=== PATIENT | male | born 1955 | race Hispanic/Latino ===

== ENCOUNTER 2018-05-31 11:26 | Observation (INO) | payer BC, OTHER ==
--- OUTSIDE RECORDS SUMMARY | 2018-05-31 11:29 | XMS REPORT ---
:1955 [facility] Address [address] [place] [address] [address] [place] [address] Care Team Providers Name Role Phone VLADISLAV PINEDA Primary Care Provider Unavailable VLADISLAV PINEDA Unavailable Unavailable Problems This patient has no known problems. Allergies, Adverse Reactions, Alerts This patient has no known allergies or adverse reactions. Medications This patient has no known medications. Encounters Start End Encounter Admission Attending Care Care Encounter Date/Time Date/Time Type Type Clinicians Facility Department ID 2017-11-13 2017-11-13 Outpatient C MIRIAM [facility] [id number] 18:02:00 18:02:00 VLADISLAV Results Test Description Test Time Test Comments Text Results Atomic Results Result Comments Lipid Profile 2017-11-13 19:14:00 Test Item Value Reference Range Comments Cholesterol (test code=CHOL) 180 mg/dL 0-200 Triglycerides (test code=TRIG) 190 mg/dL 9-200 HDL (test code=HDL) 39 mg/dL 40-60 Chol/HDL (test code=CHOLPHDL) 4.6 Ratio 0.0-5.0 LDL, Calculated (test 103 mg/dL 0-130 (NOTE)RISK OF HEART DISEASEPublished code=LDLC) by [place] Heart AssociationAnalyte Optimal Boderline Increased RiskCHOL <200 200-239 >240TRIG <150 150-199 >200HDL Male: >60 <40HDL Female: >60 <50LDL <100 130-159 >160LDL NEAR OPTIMAL IS 100-129 VLDL (test code=VLDL) 38 mg/dL 5-40 LDL/HDL (test code=LDLPHDL) 3 B-Type Natriuretic [id number] 11:54:00 Test Item Value Reference Range Comments B-Type Natriuretic Peptide (test vuzu=540382) 52.6 pg/mL 0.0-100.0 Glycosylated [id number] 00:07:00 Test Item Value Reference Range Comments HBA1c (test code=HBA1C) 11.3 % 4.8-5.9 CBC with [id number] 22:52:00 Test Item Value Reference Range Comments WBC (test code=WBC) 6.6 K/cumm 4.4-10.5 RBC (test code=RBC) 4.79 M/cumm 4.10-5.70 Hemoglobin (test code=HGB) 14.3 gm/dL 13.4-17.4 Hematocrit (test code=HCT) 44.4 % 38.7-52.0 MCV (test code=MCV) 92.8 fL 80-100 MCH (test code=MCH) 29.7 pg 27.0-32.5 MCHC (test code=MCHC) 32.1 g/dL 32.0-37.5 RDW (test code=RDW) 15.1 % 11.5-14.5 Platelet Count (test code=PLTCT) 250 K/cumm 140-440 MPV (test code=MPV) 10.3 fL Diff Method (test code=DIFFM) Auto Neutrophil (test code=NEUT) 58.7 % 36-70 Lymphocyte (test code=LYMPH) 31.7 % 12-44 Monocyte (test code=MONO) 5.7 % 0-11 Eosinophil (test code=EOS) 3.4 % 0-7 Basophil (test code=BASO) 0.5 % 0-2 Neutro Abs (test code=ANEUT) 3.9 K/cumm 1.6-7.4 Lymph Abs (test code=ALYMPH) 2.1 K/cumm 0.5-4.6 Iron Abs (test code=AMONO) 0.4 K/cumm 0.0-1.2 Eos Abs (test code=AEOS) 0.23 K/cumm 0.00-0.74 Baso Abs (test code=ABASO) 0.0 K/cumm 0.00-0.21 Vitamin [id number] 21:45:00 Test Item Value Reference Range Comments Vitamin B 12 (test code=VITB12) 797 pg/mL 211-946 Troponin [id number] 21:39:00 Test Item Value Reference Range Comments Troponin T (test code=PARESH) <0.010 ng/mL 0.000-0.090 Testosterone, [id number] 21:39:00 Test Item Value Reference Range Comments Testosterone, Total (test code=TESTOS) 3.81 ng/mL 2.80-8.00 Thyroid Stimulating Hormone (TSH)2017-02-18 21:39:00 Test Item Value Reference Range Comments TSH (test code=TSH) 2.04 mIU/mL 0.270-4.200 Comprehensive Metabolic [id number] 21:39:00 Test Item Value Reference Range Comments Sodium (test code=NA) 138 mmol/L 135-145 Potassium (test code=K) 3.9 mmol/L 3.5-5.1 Chloride (test code=CL) 97 mmol/L 98-105 Carbon Dioxide (test 25 mmol/L 22-29 code=CO2) Glucose (test code=GLU) 258 mg/dL 70-115 Blood Urea Nitrogen 17 mg/dL 8-23 (test code=BUN) Creatinine (test 0.8 mg/dL 0.7-1.2 code=CREAT) Calcium (test code=CA) 9.8 mg/dL 8.3-10.5 Prot Total (test 7.2 g/dL 6.4-8.3 code=TP) Albumin (test code=ALB) 4.5 g/dL 3.5-5.2 A/G Ratio (test 1.7 Ratio code=AGRATIO) Globulin (test 2.7 2.9-3.1 code=GLOB) Bili Total (test 0.8 mg/dL 0.1-0.9 code=TBIL) Alk Phos (test 78 U/L 40-129 code=APHOS) AST (test code=AST) 13 U/L 1-40 ALT (test code=ALT) 16 U/L 1-41 BUN/Creatinine Ratio 21.3 (test code=BCRATIO) Anion Gap (test 16 mmol/L 7-16 code=AGAP) Estimated GFR (test >60 mL/min/1.73m2 eGFR (estimated Glomerular code=GFR) Filtration Rate) is an estimated value,calculated from the patient's serum creatinine using the MDRD equation.It is NOT the patient's actual GFR. The eGFR provides a more clinicallyuseful measure of kidney disease than serum creatinine alone.This calculation takes sex and race into account, if the informationis provided. If the race is not provided, and the patient isAfrican-[place], multiply by 1.212. If sex is not provided, and thepatient is female, multiply by 0.742. Results for patients <18 years ofage have not been validated by the MDRD study and should be interpretedwith caution.eGFR Result Interpretation:eGFR > or=60 is in the Normal RangeeGFR < 60 may mean kidney diseaseeGFR < 15 may mean kidney failureRanges recommended by the National Kidney Foundation,http://nkdep.nih .gov CK [id number] 21:39:00 Test Item Value Reference Range Comments CK (test code=CK) 119 U/L 39-308 CK [id number] 21:39:00 Test Item Value Reference Range Comments CK (test code=CK) 119 U/L 39-308 CKMB (test code=CKMB) 1.9 ng/mL 0.0-4.9 CKMB% (test code=CKMBP) 1.6 % 0.0-3.4 Lipid [id number] 21:39:00 Test Item Value Reference Range Comments Cholesterol (test 169 mg/dL 0-200 code=CHOL) Triglycerides (test 211 mg/dL 9-200 code=TRIG) HDL (test code=HDL) 42 mg/dL 40-60 Chol/HDL (test 4.0 Ratio 0.0-5.0 code=CHOLPHDL) LDL, Calculated (test 85 0-130 (NOTE)RISK OF HEART code=LDLC) DISEASEPublished by [place] Heart AssociationAnalyte Optimal Boderline Increased RiskCHOL <200 200-239 >240TRIG <150 150-199 >200HDL Male: >60 <40HDL Female: >60 <50LDL <100 130-159 >160LDL NEAR OPTIMAL IS 100-129 VLDL (test code=VLDL) 42 mg/dL 5-40 LDL/HDL (test code=LDLPHDL) 2
[2018-05-31] MEDS ORDERED: NA CHLORIDE 0.9% 1,000 ML ONE (11:54)
[2018-05-31 11:58] LABS: Absolute Monocytes 0.5 K/uL (0.1-1.3); Absolute Neutrophil 5.1 K/uL (1.8-8.0); Basophils % 0.6 % (0-1.3); Eosinophils % 1.1 % (0-4.4); Hematocrit 40.5 % (39.6-49.0); Lymphocytes % 25.9 % (15.3-44.8); MCH 31.3 pg (27.0-35.0); MCV 89.1 fL (80-100); MPV 9.5 fL (7.6-11.3); Monocytes % 6.9 % (3.3-12.3); RBC Red Blood Cell Count 4.54 M/uL (4.33-5.43)
[2018-05-31 12:03] LABS: Protime INR 0.97
[2018-05-31 12:30] LABS: ALT/SGPT 22 U/L (12-78); AST/SGOT 20 U/L (15-37); Albumin 3.9 g/dL (3.4-5.0); Alkaline Phosphatase 79 U/L (45-117); BUN Blood Urea Nitrogen 24 mg/dL (7-18); Bicarbonate 20 mmol/L (21-32); Glucose Level 545 mg/dL (74-106); Magnesium 1.6 mg/dL (1.8-2.4); NT PRO-BNP 53 pg/mL (<125); Potassium 4.3 mmol/L (3.5-5.1); Protein, Total 7.3 g/dL (6.4-8.2); Sodium Level 128 mmol/L (136-145); Troponin (Emerg Dept Use Only) < 0.02 ng/mL (0.0-0.045)
--- NOTE | 2018-05-31 12:42 | RAD REPORT ---
EXAM DESCRIPTION: RAD - Chest Single View - 05/31/2018 12:04 pm CLINICAL HISTORY: CHEST PAIN Chest pain. COMPARISON: CHEST SINGLE VIEW dated 05/27/2014; CHEST SINGLE VIEW dated 05/26/2014; CHEST SINGLE VIEW dated 10/24/2012; CHEST SINGLE VIEW dated 06/09/2011 FINDINGS: Portable technique limits examination quality. The lungs are grossly clear. The heart is normal in size. No displaced fractures.Dual lead pacer mitesh ce is in place. IMPRESSION: No acute intrathoracic process suspected.
--- NOTE | 2018-05-31 13:44 | RAD REPORT ---
EXAM DESCRIPTION: CT - Chest Angio - 05/31/2018 1:34 pm CLINICAL HISTORY: Chest pain. elevated ddimer, CP COMPARISON: Head Brain Wo Cont dated 03/18/2016; Abdomen Pelvis Wo Contrast dated 12/15/2015; Head B rain Wo Cont dated 12/15/2015; CT HEAD BRAIN WWO CONTRAST dated 10/09/2015CTANGIO CHEST FOR PE dated 10/24/2012 TECHNIQUE: CT angiogram of the pulmonary arteries was performed with MIP. All CT scans are performed using dose optimization technique as appropriate and may include automated exposure control or mA/KV adjustment according to patient size. FINDINGS: No evidence of pulmonary thromboembolism. No acute aortic finding demonstrated. Mild diffuse COPD noted. No significant pericardial or pleural fluid. No concerning bony finding. Cholecystectomy clips. IMPRESSION: No evidence of pulmonary thromboembolism. Mild COPD.
[2018-05-31] MEDS ORDERED: INSULIN -REGULAR HUMAN 50 UNIT/0.5 ML ML ONE (13:51)
--- NOTE | 2018-05-31 14:34 | ER ---
Nurse's Notes [facility] Name: Marquise Knight Age: 63 yrs Sex: Male : 1955 Arrival Date: 05/31/2018 Time: 11:29 Bed 8 Private MD: HOLLY DAWSON Diagnosis: Chest pain, unspecified;Hyperglycemia Presentation: 05/31 11:33 Presenting complaint: Patient states: I have had chest pain on and off for the last la1 week and my sugars have been very high (300-600). Transition of care: patient was not received from another setting of care. Onset of symptoms was May 31, 2018. Risk Assessment: Do you want to hurt yourself or someone else? Patient reports no desire to harm self or others. Initial Sepsis Screen:. Care prior to arrival: None. 11:33 Method Of Arrival: Wheelchair la1 11:33 Acuity: AMY 2 la1 11:57 Initial Sepsis Screen: Does the patient meet any 2 criteria? No. Patient's initial ph sepsis screen is negative. Does the patient have a suspected source of infection? No. Patient's initial sepsis screen is negative. Historical: - Allergies: 11:34 No Known Allergies; la1 - Home Meds: 14:28 Humalog Mix 75-25 100 unit/mL (75-25) Sub-Q susp 25 unit twice a day [Active]; sv - PMHx: 11:34 Diabetes - NIDDM; High Cholesterol; Hypertension; CVA; la1 - PSHx: 11:34 pacemakes; Cholecystectomy; Knee surgery; la1 - Immunization history:: Adult Immunizations up to date. - Social history:: Smoking status: Patient/guardian denies using tobacco. - Ebola Screening: : No symptoms or risks identified at this time. Screenin:56 Abuse screen: Denies threats or abuse. Denies injuries from another. Nutritional ph screening: No deficits noted. Tuberculosis screening: No symptoms or risk factors identified. Fall Risk None identified. Assessment: 11:54 General: Appears in no apparent distress. comfortable, well groomed, Behavior is calm, ph cooperative, appropriate for age, Denies feeling ill. Pain: Complains of pain in anterior aspect of left upper chest Pain does not radiate. Quality of pain is described as pressure, Pain began "about a week ago". Neuro: Level of Consciousness is awake, alert, obeys commands, Oriented to person, place, time, situation, Reports dizziness, headache weakness " all over". Cardiovascular: Reports chest pain, fatigue, lightheadedness, palpitations, Denies nausea, shortness of breath, vomiting, Capillary refill < 3 seconds in bilateral fingers Patient's skin is warm and dry. Rhythm is sinus rhythm. Respiratory: Airway is patent Respiratory effort is even, unlabored, Respiratory pattern is regular, symmetrical. GI: Patient currently denies abdominal pain, diarrhea, nausea, vomiting. : No signs and/or symptoms were reported regarding the genitourinary system. Derm: Skin is intact, Skin is pink, warm \\T\\ dry. Musculoskeletal: Circulation, motion, and sensation intact. Range of motion: intact in all extremities. 12:30 Reassessment: Serum glucose 545, Dr. Smith notified. hb 14:02 Reassessment: Patient appears in no apparent distress at this time. Patient and/or ph family updated on plan of care and expected duration. Pain level reassessed. Patient is alert, oriented x 3, equal unlabored respirations, skin warm/dry/pink. Pt resting quietly, awaiting CT results, at bedside, VSS. 15:10 Reassessment: Patient appears in no apparent distress at this time. No changes from sv previously documented assessment. Patient and/or family updated on plan of care and expected duration. Pain level reassessed. Patient is alert, oriented x 3, equal unlabored respirations, skin warm/dry/pink. 16:00 Reassessment: Patient appears in no apparent distress at this time. No changes from sv previously documented assessment. Patient and/or family updated on plan of care and expected duration. Pain level reassessed. Patient is alert, oriented x 3, equal unlabored respirations, skin warm/dry/pink. Vital Signs: 11:35 BP 128 / 90; Pulse 115; Resp 16; Temp 98.4; Pulse Ox 96% on R/A; Weight 95.25 kg; la1 Height 5 ft. 9 in. (175.26 cm); 13:00 BP 126 / 68; Pulse 83; Resp 18; Pulse Ox 96% on R/A; ph 14:00 BP 121 / 74; Pulse 79; Resp 16; Pulse Ox 97% on R/A; ph 15:30 BP 122 / 76; Pulse 81; Resp 16; Pulse Ox 99% on R/A; ph 11:35 Body Mass Index 31.01 (95.25 kg, 175.26 cm) la1 ED Course: 11:29 Patient arrived in ED. sb2 11:30 HOLLY DAWSON is Private Physician. sb2 11:34 Triage completed. la1 11:35 Arm band placed on left wrist. la1 11:39 Tono Smith MD is Attending Physician. ps1 11:49 Inserted saline lock: 20 gauge in right forearm, using aseptic technique. Blood la1 collected. 11:53 Maria Elena Arrington, RN is Primary Nurse. ph 11:56 Patient maintains SpO2 saturation greater than 95% on room air. ph 11:57 Patient has correct armband on for positive identification. Placed in gown. Bed in low ph position. Call light in reach. Side rails up X 1. force adjustment supervisor on. Pulse ox on. NIBP on. 12:03 XRAY Chest (1 view) In Process Unspecified. EDMS 13:31 CT completed. Patient moved to CT via wheelchair. Patient moved back from radiology. cw1 13:35 CT Chest Angio In Process Unspecified. EDMS 14:33 Renee Vasquez MD is Hospitalizing Provider. ps1 15:51 No provider procedures requiring assistance completed. Patient admitted, IV remains in sv place. intact. Administered Medications: 11:58 Drug: NS 0.9% 1000 ml Route: IV; Rate: 1000 ml; Site: right forearm; ph 13:53 Drug: Insulin Regular Human 10 units {Co-Signature: hb (Vonda Kennedy RN).} Route: ph Sub-Q; Site: right upper arm; Point of Care Testing: Blood Glucose: 11:49 Blood Glucose: 441 mg/dL; la1 13:55 Blood Glucose: 371 mg/dL; ph Ranges: Outcome: 14:33 Decision to Hospitalize by Provider. ps1 15:52 Admitted to Tele accompanied by tech, family with patient, via wheelchair, room 429, sv with chart, Report called to Alex Mitchell RN 16:11 Patient left the ED. sv Signatures: Dispatcher [employer] EDOR Miriam Pulliam RN RN Eva Beckwith cw1 Gavin Ospina RN RN la1 Arrington, Maria Elena, RN Vonda Llamas ph, RN RN hb Tono Smith MD MD ps1 Micaela Tristan sb2 Vonda Kennedy RN hb Corrections: (The following items were deleted from the chart) 11:34 11:33 Acuity: AMY 3 la1 la1
--- NOTE | 2018-05-31 14:34 | EDPHYS ---
Physician Documentation [facility] Name: Marquise Knight Age: 63 yrs Sex: Male : 1955 Arrival Date: 05/31/2018 Time: 11:29 Bed 8 Private MD: HOLLY DAWSON ED Physician Tono Smith HPI: 05/31 11:40 This 63 yrs old Male presents to ER via Wheelchair with complaints of Chest ps1 Pain > 30 y/o. 11:40 The patient or guardian reports chest pain that is located primarily in the substernal ps1 area. Onset: 1 week(s) ago. The pain does not radiate. Associated signs and symptoms: Pertinent positives: headache. The chest pain is described as dull, a heaviness. Duration: The patient or guardian reports multiple episodes, that are intermittent. The patient has experienced a previous episode. hx of IDDM. 30 qam qhs with meals. BS>600 this past week. Has appointment with endocrinology. 441 in ED. Hx of Pacer in [facility] for symptomatic bradycardia. . Historical: - Allergies: 11:34 No Known Allergies; la1 - Home Meds: 14:28 Humalog Mix 75-25 100 unit/mL (75-25) Sub-Q susp 25 unit twice a day [Active]; sv - PMHx: 11:34 Diabetes - NIDDM; High Cholesterol; Hypertension; CVA; la1 - PSHx: 11:34 pacemakes; Cholecystectomy; Knee surgery; la1 - Immunization history:: Adult Immunizations up to date. - Social history:: Smoking status: Patient/guardian denies using tobacco. - Ebola Screening: : No symptoms or risks identified at this time. ROS: 11:40 Constitutional: Negative for fever, chills, and weight loss, Eyes: Negative for injury, ps1 pain, redness, and discharge, ENT: Negative for injury, pain, and discharge. 11:40 Respiratory: Negative for shortness of breath, cough, wheezing, and pleuritic chest pain, Abdomen/GI: Negative for abdominal pain, nausea, vomiting, diarrhea, and constipation, MS/Extremity: Negative for injury and deformity, Skin: Negative for injury, rash, and discoloration. 11:40 Cardiovascular: Positive for chest pain, of the anterior aspect of left upper chest. 11:40 Neuro: Positive for headache. Exam: 11:40 Constitutional: This is a well developed, well nourished patient who is awake, alert, ps1 and in no acute distress. Head/Face: Normocephalic, atraumatic. Eyes: Pupils equal round and reactive to light, extra-ocular motions intact. Lids and lashes normal. Conjunctiva and sclera are non-icteric and not injected. Cardiovascular: Regular rate and rhythm. No gallops, murmurs, or rubs. Normal PMI, no JVD. No pulse deficits. Respiratory: Lungs have equal breath sounds bilaterally, clear to auscultation and percussion. No rales, rhonchi or wheezes noted. No increased work of breathing, no retractions or nasal flaring. Abdomen/GI: Soft, non-tender, with normal bowel sounds. No distension or tympany. No guarding or rebound. No evidence of tenderness throughout. Skin: Warm, dry with normal turgor. Normal color with no rashes, no lesions, and no evidence of cellulitis. 11:40 Chest/axilla: Inspection: pacer in left chest. Vital Signs: 11:35 BP 128 / 90; Pulse 115; Resp 16; Temp 98.4; Pulse Ox 96% on R/A; Weight 95.25 kg; la1 Height 5 ft. 9 in. (175.26 cm); 13:00 BP 126 / 68; Pulse 83; Resp 18; Pulse Ox 96% on R/A; ph 14:00 BP 121 / 74; Pulse 79; Resp 16; Pulse Ox 97% on R/A; ph 15:30 BP 122 / 76; Pulse 81; Resp 16; Pulse Ox 99% on R/A; ph 11:35 Body Mass Index 31.01 (95.25 kg, 175.26 cm) la1 MDM: 12:24 Patient medically screened. ps1 05/31 11:45 Order name: CBC with Diff; Complete Time: 12:24 ps1 05/31 11:45 Order name: Magnesium; Complete Time: 12:46 ps1 05/31 11:45 Order name: NT PRO-BNP; Complete Time: 12:46 ps1 05/31 11:45 Order name: PT-INR; Complete Time: 12:24 ps1 05/31 11:45 Order name: Troponin (emerg Dept Use Only); Complete Time: 12:46 ps1 05/31 11:45 Order name: CMP; Complete Time: 12:46 ps1 05/31 11:45 Order name: XRAY Chest (1 view); Complete Time: 12:46 ps1 05/31 11:45 Order name: DD; Complete Time: 12:24 ps1 05/31 13:01 Order name: CT Chest Angio; Complete Time: 13:50 ps1 05/31 13:51 Order name: Glucose, Ancillary Testing; Complete Time: 13:53 EDMS 05/31 13:51 Order name: Glucose, Ancillary Testing; Complete Time: 13:53 EDMS 05/31 14:24 Order name: Hemoglobin A1c EDMS 05/31 11:45 Order name: EKG; Complete Time: 11:46 ps1 05/31 11:45 Order name: Cardiac monitoring; Complete Time: 11:57 ps1 05/31 11:45 Order name: EKG - Nurse/Tech; Complete Time: 11:57 ps1 05/31 11:45 Order name: IV Saline Lock; Complete Time: 11:57 ps1 05/31 11:45 Order name: Labs collected and sent; Complete Time: 11:57 ps1 05/31 11:45 Order name: O2 Per Protocol; Complete Time: 11:57 ps1 05/31 11:45 Order name: O2 Sat Monitoring; Complete Time: 11:57 ps1 05/31 13:30 Order name: Accucheck Blood Glucose; Complete Time: 13:53 ps1 EC:40 Rate is 94 beats/min. Rhythm is regular. QRS [place] is Normal. [place] interval is normal. QRS ps1 interval is normal. QT interval is normal. No Q waves. T waves are Normal. No ST changes noted. Clinical impression: Normal ECG. Administered Medications: 11:58 Drug: NS 0.9% 1000 ml Route: IV; Rate: 1000 ml; Site: right forearm; ph 13:53 Drug: Insulin Regular Human 10 units {Co-Signature: hb (Vonda Kennedy RN).} Route: ph Sub-Q; Site: right upper arm; Point of Care Testing: Blood Glucose: 11:49 Blood Glucose: 441 mg/dL; la1 13:55 Blood Glucose: 371 mg/dL; ph Ranges: Critical Glucose Levels:Adult <50 mg/dl or >400 mg/dl <40 mg/dl or >180 mg/dl Disposition: 05/31/18 14:33 Hospitalization ordered by Renee Vasquez for Observation. Preliminary diagnosis are Chest pain, unspecified, Hyperglycemia. - Bed requested for Telemetry/MedSurg (observation). - Status is Observation. sv - Condition is Stable. - Problem is new. - Symptoms have improved. UTI on Admission? No Signatures: Dispatcher [employer] EDMiriam Washington RN RN sv Gavin Ospina RN RN la1 Maria Elena Arrington RN RN Tono Smith MD MD ps1 Dora Houston eb Vonda Kennedy RN Corrections: (The following items were deleted from the chart) 15:10 14:33 Hospitalization Ordered by Rneee Vasquez MD for Observation. Preliminary eb diagnosis is Chest pain, unspecified; Hyperglycemia. Bed requested for Telemetry/MedSurg (observation). Status is Observation. Condition is Stable. Problem is new. Symptoms have improved. UTI on Admission? No. ps1 16:11 15:10 05/31/2018 14:33 Hospitalization Ordered by Renee Vasquez MD for Observation. sv Preliminary diagnosis is Chest pain, unspecified; Hyperglycemia. Bed requested for Telemetry/MedSurg (observation). Status is Observation. Condition is Stable. Problem is new. Symptoms have improved. UTI on Admission? No. eb
[2018-05-31] MEDS: SITAGLIPTIN PHOS 100 MG TAB PO SCH (15:00)
[2018-05-31] MEDS ORDERED: Magnesium Sulfate 2gm IVPB 2 G/50 ML BAG IV ONE (16:10)
[2018-05-31] MEDS ORDERED: ONDANSETRON 4 MG/2 ML VIAL IV PRN (16:10)
[2018-05-31] MEDS ORDERED: ACETAMINOPHEN 650MG/RECT SUPP PR PRN (16:10)
[2018-05-31] MEDS ORDERED: NITROGLYCERIN 0.4 MG/TAB SL PRN (16:20)
[2018-05-31 16:32] VITALS: BMI 31.6
[2018-05-31 16:51] LABS: Absolute Lymphocytes (CBC) 1.9 K/uL (0.7-4.9); Absolute Monocytes 0.5 K/uL (0.1-1.3); Absolute Neutrophil 3.7 K/uL (1.8-8.0); Basophils % 0.6 % (0-1.3); Hematocrit 38.9 % (39.6-49.0); Lymphocytes % 30.5 % (15.3-44.8); MCH 30.4 pg (27.0-35.0); MCV 88.8 fL (80-100); MPV 8.9 fL (7.6-11.3); Monocytes % 8.3 % (3.3-12.3); RBC Red Blood Cell Count 4.38 M/uL (4.33-5.43)
[2018-05-31] MEDS ORDERED: METFORMIN ER 500 MG TAB PO SCH (17:00)
[2018-05-31] MEDS: NA CHLORIDE 0.9% 1,000 ML IV SCH (17:03)
[2018-05-31] MEDS: ENOXAPARIN 40 MG/0.4 ML SQ SCH (17:04)
[2018-05-31 17:08] LABS: ALT/SGPT 21 U/L (12-78); AST/SGOT 12 U/L (15-37); Albumin 3.7 g/dL (3.4-5.0); Alkaline Phosphatase 72 U/L (45-117); BUN Blood Urea Nitrogen 20 mg/dL (7-18); Bicarbonate 25 mmol/L (21-32); Bilirubin Total 0.7 mg/dL (0.2-1.0); CKMB Creatine Kinase MB 1.4 ng/mL (0.3-3.6); Creatine Phosphokinase 82 U/L (39-308); Glucose Level 316 mg/dL (74-106); Sodium Level 131 mmol/L (136-145); Troponin I < 0.02 ng/mL (0.0-0.045)
[2018-05-31] MEDS: INSULIN -REGULAR HUMAN 50 UNIT/0.5 ML ML SQ SCH ×2 (17:20→20:55)
[2018-05-31] MEDS ORDERED: INFLUENZA VACCINE (for 3y+) 0.5 ML DOSE IMVAC ONE (18:00)
[2018-05-31] MEDS: METOPROLOL TAR 50 MG TAB PO SCH (20:22)
[2018-05-31] MEDS ORDERED: ACETAMINOPHEN 500 MG TAB PO PRN (20:54)
[2018-05-31] MEDS ORDERED: ATORVASTATIN 40 MG TAB PO SCH (21:00)
[2018-06-01 00:41] LABS: CKMB Creatine Kinase MB 1.2 ng/mL (0.3-3.6); Creatine Phosphokinase 77 U/L (39-308); Troponin I < 0.02 ng/mL (0.0-0.045)
--- NOTE | 2018-06-01 00:50 | HP ---
Date of Admission: 05/31/2018 Reason For Admission: Chest pain. History Of Present Illness: This is a 63-year-old gentleman with history of multiple medical problem s including coronary artery disease status post cardiac cath with stent placement couple of years ago , CVA, hypertension, hyperlipidemia, poorly controlled diabetes mellitus, presented today with histor y of 1 day of progressive chest pain in the upper chest radiating to both arms associated with nausea , dizziness. He was discharged today and he felt much worse and he felt his heart racing and decided to come to the ER where he was evaluated. His labs were all within normal including cardiac enzyme, but glucose was 545, he was given insulin and his glucose went down to 371. His D-dimer was 605. C T of the chest only done that showed no PE. The patient was admitted for chest pain, rule out myocar dial infarction. Currently, he is lying in bed. He looks comfortable. His at the bedside. Sh e reported difficulty controlling his glucose and have an appointment with Dr. Katlin de jesus endocrinologi st in a.m. Past Medical History: Significant for hypertension, diabetes, hyperlipidemia, coronary artery diseas e status post multiple stents 2 years ago, pacemaker placement. Past Surgical History: Significant for cholecystectomy, knee surgery, and pacemaker placement. Social History: He is . He has 2 kids. 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 He does not drink, smoke, or use any drugs. He quit smoking more than 30 years ago. Family History: Both father and mother . Father of lung cancer. Mother of stroke. Medications: Medication list not available. The patient will ask neighbor to go to the house and br ing list of the medications, so we can start them after admission. Review of Systems: Denies any fever, chills, night sweats, but had dizziness. He said there is no change in weight or a ppetite. He did not have any syncopal episodes. No nausea. No vomiting. No cough. He had shortne ss of breath. As I mentioned earlier, he had some palpitations. There was dyspnea on exertion. No PND or orthopnea. He did not have any lower extremity edema. No nausea or vomiting now, but he had nausea earlier. He has no abdominal pain. No diarrhea or constipation. No dysuria, frequency, urge ncy, or hematuria. There is no history of depression, anxiety, seizure, or stroke. Physical Examination: Vital Signs: Currently, blood pressure is 128/90, respiratory rate 16, pulse 79, saturating 97% on r oom air. Temperature at 98.4. General: The patient is alert and oriented x3. Does not look in any distress. HEENT: Atraumatic, normocephalic. PERRLA. Oral mucosa is moist. Neck: Supple. No JVD. No carotid bruits. Chest: Clear to auscultation. Good air entry. Heart: Regular rate and rhythm. S1 and S2 normal. No gallop or murmur. Abdomen: Soft, nontender. No masses. No hepatosplenomegaly. Positive bowel sounds. Extremities: No clubbing, cyanosis, or edema. No calf tenderness. Neurologic: Grossly intact. Cranial nerve exam 2 through 12 intact. Normal sensation. Normal refl exes. Normal muscle strength. Laboratory Data: Today's CBC was normal. PT/INR within normal. Chemistry within normal except for glucose at 545, sodium 128, chloride 96, carbon dioxide 20, BUN of 24. Glucose is now down to 371. Magnesium was 1.6. Hemoglobin A1c pending. BMP is normal. CT scan of the chest was negative for PE , but signs of chronic obstructive pulmonary disease. Assessment And Plan: This is a 63-year-old gentleman with history of multiple medical problems inclu ding hypertension, hyperlipidemia, uncontrolled diabetes, coronary artery disease, who presented with chest pain, palpitation, and found to be in sinus tach with glucose of 545. 1.Chest pain, rule out myocardial infarction. We will proceed with admission. Keep patient on tele . Check cardiac enzymes. The patient's first set negative so I will just start him on Lovenox and D VT prophylaxis. Dose is not full dose. His chest pain also resolved. At this point, heart rate is back to normal. We will maintain patient on IV fluids. Given his elevated BUN. We will resume RADHA inhibitor, low dose of beta-daniel, aspirin, Plavix. If cardiac enzymes in a.m. are negative, we wi ll proceed with stress test. If they are positive then we will consult Cardiology. 2.Diabetes mellitus, uncontrolled. We will check hemoglobin A1c. We will place patient on __ sliding scale. He is already taking metformin at home, I will resume that. He is also getting Ja myesha, I will resume that, but will need actual dose of insulin to resume meds here. The patient krause s not have DKA and his glucose already down to 371 after given regular insulin in the emergency room. 3.Hypomagnesemia, I will replace the IV. 4.Hyperlipidemia, we will check lipid profile. Continue patient on statin. 5.Hyponatremia could be secondary to hyperglycemia. We will follow labs in a.m. 6.Dehydration with elevated BUN. We will start patient on IV fluid with normal saline. 7.Nausea resolved, but will use p.r.n. Zofran. SADIQ/FRANCISCOL Voice ID: [id number]
[2018-06-01] MEDS: NA CHLORIDE 0.9% 1,000 ML IV SCH ×2 (01:43→11:24)
[2018-06-01] MEDS: INSULIN -REGULAR HUMAN 50 UNIT/0.5 ML ML SQ SCH ×2 (07:30→11:23)
--- NOTE | 2018-06-01 07:31 | EKG ---
Test Date: 2018-05-31 Test Time: 11:41:59 Testing Coordinator: LA MEASUREMENT RESULTS: Intervals: Rate: 94 WV: 182 QRSD: 74 QT: 350 QTc: 437 [place]: P: 40 WV: 182 QRS: -1 T: 60 INTERPRETIVE STATEMENTS: Normal sinus rhythm Normal ECG Compared to ECG 09/21/2015 11:54:10 No significant changes Electronically Signed On 06-01-18 07:30:06 CDT by Aubrey Nicholson
[2018-06-01] MEDS ORDERED: REGADENOSON 0.4 MG/5 ML SYR IV ONE (08:42)
[2018-06-01] MEDS ORDERED: ASPIRIN 325 MG TAB PO SCH (09:00)
[2018-06-01] MEDS ORDERED: CLOPIDOGREL 75 MG TABLET PO SCH (09:00)
[2018-06-01] MEDS ORDERED: LISINOPRIL 10 MG TAB PO SCH (09:00)
[2018-06-01] MEDS: ENOXAPARIN 40 MG/0.4 ML SQ SCH (10:48)
[2018-06-01] MEDS: SITAGLIPTIN PHOS 100 MG TAB PO SCH (10:49)
[2018-06-01] MEDS: METOPROLOL TAR 50 MG TAB PO SCH (10:49)
--- NOTE | 2018-06-01 10:55 | TREADPHA ---
DX: CHEST PAIN Date of Study: 06/01/18 Ht: 5 9 Wt: 214 lb 0 oz Consulting Physician: FATOUMATA MEDICATIONS: TYLENOL, ASPIRIN, PLAVIX, LIPITOR, NOVOLIN-R, LISINOPRIIL, LOVENOX, LOPRESSOR, NITROSTAT. HISTORY: 63 YEAR OLD MALE WITH COMPLAINTS OF CHEST PAIN. MEDICAL HISTORY OF HYPERTENSION, DIABETES MELLITUS, HIGH CHOLESTEROL, CEREBRAL VASCULAR ACCIDENT, PACER. PHYSICIAL EXAMINATION: RESTING B.P.: 134/77 RESTING H.R.: 63 RESTING EKG: NORMAL PROTOCOL: LEXISCAN EXERCISE TIME: 3:30 B.P. AT PEAK STRESS: 137/73 IMPRESSION: LEXISCAN INJECTED, CARDIOLITE INJECTED PER PROTOCOL. SEE NUCLEAR MEDICINE REPORT. NO SUPRA VENTRICULAR TACHYCARDIA, NO VENTRICULAR TACHYCARDIA, NO PREMATURE VENTRICULAR COMPLEXES. DENIED CHEST PAIN. NON DIAGNOSTIC EKG WITH LEXISCAN STRESS.
[2018-06-01 11:21] LABS: CKMB Creatine Kinase MB < 1.0 ng/mL (0.3-3.6); Creatine Phosphokinase 84 U/L (39-308); Troponin I < 0.02 ng/mL (0.0-0.045)
[2018-06-01 12:19] VITALS: BP 120/66; TEMP 97.5
[2018-06-01 12:26] VITALS: O2SAT 98
--- NOTE | 2018-06-01 13:05 | RAD REPORT ---
EXAM DESCRIPTION: NM - Rest Stress Cardiac Imaging - 06/01/2018 11:49 am CLINICAL HISTORY: Chest pain COMPARISON: May 2014 TECHNIQUE: The patient was administered 11.0 mCi of Tc 99m Sestamibi prior to resting SPECT imaging of the heart. The patient was then administered 29.3 mCi of Tc 99m Sestamibi following exercise or ph armacologic stress. Multiplanar SPECT images were reviewed. FINDINGS: The end diastolic volume is 85 ml, the end systolic volume is 33 ml, and the ejection frac tion is 61 %. Ejection fraction has decreased approximately 10% since the 2014 study. Ventricular vol umes are not substantially different. Large inferior wall fixed defect from base to apex is noted. This is similar to the 2014 study. The s mall anterior wall defect near the apex also unchanged from the prior study. No stress-induced ischem ic change identifiable on this examination. No new area of scarring or attenuation artifact. IMPRESSION: No stress-induced ischemic change identified. Large inferior wall and small anterior wall fixed defects match the 2014 study. Ventricular volumes and ejection fraction are normal range.
[2018-06-01] MEDS ORDERED: INFLUENZA VACCINE (for 3y+) 0.5 ML DOSE IMVAC ONE (16:00)
[2018-06-01] MEDS ORDERED: HUMALOG MIX 75/25 100 UNITS/ML SQ SCH (21:00)
[2018-06-02] MEDS ORDERED: PANTOPRAZOLE 40MG TABLET PO SCH (06:30)
[2018-06-02] MEDS ORDERED: HUMALOG MIX 75/25 100 UNITS/ML SQ SCH (08:00)
[2018-06-02] MEDS ORDERED: POTASSIUM CL SA 10 MEQ TAB PO SCH (09:00)
[2018-06-02] MEDS ORDERED: FUROSEMIDE 20 MG TABLET PO SCH (09:00)
[2018-06-02] MEDS ORDERED: ESCITALOPRAM 20 MG TAB PO SCH (09:00)
--- NOTE | 2018-06-02 14:09 | DS ---
Date of Discharge: 06/01/2018 Admitting Diagnoses: 1.Chest pain, rule out acute coronary syndrome. 2.Diabetes mellitus type 2 with hyperglycemia, uncontrolled with long-term use of insulin. 3.Hypomagnesemia. 4.Hyperlipidemia. 5.Hyponatremia. 6.Dehydration. 7.Intractable nausea and vomiting. Discharge Diagnoses: 1.Unstable angina, acute coronary syndrome ruled out. 2.Coronary artery disease, lovelock artery and lovelock heart, status post stent, follows with cardiolog ist in [place]. 3.Status post defibrillator recently. 4.Status post pacemaker defibrillator. 5.Diabetes mellitus type 2, uncontrolled. Hemoglobin A1c 13% with hyperglycemia with long-term use of insulin. 6.Noncompliance with insulin and diabetic diet. 7.Hypomagnesemia, replaced. 8.Mixed hyperlipidemia, statin. 9.Hyponatremia, improving. 10.Acute dehydration. 11.Nausea, resolved. 12.Obesity, BMI 31. Procedures: Cardiac stress test shows no stress-induced ischemia. Hospital Course: The patient is a 63-year-old male with past medical history of heart disease status post stent placement a couple of years ago. He has history of CVA, hypertension, hyperlipidemia, ve ry poorly controlled diabetic, noncompliant with his insulin and his diet leading to the elevated blo od sugars in the 500s. Comes in with chest pain. The patient was found to have negative troponin an d EKG without any acute changes. D-dimer, however, was elevated. CT scan was done, which showed no PE. The patient was admitted to rule out ACS. The patient does see digital solutions architect in [place], Dr. Pop yin. He does have history of stent and pacemaker placement. The patient was started on chest pain g uidelines. His blood sugar levels were out of control with a glucose level of 545. The patient has been noncompliant with his insulin as well as his diabetic diet. The patient was found to have cake in the room and also outside food, which the patient was counseled against at least while in the hosp ital. The patient was counseled extensively on compliance with his insulin and his diet. The patien t voiced understanding. He states that he had an Endocrinology appointment today, which he has misse d due to being in the hospital; however, we will call to be scheduled. His electrolytes were correct ed. The patient's blood sugar levels improved. His hemoglobin A1c was found to be 13%. He was coun seled regarding compliance again. The patient otherwise was doing well. He was no longer having any pain. He did have a cardiac stress test done, which did not show any stress-induced ischemia, had a fixed defect in the inferior wall and small defect in the anterior wall, which matches to 2014 study . The patient was then cleared for discharge to follow up with his primary digital solutions architect in [place] in 1-2 weeks, follow up with primary care physician in 2 days. Hold metformin for the next 48 hours due to contrast. Diet: Diabetic diet. Activity: As tolerated. Medications: As per medication reconciliation list. Physical Examination: General: Awake, alert, oriented, no acute distress, obese male. CV: S1, S2. No murmurs. Respiratory: Moving air well bilaterally. Abdomen: Soft, nontender, nondistended. Positive bowel sounds. Extremities: No clubbing, cyanosis, edema. Neurologic: Nonfocal. SA/MODL Voice ID: [id number] Report ID: [id number]
== END 2018-06-01 16:20 | disposition home or self-care (01) ==
LOC: ER 11:26 → SUPCPDRO 11:26 → 4TH 14:35
PROVIDERS: ADMIT Internal Medicine; ATTEND Internal Medicine
DX: I25.110 Atherosclerotic heart disease of native coronary artery with unstable angina pectoris (principal); Z91.14 Patient's other noncompliance with medication regimen; E83.42 Hypomagnesemia; E78.2 Mixed hyperlipidemia; E86.0 Dehydration; R11.0 Nausea; E66.9 Obesity, unspecified; Z68.31 Body mass index [BMI] 31.0-31.9, adult; E11.65 Type 2 diabetes mellitus with hyperglycemia; Z79.4 Long term (current) use of insulin; Z95.5 Presence of coronary angioplasty implant and graft; Z95.810 Presence of automatic (implantable) cardiac defibrillator; E87.1 Hypo-osmolality and hyponatremia; Z86.73 Personal history of transient ischemic attack (TIA), and cerebral infarction without residual deficits; Z23 Encounter for immunization
CPT/HCPCS: 36415; 71045; 71275; 78452; 80053; 80061; 82550; 82553; 82947; 82962; 83036; 83735; 83880; 84484; 85025; 85379; 85610; 93005; 93017; 94760; 96372; 99285; A9500; G0008; G0378; J1650; J2785; J3475; J7030; Q2035; Q9967

== ENCOUNTER 2019-09-20 13:45 | Observation (INO) | payer OTHER, MEDICARE ==
--- OUTSIDE RECORDS SUMMARY | 2019-09-20 13:48 | XMS REPORT ---
:1955 Author [facility] Address [address] [place] [address] [address]. [address] [place] [address] Care Team Providers Name Role Phone VLADISLAV [...] Department ID 2017-11-13 2017-11-13 Outpatient C [facility] [id number] 18:02:00 18:02:00 VLADISLAV Results Test Description Test Time Test Comments Text Results Atomic Results Result Comments Lipid Profile 2017-11-13 19:14:00 Test Item Value Reference Range Comments Cholesterol (test code=CHOL) 180 mg/dL 0-200 Triglycerides (test code=TRIG) 190 mg/dL 9-200 HDL (test code=HDL) 39 mg/dL 40-60 Chol/HDL (test code=CHOLPHDL) 4.6 Ratio 0.0-5.0 LDL, Calculated (test 103 mg/dL 0-130 (NOTE)RISK OF HEART DISEASEPublished code=LDLC) by Scottish Heart AssociationAnalyte Optimal Boderline Increased RiskCHOL <200 200-239 >240TRIG <150 150-199 >200HDL Male: >60 <40HDL Female: >60 <50LDL <100 130-159 >160LDL NEAR OPTIMAL IS 100-129 VLDL (test code=VLDL) 38 mg/dL 5-40 LDL/HDL (test code=LDLPHDL) 3 B-Type Natriuretic [id number] 11:54:00 Test Item Value Reference Range Comments B-Type Natriuretic Peptide (test vief=441066) 52.6 pg/mL 0.0-100.0 Glycosylated [id number] 00:07:00 Test Item Value Reference Range Comments HBA1c (test code=HBA1C) 11.3 % 4.8-5.9 CBC with [id number] 22:52:00 Test Item Value Reference Range Comments [...] Lymph Abs (test code=ALYMPH) 2.1 K/cumm 0.5-4.6 Saline Abs (test code=AMONO) 0.4 K/cumm 0.0-1.2 Eos Abs (test code=AEOS) 0.23 K/cumm 0.00-0.74 Baso Abs (test code=ABASO) 0.0 K/cumm 0.00-0.21 Vitamin [id number] 21:45:00 Test Item Value Reference Range Comments Vitamin B 12 (test code=VITB12) 797 pg/mL 211-946 Troponin [id number] 21:39:00 Test Item Value Reference Range Comments Troponin T (test code=PARESH) <0.010 ng/mL 0.000-0.090 Testosterone, [id number] 21:39:00 Test Item Value Reference Range Comments Testosterone, Total (test code=TESTOS) 3.81 ng/mL 2.80-8.00 Thyroid Stimulating Hormone (TSH)2017-02-18 21:39:00 Test Item Value Reference Range Comments TSH (test code=TSH) 2.04 mIU/mL 0.270-4.200 Comprehensive Metabolic [id number] 21:39:00 Test Item Value Reference Range Comments [...] race is not provided, and the patient isAfrican-Scottish, multiply by 1.212. If sex is not provided, and thepatient is female, multiply by 0.742. Results for patients <18 years ofage have not been validated by the MDRD study and should be interpretedwith caution.eGFR Result Interpretation:eGFR > or=60 is in the Normal RangeeGFR < 60 may mean kidney diseaseeGFR < 15 may mean kidney failureRanges recommended by the National Kidney Foundation,http://nkdep.nih .gov CK [id number] 21:39:00 Test Item Value Reference Range Comments CK (test code=CK) 119 U/L 39-308 CK [id number] 21:39:00 Test Item Value Reference Range Comments CK (test code=CK) 119 U/L 39-308 CKMB (test code=CKMB) 1.9 ng/mL 0.0-4.9 CKMB% (test code=CKMBP) 1.6 % 0.0-3.4 Lipid [id number] 21:39:00 Test Item Value Reference Range Comments Cholesterol (test 169 mg/dL 0-200 code=CHOL) Triglycerides (test 211 mg/dL 9-200 code=TRIG) HDL (test code=HDL) 42 mg/dL 40-60 Chol/HDL (test 4.0 Ratio 0.0-5.0 code=CHOLPHDL) LDL, Calculated (test 85 0-130 (NOTE)RISK OF HEART code=LDLC) DISEASEPublished by Scottish Heart AssociationAnalyte Optimal Boderline Increased RiskCHOL <200 200-239 >240TRIG <150 150-199 >200HDL Male: >60 <40HDL Female: >60 <50LDL <100 130-159 >160LDL NEAR OPTIMAL IS 100-129 VLDL (test code=VLDL) 42 mg/dL 5-40 LDL/HDL (test code=LDLPHDL) 2
--- OUTSIDE RECORDS SUMMARY | 2019-09-20 13:49 | XMS REPORT | Summary of Care ---
:1955 Author Organization [facility] Address [address] [place] [address] Care Team Providers Name Role Phone Rebecca Delong Primary Care Provider Encounter Details Date Type Department Care Team Description 03/26/2019 Orders Only [facility] Doctor Unassigned, No [address] [facility] [place] [address] [address] [place] [address] Allergies No Known Allergiesdocumented as of this encounter (statuses as of 03/26/2019) Medications Medication Sig Dispensed Refills Start End Status Date Date potassium chloride 0 03/16/20 Active (K-DUR) 10 mEq CR 14 tablet NITROSTAT 0.4 mg 0 01/13/20 Active sublingual tablet 14 clopidogrel (PLAVIX) 0 03/03/20 Active 75 mg tablet 14 METOPROLOL TARTRATE Take 50 mg by mouth 2 0 Active ORAL (two) times daily. IRWIN ASPIRIN ORAL Take 81 mg by mouth 0 Active daily. DEXILANT 30 mg capsule 60 mg. 3 09/29/19 Active 16 escitalopram oxalate 2 01/10/20 Active (LEXAPRO) 20 mg tablet 16 APTIOM 200 mg Tab 2 08/06/20 Active 16 blood sugar diagnostic Use as directed, TID, 300 Strip 3 08/07/20 Active (CONTOUR NEXT STRIPS) DX: E11.40 16 stripIndications: Uncontrolled type 2 diabetes with neuropathy atorvastatin (LIPITOR) Take 1 tablet by mouth 90 tablet 3 08/07/20 Active 40 mg at bedtime. 16 tabletIndications: Dyslipidemia furosemide (LASIX) 20 Take 1 tablet by mouth 30 tablet 1 08/14/20 Active mg tabletIndications: daily. 16 Fluid retention GABAPENTIN 300 mg TAKE ONE(1) CAPSULE BY 30 capsule 4 02/11/20 Active capsule MOUTH EVERY EVENING 17 lisinopril 20 mg Take 1 tablet by mouth 30 tablet 3 01/31/20 Active tablet daily. 18 hydroCHLOROthiazide hydrochlorothiazide 25 mg capsule 0 Active 12.5 mg capsule TAKE 1 CAPSULES BY MOUTH DAILY icosapent ethyl Take by mouth. 0 Active (VASCEPA) 1 gram capsuleIndications: Uncontrolled type 2 diabetes with neuropathy Insulin [place], Use as directed. 4 400 Each 3 09/22/19 Active Disposable, (PAULETTE PEN times daily E11.40 19 NEEDLE) 32 gauge x 5/32" NdleIndications: Uncontrolled type 2 diabetes with neuropathy metformin ER 500 mg 24 Take 2 tablets by 360 tablet 3 09/28/19 Active hr tabletIndications: mouth 2 (two) times 19 Uncontrolled type 2 daily. diabetes with neuropathy insulin degludec inject 60 Units under 54 mL 1 01/13/20 Active (TRESIBA FLEXTOUCH the skin daily. 19 U-100) 100 unit/mL (3 mL) InPnIndications: Uncontrolled type 2 diabetes with neuropathy dulaglutide inject 1.5 mg under 12 Syringe 1 01/13/20 Active (TRULICITY) 1.5 mg/0.5 the skin weekly. 19 mL PnIjIndications: Uncontrolled type 2 diabetes with neuropathy iifwmccjfa-vqlzatt-dsx Take 1 capsule by 40 capsule 0 01/16/20 Active feine (FIORINAL) mouth every 6 (six) 19 50-325-40 mg per hours as needed for capsule Pain. galantamine 4 mg Take 1 tablet by mouth 60 tablet 1 02/27/20 Active tabletIndications: 2 (two) times daily. 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 documented as of this encounter (statuses as of 03/26/2019) Active Problems Problem Noted Date Dyslipidemia 08/07/2016 Uncontrolled type 2 diabetes with neuropathy 01/16/2016 Essential hypertension 07/11/2015 Type 2 diabetes, controlled, with neuropathy 07/11/2015 Atherosclerotic PVD with intermittent claudication 10/12/2014 Neuropathy 07/05/2014 HLD (hyperlipidemia) 03/29/2014 Metabolic syndrome X 03/29/2014 Obesity 03/29/2014 Albuminuria 03/29/2014 documented as of this encounter (statuses as of 03/26/2019) Resolved Problems Problem Noted Date Resolved Date HTN (hypertension) 03/29/2014 07/11/2015 Type 2 diabetes mellitus with complication 03/29/2014 07/11/2015 documented as of this encounter (statuses as of 03/26/2019) Social History Tobacco Use Types Packs/Day Years Used Date Former Smoker Alcohol Use Drinks/Week oz/Week Comments No Sex Assigned at Date Recorded Not on file Job Start Date Occupation Industry Not on file Not on file Not on file Travel History Travel Start Travel End No recent travel history available. documented as of this encounter Last Filed Vital Signs Not on filedocumented in this encounter Plan of Treatment Date Type Specialty Care Team Description 03/26/2019 Office Visit Neurology Jeremiah Grissom MD [address] [place] [phone] 03/26/2019 Appointment Radiology Harish Ron MD [address] [place] [address] 04/27/2019 Office Visit Endocrinology Diabetes & Elizabeth Palma MD Metabolism [address] [place], [place] [id number] Health Maintenance Due Date Last Done Comments HEPATITIS C (HCV) SCREEN 1955 PNEUMOCOCCAL 0-64 YEARS COMBINED 1960 SERIES (1 of 1 - PPSV23) EYE EXAM 1964 DTaP,Tdap,and Td Vaccines (1 - 1973 Tdap) COLONOSCOPY 2004 Zoster Recombinant Vaccine 2004 (SHINGRIX) (1 of 2) LUNG CANCER SCREEN: Recommended 2009 for age 55-80 with 30 + pack year history INFLUENZA VACCINE 04/25/2019 HgA1C 07/15/2019 01/12/2019, 09/16/2018, 08/27/2017, Additional history exists LDL-C 09/16/2019 09/16/2018, 07/31/2016, 01/09/2016, Additional history exists URINE MICROALBUMIN 09/16/2019 09/16/2018, 07/31/2016, 01/09/2016, Additional history exists FOOT EXAM 01/13/2020 01/12/2019, 01/12/2019, 09/22/2018, Additional history exists CREATININE (SERUM) 01/17/2020 01/16/2019, 09/16/2018, 08/28/2017, Additional history exists documented as of this encounter Procedures Procedure Name Priority Date/Time Associated Diagnosis Comments ASSIGNMENT OF BENEFITS Routine 03/26/2019 7:46 AM CDT documented in this encounter Results Not on filedocumented in this encounter Insurance Payer Benefit Plan / Subscriber ID Effective Dates Phone Address Type Group BCBS OF HIM BCBS BLUE [id number] 2018-Kulwant [phone] [address] [facility] [id number] [place] [address] documented as of this encounter
--- OUTSIDE RECORDS SUMMARY | 2019-09-20 13:50 | XMS REPORT | Summary of Care ---
:1955 Author Organization [facility] Address [address] [place] [address] Care Team Providers Name Role Phone Rebecca Delong Primary Care Provider Reason for Referral MRI/CAT Scan (STAT) Status Reason Specialty Diagnoses / Referred By Referred To Procedures Contact Contact Closed Diagnostic Diagnoses Nausea Bloating symptom Generalized abdominal pain Nausea Bloating symptom Generalized abdominal pain Ron, Harish Radiology Procedures CT ABDOMEN PELVIS W CONTRAST CHG CT SCAN,ABDOMENT AND PELVIS,W CONTRAST [place] [place] [address] MRI/CAT Scan (STAT) Status Reason Specialty Diagnoses / Referred By Referred To Procedures Contact Contact Closed Diagnostic Diagnoses Nausea Bloating symptom Generalized abdominal pain Nausea Bloating symptom Generalized abdominal pain Ron, Harish Radiology Procedures CT ABDOMEN PELVIS W CONTRAST CHG CT SCAN,ABDOMENT AND PELVIS,W CONTRAST [place] [place] [address] Reason for Visit MRI/CAT Scan (STAT) Status Reason Specialty Diagnoses / Referred By Referred To Procedures Contact Contact Closed Diagnostic Diagnoses Nausea Bloating symptom Generalized abdominal pain Nausea Bloating symptom Generalized abdominal pain Ron, Harish Radiology Procedures CT ABDOMEN PELVIS W CONTRAST CHG CT SCAN,ABDOMENT AND PELVIS,W CONTRAST MD [address] [place] [id number] Encounter Details Date Type Department Care Team Description 03/26/2019 Hospital Encounter [facility] Ron Arrived [place] [facility] MD Tomography [address] [place] [address] [place] [address] [place] [address] Allergies No Known Allergiesdocumented as of this encounter (statuses as of 03/27/2019) Medications Medication Sig Dispensed Refills Start End [...] 01/10/20 Active (LEXAPRO) 20 mg tablet 16 blood sugar diagnostic Use as directed, [...] Uncontrolled type 2 diabetes with neuropathy Insulin [place], Use as directed. 4 400 Each 3 [...] PnIjIndications: Uncontrolled type 2 diabetes with neuropathy ijqfjvgmmf-fxothtf-yef Take 1 capsule by 40 capsule 0 01/16/20 Active feine (FIORINAL) mouth every 6 (six) 19 50-325-40 mg per hours as needed for capsule Pain. documented as of this encounter (statuses as of 03/27/2019) Active Problems Problem Noted Date Dyslipidemia 08/07/2016 Uncontrolled type 2 diabetes with neuropathy 01/16/2016 Essential hypertension 07/11/2015 Type 2 diabetes, controlled, with neuropathy 07/11/2015 Atherosclerotic PVD with intermittent claudication 10/12/2014 Neuropathy 07/05/2014 HLD (hyperlipidemia) 03/29/2014 Metabolic syndrome X 03/29/2014 Obesity 03/29/2014 Albuminuria 03/29/2014 documented as of this encounter (statuses as of 03/27/2019) Resolved Problems Problem Noted Date Resolved Date HTN (hypertension) 03/29/2014 07/11/2015 Type 2 diabetes mellitus with complication 03/29/2014 07/11/2015 documented as of this encounter (statuses as of 03/27/2019) Social History Tobacco Use Types Packs/Day Years [...] Treatment Date Type Specialty Care Team Description 04/27/2019 Office Visit Endocrinology Diabetes & PalmaElizabeth MD Metabolism [address] [place] [address] [phone] Name Type Priority Associated Diagnoses Order Schedule POCT CREATININE LAB Routine Generalized abdominal pain ONCE for 1 Occurrences starting 03/26/2019 until 03/26/2019 Health Maintenance Due Date Last Done Comments [...] Procedure Name Priority Date/Time Associated Diagnosis Comments CT ABDOMEN PELVIS W STAT 03/26/2019 11:32 AM Nausea Results for this CONTRAST CDT Bloating symptom procedure are in Generalized the results abdominal pain section. documented in this encounter Results CT ABDOMEN PELVIS W CONTRAST (03/26/2019 11:32 AM CDT) Specimen Narrative Performed At CT Abdomen and Pelvis with oral and intravenous contrast. PACS/VR/DOSE CLINICAL HISTORY: Generalized abdominal pain. TECHNIQUE: Multidetector helical CT acquisition were obtained with oral and intravenous injection Omnipaque 350 nonionic contrast medium. Sagittal and coronal reformations were generated. FINDINGS: Lower lungs: Old fracture of left seventh ribs and minimal fibrosis in the adjacent left lung noted. Minimal pleural thickening is seen on both sides. No pleural effusion or pericardial effusion. Short sliding hiatal hernia noted. Liver, Gallbladder and Spleen: Liver is 17 cm in length and spleen measures approximately 12.4 x 5.6 cm. No focal enhancing lesions visualized in the liver or in the spleen. Cholecystectomy noted. Biliary ducts are of normal size. Peritoneum:No free air or free fluid. No lymphadenopathy. Pancreas and Adrenals: Normal size adrenal glands. Calcifications seen in the head of the pancreas which could be secondary to remote episodes of pancreatitis. Otherwise the pancreas is normal. Kidneys and Ureters:No visible calculi in the renal collecting systems. No hydroureter or hydronephrosis. No enhancing kidney lesions. Vessels: Atherosclerosis. No abdominal aortic aneurysm. 2 right renal arteries and one left renal artery noted arising from the abdominal aorta. Retroperitoneum: No abnormal fluid or lymphadenopathy. Bowel:No acute findings. Appendix is not visualized, however, I do not see any signs of acute appendicitis. Cecum is located in the right upper quadrant of the abdomen. Bladder and Reproductive Organs:Urinary bladder is not opacified by the intravenously injected contrast medium. No gross pathology seen in the urinary bladder. Bones:Degenerative disc disease at L4-L5, L5-S1, less at L2-L3, L3-L4. Minimal spondylolisthesis at L5-S1 noted with bilateral L5 spondylolysis. No aggressive bone lesions. Soft tissues: Focal congestion in the subcutaneous fat in the left lower anterior abdominal wall, probably the site of injection of medication. CONCLUSION: No acute findings detected in CT scan of abdomen and pelvis. Procedure Note [facility], Radiant Results Inft User - 03/26/2019 12:[address] Abdomen and Pelvis with oral and intravenous contrast. CLINICAL HISTORY: Generalized abdominal pain. TECHNIQUE: Multidetector helical CT acquisition were obtained with oral and intravenous injection Omnipaque 350 nonionic contrast medium. Sagittal and coronal reformations were generated. FINDINGS: Lower lungs: Old fracture of left seventh ribs and minimal fibrosis in the adjacent left lung noted. Minimal pleural thickening is seen on both sides. No pleural effusion or pericardial effusion. Short sliding hiatal hernia noted. Liver, Gallbladder and Spleen: Liver is 17 cm in length and spleen measures approximately 12.4 x 5.6 cm. No focal enhancing lesions visualized in the liver or in the spleen. Cholecystectomy noted. Biliary ducts are of normal size. Peritoneum: No free air or free fluid. No lymphadenopathy. Pancreas and Adrenals: Normal size adrenal glands. Calcifications seen in the head of the pancreas which could be secondary to remote episodes of pancreatitis. Otherwise the pancreas is normal. Kidneys and Ureters: No visible calculi in the renal collecting systems. No hydroureter or hydronephrosis. No enhancing kidney lesions. Vessels: Atherosclerosis. No abdominal aortic aneurysm. 2 right renal arteries and one left renal artery noted arising from the abdominal aorta. Retroperitoneum: No abnormal fluid or lymphadenopathy. Bowel: No acute findings. Appendix is not visualized, however, I do not see any signs of acute appendicitis. Cecum is located in the right upper quadrant of the abdomen. Bladder and Reproductive Organs: Urinary bladder is not opacified by the intravenously injected contrast medium. No gross pathology seen in the urinary bladder. Bones: Degenerative disc disease at L4-L5, L5-S1, less at L2-L3, L3-L4. Minimal spondylolisthesis at L5-S1 noted with bilateral L5 spondylolysis. No aggressive bone lesions. Soft tissues: Focal congestion in the subcutaneous fat in the left lower anterior abdominal wall, probably the site of injection of medication. CONCLUSION: No acute findings detected in CT scan of abdomen and pelvis. Performing Organization Address City/State/Zipcode Phone Number PACS/VR/DOSE documented in this encounter Visit Diagnoses Diagnosis Nausea Nausea alone Bloating symptom Flatulence, eructation, and gas pain Generalized abdominal pain Abdominal pain, generalized documented in this encounter Administered Medications Medication Order MAR Action Action Date Dose Rate Site iohexol (OMNIPAQUE 350 BULK-150 Given 03/26/2019 11:38 AM CDT 120 mL mL) injection 120 mL 120 mL, Intravenous, ONCE, 1 dose, Fri03/26/19 at 1145, Routine documented in this encounter Insurance Payer Benefit Plan / Subscriber ID Effective Dates Phone Address Type Group BCBS OF HIM BCBS BLUE [id number] 2018-Kulwant [phone] [address] [facility] t [id number] [place] [address] documented as of this encounter
--- OUTSIDE RECORDS SUMMARY | 2019-09-20 13:50 | XMS REPORT | Summary of Care ---
:1955 Author Organization [facility] Address [address] [place] [address] Care Team Providers Name Role Phone Rebecca Delong Primary Care Provider Reason for Visit Reason Comments Follow-up Encounter Details Date Type Department Care Team Description 03/26/2019 Office Visit [facility] Jeremiah Grissom Early onset Alzheimer' s dementia without behavioral disturbance (Primary Dx); Neurology-Myrtle Valentin MD Cerebrovascular disease; [address] [place] [address] [address]; [address], [address] [facility]. Uncontrolled type 2 [place] [phone] Allergies No Known Allergiesdocumented as of this encounter (statuses as of 03/29/2019) Medications Medication Sig Dispensed Refills Start End Status Date Date potassium chloride 0 03/16/ Active (K-DUR) 10 mEq CR 2013 tablet NITROSTAT 0.4 mg 0 01/12/ Active sublingual tablet 2013 clopidogrel (PLAVIX) 0 03/03/ Active 75 mg tablet 2013 METOPROLOL TARTRATE Take 50 mg by mouth 2 0 Active ORAL (two) times daily. IRWIN ASPIRIN ORAL Take 81 mg by mouth 0 Active daily. DEXILANT 30 mg 60 mg. 3 09/29/ Active capsule 2016 escitalopram oxalate 2 01/09/ Active (LEXAPRO) 20 mg 2016 tablet blood sugar Use as directed, TID, 300 Strip 3 08/07/ Active diagnostic (CONTOUR DX: E11.40 2016 NEXT STRIPS) stripIndications: Uncontrolled type 2 diabetes with neuropathy atorvastatin Take 1 tablet by 90 tablet 3 08/07/ Active (LIPITOR) 40 mg mouth at bedtime. 2016 tabletIndications: Dyslipidemia furosemide (LASIX) 20 Take 1 tablet by 30 tablet 1 08/14/ Active mg tabletIndications: mouth daily. 2015 Fluid retention GABAPENTIN 300 mg TAKE ONE(1) CAPSULE 30 capsule 4 02/10/ Active capsule BY MOUTH EVERY 2017 EVENING lisinopril 20 mg Take 1 tablet by 30 tablet 3 01/30/ Active tablet mouth daily. 2017 hydroCHLOROthiazide hydrochlorothiazide 25 mg capsule 0 Active 12.5 mg capsule TAKE 1 CAPSULES BY MOUTH DAILY icosapent ethyl Take by mouth. 0 Active (VASCEPA) 1 gram capsuleIndications: Uncontrolled type 2 diabetes with neuropathy Insulin [place], Use as directed. 4 400 Each 3 09/22/ Active Disposable, (PAULETTE PEN times daily E11.40 2019 NEEDLE) 32 gauge x 5/32" NdleIndications: Uncontrolled type 2 diabetes with neuropathy metformin ER 500 mg Take 2 tablets by 360 tablet 3 09/28/ Active 24 hr mouth 2 (two) times 2019 tabletIndications: daily. Uncontrolled type 2 diabetes with neuropathy insulin degludec inject 60 Units under 54 mL 1 01/12/ Active (TRESIBA FLEXTOUCH the skin daily. 2019 U-100) 100 unit/mL (3 mL) InPnIndications: Uncontrolled type 2 diabetes with neuropathy dulaglutide inject 1.5 mg under 12 Syringe 1 01/12/ Active (TRULICITY) 1.5 the skin weekly. 2019 mg/0.5 mL PnIjIndications: Uncontrolled type 2 diabetes with neuropathy hqhzypwfpe-eabgwfe-rj Take 1 capsule by 40 capsule 0 01/15/ Active ffeine (FIORINAL) mouth every 6 (six) 2018 50-325-40 mg per hours as needed for capsule Pain. galantamine 8 mg Take 1 tablet by 60 tablet 2 03/26/ Active tablet mouth 2 (two) times 2018 daily. APTIOM 200 mg Tab 2 03/26 Discontinued 2015 galantamine 4 mg Take 1 tablet by 60 tablet 1 03/26 Discontinued tabletIndications: mouth 2 (two) times 2018 Early onset daily. Alzheimer's disease with behavioral disturbance documented as of this encounter (statuses as of 03/29/2019) Active Problems Problem Noted Date Dyslipidemia 08/07/2016 Uncontrolled type 2 diabetes with neuropathy 01/16/2016 Essential hypertension 07/11/2015 Type 2 diabetes, controlled, with neuropathy 07/11/2015 Atherosclerotic PVD with intermittent claudication 10/12/2014 Neuropathy 07/05/2014 HLD (hyperlipidemia) 03/29/2014 Metabolic syndrome X 03/29/2014 Obesity 03/29/2014 Albuminuria 03/29/2014 documented as of this encounter (statuses as of 03/29/2019) Resolved Problems Problem Noted Date Resolved Date HTN (hypertension) 03/29/2014 07/11/2015 Type 2 diabetes mellitus with complication 03/29/2014 07/11/2015 documented as of this encounter (statuses as of 03/29/2019) Social History Tobacco Use Types Packs/Day Years Used Date Former Smoker Alcohol Use Drinks/Week oz/Week Comments No Sex Assigned at Date Recorded Not on file Job Start Date Occupation Industry Not on file Not on file Not on file Travel History Travel Start Travel End No recent travel history available. documented as of this encounter Last Filed Vital Signs Vital Sign Reading Time Taken Comments Blood Pressure 120/76 03/26/2019 10:16 AM CDT Pulse 82 03/26/2019 10:16 AM CDT Temperature 36.2 C (97.1 F) 03/26/2019 10:16 AM CDT Respiratory Rate 16 03/26/2019 10:16 AM CDT Oxygen Saturation - - Inhaled Oxygen Concentration - - Weight 112.5 kg (248 lb) 03/26/2019 10:16 AM CDT Height 177.8 cm (5' 10") 03/26/2019 10:16 AM CDT Body Mass Index 35.58 03/26/2019 10:16 AM CDT documented in this encounter Progress Notes Jeremiah Grissom MD - 03/26/2019 9:40 AM CDT HISTORY OF PRESENT ILLNESS: Marquise Knight is a 63 year old male. Chief complaint: Cognitive decline, head pain. History: The of the patient has made some changes to his medication list. For example, she did cut his metoprolol to 25 mg per day, he has been taking Zofran occasionally which has helped with nausea. He is often atorvastatin at the present time and she has made a decrease on his Lexapro to 10 mgper day and the metformin has been cut to 500 mg twice per day. It had originally been double that amount. Patient also is off gabapentin. She did [place] the change with the galantamine and now it is at 4 mg twice per day. In terms of overall cognitive functioning, there has not been a significant improvement unfortunately. PMH: has a past medical history of CAD (coronary artery disease) (2013), CVA ( cerebral infarction) (09/2015), DM2 (diabetes mellitus, type 2), HLD ( hyperlipidemia), HTN (hypertension), and Neuropathy. Current Outpatient Medications: galantamine 8 mg tablet, Take 1 tablet by mouth 2 (two) times daily., Disp : 60 tablet, Rfl: 2 fgcvfnhkut-zcvvmyd-kcebuwis (FIORINAL) 50-325-40 mg per capsule, Take 1 capsule by mouth every 6 (six) hours as needed for Pain., Disp: 40 capsule, Rfl : 0 dulaglutide (TRULICITY) 1.5 mg/0.5 mL PnIj, inject 1.5 mg under the skin weekly., Disp: 12 Syringe, Rfl: 1 insulin degludec (TRESIBA FLEXTOUCH U-100) 100 unit/mL (3 mL) InPn, inject 60 Units under the skin daily., Disp: 54 mL, Rfl: 1 metformin ER 500 mg 24 hr tablet, Take 2 tablets by mouth 2 (two) times daily., Disp: 360 tablet, Rfl: 3 icosapent ethyl (VASCEPA) 1 gram capsule, Take by mouth., Disp: , Rfl: Insulin [place], Disposable, (PAULETTE PEN NEEDLE) 32 gauge x 5/32" Ndle, Use as directed. 4 times daily E11.40, Disp: 400 Each, Rfl: 3 hydroCHLOROthiazide 12.5 mg capsule, hydrochlorothiazide 25 mg capsule TAKE 1 CAPSULES BY MOUTH DAILY, Disp: , Rfl: lisinopril 20 mg tablet, Take 1 tablet by mouth daily., Disp: 30 tablet, Rfl: 3 GABAPENTIN 300 mg capsule, TAKE ONE(1) CAPSULE BY MOUTH EVERY EVENING, Disp : 30 capsule, Rfl: 4 furosemide (LASIX) 20 mg tablet, Take 1 tablet by mouth daily., Disp: 30 tablet, Rfl: 1 atorvastatin (LIPITOR) 40 mg tablet, Take 1 tablet by mouth at bedtime., Disp: 90 tablet, Rfl: 3 blood sugar diagnostic (CONTOUR NEXT STRIPS) strip, Use as directed, TID, DX: E11.40, Disp: 300Strip, Rfl: 3 escitalopram oxalate (LEXAPRO) 20 mg tablet, , Disp: , Rfl: 2 DEXILANT 30 mg capsule, 60 mg., Disp: , Rfl: 3 IRWIN ASPIRIN ORAL, Take 81 mg by mouth daily., Disp: , Rfl: clopidogrel (PLAVIX) 75 mg tablet, , Disp: , Rfl: METOPROLOL TARTRATE ORAL, Take 50 mg by mouth 2 (two) times daily., Disp: , Rfl: NITROSTAT 0.4 mg sublingual tablet, , Disp: , Rfl: potassium chloride (K-DUR) 10 mEq CR tablet, , Disp: , Rfl: Family History Problem Relation Age of Onset Cancer NoFHx Social History Socioeconomic History Marital status: Spouse name: Not on file Number of children: Not on file Years of education: Not on file Highest education level: Not on file Occupational History Not on file Social Needs Financial resource strain: Not on file Food insecurity: Worry: Not on file Inability: Not on file Transportation needs: Medical: Not on file Non-medical: Not on file Tobacco Use Smoking status: Former Smoker Substance and Sexual Activity Alcohol use: No Drug use: No Sexual activity: Not on file Lifestyle Physical activity: Days per week: Not on file Minutes per session: Not on file Stress: Not on file Relationships Social connections: Talks on phone: Not on file Gets together: Not on file Attends druze service: Not on file Active member of club or organization: Not on file Attends meetings of clubs or organizations: Not on file Relationship status: Not on file Intimate partner violence: Fear of current or ex partner: Not on file Emotionally abused: Not on file Physically abused: Not on file Forced sexual activity: Not on file Other Topics Concern Not on file Social History Narrative Not on file Vital signs: BP 120/76 | Pulse 82 | Temp 36.2 C (97.1 F) (Oral) | Resp 16 | Ht 5' 10 " (1.778 m) | Wt 248lb (112.5 kg) | BMI 35.58 kg/m General findings: no new focal weakness of arms, UE tone unchanged, no new focal weakness of legs, LE tone unchanged, no tremors. Alert, oriented times 3. Cooperative without language dysfunction. Stocking glove change to light and sharp touch more significant lower extremities versus upper extremities. Vibration diminished in the feet. Able to walk unaided without any problem. ASSESSMENT AND RECOMMENDATIONS: ICD-10-CM ICD-9-CM 1. Early onset Alzheimer's dementia without behavioral disturbance G30.0 331.0 F02.80 294.10 2. Cerebrovascular disease I67.9 437.9 3. Essential hypertension I10 401.9 4. Uncontrolled type 2 diabetes with neuropathy E11.40 250.62 E11.65 357.2 Impression: Patient right now does not have any particular complaints and says that he is feeling okay. The dosage of the galantamine is going to be increased to a total of 8 mg twice per day, and thenwe will see how the patient feels after that dosage increase. The patient is also aware that not controlling blood pressure and also blood sugar increases the risk of heart attacks and strokes and alsomay make a dementia presentation worse. Creation of the note was aided by utilizing a cut/paste operation of text from a Microsoft Word template created with [employer]. The text was dictated into the template via Dragon Naturally Speaking. documented in this encounter Plan of Treatment Date Type Specialty Care Team Description 04/27/2019 Office Visit Endocrinology Diabetes & Elizabeth Palma MD Metabolism [address] [place] [address] Health Maintenance Due Date Last Done Comments [...] history exists documented as of this encounter Results Not on filedocumented in this encounter Visit Diagnoses Diagnosis Early onset Alzheimer's dementia without behavioral disturbance - Primary Cerebrovascular disease Cerebrovascular disease, unspecified Essential hypertension Unspecified essential hypertension Uncontrolled type 2 diabetes with neuropathy Type II or unspecified type diabetes mellitus with neurological manifestations, uncontrolled documented in this encounter Insurance Payer Benefit Plan / Subscriber ID Effective Dates Phone Address Type Group BCBS OF HIM BCBS BLUE [id number] 2018-Kulwant [phone] [address] [facility] [phone] [place] [address] documented as of this encounter
--- OUTSIDE RECORDS SUMMARY | 2019-09-20 13:51 | XMS REPORT | Encounter Summary ---
:1955 Author Care Team Providers Name Role Phone Jennifer Shea ([facility]) Primary Care Provider [phone] Francia Dalal MD [employer] Tr[employer] [phone] Jeremiah Grissom MD Neurologist [phone] Reason for Visit Follow up chronic conditions Instructions 1. Type II diabetes mellitus uncontrolled type 2 diabetes: care instructions HbA1c (hemoglobin A1c), blood lipid panel, serum TSH, ultra-sensitive, serum Tresiba FlexTouch U-100 insulin 100 unit/mL (3 mL) subcutaneous pen 2. Nausea ondansetron 8 mg disintegrating tablet nausea and vomiting: care instructions Discussion Note: None recorded. Plan of Care Reminders Provider Appointments Est Pt 09/02/2019 Jennifer Shea, 8:30AM MANAGER LATIN Lab HbA1C 06/03/2019 [facility] (Hemoglobin a1C), Blood Lipid 06/03/2019 [facility] Panel, Serum TSH, 06/03/2019 [facility] Ultra-sensitive, Serum Referral None recorded. Procedures None recorded. Surgeries None recorded. Imaging None recorded. Medications Name Start Date One tab daily atorvastatin 40 mg tablet Take 1 tablet every day by oral route for 30 days. awcfrycrsy-hxusqjkffwbvv-cnyjnwik 50 mg-325 mg-40 mg tablet clopidogrel 75 mg tablet Take 1 tablet every day by oral route for 30 days. Dexilant 60 mg capsule, delayed release TAKE 1 CAPSULE(S) EVERY DAY BY ORAL ROUTE. escitalopram 20 mg tablet Take 1 tablet every day by oral route. furosemide 20 mg tablet take one tablet by mouth, daily gabapentin 300 mg capsule Take 1 capsule every day by oral route. galantamine 8 mg tablet Take 1 tablet twice a day by oral route. hydrochlorothiazide 25 mg tablet Take 1 tablet every day by oral route. lisinopril 20 mg tablet Take 1 tablet every day by oral route for 30 days. metformin ER 500 mg tablet,extended release 24 hr Take 2 tablets twice a day by oral route for 30 days. metoprolol tartrate 50 mg tablet Take 1 tablet twice a day by oral route for 30 days. nitroglycerin 0.[address] 1 tablet by sublingual route. ondansetron 8 mg disintegrating tablet DISSOLVE 1 TABLET(S) 3 TIMES A DAY NEEDED. if needed for nausea potassium chloride ER 10 mEq tablet,extended release(part/cryst) TAKE 1 TABLET BY MOUTH EVERY DAY sure comfort mis 32gx5/32 Tresiba FlexTouch U-100 insulin 100 unit/mL (3 mL) subcutaneous pen Inject 80 units every day by subcutaneous route. Trulicity 1.5 mg/0.5 mL subcutaneous pen injector Vitamin D3 25 mcg (1,000 unit) tablet Take 1 tablet every day by oral route. Medications Administered None recorded. Vitals Height Weight BMI Blood Pressure 5 ft 8 in 241 lbs 36.6 kg/m2 137/84 mm[Hg] Results Lab Results Date Name Specimen Result Interpretation Description Value Range Status Address 06/04/2019 Lipid High Cholesterol, 214 mg/dL <200 [facility] Panel, Total mg/dL Diagnostics Serum - [place] Lab: [address] [facility], [place] Low HDL 30 mg/dL >40 [facility] Cholesterol mg/dL [facility]: [address] [facility], [place] High Triglycerides 654 mg/dL <150 [facility] mg/dL [facility]: [address] [facility], [place] LDL-cholestero [facility] l [facility] - [place] Lab: [address] [facility], [place] High Chol/hdlc 7.1 (calc) <5.0 [facility] Ratio (calc) Diagnostics - [place] Lab: [address] [facility], [place] High Non HDL 184 mg/dL <130 [facility] Cholesterol (calc) mg/dL Diagnostics (calc) - [place] [facility]: [address] [facility] [place] 06/04/2019 CMP, High Glucose 326 mg/dL 65-139 [facility] Serum or mg/dL Diagnostics Plasma - [place] Lab: [address] [facility], [place] Normal Urea Nitrogen 16 mg/dL 7-25 [facility] (BUN) mg/dL Diagnostics - [place] Lab: [address] [facility], [place] Normal Creatinine 0.81 mg/dL 0.70-1. [facility] 25 Diagnostics mg/dL - [place] Lab: [address] [facility], [place] Normal eGFR Non-afr. 93 > or=60 [facility] [place] mL/min/1.73m mL/min/ Diagnostics 2 1.73m2 - [place] Lab: [address] [place] [address], [place] Normal eGFR 108 > or=60 [facility] [place] mL/min/1.73m mL/min/ Diagnostics 2 1.73m2 - [place] Lab: [address] [place] [address], [place] BUN/creatinine not 6-22 [facility] Ratio applicable (calc) Diagnostics (calc) - [place] Lab: [address] [place] [facility], [place] Normal Sodium 138 mmol/L 135-146 [facility] mmol/L Diagnostics - [place] Lab: [facility] [place] [facility], [place] Normal Potassium 4.6 mmol/L 3.5-5.3 [facility] mmol/L Diagnostics - [place] Lab: [address] [place] [facility], [place] Normal Chloride 102 mmol/L 98-110 [facility] mmol/L Diagnostics - [place] Lab: [facility] [address] [place] [address], [place] Normal Carbon Dioxide 27 mmol/L 20-32 [facility] mmol/L [facility] Lab: [address], [place] Normal Calcium 9.5 mg/dL 8.6-10. [facility] 3 mg/dL [facility] Lab: [address] [facility], [place] Normal Protein, Total 6.5 g/dL 6.1-8.1 [facility] g/dL Diagnostics - [place] Lab: [address] [place] [facility], [place] Normal Albumin 3.9 g/dL 3.6-5.1 [facility] g/dL [facility] Lab: [address] [place] [facility], [place] Normal Globulin 2.6 g/dL 1.9-3.7 [facility] (calc) g/dL Diagnostics (calc) - [place] Lab: [address] [place] [address], [place] Normal Albumin/globul 1.5 (calc) 1.0-2.5 [facility] in Ratio (calc) Diagnostics - [place] Lab: [address] [place] [facility], [place] Normal Bilirubin, 0.5 mg/dL 0.2-1.2 [facility] Total mg/dL [facility] Lab: [address] [place] [address], [place] Normal Alkaline 91 U/L 40-115 [facility] Phosphatase U/L [facility] Lab: [address] [place] [facility], [place] Normal Ast 20 U/L 10-35 [facility] U/L [facility] Lab: [address] [place] [address], [place] Normal Alt 23 U/L 9-46 [facility] U/L [facility] Lab: [address] [place] [facility], [place] 06/04/2019 TSH, Normal Tsh 1.16 mIU/L 0.40-4. [facility] Serum or 50 Diagnostics Plasma mIU/L - [place] Lab: [address] [place] [facility], [place] 06/04/2019 HbA1C High Hemoglobin a1C 10.2 % of <5.7 % [facility] (Hemoglo total HGB of Diagnostics bin total - [place] a1C), HGB Lab: [address] [facility], [place] EAG (mg/dL) 246 (calc) [facility] - [place] Lab: [address] [place] [address], [place] EAG (mmol/L) 13.6 (calc) [facility] Lab: [address] [facility], [place] Allergies Code Code System Name Reaction Severity Status Onset NKDA Problems Name Status Onset Date Source Diabetes Mellitus Active 08/25/1995 Cerebrovascular Accident Active 08/25/2008 Hypertensive Disorder Active 02/22/2010 Cardiac Pacemaker Syndrome Active 05/29/2016 Alzheimer's Disease Active 01/23/2019 Stricture of Esophagus Active 03/09/2019 Gastritis Active 03/11/2019 Nausea Active 03/11/2019 Obesity Active Heart Disease Active Procedures Date Name Performed by 08/25/2012 Cardiac Pacemaker Procedure Information not available 07/21/2012 Colonoscopy Information not available 03/25/2012 Ekg for Initial Prevent Exam Information not available 12/24/2011 Cardiovascular Stress Testing Information not available 08/25/2011 Cardiac Catheterization Information not available 08/25/2010 Cardiac Catheterization Information not available 08/25/2008 Cardiac Catheterization Information not available 08/25/2007 Cardiac Catheterization Information not available Vaccine List Vaccine Type influenza, injectable, quadrivalent 06/24/2017 05/25/2018 pneumococcal conjugate PCV 13 10/29/20180.5 mL pneumococcal polysaccharide PPV23 06/04/2010 Tdap 09/15/2014 Social History Tobacco Smoking Status Never Smoker Past Encounters 06/03/2019 Type II Diabetes Mellitus Uncontrolled; Nausea Jennifer Shea MANAGER LATIN: [address], [place] [address], Ph. [phone] History of Present Illness Diabetes F/U Reported By: Patient HPI: Review finger sticks: post breakfast: 227. Labs: last A1C result: 9.7; 03/09/19. Context: seeing eye doctor regularly, checking feet regularly, home blood sugar range high, taking aspirin daily, not missing doses of medications, no side effects from medications. Associated Symptoms: no weight gain, no weight loss, no dizziness, no sweats, no headaches, no confusion, no increased thirst, no increased appetite, no increased urination, no blurred vision, no numbness of feet, no calluses on feet Note: <p>Pt is here to f/u on chronic conditions, pt explained he was in [facility].ap</p><p>pt with hx of type ii dm poorly controlled, htn, hyperlipidemia, cad , and early alhziemers dementia. he is overweight , de conditioned and does not follow diabetic diet nor does he exercise. his last hba1c was 9.7 on 03/09/19. he is followed by endocrinology and cardiology and neurology. has appt with endocrinology on friday. </p> <p>
</p> Review of Systems Comprehensive General Adult ROS Reported By: Patient Constitutional: Constitutional: no fever, no night sweats, no significant weight gain, no significant weight loss, no chills, exercise intolerance ENMT: Mouth/Throat: ; difficulty swallowing Cardiovascular: Cardiovascular: no chest pain, no arm pain on exertion, no shortness of breath when walking, no shortness of breath when lying down, no palpitations, no known heart murmur, no ankle swelling Respiratory: Respiratory: no cough, no wheezing, no shortness of breath, no coughing up blood, no sleep apnea Gastrointestinal: Gastrointestinal: no abdominal pain, no vomiting, no constipation, no diarrhea, not vomiting blood, no dyspepsia, no GERD, nausea; difficultyp swallowing Musculoskeletal: Musculoskeletal: no muscle aches, no muscle weakness, no arthralgias/joint pain, no back pain, no swelling in the extremities, no neck pain, no difficulty walking, no cramps, no osteoporosis, no fractures Integumentary: Skin: no non-healing areas Neurologic: Neurologic: no loss of consciousness, no weakness, no numbness, no seizures, no dizziness, no tremor, no gait dysfunction, no paralysis Psychiatric: Psych: no depression, no sleep disturbances, feeling safe in a relationship, no alcohol abuse, no anxiety, no hallucinations, no suicidal thoughts, no mood swings, no agitation, no delirium, memory loss, dementia Endocrine: Endocrine: fatigue Hematologic/Lymphatic: Hematologic/Lymphatic no swollen glands, no bruising, no excessive bleeding, no anemia, no phlebitis Physical Exam General Adult Exam Reported By: Patient Constitutional: General Appearance: healthy-appearing, well-developed, overweight. Level of Distress: NAD. Ambulation: ambulating normally Psychiatric: Insight: good judgement. Mental Status: active and alert, normal mood, normal affect. Orientation: to time, to place, to person Head: Head: normocephalic, atraumatic Neck: Neck: supple, trachea midline, no masses. Thyroid: no enlargement, non-tender, no nodules Lungs: Respiratory effort: no dyspnea. Percussion: no dullness, flatness, or hyperresonance. Auscultation: breath sounds normal, good air movement, CTA except as noted, no wheezing, no rales/crackles, no rhonchi Cardiovascular: Apical Impulse: not displaced. Heart Auscultation: RRR, normal S1, normal S2, no murmurs, no rubs, no gallops; pacemaker left upper chest. Neck vessels: no carotid bruits. Pulses including femoral / pedal: normal throughout Musculoskeletal:: Motor Strength and Tone: normal, normal tone. Joints, Bones , and Muscles: normal movement of all extremities, no contractures, no bony abnormalities, no malalignment, no tenderness. Extremities: no cyanosis, no edema, no varicosities, no palpable cord Neurologic: Gait and Station: normal gait, normal station. Cranial Nerves: grossly intact. Sensation: grossly intact, monofilament test intact. Coordination and Cerebellum: no tremor Skin: Inspection and palpation: no rash, no lesions, no abnormal nevi, no ulcer, no induration, no nodules, good turgor, no jaundice. Nails: normal Back: Thoracolumbar Appearance: normal curvature
--- OUTSIDE RECORDS SUMMARY | 2019-09-20 13:51 | XMS REPORT | Summary of Care ---
:1955 Author Organization [facility] Address [address] [place] [address] Care Team Providers Name Role Phone Rebecca Delong Primary Care Provider Reason for Visit Reason Comments Follow-up Encounter Details Date Type Department Care Team Description 03/26/2019 Office Visit [facility] Jeremiah Grissom Early onset Alzheimer' s dementia without behavioral disturbance (Primary Dx); Neurology-Myrtle Valentin MD Cerebrovascular disease; [address] [place] [address] [address]; [address], [address] [facility]. Uncontrolled type 2 [place] [phone] Allergies No Known Allergiesdocumented as of this [...] Uncontrolled type 2 diabetes with neuropathy Insulin [place], Use as directed. 4 400 Each 3 [...] PnIjIndications: Uncontrolled type 2 diabetes with neuropathy uvffdfeunj-cdscudu-dr Take 1 capsule by 40 capsule 0 [...] Patient also is off gabapentin. She did [place] the change with the galantamine and now [...] daily., Disp : 60 tablet, Rfl: 2 zjlxironue-kinevgd-oxbiilsv (FIORINAL) 50-325-40 mg per capsule, Take 1 [...] Take by mouth., Disp: , Rfl: Insulin [place], Disposable, (PAULETTE PEN NEEDLE) 32 gauge x [...] file Gets together: Not on file Attends anabaptist service: Not on file Active member of [...] from a Microsoft Word template created with [employer]. The text was dictated into the template via Dragon Naturally Speaking. documented in this encounter Plan of Treatment Date Type Specialty Care Team Description 04/27/2019 Office Visit Endocrinology Diabetes & Elizabeth Palma MD Metabolism [address] [place] [address] Health Maintenance Due Date Last [...] Type Group BCBS OF HIM BCBS BLUE [id number] 2018-Kulwant [phone] [facility] t [phone] [place] [address] documented as of this encounter
[2019-09-20] MEDS ORDERED: NA CHLORIDE 0.9% 1,000 ML ONE (14:37)
[2019-09-20 14:55] LABS: Absolute Lymphocytes (CBC) 2.2 K/uL (0.7-4.9); Basophils % 0.5 % (0-1.3); Hematocrit 39.3 % (39.6-49.0); MPV 9.1 fL (7.6-11.3)
[2019-09-20 15:00] LABS: Protime INR 0.96
[2019-09-20 15:01] LABS: Potassium 3.9 mmol/L (3.5-5.1)
--- NOTE | 2019-09-20 15:10 | RAD REPORT ---
EXAM DESCRIPTION: RAD - Chest Single View - 09/20/2019 2:42 pm CLINICAL HISTORY: CHEST PAIN Chest pain. COMPARISON: Chest Single View dated 05/31/2018; CHEST SINGLE VIEW dated 05/27/2014; CHEST SINGLE VIEW dated 05/26/2014; CHEST SINGLE VIEW dated 10/24/2012 FINDINGS: Portable technique limits examination quality. The lungs are grossly clear. The heart is mildly prominent with a tortuous thoracic aorta. Dual lead pacer device is present. No displaced fractures. IMPRESSION: No acute intrathoracic process suspected.
[2019-09-20 15:14] LABS: ALT/SGPT 34 U/L (12-78); AST/SGOT 21 U/L (15-37); Albumin 3.9 g/dL (3.4-5.0); Alkaline Phosphatase 88 U/L (45-117); Bilirubin Direct 0.1 mg/dL (0-0.2); Bilirubin Total 0.7 mg/dL (0.2-1.0); Lipase 216 U/L (73-393); Magnesium 1.5 mg/dL (1.8-2.4); NT PRO-BNP 298 pg/mL (<125); Protein, Total 7.4 g/dL (6.4-8.2); Troponin (Emerg Dept Use Only) < 0.02 ng/mL (0.0-0.045)
--- NOTE | 2019-09-20 15:18 | EKG ---
Test Date: 2019-09-20 Test Time: 13:56:54 Dye Jig Operator: JAZ MEASUREMENT RESULTS: Intervals: Rate: 118 RI: 288 QRSD: 146 QT: 396 QTc: 555 [place]: P: 81 RI: 288 QRS: -83 T: 81 INTERPRETIVE STATEMENTS: Ventricular paced rhythm with uncertain atrial rhythm Abnormal ECG Compared to ECG 05/31/2018 11:41:59 Paced rhythm is now present Electronically Signed On 09-20-19 15:17:28 INFORMATION SYSTEMS ADMINISTRATOR by Aubrey Nicholson
[2019-09-20] MEDS ORDERED: FAMOTIDINE 20 MG/2 ML VIAL IV ONE (15:23)
[2019-09-20] MEDS ORDERED: ENOXAPARIN 100 MG/ML SYR SQ ONE (15:23)
--- NOTE | 2019-09-20 15:39 | ER ---
Nurse's Notes [facility] Name: Marquise Knight Age: 64 yrs Sex: Male : 1955 Arrival Date: 09/20/2019 Time: 13:47 Bed 4 Private MD: Diagnosis: Atrial fibrillation and flutter;Chest pain, unspecified;Type 2 diabetes mellitus;Hypomagnesemia Presentation: 09/20 13:51 Presenting complaint: Patient states: i been having chest pain since this morning, its tw2 off and on but it just got bad, i feel a pain in my shoulder and chest pain in middle of my chest and i feel short of breath. Transition of care: patient was not received from another setting of care. Onset of symptoms was September 20, 2019. Risk Assessment: Do you want to hurt yourself or someone else? Patient reports no desire to harm self or others. Initial Sepsis Screen: Does the patient meet any 2 criteria? No. Patient's initial sepsis screen is negative. Does the patient have a suspected source of infection? No. Patient's initial sepsis screen is negative. Care prior to arrival: None. 13:51 Method Of Arrival: Ambulatory tw2 13:51 Acuity: AMY 3 tw2 Triage Assessment: 13:52 General: Appears in no apparent distress. obese, well groomed, Behavior is calm, tw2 cooperative, appropriate for age. Pain: Complains of pain in chest. Cardiovascular: Reports chest pain, shortness of breath. Historical: - Allergies: 13:59 No Known Allergies; tw2 - Home Meds: 13:59 metoprolol tartrate 50 mg Oral tab 2 tabs once daily [Active]; clopidogrel 75 mg oral tw2 tab 1 tab once daily [Active]; furosemide 20 mg Oral tab 1 tab once daily [Active]; Dexilant 60 mg oral CpDB 1 cap once daily [Active]; potassium chloride 10 mEq Oral cpER 1 cap once daily [Active]; lisinopril 20 mg Oral tab 1 tab once daily [Active]; escitalopram oxalate 20 mg oral tab 1 tab once daily [Active]; hydrochlorothiazide 25 mg Oral tab 1 tab once daily [Active]; metformin 500 mg Oral Tb24 1 tab once daily [Active]; atorvastatin 40 mg oral tab 1 tab once daily [Active]; Tresiba FlexTouch U-100 100 unit/mL (3 mL) subcutaneous inpn [Active]; Trulicity 0.75 mg/0.5 mL subcutaneous pnij 0.5 mL once wkly [Active]; Vitamin D Oral [Active]; galantamine 12 mg oral tab 1 tab 2 times per day [Active]; ondansetron HCl 8 mg Oral tab 1 tab [Active]; clonazepam 0.5 mg Oral TbDL 1 tab 2 times per day [Active]; - PMHx: 13:59 CVA; Diabetes - NIDDM; High Cholesterol; Hypertension; tw2 - PSHx: 13:59 pacemakes; Cholecystectomy; Knee surgery; tw2 - Immunization history:: Adult Immunizations. - Coronavirus screen:: The patient has NOT traveled to [place], [place], or [place] in the past 14 days. - Social history:: Smoking status: . - Family history:: not pertinent. - Ebola Screening: : Patient denies travel to an Ebola-affected area in the 21 days before illness onset. Screenin:20 Abuse screen: Denies threats or abuse. Nutritional screening: No deficits noted. em Tuberculosis screening: No symptoms or risk factors identified. Fall Risk None identified. Assessment: 14:20 General: Appears in no apparent distress. comfortable, Behavior is calm, cooperative, em Denies fever. Pain: Complains of pain in chest Pain radiates to left lateral aspect of neck Pain currently is 0 out of 10 on a pain scale. Neuro: Level of Consciousness is awake, alert, obeys commands, Oriented to person, place, time, situation, Appropriate for age. Cardiovascular: Reports chest pain, Denies nausea, vomiting, Capillary refill < 3 seconds Patient's skin is warm and dry. Rhythm is Respiratory: Airway is patent Respiratory effort is even, unlabored, Respiratory pattern is regular, symmetrical. GI: Abdomen is round non-distended. Derm: Skin is intact, is healthy with good turgor, Skin is pink, warm \T\ dry. Musculoskeletal: Capillary refill < 3 seconds, Range of motion: intact in all extremities. Vital Signs: 13:52 BP 115 / 72; Pulse 88; Resp 17; Temp 97.9(TE); Pulse Ox 97% on R/A; Weight 108.86 kg tw2 (R); Height 5 ft. 10 in. (177.80 cm) (R); Pain 8/10; 15:10 BP 116 / 70; Pulse 99; Resp 22; Pulse Ox 95% on R/A; em 16:00 BP 140 / 72; Pulse 90; Resp 18; Pulse Ox 97% on R/A; em 17:00 BP 126 / 84; Pulse 88; Resp 16; Pulse Ox 96% on R/A; Pain 0/10; em 13:52 Body Mass Index 34.44 (108.86 kg, 177.80 cm) tw2 ED Course: 13:47 Patient arrived in ED. mr 13:52 Triage completed. tw2 13:53 Arm band placed on. tw2 13:59 EKG completed in triage. Results shown to MD. tw2 14:10 Maik Gutierrez MD is Attending Physician. [facility] 14:17 Lencho Fajardo, [facility] is Primary Nurse. em 14:20 Patient has correct armband on for positive identification. Placed in gown. Bed in low em position. Call light in reach. Adult w/ patient. campus monitor on. Pulse ox on. NIBP on. 14:20 Patient maintains SpO2 saturation greater than 95% on room air. em 14:43 XRAY Chest (1 view) In Process Unspecified. EDMS 15:37 Prasanna Parker DO is Hospitalizing Provider. shu 15:[address] [facility] ([facility]) to send rep out to interrogate pts pace maker. bd 18:03 No provider procedures requiring assistance completed. Patient admitted, IV remains in em place. Administered Medications: 14:45 Drug: NS 0.9% 1000 ml Route: IV; Rate: 125 ml/hr; Site: right wrist; em 18:03 Follow up: IV Status: Infusion continued upon admission em 15:29 Drug: Pepcid 20 mg Route: IVP; Site: right wrist; em 18:02 Follow up: Response: No adverse reaction em 15:30 Drug: Lovenox 1 mg/kg Route: Sub-Q; Site: left lower abdomen; em 18:02 Follow up: Response: No adverse reaction em 15:38 Not Given (Physician Discretion): Aspirin 81 mg PO once em 16:02 Drug: Lopressor (metoprolol TARTRATE) 50 mg Route: PO; em 16:15 Follow up: Response: No adverse reaction em 16:04 Drug: Digoxin 0.5 mg Route: IVP; Site: right wrist; em 16:15 Follow up: Response: No adverse reaction; Cardiac rhythm changed em 16:19 Not Given (Physician Discretion): Lopressor 2.5 mg IVP once; Hold for SBP <100 or HR em <60. 16:19 Not Given (Physician Discretion): Lopressor 2.5 mg IVP once; Hold for SBP <100 or HR em <60. 16:19 Drug: Magnesium Sulfate 2 grams Route: IVPB; Infused Over: 2 hrs; Site: right wrist; em 18:02 Follow up: IV Status: Completed infusion; IV Intake: 100ml em Intake: 18:02 IV: 100ml; Total: 100ml. em Output: 17:00 Urine: 300ml (Voided); Total: 300ml. em Outcome: 15:38 Decision to Hospitalize by Provider. [facility] 18:03 Admitted to Tele accompanied by tech, family with patient, via wheelchair, room 425, em with chart, Report called to [facility] Cortes 18:03 Condition: good 18:03 Instructed on the need for admit, Demonstrated understanding of instructions. 18:04 Patient left the ED. em Signatures: Dispatcher [employer] EDMS Johana Lopez Corey, MD MD cha Rivera, Mary mr Munoz, Edgar, RN RN em Wise, Tara, RN RN tw2
--- NOTE | 2019-09-20 15:39 | EDPHYS ---
Physician Documentation [facility] Name: Marquise Knight Age: 64 yrs Sex: Male : 1955 Arrival Date: 09/20/2019 Time: 13:47 Bed 4 Private MD: ED Physician Maik Gutierrez HPI: 09/20 14:32 This 64 yrs old Male presents to ER via Ambulatory with complaints of Chest shu Pain. 14:32 The patient or guardian reports chest pain that is located primarily in the substernal shu area, anterior chest wall, left. Onset: this morning, today. The pain does not radiate. Associated signs and symptoms: Pertinent positives: abdominal pain. The chest pain is described as a heaviness, a pressure. Modifying factors: The symptoms are alleviated by nothing. the symptoms are aggravated by nothing. Severity of pain: At its worst the pain was mild in the emergency department the pain has resolved and did so just prior to arrival. The patient has experienced similar episodes in the past, a few times. Historical: - Allergies: 13:59 No Known Allergies; tw2 - Home Meds: 13:59 metoprolol tartrate 50 mg Oral tab 2 tabs once daily [Active]; clopidogrel 75 mg oral tw2 tab 1 tab once daily [Active]; furosemide 20 mg Oral tab 1 tab once daily [Active]; Dexilant 60 mg oral CpDB 1 cap once daily [Active]; potassium chloride 10 mEq Oral cpER 1 cap once daily [Active]; lisinopril 20 mg Oral tab 1 tab once daily [Active]; escitalopram oxalate 20 mg oral tab 1 tab once daily [Active]; hydrochlorothiazide 25 mg Oral tab 1 tab once daily [Active]; metformin 500 mg Oral Tb24 1 tab once daily [Active]; atorvastatin 40 mg oral tab 1 tab once daily [Active]; Tresiba FlexTouch U-100 100 unit/mL (3 mL) subcutaneous inpn [Active]; Trulicity 0.75 mg/0.5 mL subcutaneous pnij 0.5 mL once wkly [Active]; Vitamin D Oral [Active]; galantamine 12 mg oral tab 1 tab 2 times per day [Active]; ondansetron HCl 8 mg Oral tab 1 tab [Active]; clonazepam 0.5 mg Oral TbDL 1 tab 2 times per day [Active]; - PMHx: 13:59 CVA; Diabetes - NIDDM; High Cholesterol; Hypertension; tw2 - PSHx: 13:59 pacemakes; Cholecystectomy; Knee surgery; tw2 - Immunization history:: Adult Immunizations. - Coronavirus screen:: The patient has NOT traveled to [place], [place], or [place] in the past 14 days. - Social history:: Smoking status: . - Family history:: not pertinent. - Ebola Screening: : Patient denies travel to an Ebola-affected area in the 21 days before illness onset. ROS: 14:32 Constitutional: Negative for fever, chills, and weight loss, Eyes: Negative for injury, shu pain, redness, and discharge, ENT: Negative for injury, pain, and discharge, Neck: Negative for injury, pain, and swelling, Abdomen/GI: Negative for abdominal pain, nausea, vomiting, diarrhea, and constipation, Back: Negative for injury and pain, : Negative for injury, bleeding, discharge, and swelling, MS/Extremity: Negative for injury and deformity, Skin: Negative for injury, rash, and discoloration, Neuro: Negative for headache, weakness, numbness, tingling, and seizure, Psych: Negative for depression, anxiety, suicide ideation, homicidal ideation, and hallucinations, Allergy/Immunology: Negative for hives, rash, and allergies, Endocrine: Negative for neck swelling, polydipsia, polyuria, polyphagia, and marked weight changes, Hematologic/Lymphatic: Negative for swollen nodes, abnormal bleeding, and unusual bruising. 14:32 Cardiovascular: Positive for chest pain. 14:32 Respiratory: Positive for shortness of breath. Exam: 14:32 Constitutional: This is a well developed, well nourished patient who is awake, alert, shu and in no acute distress. Head/Face: Normocephalic, atraumatic. Eyes: Pupils equal round and reactive to light, extra-ocular motions intact. Lids and lashes normal. Conjunctiva and sclera are non-icteric and not injected. Cornea within normal limits. Periorbital areas with no swelling, redness, or edema. ENT: Nares patent. No nasal discharge, no septal abnormalities noted. Tympanic membranes are normal and external auditory canals are clear. Oropharynx with no redness, swelling, or masses, exudates, or evidence of obstruction, uvula midline. Mucous membranes moist. Neck: Trachea midline, no thyromegaly or masses palpated, and no cervical lymphadenopathy. Supple, full range of motion without nuchal rigidity, or vertebral point tenderness. No Meningismus. Chest/axilla: Normal chest wall appearance and motion. Nontender with no deformity. No lesions are appreciated. Cardiovascular: Regular rate and rhythm with a normal S1 and S2. No gallops, murmurs, or rubs. Normal PMI, no JVD. No pulse deficits. Respiratory: Lungs have equal breath sounds bilaterally, clear to auscultation and percussion. No rales, rhonchi or wheezes noted. No increased work of breathing, no retractions or nasal flaring. Abdomen/GI: Soft, non-tender, with normal bowel sounds. No distension or tympany. No guarding or rebound. No evidence of tenderness throughout. Back: No spinal tenderness. No costovertebral tenderness. Full range of motion. Skin: Warm, dry with normal turgor. Normal color with no rashes, no lesions, and no evidence of cellulitis. MS/ Extremity: Pulses equal, no cyanosis. Neurovascular intact. Full, normal range of motion. Neuro: Awake and alert, GCS 15, oriented to person, place, time, and situation. Cranial nerves II-XII grossly intact. Motor strength 5/5 in all extremities. Sensory grossly intact. Cerebellar exam normal. Normal gait. Psych: Awake, alert, with orientation to person, place and time. Behavior, mood, and affect are within normal limits. 14:32 Musculoskeletal/extremity: DVT Exam: No signs of deep vein thrombosis. no pain, no swelling, no tenderness, negative Homans' sign noted on exam, no appreciated bluish discoloration, no erythema, no increased warmth. Vital Signs: 13:52 BP 115 / 72; Pulse 88; Resp 17; Temp 97.9(TE); Pulse Ox 97% on R/A; Weight 108.86 kg tw2 (R); Height 5 ft. 10 in. (177.80 cm) (R); Pain 8/10; 15:10 BP 116 / 70; Pulse 99; Resp 22; Pulse Ox 95% on R/A; em 16:00 BP 140 / 72; Pulse 90; Resp 18; Pulse Ox 97% on R/A; em 17:00 BP 126 / 84; Pulse 88; Resp 16; Pulse Ox 96% on R/A; Pain 0/10; em 13:52 Body Mass Index 34.44 (108.86 kg, 177.80 cm) tw2 MDM: 14:10 Patient medically screened. [facility] 14:37 Data reviewed: vital signs, nurses notes, lab test result(s), EKG, radiologic studies, shu plain films. 09/20 14:14 Order name: Basic Metabolic Panel; Complete Time: 15:36 [facility] 09/20 14:14 Order name: CBC with Diff; Complete Time: 15:36 [facility] 09/20 14:14 Order name: LFT's; Complete Time: 15:36 [facility] 09/20 14:14 Order name: Magnesium; Complete Time: 15:36 [facility] 09/20 14:14 Order name: NT PRO-BNP; Complete Time: 15:36 [facility] 09/20 14:14 Order name: PT-INR; Complete Time: 15:36 [facility] 09/20 14:14 Order name: Troponin (emerg Dept Use Only); Complete Time: 15:36 [facility] 09/20 14:14 Order name: XRAY Chest (1 view); Complete Time: 15:36 [facility] 09/20 14:14 Order name: Lipase; Complete Time: 15:36 [facility] 09/20 14:14 Order name: EKG; Complete Time: 14:15 [facility] 09/20 14:14 Order name: Cardiac monitoring; Complete Time: 14:32 [facility] 09/20 14:14 Order name: EKG - Nurse/Tech; Complete Time: 14:32 [facility] 09/20 14:14 Order name: IV Saline Lock; Complete Time: 14:32 [facility] 09/20 14:14 Order name: Labs collected and sent; Complete Time: 14:32 [facility] 09/20 14:14 Order name: O2 Per Protocol; Complete Time: 14:32 [facility] 09/20 14:14 Order name: O2 Sat Monitoring; Complete Time: 14:32 [facility] Administered Medications: 14:45 Drug: NS 0.9% 1000 ml Route: IV; Rate: 125 ml/hr; Site: right wrist; em 18:03 Follow up: IV Status: Infusion continued upon admission em 15:29 Drug: Pepcid 20 mg Route: IVP; Site: right wrist; em 18:02 Follow up: Response: No adverse reaction em 15:30 Drug: Lovenox 1 mg/kg Route: Sub-Q; Site: left lower abdomen; em 18:02 Follow up: Response: No adverse reaction em 15:38 Not Given (Physician Discretion): Aspirin 81 mg PO once em 16:02 Drug: Lopressor (metoprolol TARTRATE) 50 mg Route: PO; em 16:15 Follow up: Response: No adverse reaction em 16:04 Drug: Digoxin 0.5 mg Route: IVP; Site: right wrist; em 16:15 Follow up: Response: No adverse reaction; Cardiac rhythm changed em 16:19 Not Given (Physician Discretion): Lopressor 2.5 mg IVP once; Hold for SBP <100 or HR em <60. 16:19 Not Given (Physician Discretion): Lopressor 2.5 mg IVP once; Hold for SBP <100 or HR em <60. 16:19 Drug: Magnesium Sulfate 2 grams Route: IVPB; Infused Over: 2 hrs; Site: right wrist; em 18:02 Follow up: IV Status: Completed infusion; IV Intake: 100ml em Disposition: 09/20/19 15:38 Hospitalization ordered by Prasanna Parker for Inpatient Admission. Preliminary diagnosis are Atrial fibrillation and flutter, Chest pain, unspecified, Type 2 diabetes mellitus, Hypomagnesemia. - Bed requested for Telemetry/MedSurg (Inpatient). - Status is Inpatient Admission. em - Condition is Stable. - Problem is new. - Symptoms have improved. UTI on Admission? No Signatures: Dispatcher [employer] EDMS Johana Lopez Corey, MD MD cha Munoz, Edgar, RN RN Lulu Yang RN RN tw2 Corrections: (The following items were deleted from the chart) 17:19 15:38 Hospitalization Ordered by Prasanna Parker DO for Inpatient Admission. Preliminary bd diagnosis is Atrial fibrillation and flutter; Chest pain, unspecified; Type 2 diabetes mellitus; Hypomagnesemia. Bed requested for Telemetry/MedSurg (Inpatient). Status is Inpatient Admission. Condition is Stable. Problem is new. Symptoms have improved. UTI on Admission? No. shu 18:04 17:19 09/20/2019 15:38 Hospitalization Ordered by Prasanna Parker DO for Inpatient em Admission. Preliminary diagnosis is Atrial fibrillation and flutter; Chest pain, unspecified; Type 2 diabetes mellitus; Hypomagnesemia. Bed requested for Telemetry/MedSurg (Inpatient). Status is Inpatient Admission. Condition is Stable. Problem is new. Symptoms have improved. UTI on Admission? No. bd
[2019-09-20] MEDS ORDERED: METOPROLOL TAR 50 MG TAB ONE (15:56)
[2019-09-20] MEDS ORDERED: METOPROLOL TARTRATE 5 MG/5 ML INJ IV ONE (15:57)
[2019-09-20] MEDS ORDERED: Magnesium Sulfate 2gm IVPB 2 G/50 ML BAG IV ONE (15:57)
[2019-09-20] MEDS ORDERED: DIGOXIN 0.25 MG/ML AMP ONE (15:57)
--- NOTE | 2019-09-20 16:27 | P.HP ---
Certification for Inpatient Patient admitted to: Observation With expected LOS: <2 Midnights Patient will require the following post-hospital care: None Practitioner: I am a practitioner with admitting privileges, knowledge of patient current condition, hospital course, and medical plan of care. Services: Services provided to patient in accordance with Admission requirements found in Title 42 Section 412.3 of the Code of Federal Regulations Patient History Date of Service: 09/20/19 Primary Care Provider: Dr. Garcia([place]); Cardiology-Dr. Hardin Reason for admission: Chest pain, palpitations History of Present Illness: 64 yo HM presented to the ER with chest pain and palpitations. He has history of atrial fibrillation now with pacemaker, CAD with prior stent, HTN, Hyperlipidemia, DM, and Depression. He has reported chest pain and palpitations over the last couple of days. The chest pain has gotten worse. It is associated with shortness or breath and increased sweating today. He was seen by his Flash Developer-Dr. Hardin last week. He had an abnormal stress test in the past 3 months. Cardiology has not had a heart catheterization due to numerous catheterizations in the past with only one stent. His symptoms worsened today. In the ER patient was in atrial fibrillation/flutter. Initial cardiac enzymes unremarkable. BNP 298. Sodium 137 come potassium 3.9, BUN 20, creatinine 1.22 with a GFR 60. Glucose 385. Patient stable at this time. Patient will be admitted for further evaluation. When I saw the patient ER, he appeared stable. Patient to have pacemaker interrogated. Allergies No Known Allergies Allergy (Verified 09/21/15 17:21) Home medications list reviewed: Yes Home Medications: Aspirin [Aspirin EC 81 MG] 81 mg PO DAILY 05/26/14 Atorvastatin Calcium [Lipitor] 40 mg PO BEDTIME 05/26/14 Furosemide [Lasix] 20 mg PO DAILY 05/26/14 Metformin ER [Glucophage ER*] 500 mg PO BID 05/26/14 Metoprolol Tartrate [Lopressor*] 25 mg PO BID 05/26/14 Nitroglycerin [Nitrostat] 0.3 mg SL PRN PRN 05/26/14 hydroCHLOROthiazide [Hydrodiuril*] 25 mg PO DAILY 05/26/14 lisinopriL [Prinivil*] 10 mg PO DAILY 05/26/14 Clopidogrel Bisulfate [Plavix] 75 mg PO DAILY 09/21/15 Potassium Chloride [K-Dur] 10 meq PO DAILY 09/21/15 Escitalopram [Lexapro*] 20 mg PO DAILY 05/31/18 Insulis Lispro MIX 75/25 [Humalog Mix 75/25*] 25 units SQ BREAKFAST 05/31/18 Insulis Lispro MIX 75/25 [Humalog Mix 75/25*] 50 units SQ BEDTIME 05/31/18 Omeprazole [Prilosec] 40 mg PO DAILY 05/31/18 Sitagliptin Phosphate [Januvia*] 100 mg PO DAILY 05/31/18 - Past Medical/Surgical History Diabetic: Yes -: HTN -: Diabetes mellitus type 2 insulin dependent -: Hyperlipidemia -: History of TIA -: [employer] pacemaker due to atrial fibrillation -: CAD with prior stent -: Depression with anxiety -: Cardiac stent x1 -: Cholecystectomy -: Pacemaker Psychosocial/ Personal History: Patient is - Family History Father -: Heart disease Mother -: Stroke - Social History Smoking Status: Never smoker Alcohol use: No CD- Drugs: No Caffeine use: Yes Place of Residence: Home Review of Systems General: As per HPI Eyes: Unremarkable ENT: Unremarkable Respiratory: Shortness of Breath, As per HPI Cardiovascular: Chest Pain, Palpitations, As per HPI Gastrointestinal: Unremarkable Genitourinary: Unremarkable Musculoskeletal: Unremarkable Integumentary: Unremarkable Neurological: Unremarkable Lymphatics: Unremarkable Physical Examination - Physical Exam General: Alert, In no apparent distress, Oriented x3, Cooperative HEENT: Atraumatic, Normocephalic, Mucous membr. moist/pink Neck: Supple Respiratory: Clear to auscultation bilaterally, Normal air movement Cardiovascular: Irregular heart rate/rhythm (AFib rate controlled) Gastrointestinal: Normal bowel sounds, No tenderness, No masses, No rebound, No guarding Musculoskeletal: No erythema, No tenderness, No warmth Integumentary: No tenderness/swelling, No erythema, No warmth, No cyanosis Neurological: Normal speech, Normal strength at 5/5 x4 extr, Normal tone, Normal affect - Studies Laboratory Data (last 24 hrs) 09/20/19 14:25: PT 11.3, INR 0.96 09/20/19 14:25: WBC 9.8, Hgb 13.8, Hct 39.3 L, Plt Count 282 09/20/19 14:25: Magnesium 1.5 L, Total Bilirubin 0.7, AST 21, ALT 34, Alkaline Phosphatase 88, Lipase 216 09/20/19 14:25: Sodium 137, Potassium 3.9, BUN 20 H, Creatinine 1.22, Glucose 385 H Assessment and Plan - Plan Impression: Chest pain, palpitations secondary to atrial fibrillation/atrial flutter with [employer]rez pacemaker Hypertension Diabetes mellitus type 2 insulin dependent with hyperglycemia Hyperlipidemia History of TIA Depression with anxiety Plan: Chest pain, palpitations secondary to atrial fibrillation/atrial flutter with [employer] pacemaker: Patient will be admitted for further evaluation and treatment. Will continue monitor telemetry and cardiac enzymes. Case discussed with cardiology. Will have pacemaker interrogated tonight. Will continue with metoprolol. Will start Lovenox at 1 milligram/kilogram subcu twice daily. Will obtain echocardiogram. Await further recommendations from cardiology. Possible discharge within the next 12-48 hours pending clinical improvement and stability as pacemaker. Hypertension: Will continue with lisinopril, metoprolol. Will obtain and verify home medication. Diabetes mellitus type 2 insulin dependent with hyperglycemia: Will start basal insulin. Monitor Accu-Cheks. Will provide sliding scale. Will check A1c. Blood sugar not well controlled. May need to further adjust medication at discharge. Hyperlipidemia: Continue with statin medication. Will verify and restart home medication. History of TIA: Continue as above. Depression with anxiety: Obtain and verify home medication. Will restart medication. Discharge Plan: Home Plan to discharge in: 48 Hours - Advance Directives Does patient have a Living Will: Yes Does patient have a Durable POA for Healthcare: No - Code Status/Comfort Care Code Status Assessed: Yes (Patient is full code) Time Spent Managing Pts Care (In Minutes): 55
[2019-09-20] MEDS ORDERED: SOTALOL HCL 80 MG TAB PO SCH (18:12)
[2019-09-20] MEDS ORDERED: ONDANSETRON 4 MG/2 ML VIAL IV PRN (18:12)
[2019-09-20] MEDS ORDERED: D50W 25 GM/50 ML SYRINGE/VIAL IV PRN (18:12)
[2019-09-20] MEDS ORDERED: GLUCAGON 1 MG/VIAL IM PRN (18:12)
[2019-09-20 18:21] VITALS: BMI 34.5
[2019-09-20] MEDS: SOTALOL HCL 80 MG TAB PO SCH (18:33)
[2019-09-20] MEDS: ACETAMINOPHEN 500 MG TAB PO PRN (18:38)
--- NOTE | 2019-09-20 19:14 | CON ---
Identification: 64-year-old man. Chief Complaint: Heart racing. History Of Present Illness: Mr. Knight was having discomfort in his chest. He noted his pulse was mee y high when he got here. He was in a tachycardia. He has a pacemaker and it looks like his pacemake r was sensing atrial flutter and pacing the ventricle. It was at about 140 beats per minute. That h as since gone away. He is in sinus rhythm with first-degree AV block and feels comfortable again. H is enzymes are normal. He has had a pacemaker for several years. Several years before that, he had a distal LAD stent placed by Dr. Hardin. He has underlying diabetes. Physical Examination: General: He is alert, oriented, pleasant, obese, not in distress. Lungs: Clear. Heart: Within normal limits. Abdomen: Soft. Extremities: Look normal. Past Surgical History: Includes pacemaker, cholecystectomy, knee surgery, and a stent. Past Medical History: He has underlying strokes or TIAs, diabetes, dyslipidemia, hypertension. Medications: Outpatient medications have been metoprolol 50 b.i.d., Plavix 75 mg a day, furosemide 2 0 mg per day, Dexilant 60, lisinopril 20, escitalopram 20, hydrochlorothiazide 25, metformin 500, sravani rvastatin 40, Tresiba FlexTouch, oral galantamine, clonazepam, Zofran. Impression: The patient had atrial flutter that resolved. Recommendations: I would recommend we stop metoprolol, give him Betapace, stop Plavix and aspirin, a nd give him Eliquis. If he is still in sinus rhythm tomorrow and his pacemaker interrogation confirm s what we see, I would probably recommend that he get a shorter OH interval. The OH delay between se nsing a P-wave is about 240 milliseconds, so that should probably be shortened, and he needs to be an ticoagulated with Eliquis. PARKER/MODL Voice ID: [id number] Report ID: [id number]
[2019-09-20] MEDS ORDERED: ATORVASTATIN 40 MG TAB PO SCH (21:00)
[2019-09-20] MEDS: APIXABAN 5 MG TABLET PO SCH (21:10)
[2019-09-20] MEDS: INSULIN GLARGINE 100 UNITS/ML SQ SCH (21:10)
[2019-09-20] MEDS: INSULIN -REGULAR HUMAN 50 UNIT/0.5 ML ML SQ SCH (22:30)
[2019-09-20 23:22] LABS: CKMB Creatine Kinase MB 1.2 ng/mL (0.3-3.6); Creatine Phosphokinase 105 U/L (39-308); Magnesium 1.9 mg/dL (1.8-2.4); Troponin I < 0.02 ng/mL (0.0-0.045)
[2019-09-21 04:19] LABS: Absolute Lymphocytes (CBC) 2.3 K/uL (0.7-4.9); Basophils % 0.4 % (0-1.3); Hematocrit 35.1 % (39.6-49.0); MPV 8.8 fL (7.6-11.3); RBC Red Blood Cell Count 4.04 M/uL (4.33-5.43)
[2019-09-21] MEDS: ACETAMINOPHEN 500 MG TAB PO PRN (04:31)
[2019-09-21 04:42] LABS: BUN Blood Urea Nitrogen 20 mg/dL (7-18); Bicarbonate 30 mmol/L (21-32); CKMB Creatine Kinase MB 1.1 ng/mL (0.3-3.6); Creatine Phosphokinase 95 U/L (39-308); Glucose Level 129 mg/dL (74-106); HDL Cholesterol 31 mg/dL (40-60); LDL Cholesterol, Calculated 18 (<130); Magnesium 2.1 mg/dL (1.8-2.4); Sodium Level 142 mmol/L (136-145); Troponin I < 0.02 ng/mL (0.0-0.045)
[2019-09-21] MEDS: SOTALOL HCL 80 MG TAB PO SCH ×2 (06:01→16:06)
[2019-09-21] MEDS ORDERED: PANTOPRAZOLE 40MG TABLET PO SCH (06:30)
[2019-09-21] MEDS: APIXABAN 5 MG TABLET PO SCH (08:21)
[2019-09-21] MEDS: INSULIN GLARGINE 100 UNITS/ML SQ SCH (08:22)
[2019-09-21] MEDS ORDERED: ESCITALOPRAM 20 MG TAB PO SCH (09:00)
[2019-09-21] MEDS ORDERED: lisinopriL 20 MG TAB PO SCH (09:00)
[2019-09-21] MEDS ORDERED: FUROSEMIDE 20 MG TABLET PO SCH (09:00)
--- NOTE | 2019-09-21 09:30 | RAD REPORT ---
EXAM DESCRIPTION: RAD - C Spine W Obliques - 09/21/2019 8:11 am CLINICAL HISTORY: Neck pain Radiculopathy COMPARISON: No comparisons FINDINGS: Cervical bodies are normal in height.No fracture or acute bony process seen.Prominent disc thinning with posterior osteophyte formation at C4-5, C5-6 and C6-7.Minimal degenerative retrolisthe sis is present of C4 on 5. No prevertebral soft tissue thickening or other suspicious soft tissue finding. Facet hypertrophy results in mild encroachment on both exit foramina bilaterally. The odontoid is nor mal and the lateral masses are symmetric. Mild atherosclerosis of both carotid bulbs. IMPRESSION: Moderate multilevel midcervical degenerative changes.
--- NOTE | 2019-09-21 09:32 | RAD REPORT ---
EXAM DESCRIPTION: RAD - Thoracic Spine Ap/Lat - 09/21/2019 8:10 am CLINICAL HISTORY: back pain Radiculopathy COMPARISON: No comparisons FINDINGS: Wedging of several upper thoracic vertebral bodies are noted compatible with mild wedge co mpression deformities. No significant malalignment. Aortic atherosclerosis. IMPRESSION: Several mild osteoporotic wedge compression fracture suspected upper thoracic spine.
[2019-09-21] MEDS: INSULIN -REGULAR HUMAN 50 UNIT/0.5 ML ML SQ SCH (13:06)
--- NOTE | 2019-09-21 13:10 | ECHO ---
HEIGHT: 5 ft 10 in WEIGHT: 241 lb 0 oz DATE OF STUDY: 09/21/[address]: Prasanna Parker DO 2-DIMENSIONAL: YES M.MODE: YES DOPPLER: YES COLOR FLOW: YES TDS: NO PORTABLE: NO DEFINITY: NO BUBBLE STUDY: NO DIAGNOSIS: ATRIAL FIBRILLATION CARDIAC HISTORY: CATHERIZATION: YES SURGERY: NO PROSTHETIC VALVE: NO PACEMAKER: YES MEASUREMENTS (cm) DIASTOLIC (NORMALS) SYSTOLIC (NORMALS) IVSd 1.0 (0.6-1.2) LA Diam 3.3 (1.9-4.0) LVEF 73% LVIDd 3.3 (3.5-5.7) LVIDs 2.0 (2.0-3.5) %FS 41% LVPWd 1.1 (0.6-1.2) Ao Diam 3.0 (2.0-3.7) 2 DIMENSIONAL ASSESSMENT: RIGHT ATRIUM: NORMAL LEFT ATRIUM: NORMAL RIGHT VENTRICLE: PACEMAKER LEFT VENTRICLE: NORMAL TRICUSPID VALVE: NORMAL MITRAL VALVE: NORMAL PULMONIC VALVE: NORMAL AORTIC VALVE: NORMAL PERICARDIAL EFFUSION: NONE AORTIC ROOT: NORMAL LEFT VENTRICULAR WALL MOTION: NORMAL DOPPLER/COLOR FLOW: MILD TRICUSPID REGURGITATION. NORMAL RIGHT VENTRICULAR SYSTOLIC PRESSURE. COMMENTS: NORMAL LEFT VENTRICULAR SIZE AND FUNCTION. NO WALL MOTION ABNORMALITY. PACEMAKER IN RIGHT VENTRICULAR APEX. MILD TRICUSPID REGURGITATION. NO EFFUSION. TECHNOLOGIST: Manish THIBODEAUX
[2019-09-21 13:39] VITALS: O2SAT 98
--- NOTE | 2019-09-21 13:58 | P.DS ---
Admission Date: 09/20/19 Discharge Date: 09/21/19 Primary Care Provider: Dr. Garcia(Vallecitos); Cardiology-Dr. Hardin Disposition: ROUTINE DISCHARGE Discharge Condition: GOOD Reason for Admission: Chest pain, palpitations Consultations: Cardiology-Dr. Nicholson Procedures: ECHO: EF 74% LEFT VENTRICULAR WALL MOTION: NORMAL DOPPLER/COLOR FLOW: MILD TRICUSPID REGURGITATION. NORMAL RIGHT VENTRICULAR SYSTOLIC PRESSURE. COMMENTS: NORMAL LEFT VENTRICULAR SIZE AND FUNCTION. NO WALL MOTION ABNORMALITY. PACEMAKER IN RIGHT VENTRICULAR APEX. MILD TRICUSPID REGURGITATION. NO EFFUSION Xray C spine: COMPARISON: No comparisons FINDINGS: Cervical bodies are normal in height.No fracture or acute bony process seen.Prominent disc thinning with posterior osteophyte formation at C4-5 , C5-6 and C6-7.Minimal degenerative retrolisthesis is present of C4 on 5. No prevertebral soft tissue thickening or other suspicious soft tissue finding. Facet hypertrophy results in mild encroachment on both exit foramina bilaterally. The odontoid is normal and the lateral masses are symmetric. Mild atherosclerosis of both carotid bulbs. IMPRESSION: Moderate multilevel midcervical degenerative changes. Xray T spine: COMPARISON: No comparisons FINDINGS: Wedging of several upper thoracic vertebral bodies are noted compatible with mild wedge compression deformities. No significant malalignment. Aortic atherosclerosis. IMPRESSION: Several mild osteoporotic wedge compression fracture suspected upper thoracic spine Medical problem list: Chest pain, palpitations secondary to atrial fibrillation/atrial flutter with [employer]rez pacemaker Hypertension Diabetes mellitus type 2 insulin dependent with hyperglycemia Hyperlipidemia History of TIA Depression with anxiety Multi level mid cervical degenerative changes with possible osteoporotic wedge compression fracture to the upper thoracic spine Brief History of Present Illness: 64 yo HM presented to the ER with chest pain and palpitations. He has history of atrial fibrillation now with pacemaker, CAD with prior stent, HTN, Hyperlipidemia, DM, and Depression. He has reported chest pain and palpitations over the last couple of days. The chest pain has gotten worse. It is associated with shortness or breath and increased sweating today. He was seen by his [employer] Calenderer-Dr. Hardin last week. He had an abnormal stress test in the past 3 months. Cardiology has not had a heart catheterization due to numerous catheterizations in the past with only one stent. His symptoms worsened today. In the ER patient was in atrial fibrillation/flutter. Initial cardiac enzymes unremarkable. BNP 298. Sodium 137 come potassium 3.9, BUN 20, creatinine 1.22 with a GFR 60. Glucose 385. Patient stable at this time. Patient will be admitted for further evaluation. When I saw the patient ER, he appeared stable. Patient to have pacemaker interrogated. Hospital Course: Patient presented with chest pain and palpitations. Patient with history of [employer] Ramírez pacemaker. Patient found to have atrial fibrillation/atrial flutter. Patient seen and evaluated by Cardiology. Cardiology discontinued metoprolol. He was switched over to Betapace and Eliquis. During the course of his stay patient rhythm improved. Now sinus rhythm and paced. His pacemaker was interrogated. Patient has done well. At discharge he will continue with Betapace 80 mg 1 pill twice daily and Eliquis 5 mg 1 pill twice daily. Education on Betapace and Eliquis provided. Recommend follow up with his escalator service mechanic in 1-2 weeks to follow up this hospitalization. Patient will be provided a copy of the interrogation of pacemaker report for his escalator service mechanic. Please note at discharge Plavix has been discontinued. Patient with hypertension. Due to the above changes medications have been adjusted. He will no longer take hydrochlorothiazide and metoprolol. At discharge he will continue with lisinopril 20 mg daily. Patient also takes Lasix 20 mg daily with potassium supplementation. At discharge he will continue with this medication. Recommend to maintain blood pressures less 150/ 80. Further adjustment can be done by his PCP. Patient with diabetes mellitus type 2 insulin dependent with hyperglycemia. This has remained stable. At discharge he will continue with his diabetic regimen of Trulicity, metformin ER 1000 mg 1 pill twice daily and Tresiba 70 units subcu daily. Recommend to maintain blood sugars less 150/80. Further adjustment can be done by his PCP. Patient with history of hyperlipidemia. At discharge he will continue with Lipitor 40 mg daily. Patient with history of GERD. At discharge he will continue with Dexilant daily. Patient with depression with anxiety. At discharge he will continue with Lexapro 20 mg daily and clonazepam as directed. Patient had reported some back pain. Patient found have multi level mid cervical degenerative changes with possible osteoporotic wedge compression fracture to the upper thoracic spine. This will need to be further addressed by his PCP. Patient may benefit with CT scan in the near future to further evaluate for fracture. No heavy lifting, pushing or pulling recommended. Patient will need to be treated for osteoporosis. This can be further addressed by his PCP. Vital Signs/Physical Exam: Temp Pulse Resp BP Pulse Ox 96.8 F 61 20 126/61 97 09/21/19 12:00 09/21/19 12:00 09/21/19 12:00 09/21/19 12:00 09/21/19 12:00 General: Alert, In no apparent distress, Oriented x3, Cooperative HEENT: Atraumatic Neck: Supple Respiratory: Clear to auscultation bilaterally, Normal air movement Cardiovascular: Normal pulses, Regular rate/rhythm Gastrointestinal: Normal bowel sounds, Soft and benign, Non-distended Musculoskeletal: No erythema, No tenderness, No warmth Integumentary: No tenderness/swelling, No erythema, No warmth, No cyanosis Neurological: Normal speech, Normal strength at 5/5 x4 extr, Normal tone Laboratory Data at Discharge: WBC 6.9 K/uL (4.3-10.9) D 09/21/19 03:55 Hgb 12.4 g/dL (13.6-17.9) L 09/21/19 03:55 Hct 35.1 % (39.6-49.0) L 09/21/19 03:55 Plt Count 233 K/uL (152-406) 09/21/19 03:55 PT 11.3 SECONDS (9.5-12.5) 09/20/19 14:25 INR 0.96 09/20/19 14:25 Sodium 142 mmol/L (136-145) 09/21/19 03:55 Potassium 4.0 mmol/L (3.5-5.1) 09/21/19 03:55 BUN 20 mg/dL (7-18) H 09/21/19 03:55 Creatinine 0.92 mg/dL (0.55-1.3) 09/21/19 03:55 Glucose 129 mg/dL (74-106) H 09/21/19 03:55 Magnesium 2.1 mg/dL (1.8-2.4) 09/21/19 03:55 Total Bilirubin 0.7 mg/dL (0.2-1.0) 09/20/19 14:25 AST 21 U/L (15-37) 09/20/19 14:25 ALT 34 U/L (12-78) 09/20/19 14:25 Alkaline Phosphatase 88 U/L (45-117) 09/20/19 14:25 Troponin I < 0.02 ng/mL (0.0-0.045) 09/21/19 03:55 Triglycerides 297 mg/dL (<150) H 09/21/19 03:55 Cholesterol 108 mg/dL (<200) 09/21/19 03:55 HDL Cholesterol 31 mg/dL (40-60) L 09/21/19 03:55 Cholesterol/HDL Ratio 3.48 09/21/19 03:55 Lipase 216 U/L (73-393) 09/20/19 14:25 Home Medications: Atorvastatin Calcium [Lipitor] 40 mg PO BEDTIME 05/26/14 Furosemide [Lasix] 20 mg PO DAILY 05/26/14 Metformin ER [Glucophage ER*] 1,000 mg PO BID 05/26/14 lisinopriL [Prinivil*] 20 mg PO DAILY 05/26/14 Potassium Chloride [K-Dur] 10 meq PO DAILY 09/21/15 Escitalopram [Lexapro*] 20 mg PO DAILY 05/31/18 Cholecalciferol (Vitamin D3) [Vitamin D 1000 Iu Tab*] 1 tab PO BID 09/20/19 Dexlansoprazole [Dexilant] 60 mg PO DAILY 09/20/19 Dulaglutide [Trulicity] 1 units SQ SEECOM 09/20/19 Galantamine HBr [Galantamine ER] 12 mg PO BID 09/20/19 Insulin Degludec [Tresiba] 70 units SQ DAILY 09/20/19 Ondansetron [Ondansetron Odt] 8 mg PO BIDP PRN 09/20/19 clonazePAM [Clonazepam] 1 tab PO BID 09/20/19 Apixaban [Eliquis] 5 mg PO BID #60 tablet 09/21/19 Sotalol HCl [Betapace*] 80 mg PO BID 6AM 6PM #60 tab 09/21/19 New Medications: Apixaban [Eliquis] 5 mg PO BID #60 tablet Sotalol HCl [Betapace*] 80 mg PO BID 6AM 6PM #60 tab Patient Discharge Instructions: 1. Recommend follow up with his PCP in 1 week to follow this hospitalization. 2. Patient presented with chest pain and palpitations. Patient with history of [employer]rez pacemaker. Patient found to have atrial fibrillation/atrial flutter. Patient seen and evaluated by Cardiology. Cardiology discontinued metoprolol. He was switched over to Betapace and Eliquis. During the course of his stay patient rhythm improved. Now sinus rhythm and paced. His pacemaker was interrogated. Patient has done well. At discharge he will continue with Betapace 80 mg 1 pill twice daily and Eliquis 5 mg 1 pill twice daily. Education on Betapace and Eliquis provided. Recommend follow up with his escalator service mechanic in 1-2 weeks to follow up this hospitalization. Patient will be provided a copy of the interrogation of pacemaker report for his escalator service mechanic. Please note at discharge Plavix has been discontinued since he will be on Eliquis. Recommend to recheck lab-CBC in 1-2 weeks to monitors progress. 3. Patient with hypertension. Due to the above changes medications have been adjusted. He will no longer take hydrochlorothiazide and metoprolol. At discharge he will continue with lisinopril 20 mg daily. Patient also takes Lasix 20 mg daily with potassium supplementation. At discharge he will continue with this medication. Recommend to maintain blood pressures less 150/80. Further adjustment can be done by his PCP. 4. Patient with diabetes mellitus type 2 insulin dependent with hyperglycemia. This has remained stable. At discharge he will continue with his diabetic regimen of Trulicity, metformin ER 1000 mg 1 pill twice daily and Tresiba 70 units subcu daily. Recommend to maintain blood sugars less 150/ 80. Further adjustment can be done by his PCP. 5. Patient with history of hyperlipidemia. At discharge he will continue with Lipitor 40 mg daily. 6. Patient with history of GERD. At discharge he will continue with Dexilant daily. 7. Patient with depression with anxiety. At discharge he will continue with Lexapro 20 mg daily and clonazepam as directed. 8. Patient had reported some back pain. Patient found have multi level mid cervical degenerative changes with possible osteoporotic wedge compression fracture to the upper thoracic spine. This will need to be further addressed by his PCP. Patient may benefit with CT scan in the near future to further evaluate for fracture. No heavy lifting, pushing or pulling recommended. Patient will need to be treated for osteoporosis. This can be further addressed by his PCP. Diet: ADA Activity: Fall precautions Time spent managing pt's care (in minutes): 55
--- NOTE | 2019-09-21 15:57 | EKG ---
Test Date: 2019-09-20 Test Time: 16:13:37 Healthcare Sales Representative: WILLI MEASUREMENT RESULTS: Intervals: Rate: 81 PA: QRSD: 150 QT: 446 QTc: 518 Cameron: P: 45 PA: QRS: -82 T: 79 INTERPRETIVE STATEMENTS: Electronic ventricular pacemaker Compared to ECG 09/20/2019 13:56:54 No significant changes Electronically Signed On 09-21-19 15:52:29 MOLDER TRIMMER by Ronnell Hollis
[2019-09-21] MEDS ORDERED: INSULIN -REGULAR HUMAN 50 UNIT/0.5 ML ML SQ SCH (16:30)
[2019-09-21 17:20] VITALS: BP 125/84; TEMP 97.1
--- NOTE | 2019-09-21 20:01 | PN ---
Mr. Knight is being seen today 09/21/2019 after he came in with an episode of atrial flutter at 150 to 170. He has had a history of LAD stent by Dr. Hardin, many years ago has a pacemaker. It was checked today and showed evidence of atrial fibrillation or SVT in 2001, 2016, 2018 and 2019. This was neve r felt or detected or treated. He is now on sotalol and Eliquis. He has been in a normal rhythm sin ce he has been here. Echocardiogram was actually perfectly normal without any wall motion abnormalit ies. Normal ejection fraction. No effusion. The patient is asymptomatic. I would send him home to day on sotalol and Eliquis in addition to his home medication. He could probably stop the Plavix and stop the metoprolol. He is on Lasix and that should replace hydrochlorothiazide. The case was disc ussed with Dr. Parker. JAMILAH/DAXA Voice ID: [id number] Report ID: [id number]
== END 2019-09-21 17:30 | disposition home or self-care (01) ==
LOC: ER 13:45 → ERHOLD 16:13 → 4TH 17:53
PROVIDERS: ADMIT Family Medicine; ATTEND Family Medicine
DX: R07.9 Chest pain, unspecified (principal); R00.2 Palpitations; I48.92 Unspecified atrial flutter; I25.10 Atherosclerotic heart disease of native coronary artery without angina pectoris; I10 Essential (primary) hypertension; E78.5 Hyperlipidemia, unspecified; E11.65 Type 2 diabetes mellitus with hyperglycemia; F41.8 Other specified anxiety disorders; Z95.5 Presence of coronary angioplasty implant and graft; Z95.0 Presence of cardiac pacemaker; E66.9 Obesity, unspecified; Z68.34 Body mass index [BMI] 34.0-34.9, adult; M54.9 Dorsalgia, unspecified
CPT/HCPCS: 96365; 96361; 93005 ×2; 93306; 85025 ×2; 80048 ×2; 36415; 83735 ×3; 82550 ×2; 85610; 80061; 82947 ×5; 80076; 84443; 83036; 84484 ×3; 82553 ×2; 84439; 83690; 83880; 71045; 72050; 72070; 96375; 96372; 99285; 96366; J1160; J1650; J3475; J7030; G0378 ×3; J1815

== ENCOUNTER 2019-12-08 07:58 | Day surgery (SDC) | payer OTHER, MEDICARE ==
--- OUTSIDE RECORDS SUMMARY | 2019-12-08 08:43 | XMS REPORT ---
:1955 Author Organization [facility] t Address [address] [place] [address] [address]. [address] [place] [address] Care Team Providers Name Role Phone MIRIAM Primary Care Provider Unavailable MIRIAM Unavailable Unavailable Problems This patient has no known problems. Allergies, Adverse Reactions, Alerts This patient has no known allergies or adverse reactions. Medications This patient has no known medications. Encounters Start End Encounter Admission Attending Care Care Encounter Date/Time Date/Time Type Type Clinicians Facility Department ID 2017-11-13 2017-11-13 [id number] 18:02:00 18:02:00 VLADISLAV Results Test Description Test Time Test Comments Text Results Atomic Results Result Comments Lipid Profile 2017-11-13 19:14:00 Test Item Value Reference Range Comments Cholesterol (test code = CHOL) 180 mg/dL 0-200 Triglycerides (test code = 190 mg/dL 9-200 TRIG) HDL (test code = HDL) 39 mg/dL 40-60 Chol/HDL (test code = CHOLPHDL) 4.6 Ratio 0.0-5.0 LDL, Calculated (test code = 103 mg/dL 0-130 (NO TE)RISK OF HEART DISEASEPublished LDLC) by [place] Hear t AssociationAnalyte Optimal Boderline Increased RiskCHOL <200 200-23 9 >240TRIG <150 150- 199 >200HDL Male: >60 <40HDL Female : >60 <50LDL <100 130-159 >160LD L NEAR OPTIMAL I S 100-129 VLDL (test code = VLDL) 38 mg/dL 5-40 LDL/HDL (test code = LDLPHDL) 3 B-Type Natriuretic [id number] 11:54:00 Test Item Value Reference Range Comments B-Type Natriuretic Peptide (test code = 312087) 52.6 pg/mL 0.0-100.0 Glycosylated [id number] 00:07:00 Test Item Value Reference Range Comments HBA1c (test code = HBA1C) 11.3 % 4.8-5.9 CBC with [id number] 22:52:00 Test Item Value Reference Range Comments WBC (test code = WBC) 6.6 K/cumm 4.4-10.5 RBC (test code = RBC) 4.79 M/cumm 4.10-5.70 Hemoglobin (test code = HGB) 14.3 gm/dL 13.4-17.4 Hematocrit (test code = HCT) 44.4 % 38.7-52.0 MCV (test code = MCV) 92.8 fL 80-100 MCH (test code = MCH) 29.7 pg 27.0-32.5 MCHC (test code = MCHC) 32.1 g/dL 32.0-37.5 RDW (test code = RDW) 15.1 % 11.5-14.5 Platelet Count (test code = PLTCT) 250 K/cumm 140-440 MPV (test code = MPV) 10.3 fL Diff Method (test code = DIFFM) Auto Neutrophil (test code = NEUT) 58.7 % 36-70 Lymphocyte (test code = LYMPH) 31.7 % 12-44 Monocyte (test code = MONO) 5.7 % 0-11 Eosinophil (test code = EOS) 3.4 % 0-7 Basophil (test code = BASO) 0.5 % 0-2 Neutro Abs (test code = ANEUT) 3.9 K/cumm 1.6-7.4 Lymph Abs (test code = ALYMPH) 2.1 K/cumm 0.5-4.6 Hudspeth Abs (test code = AMONO) 0.4 K/cumm 0.0-1.2 Eos Abs (test code = AEOS) 0.23 K/cumm 0.00-0.74 Baso Abs (test code = ABASO) 0.0 K/cumm 0.00-0.21 Vitamin [id number] 21:45:00 Test Item Value Reference Range Comments Vitamin B 12 (test code = VITB12) 797 pg/mL 211-946 Troponin [id number] 21:39:00 Test Item Value Reference Range Comments Troponin T (test code = PARESH) <0.010 ng/mL 0.000-0.090 Testosterone, [id number] 21:39:00 Test Item Value Reference Range Comments Testosterone, Total (test code = TESTOS) 3.81 ng/mL 2.80-8. 00 Thyroid Stimulating Hormone (TSH)2017-02-18 21:39:00 Test Item Value Reference Range Comments TSH (test code = TSH) 2.04 mIU/mL 0.270-4.200 Comprehensive Metabolic [id number] 21:39:00 Test Item Value Reference Range Comments Sodium (test code = NA) 138 mmol/L 135-145 Potassium (test code = 3.9 mmol/L 3.5-5.1 K) Chloride (test code = 97 mmol/L 98-105 CL) Carbon Dioxide (test 25 mmol/L 22-29 code = CO2) Glucose (test code = 258 mg/dL 70-115 GLU) Blood Urea Nitrogen 17 mg/dL 8-23 (test code = BUN) Creatinine (test code = 0.8 mg/dL 0.7-1.2 CREAT) Calcium (test code = CA) 9.8 mg/dL 8.3-10.5 Prot Total (test code = 7.2 g/dL 6.4-8.3 TP) Albumin (test code = 4.5 g/dL 3.5-5.2 ALB) A/G Ratio (test code = 1.7 Ratio AGRATIO) Globulin (test code = 2.7 2.9-3.1 GLOB) Bili Total (test code = 0.8 mg/dL 0.1-0.9 TBIL) Alk Phos (test code = 78 U/L 40-129 APHOS) AST (test code = AST) 13 U/L 1-40 ALT (test code = ALT) 16 U/L 1-41 BUN/Creatinine Ratio 21.3 (test code = BCRATIO) Anion Gap (test code = 16 mmol/L 7-16 AGAP) Estimated GFR (test code >60 mL/min/1.73m2 eGFR (estimated Glomerular = GFR) Filtration Rate) is an estimated value, calculated from the patient 's serum creatinine using the MDRD equation.It is N OT the patient's actual GFR. The eGFR provides a more clinicallyuseful measure of kidney disease t adams serum creatinine alone .This calculation take s sex and race into accoun t, if the informationis pr ovided. If the race is not provided, and the patient isAfrican-Americ an, multiply by 1.21 2. If sex is not provided, and thepatient is fe male, multiply by 0.74 2. Results for patients <18 years ofage have not b een validated by the MDRD study and should be interpretedwith caution.eGFR Res ult Interpretation:e GFR > or = 60 is in the Nor mal RangeeGFR < 60 m ay mean kidney diseaseeG FR < 15 may mean kidney failureRanges recommended by skylar carroll National Kidney Foundation,http: //nkdep.nih .gov CK [id number] 21:39:00 Test Item Value Reference Range Comments CK (test code = CK) 119 U/L 39-308 CK [id number] 21:39:00 Test Item Value Reference Range Comments CK (test code = CK) 119 U/L 39-308 CKMB (test code = CKMB) 1.9 ng/mL 0.0-4.9 CKMB% (test code = CKMBP) 1.6 % 0.0-3.4 Lipid [id number] 21:39:00 Test Item Value Reference Range Comments Cholesterol (test code = 169 mg/dL 0-200 CHOL) Triglycerides (test code = 211 mg/dL 9-200 TRIG) HDL (test code = HDL) 42 mg/dL 40-60 Chol/HDL (test code = 4.0 Ratio 0.0-5.0 CHOLPHDL) LDL, Calculated (test code 85 0-130 (NOTE )RISK OF HEART = LDLC) DISEASEPublished by [place] Heart Associatio nAnalyte Optimal Boderline Increased RiskCHOL <200 20 0-239 >240TRIG <150 150-199 >200HDL Male: >60 <40HDL Female: &g t;60 <50LDL <100 130-159 >1 60LDL NEAR O PTIMAL IS 100-129 VLDL (test code = VLDL) 42 mg/dL 5-40 LDL/HDL (test code = 2 LDLPHDL)
--- OUTSIDE RECORDS SUMMARY | 2019-12-08 08:46 | XMS REPORT | Summary of Care ---
:1955 Author Organization [facility] Address [address] [place] [id number] Care Team Providers Name Role Phone ShabbirTabitha Primary Care Provider Encounter Details Date Type Department Care Team Description 08/05/2019 Patient Secure Msg [facility] Doctor Unassigned, Neurology-[place] [facility] [address] [facility] [place] [address] [place] [address] Allergies No Known Allergiesdocumented as of this encounter (statuses as of 09/11/2019) Medications Medication Sig Dispensed Refills Start End Status Date Date potassium chloride 0 03/16/20 A ctive (K-DUR) 10 mEq CR 14 tablet NITROSTAT 0.4 mg 0 01/13/20 Act melvin sublingual tablet 14 clopidogrel (PLAVIX) 0 03/03/20 [...] Use as directed, TID, 300 Strip 3 08/07 Active (CONTOUR NEXT STRIPS) DX: E11.40 16 stripIndications: Uncontrolled type 2 diabetes with neuropathy atorvastatin (LIPITOR) Take 1 tablet by mouth 90 tablet 3 07/25 12/12 Active 40 mg at bedtime. 16 tabletIndications: Dyslipidemia furosemide (LASIX) 20 Take 1 tablet by mouth 30 tablet 1 08/14 Active mg tabletIndications: daily. 16 Fluid retention lisinopril 20 mg Take 1 tablet by mouth 30 tablet 3 01/31/20 Active tablet daily. 18 hydroCHLOROthiazide hydrochlorothiazide 25 mg capsule 0 Active 12.5 mg capsule TAKE 1 CAPSULES BY MOUTH DAILY icosapent ethyl Take by mouth. 0 Active (VASCEPA) 1 gram capsuleIndications: Uncontrolled type 2 diabetes with neuropathy Insulin [place], Use as directed. 4 400 Each 3 09/22/19 Active Disposable, (PAULETTE PEN times daily E11.40 19 NEEDLE) 32 gauge x " NdleIndications: Uncontrolled type 2 diabetes with neuropathy qxnrdimpey-vdwxydz-skz Take 1 capsule by 40 capsule 0 01/16/20 Active feine (FIORINAL) mouth every 6 (six) 19 50-325-40 mg per hours as needed for capsule Pain. dulaglutide inject 0.75 mg under 12 Syringe 1 06/08/20 Active (TRULICITY) 1.5 mg/0.5 the skin weekly. 19 mL PnIjIndications: Uncontrolled type 2 diabetes with neuropathy insulin lispro inject 10-15 Units 2 Box 3 06/08/20 Active (HUMALOG KWIKPEN under the skin 3 19 INSULIN) 100 unit/mL (three) times daily pen before meals. Take 15 injectorIndications: units with breakfast Uncontrolled type 2 and 10 units with diabetes with dinner neuropathy metformin ER 500 mg 24 Take 2 tablets by 360 tablet 3 06/08/20 Active hr tabletIndications: mouth 2 (two) times 19 Uncontrolled type 2 daily. diabetes with neuropathy documented as of this encounter (statuses as of 09/11/2019) Active Problems Problem Noted Date Dyslipidemia 08/07/2016 Uncontrolled type 2 diabetes with neuropathy 6 Essential hypertension 07/11/2015 Type 2 diabetes, controlled, with neuropathy 5 Atherosclerotic PVD with intermittent claudication Neuropathy 07/05/2014 HLD (hyperlipidemia) 03/29/2014 Metabolic syndrome X 03/29/2014 Obesity 03/29/2014 Albuminuria 03/29/2014 documented as of this encounter (statuses as of 09/11/2019) Resolved Problems Problem Noted Date Resolved Date HTN (hypertension) 03/29/2014 07/11/2015 Type 2 diabetes mellitus with complication 03/29/2014 07/11/2015 documented as of this encounter (statuses as of 09/11/2019) Social History Tobacco Use Types Packs/Day Years [...] Treatment Date Type Specialty Care Team Description 10/13/2019 Office Visit Endocrinology Diabetes & Manpreet Palma MD Metabolism [address] [place] [address] [phone] 11/02/2019 Livestock Buyer Visit Endocrinology Diabetes & Sharon Verma RD Metabolism [address] [place], [place] [address] Health Maintenance Due Date Last Done Comments HEPATITIS C (HCV) SCREEN 1955 EYE EXAM 1964 DTaP,Tdap,and Td Vaccines (1 - 1965 Tdap) COLONOSCOPY 2004 Zoster Recombinant Vaccine 2004 (SHINGRIX) (1 of 2) LUNG CANCER SCREEN: Recommended 2009 for age 55-80 with 30 + pack year history INFLUENZA VACCINE (#1) 2019 Medicare Wellness Visit 2019 PNEUMOCOCCAL VACCINES 65+ (1 of 2 2019 - PCV13) LDL-C 09/16/2019 09/16/2018, 07/31/2016, 01/09/2016, Additional history exists URINE MICROALBUMIN 09/16/2019 09/16/2018, 07/31/2016, 01/09/2016, Additional history exists HgA1C 12/08/2019 06/08/2019, 01/12/2019, 09/16/2018, Additional history exists FOOT EXAM 01/13/2020 01/12/2019, 01/12/2019, 09/22/2018, Additional history exists CREATININE (SERUM) 01/17/2020 01/16/2019, 09/16/2018, 08/28/2017, Additional history exists documented as of this encounter Results Not on filedocumented in this encounter Insurance Payer Benefit Plan / Subscriber ID Effective Phone Address T e Group Dates [facility] [id number] 2019-Pre [facility] sent [id number] Supplement [place]IC[place] SUPPLE[place] [id number] MEDICARE MEDICARE PART xxxxxxxxxxx 2019-Pre [phone] [facility] [employer] [employer] sent [id number] [place] [id number] documented as of this encounter
--- OUTSIDE RECORDS SUMMARY | 2019-12-08 08:47 | XMS REPORT | Summary of Care ---
:1955 Author Organization [facility] Address [address] [place] [address] Care Team Providers Name Role Phone ShabbirTabitha Primary Care Provider Reason for Visit Reason Comments Refill Request Encounter Details Date Type Department Care Team Description 09/17/[address] [facility] Jeremiah Grissom MD Refill Request Neurology-[address] [place] [id number] [address] [place] [address] [phone] Allergies No Known Allergiesdocumented as of this encounter (statuses as of 09/29/2019) Medications Medication Sig Dispensed Refills Start End Status Date Date potassium chloride 0 03/16/ A ctive (K-DUR) 10 mEq CR 2013 tablet NITROSTAT 0.4 mg 0 01/12/ Act melvin sublingual tablet 2013 clopidogrel (PLAVIX) 0 03/03/ Active 75 mg tablet 2014 METOPROLOL TARTRATE Take 50 mg by mouth 2 0 Active ORAL (two) times daily. IRWIN ASPIRIN ORAL Take 81 mg by mouth 0 Active daily. DEXILANT 30 mg 60 mg. 3 09/29/ Activ e capsule 2016 escitalopram oxalate 2 01/09/ Active [...] mg tabletIndications: mouth daily. 2015 Fluid retention lisinopril 20 mg Take 1 tablet by 30 tablet 3 01/30/ Active tablet mouth daily. 2017 hydroCHLOROthiazide hydrochlorothiazide 25 mg capsule 0 Active 12.5 mg capsule TAKE 1 CAPSULES BY MOUTH DAILY icosapent ethyl Take by mouth. 0 Active (VASCEPA) 1 gram capsuleIndications: Uncontrolled type 2 diabetes with neuropathy Insulin [place], Use as directed. 4 400 Each 3 09/22/ Active Disposable, (PAULETTE PEN times daily E11.40 2019 NEEDLE) 32 gauge x 32" NdleIndications: Uncontrolled type 2 diabetes with neuropathy [id number]-kv Take 1 capsule by 40 capsule 0 01/15/ Active ffeine (FIORINAL) mouth every 6 (six) 2018 50-325-40 mg per hours as needed for capsule Pain. dulaglutide inject 0.75 mg under 12 Syringe 1 06/08/ Active (TRULICITY) 1.5 the skin weekly. 2019 mg/0.5 mL PnIjIndications: Uncontrolled type 2 diabetes with neuropathy insulin lispro inject 10-15 Units 2 Box 3 06/08/ Active (HUMALOG KWIKPEN under the skin 3 2018 INSULIN) 100 unit/mL (three) times daily pen before meals. Take 15 injectorIndications: units with breakfast Uncontrolled type 2 and 10 units with diabetes with dinner neuropathy metformin ER 500 mg Take 2 tablets by 360 tablet 3 06/08/ Active 24 hr mouth 2 (two) times 2019 tabletIndications: daily. Uncontrolled type 2 diabetes with neuropathy galantamine 12 mg Take 1 tablet by 60 tablet 6 08/09/ Active tabletIndications: mouth 2 (two) times 2019 Early onset daily. Alzheimer's disease with behavioral disturbance insulin degludec inject 80 Units under 30 mL 2 08/10/ Active (TRESIBA FLEXTOUCH the skin daily. 2018 U-100) 100 unit/mL (3 mL) InPnIndications: Uncontrolled type 2 diabetes with neuropathy clonazePAM 0.5 mg Take 1 tablet by 45 tablet 1 09/29/ Active disintegrating mouth 2 (two) times 2019 tabletIndications: daily as needed for Early onset Anxiety. Alzheimer's disease with behavioral disturbance clonazePAM 0.5 mg Take 1 tablet by 45 tablet 1 12/09/29 Discontinued disintegrating mouth 2 (two) times 2018 (Reorder) tabletIndications: daily as needed for Early onset Anxiety. Alzheimer's disease with behavioral disturbance documented as of this encounter (statuses as of 09/29/2019) Active Problems Problem Noted Date Dyslipidemia 08/07/2016 Uncontrolled type 2 diabetes with neuropathy 6 Essential hypertension 07/11/2015 Type 2 diabetes, controlled, with neuropathy 5 Atherosclerotic PVD with intermittent claudication Neuropathy 07/05/2014 HLD (hyperlipidemia) 03/29/2014 Metabolic syndrome X 03/29/2014 Obesity 03/29/2014 Albuminuria 03/29/2014 documented as of this encounter (statuses as of 09/29/2019) Resolved Problems Problem Noted Date Resolved Date HTN (hypertension) 03/29/2014 07/11/2015 Type 2 diabetes mellitus with complication 03/29/2014 07/11/2015 documented as of this encounter (statuses as of 09/29/2019) Social History Tobacco Use Types Packs/Day Years [...] Endocrinology Diabetes & Manpreet Palma MD Metabolism [address] [place] [address] [phone] 11/02/2019 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 O. IRMA [facility] sent [id number] Supplement MEDICARE [place] SUPPLEMENT [employer] [id number] MEDICARE MEDICARE PART xxxxxxxxxxx 2019-Pre [phone] P. O. IRMA [employer] [employer] sent [id number] [place] [phone] documented as of this encounter
--- OUTSIDE RECORDS SUMMARY | 2019-12-08 08:48 | XMS REPORT | Summary of Care ---
:1955 Author Organization [facility] Address [address] [place] [address] Care Team Providers Name Role Phone ShabbirTabitha Primary Care Provider Reason for Visit Reason Comments Follow-up Diabetes Mellitus II Encounter Details Date Type Department Care Team Description 10/13/2019 Office Visit [facility] Elizabeth Palma MD Uncontrolled type 2 diabetes with neurop athy (Primary Dx); Endocrinology- [facility] Mixed hy perlipidemia; [facility] Essential hypertension Professional Office [address] [place] [address] Allergies No Known Allergiesdocumented as of this encounter (statuses as of 10/13/2019) Medications Medication Sig Dispensed Refills Start End Status Date Date potassium chloride 0 03/16/ A ctive (K-DUR) 10 mEq CR 2013 tablet NITROSTAT 0.4 mg 0 01/12/ Act melvin sublingual tablet 2014 DEXILANT 30 mg 60 mg. 3 09/29/ [...] 1 08/14/ Active mg tabletIndications: mouth daily. 2016 Fluid retention lisinopril 20 mg Take 1 tablet by 30 tablet 3 01/30/ Active tablet mouth daily. 2017 icosapent ethyl Take by mouth. 0 Active (VASCEPA) 1 gram capsuleIndications: Uncontrolled type 2 diabetes with neuropathy Insulin [place], Use as directed. 4 400 Each 3 09/22/ Active Disposable, (PAULETTE PEN times daily E11.40 2018 NEEDLE) 32 gauge x 5/32" NdleIndications: Uncontrolled type 2 diabetes with neuropathy insulin [...] Active 24 hr mouth 2 (two) times 2018 tabletIndications: daily. Uncontrolled type 2 diabetes with neuropathy galantamine 12 mg Take 1 tablet by 60 tablet 6 08/09/ Active tabletIndications: mouth 2 (two) times 2018 Early [...] onset Anxiety. Alzheimer's disease with behavioral disturbance apixaban (ELIQUIS) 5 Eliquis 5 mg tablet 0 Active mg tablet T1T PO BID sotalol 80 mg tablet 0 09/21/ Active 2019 alendronate 70 mg 0 10/06/ Ac tive tablet 2019 dulaglutide inject 0.75 mg under 12 Syringe 3 10/13/ Active (TRULICITY) 0.75 the skin weekly. 2020 mg/0.5 mL PnIjIndications: Uncontrolled type 2 diabetes with neuropathy clopidogrel (PLAVIX) 0 03/03/ 10/13 Discontinued 75 mg tablet 2013 METOPROLOL TARTRATE Take 50 mg by mouth 2 0 10/13 Discontinued ORAL (two) times daily. ( Condition no longer warrants) IRWIN ASPIRIN ORAL Take 81 mg by mouth 0 0 10/13 Discontinued daily. hydroCHLOROthiazide hydrochlorothiazide 25 mg capsule 0 10/13 Discontinued 12.5 mg capsule TAKE 1 CAPSULES BY MOUTH (Error) [id number] Take 1 capsule by 40 capsule 0 10/13 Discontinued ffeine (FIORINAL) mouth every 6 (six) 2018 020 (Condition no 50-325-40 mg per hours as needed for longer capsule Pain. warrants) dulaglutide inject 0.75 mg under 12 Syringe 1 10/13 Discontinued (TRULICITY) 1.5 the skin weekly. 2018 (Dose mg/0.5 mL adjustment ) PnIjIndications: Uncontrolled type 2 diabetes with neuropathy documented as of this encounter (statuses as of 10/13/2019) Active Problems Problem Noted Date Dyslipidemia 08/07/2016 Uncontrolled type 2 diabetes with neuropathy 6 Essential hypertension 07/11/2015 Type 2 diabetes, controlled, with neuropathy 5 Atherosclerotic PVD with intermittent claudication Neuropathy 07/05/2014 HLD (hyperlipidemia) 03/29/2014 Metabolic syndrome X 03/29/2014 Obesity 03/29/2014 Albuminuria 03/29/2014 documented as of this encounter (statuses as of 10/13/2019) Resolved Problems Problem Noted Date Resolved Date HTN (hypertension) 03/29/2014 07/11/2015 Type 2 diabetes mellitus with complication 03/29/2014 07/11/2015 documented as of this encounter (statuses as of 10/13/2019) Social History Tobacco Use Types Packs/Day Years [...] Sign Reading Time Taken Comments Blood Pressure 125/80 10/13/2019 9:24 AM VP LAB Pulse 65 10/13/2019 9:24 AM VP LAB Temperature - - Respiratory Rate 16 10/13/2019 9:24 AM VP LAB Oxygen Saturation - - Inhaled Oxygen Concentration - - Weight 111.9 kg (246 lb 12.8 oz) 10/13/2019 9:24 AM VP LAB Height 177.8 cm (5' 10") 10/13/2019 9:24 AM VP LAB Body Mass Index 35.41 10/13/2019 9:24 AM VP LAB documented in this encounter Patient Instructions Patient InstructionsElizabeth Palma MD - 10/13/2019 9:00 AM CSTcontinue Trulicity 0.75 mg qweekly continue Metformin ER 1000 mg BID continue Tresiba 80u QAM will need to take Humalog 15u with breakfast and 10u with dinner consistently on daily base LAB documented in this encounter Progress Notes Elizabeth Palma MD - 10/13/2019 9:00 AM CST CC: Follow up for T2DM HPI Patient is a 64 year old /White male who is here today for Diabetes Mellitus Type 2. Patient's diabetes is complicated by hyperlipidemia, CVA , ischemic in 09/2015, hypertension , nephropathy: with microalbuminuria, CAD (cardiac cath showed 50 % blockage in 2013, followed by Dr. Parkinson cardiology in [place]), PVD (Left with claudications) followed by vascular surgery at [facility], neuropathy: Peripheral and lower extremity and obesity. His NESS was ordered that showed non compressible vessel on right and normal on left ( could be due to non-compressible vessel), He was then referred to vascular surgery and recommended by them to conservative manage left PVD with statin, aspirin, plavix, Patient had ischemic stroke earlier 2015, he was hospitalized in [facility] work up was negative in terms of carotid duplex. He also had cardiac pacemaker in 05/2016, Dr. Parkinson, cardiology 12/2018: Patient was seen by neurology and diagnosed with early dementia. RAFAEL was in 05/2019 with A1C worsened to 10. Patient was advised to increase metformin Er to 1000BID and continue Tresiba 80 units daily. Reduce Trulicity to 0.75mg week due to nausea, with adding Humalog 15 u with breakfast and 10 units with dinner. Patient is semicompliant with medication regimen. only gave him dose of Humalog when sugar at 300-400. She also reduced Tresiba to 75 units daily for unknown reason Patient usually checks blood glucoses 1-2 times a day. Patient has not brought in the blood sugarsto be reviewed today. Average blood sugar at breakfast and at supper 200-300s The patient is not having problems with hypoglycemia. Patient is better compliant with diet but unable to exercise due to cardiac function Patient had admission to hospital for flare of Afib in 08/2019. Pacer was interrogated and patient has been feeling better since discharge HLD takes Lipitor 40 mg . Field Representative added Vascepa 2 cap however patient had to stop due to diarrhea Neuropathy, takes gabapentin 300 mg at HS. Symptoms are controlled. HTn: managed by cardiology. DIABETIC HEALTH MAINTENANCE Last Ophthalmology visit was 11/2018, has retinopathy, Left eye bleeding, F/U in 2 months. Patient on RADHA/ARB therapy - Yes Patient on ASA therapy - No. On anticoagulation Patient on Statin/Fibrate therapy - Yes. Patient received Flu shot this season - Yes. Patient instructed about daily feet exams, last sensation exam was 10/13/2019 . Patient has received Nutrition/Diet/Diabetes Education on 2019 HISTORY Past Medical History: Diagnosis Date CAD (coronary artery disease) 2013 50 % block in 2013. s/p stent in 2010 CVA (cerebral infarction) 09/2015 DM2 (diabetes mellitus, type 2) HLD (hyperlipidemia) HTN (hypertension) Neuropathy Past Surgical History: Procedure Laterality Date LIPOMA EXCISION Family History Problem Relation Age of Onset [...] file Gets together: Not on file Attends mu-ism service: Not on file Active member of [...] file Social History Narrative Not on file REVIEW OF SYSTEMS Constitutional: + weight gain, + fatigue and hair loss Eyes:+blurry vision, denies diplopia and denies pain. Neck: denies pain, denies swollen glands Cardiovascular: denies chest pain , denies irregular pulse and denies palpitations. Respiratory: denies dyspnea on exertion and denies shortness of breath. Gastrointestinal: denies abdominal pain, denies constipation and denies diarrhea. Genitourinary: denies burning and denies dysuria. Musculoskeletal: + back pain, denies muscle pain and denies weakness. Skin: denies dry skin and denies hair changes. Neuro: + numbness + poor memory , denies tingling and denies tremor. Psych: negative. Endocrine: denies goiter, denies hair loss, denies intolerance to cold, denies intolerance to heat, denies polydipsia, denies polyphagia and denies polyuria. PHYSICAL EXAM No results found for: POCGLU Creatinine, Serum-LC (mg/dL) Date Value 08/28/2017 0.72 (L) CREATININE-Q (mg/dL) Date Value 01/16/2019 0.78 CHOLESTEROL, TOTAL-Q (mg/dL) Date Value 09/16/2018 157 HDL CHOLESTEROL-Q (mg/dL) Date Value 09/16/2018 38 (L) [id number] (mg/dL (calc)) Date Value 09/16/2018 85 TRIGLYCERIDES-Q (mg/dL) Date Value 09/16/2018 246 (H) No results found for: ALBUCREAT, UALBCREAT POCT HBA1C (%) Date Value 06/08/2019 10 (A) 01/12/2019 8.5 (A) HEMOGLOBIN A1c-Q (% of total Hgb) Date Value 07/31/2016 8.9 (H) BP 125/80 (BP Location: Left arm, Patient Position: Sitting, BP CUFF SIZE: Adult Large) | Pulse 65| Resp 16 | Ht 5' 10" (1.778 m) | Wt 246 lb 12.8 oz (111.9 kg) | BMI 35.41 kg/m General: alert, oriented times three, no apparent distress, appearing age appropriate. Skin: skin color and turgor are normal Head: normocephalic, no masses, lesions, tenderness or abnormalities. Eyes: anicteric sclera, pupils are equally round and reactive to light. Neck: +acanthosis nigricans Thyroid: normal size and consistency to palaption Lungs: good diaphragmatic excursion, lungs clear to auscultation bilaterally. Heart: regular rate and rhythm, no murmurs, gallops or rubs. Abdomen: abdomen soft, non-tender, normal active bowel sounds, + obese. Neuro: unremarkable without focal findings. Extremities/Musculoskeletal: no cyanosis, no edema . Sensory exam of the foot is abnormal. Monofilament exam with sensation Right: 4/5, Left: 4/5. Lesions absent Ulcers Absent Peripheral pulses present 2+. Outside lab 08/2019 TL=608/Dz=869/LDL=18 HDL=31 CMP was WNL TSH=1.69/free T4=0.95 A1C=8.8 ASSESSMENT/PLAN 1. Uncontrolled type 2 diabetes with neuropathy -A1C (target=7-8%): 10 (06/12) -->8.8(09/13)improved from previous 8-9s -glucose range:hyperglycemia in fasting - without hypoglycemia -complication: neuropathy retinopathy nephropathy macrovascular: CAD CVA -medication limitation: Victoza- GI symptoms, Invokana ( stopped due to neuropathy) -diet: better compliant -exercise: limited by joint pain Plan -reinterated to check glucose at least BID alternating fasting and 2 hours post meals -urged compliance with diet/exercise - dulaglutide (TRULICITY) 0.75 mg/0.5 mL PnIj; inject 0.75 mg under the skin weekly. Dispense: 12 Syringe; Refill: 3 - MICROALBUMIN URINE - SPOT SAMPLE; Future Patient Instructions continue Trulicity 0.75 mg qweekly continue Metformin ER 1000 mg BID continue Tresiba 80u QAM will need to take Humalog 15u with breakfast and 10u with dinner consistently on daily base 2. Mixed hyperlipidemia Lipid was at target Plan manage by cardiology 3. Essential hypertension BP in clinic was at target Plan manage by cardiology oAna pisano LVN - 10/13/2019 9:00 AM CSTOutside record A1c 09/20/2019 8.8 Jesse Gonzalezectronically signed by Ana Riojas LVN at 10/13/2019 7:14 PM CSTdocumented in this encounter Plan of Treatment Date Type Specialty Care Team Description 11/02/2019 News Technical Director Visit Endocrinology Diabetes & Bayron, Sharon, RD Metabolism [address] [place] [address] [phone] 02/09/2020 Office Visit Endocrinology Diabetes & Manpreet Palma MD Metabolism [address] [place] [address] [phone] Name Type Priority Associated Diagnoses Order S chedule MICROALBUMIN URINE - SPOT LAB Routine Uncontrolled ty pe 2 Expected: 10/13/2019, SAMPLE diabetes with neuropathy Exp ires: 10/13/2020 Health Maintenance Due Date Last Done Comments HEPATITIS C (HCV) SCREEN 1955 DTaP,Tdap,and Td Vaccines (1 - 1965 Tdap) COLONOSCOPY 2004 Zoster Recombinant Vaccine 2004 (SHINGRIX) (1 of 2) LUNG CANCER SCREEN: Recommended 2009 for age 55-80 with 30 + pack year history EYE EXAM 12/18/2018 12/18/2017 INFLUENZA VACCINE (#1) 2019 05/25/2018, 06/24/2017 Medicare Wellness Visit 2019 PNEUMOCOCCAL VACCINES 65+ [...] filedocumented in this encounter Visit Diagnoses Diagnosis Uncontrolled type 2 diabetes with neurop athy - Primary Type II or unspecified type diabetes daniel litus with neurological manifestations, uncontrolled Mixed hyperlipidemia Essential hypertension Unspecified essential hypertension documented in this encounter Insurance Payer Benefit Plan / Subscriber ID Effective Phone Address T e Group Dates MEDICARE MEDICARE PART xxxxxxxxxxx 2019-Pre [phone] [address] [employer] sent [phone] [place] [phone] [facility] [id number] 2019-Pre [address] B[address] [facility] sent [phone] Supplement MEDICARE [place] SUPPLEMENT [employer] [id number] documented as of this encounter
--- OUTSIDE RECORDS SUMMARY | 2019-12-08 08:48 | XMS REPORT | Summary of Care ---
:1955 Author Organization [facility] Address [address] [place] [address] Care Team Providers Name Role Phone ShabbirTabitha Primary Care Provider Reason for Visit Reason Comments Follow-up Diabetes Mellitus II Encounter Details Date Type Department Care Team Description 10/13/2019 Office Visit [facility] Elizabeth Palma MD Uncontrolled type 2 diabetes with neurop athy (Primary Dx); Endocrinology- [facility] Mixed hy perlipidemia; [facility] Essential hypertension Professional Office [address] [place] [address] Allergies No Known Allergiesdocumented as [...] Uncontrolled type 2 diabetes with neuropathy Insulin [place], Use as directed. 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 Pulse 65 10/13/2019 9:24 AM OPTICAL EFFECTS CAMERA OPERATOR Temperature - - Respiratory Rate 16 10/13/2019 9:24 AM OPTICAL EFFECTS CAMERA OPERATOR Oxygen Saturation - - Inhaled Oxygen Concentration - - Weight 111.9 kg (246 lb 12.8 oz) 10/13/2019 9:24 AM OPTICAL EFFECTS CAMERA OPERATOR Height 177.8 cm (5' 10") 10/13/2019 9:24 AM OPTICAL EFFECTS CAMERA OPERATOR Body Mass Index 35.41 10/13/2019 9:24 AM OPTICAL EFFECTS CAMERA OPERATOR documented in this encounter Patient Instructions Patient InstructionsElizabeth Palma MD - 10/13/2019 9:00 AM CSTcontinue Trulicity 0.75 mg qweekly continue Metformin ER 1000 mg BID continue Tresiba 80u QAM will need to take Humalog 15u with breakfast and 10u with dinner consistently on daily base CAL EFFECTS 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 Patient's diabetes is complicated by hyperlipidemia, CVA , ischemic in 09/2015, hypertension , nephropathy: with microalbuminuria, CAD (cardiac cath showed 50 % blockage in 2013, followed by Dr. Parkinson cardiology in [place]), PVD (Left with claudications) followed by vascular surgery at [facility], neuropathy: Peripheral and lower extremity and obesity. His NESS was ordered that showed non compressible vessel on right and normal on left ( could be due to non-compressible vessel), He was then referred to vascular surgery and recommended by them to conservative manage left PVD with statin, aspirin, plavix, Patient had ischemic stroke earlier 2015, he was hospitalized in [facility] work up was negative in terms [...] discharge HLD takes Lipitor 40 mg . Sweat Box Attendant added Vascepa 2 cap however patient had [...] file Gets together: Not on file Attends islam service: Not on file Active member of [...] CHOLESTEROL-Q (mg/dL) Date Value 09/16/2018 38 (L) [id number] (mg/dL (calc)) Date Value 09/16/2018 85 TRIGLYCERIDES-Q [...] Peripheral pulses present 2+. Outside lab 08/2019 JT=681/Xl=628/LDL=18 HDL=31 CMP was WNL TSH=1.69/free T4=0.95 A1C=8.8 [...] Date Type Specialty Care Team Description 11/02/2019 Janitorial Supervisor Visit Endocrinology Diabetes & Bayron, Sharon, RD Metabolism [address] [place] [address] [phone] 02/09/2020 Office Visit Endocrinology Diabetes & Manpreet Palma MD Metabolism [address] [place] [address] [phone] Name Type Priority Associated Diagnoses Order S [...] BOX ed[employer]are A & B sent [phone] [place] [phone] [facility] [id number] 2019-Pre [address] [facility] sent [phone] Supplement MEDICARE [place] SUPPLEMENT [employer] [id number] documented as of this encounter
--- OUTSIDE RECORDS SUMMARY | 2019-12-08 08:48 | XMS REPORT | Summary of Care ---
:1955 Author Organization [facility] - Health Address [address] [place] [address] Care Team Providers Name Role Phone ShabbirTabitha Primary Care Provider Encounter Details Date Type Department Care Team Description 10/13/2019 Orders Only [facility] Doctor Unassigned, No [address] [facility] [place] [address] [address] [place] [address] Allergies No Known Allergiesdocumented as of this [...] Uncontrolled type 2 diabetes with neuropathy Insulin [place], Use as directed. 4 400 Each 3 09/22/19 Active Disposable, (PAULETTE PEN times daily E11.40 19 NEEDLE) 32 gauge x 5/32" NdleIndications: Uncontrolled type 2 diabetes with neuropathy [id number] Take 1 capsule by 40 capsule 0 [...] Uncontrolled type 2 daily. diabetes with neuropathy galantamine 12 mg Take 1 tablet by mouth 60 tablet 6 08/09/20 Active tabletIndications: 2 (two) times daily. 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 insulin degludec inject 80 Units under 30 mL 2 08/10/20 Active (TRESIBA FLEXTOUCH the skin daily. 19 U-100) 100 unit/mL (3 mL) InPnIndications: Uncontrolled type 2 diabetes with neuropathy clonazePAM 0.5 mg Take 1 tablet by mouth 45 tablet 1 09/29/19 Active disintegrating 2 (two) times daily as 20 tabletIndications: needed for Anxiety. Early onset Alzheimer's disease with behavioral disturbance [...] Date Type Specialty Care Team Description 11/02/2019 Opera Singer Visit Endocrinology Diabetes & BayronSharon mckinnon, DIOMEDES Metabolism [address] [place] [address] [phone] Health Maintenance Due Date Last Done Comments HEPATITIS C (HCV) SCREEN 1955 EYE EXAM 1964 DTaP,Tdap,and Td Vaccines (1 - 1965 Tdap) COLONOSCOPY 2004 Zoster Recombinant Vaccine 2004 (SHINGRIX) (1 of 2) LUNG CANCER SCREEN: Recommended 2009 for age 55-80 with 30 + pack year history INFLUENZA VACCINE (#1) 2019 05/25/2018, 06/24/2017 Medicare [...] Procedures Procedure Name Priority Date/Time Associated Diagnosis Comme nts ASSIGNMENT OF BENEFITS Routine 10/13/2019 9:06 AM 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 edicare A & B sent [id number] [place] [id number] [facility] [id number] 2019-Pre [address] [facility] sent [id number] Supplement MEDICARE [place] SUPPLEMENT [place] [id number] documented as of this encounter
--- OUTSIDE RECORDS SUMMARY | 2019-12-08 08:49 | XMS REPORT | Summary of Care ---
:1955 Author Organization [facility] Address [address] [place] [address] Care Team Providers Name Role Phone ShabbirTabitha Primary Care Provider Reason for Visit Reason Comments Rx Concern/Question Encounter Details Date Type Department Care Team Description 11/16/2019 Telephone [facility] Elizabeth Palma MD Rx Concern/Question Endocrinology- [facility] [address] [facility] Professional Office [address] [address] [address] [place] [address] [phone] Allergies No Known Allergiesdocumented as of this encounter (statuses as of 11/16/2019) Medications Medication Sig Dispensed Refills Start Date End Date Status potassium chloride 0 03/16/2014 Active (K-DUR) 10 mEq CR tablet NITROSTAT 0.4 mg 0 01/12/2014 Ac tive sublingual tablet DEXILANT 30 mg capsule 60 mg. 3 09/29/2015 Active escitalopram oxalate 2 01/10/2016 Active (LEXAPRO) 20 mg tablet blood sugar diagnostic Use as directed, 300 Strip 3 08/07/2016 Active (CONTOUR NEXT STRIPS) TID, DX: E11.40 stripIndications: Uncontrolled type 2 diabetes with neuropathy atorvastatin (LIPITOR) Take 1 tablet by 90 tablet 3 08/07/2016 Active 40 mg mouth at bedtime. tabletIndications: Dyslipidemia furosemide (LASIX) 20 Take 1 tablet by 30 tablet 1 08/14/2016 Active mg tabletIndications: mouth daily. Fluid retention lisinopril 20 mg Take 1 tablet by 30 tablet 3 01/30/2018 Active tablet mouth daily. icosapent ethyl Take by mouth. 0 Active (VASCEPA) 1 gram capsuleIndications: Uncontrolled type 2 diabetes with neuropathy Insulin Hubbard, Use as directed. 400 Each 3 09/22/2018 Active Disposable, (PAULETTE PEN 4 times daily NEEDLE) 32 gauge x E11.40 /" NdleIndications: Uncontrolled type 2 diabetes with neuropathy insulin lispro inject 10-15 2 Box 3 06/08/2019 A ctive (HUMALOG KWIKPEN Units under the INSULIN) 100 unit/mL skin 3 (three) pen times daily injectorIndications: before meals. Uncontrolled type 2 Take 15 units diabetes with with breakfast neuropathy and 10 units with dinner metformin ER 500 mg 24 Take 2 tablets by 360 tablet 3 06/08/20 19 Active hr tabletIndications: mouth 2 (two) Uncontrolled type 2 times daily. diabetes with neuropathy galantamine 12 mg Take 1 tablet by 60 tablet 6 08/09/2019 Active tabletIndications: mouth 2 (two) Early onset times daily. Alzheimer's disease with behavioral disturbance insulin degludec inject 80 Units 30 mL 2 08/10/2019 Active (TRESIBA FLEXTOUCH under the skin U-100) 100 unit/mL (3 daily. mL) InPnIndications: Uncontrolled type 2 diabetes with neuropathy clonazePAM 0.5 mg Take 1 tablet by 45 tablet 1 09/29/2019 Active disintegrating mouth 2 (two) tabletIndications: times daily as Early onset needed for Alzheimer's disease Anxiety. with behavioral disturbance apixaban (ELIQUIS) 5 Eliquis 5 mg tablet 0 Active mg tablet T1T PO BID sotalol 80 mg tablet 0 09/21/2019 Active alendronate 70 mg 0 10/06/2019 A ctive tablet TRULICITY 0.75 mg/0.5 inject 0.75 mg 12 Syringe 3 11/16/2019 Active mL PnIjIndications: under the skin Uncontrolled type 2 weekly. DX: diabetes with E11.40 neuropathy documented as of this encounter (statuses as of 11/16/2019) Active Problems Problem Noted Date Dyslipidemia 08/07/2016 Uncontrolled type 2 diabetes with neuropathy 6 Essential hypertension 07/11/2015 Type 2 diabetes, controlled, with neuropathy 5 Atherosclerotic PVD with intermittent claudication Neuropathy 07/05/2014 HLD (hyperlipidemia) 03/29/2014 Metabolic syndrome X 03/29/2014 Obesity 03/29/2014 Albuminuria 03/29/2014 documented as of this encounter (statuses as of 11/16/2019) Resolved Problems Problem Noted Date Resolved Date HTN (hypertension) 03/29/2014 07/11/2015 Type 2 diabetes mellitus with complication 03/29/2014 07/11/2015 documented as of this encounter (statuses as of 11/16/2019) Social History Tobacco Use Types Packs/Day Years [...] Treatment Date Type Specialty Care Team Description 02/09/2020 Office Visit Endocrinology Diabetes & Manpreet Palma MD Metabolism [address] [place], [place] [id number] Health Maintenance Due Date Last Done Comments [...] 12/08/2019 06/08/2019, 01/12/2019, 09/16/2018, Additional history exists CREATININE (SERUM) 01/17/2020 01/16/2019, 09/16/2018, 08/28/2017, Additional history exists FOOT EXAM 10/13/2020 10/13/2019, 10/13/2019, 01/12/2019, Additional history exists documented as of this encounter Results Not on filedocumented in this encounter Insurance Payer Benefit Plan / Subscriber ID Effective Phone Address T ype Group Dates MEDICARE MEDICARE PART xxxxxxxxxxx 2019-Pre [phone] [address] shi A & B sent [id number] [place] [id number] [facility] [id number] 2019-Pre [address] [facility] sent [id number] Supplement MEDICARE [place] SUPPLEMENT [place] [id number] documented as of this encounter
--- OUTSIDE RECORDS SUMMARY | 2019-12-08 08:49 | XMS REPORT | Encounter Summary ---
:1955 Author Care Team Providers Name Role Phone Jennifer Shea (Sophia) Primary Care Provider [phone] Zackary Hardin Germination Testing Manager [phone] Elizabeth Palma Glass Technician [phone] Dr Jeremiah Grissom Neurologist [phone] Reason for Visit ER follow-up Instructions 1. Diabetes mellitus glucose, fingerstick, bloo d 2. Benign essential hypertension high blood pressure: care instructions learning about high blood pressure 3. Wedge fracture of thoracic ve rtebra orthopedic referral - Omid baker contact patient with an appt. Fosamax 70 mg tablet 4. Mixed anxiety and depressive disorder behavioral health referral 5. Alzheimer's disease alzheimer's disease: care instructions Discussion Note: None recorded. Plan of Care Reminders Provider Appointments Est Pt Jennifer Lu 01/03/2020 Shabbir, GUEST SERVICE HOST 9:00AM Lab Glucose, Sophia Il dical Fingerstick, Blood 10/06/2019 Referral Orthopedic Neymar Dominguez II Referral 10/06/2019 MD Behavioral Health Referral 10/06/2019 Procedures None recorded. Surgeries None recorded. Imaging None recorded. Medications Name Start Date atorvastatin 40 mg tablet Take 1 tablet every day by oral route for 30 days. clonazepam 0.5 mg disintegrating tablet One 2 times a day. Dexilant 60 mg capsule, delayed release TAKE 1 CAPSULE(S) EVERY DAY BY ORAL ROUTE. Eliquis 5 mg tablet one two times a day. escitalopram 20 mg tablet Take 1 tablet every day by oral route. furosemide 20 mg tablet take one tablet by mouth, daily galantamine 12 mg tablet one tab 2 times a day. lisinopril 20 mg tablet Take 1 tablet every day by oral route for 30 days. metformin ER 500 mg tablet,extended release 24 hr Take 2 tablets twice a day by oral route for 30 days. nitroglycerin 0.[address] 1 tablet by sublingual route. ondansetron 8 mg disintegrating tablet DISSOLVE 1 TABLET(S) 3 TIMES A DAY NEEDED. potassium chloride ER 10 mEq tablet,extended release(p art/cryst) TAKE 1 TABLET BY MOUTH EVERY DAY sotalol 80 mg tablet one tab 2 times a day. sure comfort mis 32gx5/32 Tresiba FlexTouch U-100 insulin 100 unit/mL (3 mL) sub cutaneous pen Inject 80 units every day by subcutaneous route. Trulicity 1.5 mg/0.5 mL subcutaneous pen injector Vitamin D3 25 mcg (1,000 unit) tablet Take 1 tablet every day by oral route. Medications Administered None recorded. Vitals Height Weight BMI Blood Pressure 5 ft 8 in 246.4 lbs 37.5 kg/m2 110/60 mm[Hg] Results Lab Results Date Name Specimen Result Interpretation Description Value Range Status Address Glucose, Blood [address] Fingerstick, Glucose: Me dical: 1700 Blood mg/dl [address], [place] Allergies Code Code System Name Reaction Severity Status Onset NKDA Problems Name Status Onset Date Source Diabetes Mellitus Active 08/25/1995 Cerebrovascular Accident Active 08/25/2008 Hypertensive Disorder Active 02/22/2010 Cardiac Pacemaker Syndrome Active 05/29/2016 Alzheimer's Disease Active 01/23/2019 Stricture of Esophagus Active 03/09/2019 Gastritis Active 03/11/2019 Nausea Active 03/11/2019 History of Atrial Fibrillation Active 09/20/2019 Obesity Active Heart Disease Active Procedures Date Name Performed by 09/20/2019 Electrocardiographic Procedure Informati on not available 08/25/2012 Cardiac Pacemaker Procedure Information not available 07/21/2012 Colonoscopy Information not avai lable 03/25/2012 Ekg for Initial Prevent Exam Information not available 12/24/2011 Cardiovascular Stress Testing Informatio n not available 08/25/2011 Cardiac Catheterization Information not available 08/25/2010 Cardiac Catheterization Information not available 08/25/2008 Cardiac Catheterization Information not available 08/25/2007 Cardiac Catheterization Information not available Vaccine List Vaccine Type influenza, injectable, quadrivalent 06/24/2017 05/25/2018 influenza, trivalent, adjuvanted 07/06/20190.5 mL pneumococcal conjugate PCV 13 10/29/20180.5 mL pneumococcal polysaccharide PPV23 06/04/2010 Tdap 09/15/2014 Social History Tobacco Smoking Status Never Smoker Past Encounters 10/06/2019 Diabetes Mellitus; Benign Essential Hype rtension; Wedge Fracture of Thoracic Vertebra; Mixed Anxiety and Depressive Disorder; Alzheimer's Disease Jennifer Shea, GUEST SERVICE HOST: [address], [address], [place] [address], Ph. History of Present Illness Note: <p>Pt is here to f/u on er for afib. Pt c/o being tired all the time and nausea. PHQ9 and GAD7 completed. Pt rbs is 263. lg</p><p>pt has hx of type ii dm insulin dependent, CAD, previous CVA, hypertension, pacemaker, alzheimers. he was recently in [facility] 09/20/19 for atrial fib/flutter. he was evaluated by cardiology and the metoprolol , plavix and asa dc'd and started on betapace and eliquis. he returned to sinus rhythm. he reports feeling fine. his hba1c was 8.8 performed on 09/20/19. he is followed by dr hardin, endocrinology, neurology. [facility] , xrays of thoracic spine showed several osteoporotic wedge compression fx deformity in upper thoracic spine. his PHQ9 today was 20 and GADS 7 14. he is compliant with lexapro. he has nosuicidal or homicidal behaviors or thoughts. </p> Review of Systems Comprehensive General Adult ROS Reported By: Patient Constitutional: Constitutional: no fever, no night sweats, no significant weight gain, no significant weight loss, no chills, exercise intolerance ENMT: Mouth/Throat: ; difficulty s wallowing Cardiovascular: Cardiovascular: no chest rama n, no arm pain on exertion, no shortness of breath when wal andrew, no shortness of breath when lying down, no palpitations, no known heart murmur, no ankle swelling Respiratory: Respiratory: no cough, no wh eezing, no shortness of breath, no coughing up blood, no sleep apnea Gastrointestinal: Gastrointestinal: no abdomin al pain, no nausea, no vomiting, no constipation, no diarrhea , not vomiting blood, no dyspepsia, no GERD Musculoskeletal: Musculoskeletal: no muscle a ches, no muscle weakness, no arthralgias/joint pain, no s welling in the extremities, no neck pain, no difficulty wal andrew, no cramps, no osteoporosis, no fractures, back pain Integumentary: Skin: no non-healing areas Neurologic: Neurologic: no loss of consc iousness, no weakness, no numbness, no seizures, no di zziness, no tremor, no gait dysfunction, no paralysis Psychiatric: Psych: feeling safe in a rel ationship, no alcohol abuse, no anxiety, no hallucinations, no suicidal thoughts, no mood swings, no agitation, no del irium, depression, sleep disturbances, memory loss, d ementia Endocrine: Endocrine: fatigue Hematologic/Lymphatic: Hematologic/Lymphatic no swo llen glands, no bruising, no excessive bleeding, no anemi a, no phlebitis Physical Exam General Adult Exam Reported By: Patient Constitutional: General Appearance: healthy- appearing, well-developed, overweight. Level of Distress: NAD. Ambu lation: ambulating normally Psychiatric: Insight: good judgement. Men easton Status: active and alert, normal mood, normal affect. Orienta tion: to time, to place, to person Head: Head: normocephalic, atrauma tic Neck: Neck: supple, trachea midlin e, no masses. Thyroid: no enlargement, non-tender, no nodules Lungs: Respiratory effort: no dyspn ea. Percussion: no dullness, flatness, or hyperresonance. Auscultat ion: breath sounds normal, good air movement, CTA except as note d, no wheezing, no rales/crackles, no rhonchi Cardiovascular: Apical Impulse: not displace d. Heart Auscultation: RRR, normal S1, normal S2, no murmurs, no ru bs, no gallops; pacemaker left upper chest. Neck vessels: no ward tid bruits. Pulses including femoral / pedal: normal throughout Musculoskeletal:: Motor Strength and Tone: nor mal, normal tone. Joints, Bones, and Muscles: normal movement of all extremities, no contractures, no bony abnormalities, no malal ignment, no tenderness. Extremities: no cyanosis, no edema, no varic osities, no palpable cord Neurologic: Gait and Station: normal gai t, normal station. Cranial Nerves: grossly intact. Sensation: g rossly intact, monofilament test intact. Coordination and Cer ebellum: no tremor Skin: Inspection and palpation: no rash, no lesions, no abnormal nevi, no ulcer, no induration, no nod ules, good turgor, no jaundice. Nails: normal Back: Thoracolumbar Appearance: no rmal curvature
--- OUTSIDE RECORDS SUMMARY | 2019-12-08 08:50 | XMS REPORT | Summary of Care ---
:1955 Author Organization [facility] Address [address] [place] [address] Care Team Providers Name Role Phone ShabbirTabitha Primary Care Provider Reason for Visit Reason Comments Forms Encounter Details Date Type Department Care Team Description 11/02/2019 Telephone [facility] Endocrinology- Elizabeth Palma MD Forms [address] Professional Office [address] [place] [address] Allergies No Known Allergiesdocumented as of this encounter (statuses as of 12/01/2019) Medications Medication Sig Dispensed Refills Start End Date Status Date potassium chloride 0 A ctive (K-DUR) 10 mEq CR 4 tablet NITROSTAT 0.4 mg 0 Act melvin sublingual tablet 4 DEXILANT 30 mg 60 mg. 3 Activ e capsule 6 escitalopram 2 Active oxalate (LEXAPRO) 6 20 mg tablet blood sugar Use as 300 Strip 3 Active diagnostic (CONTOUR directed, TID, 6 NEXT STRIPS) DX: E11.40 stripIndications: Uncontrolled type 2 diabetes with neuropathy atorvastatin Take 1 tablet 90 tablet 3 Act melvin (LIPITOR) 40 mg by mouth at 6 tabletIndications: bedtime. Dyslipidemia furosemide (LASIX) Take 1 tablet 30 tablet 1 Active 20 mg by mouth 6 tabletIndications: daily. Fluid retention lisinopril 20 mg Take 1 tablet 30 tablet 3 Active tablet by mouth 8 daily. icosapent ethyl Take by 0 Acti ve (VASCEPA) 1 gram mouth. capsuleIndications: Uncontrolled type 2 diabetes with neuropathy Insulin Portia, Use as 400 Each 3 Act melvin Disposable, (PAULETTE directed. 4 9 PEN NEEDLE) 32 times daily gauge x 5/32" E11.40 NdleIndications: Uncontrolled type 2 diabetes with neuropathy insulin lispro inject 10-15 2 Box 3 Ac tive (HUMALOG KWIKPEN Units under 9 INSULIN) 100 the skin 3 unit/mL pen (three) times injectorIndications daily before : Uncontrolled type meals. Take 15 2 diabetes with units with neuropathy breakfast and 10 units with dinner metformin ER 500 mg Take 2 tablets 360 tablet 3 Active 24 hr by mouth 2 9 tabletIndications: (two) times Uncontrolled type 2 daily. diabetes with neuropathy galantamine 12 mg Take 1 tablet 60 tablet 6 Active tabletIndications: by mouth 2 9 Early onset (two) times Alzheimer's disease daily. with behavioral disturbance insulin degludec inject 80 30 mL 2 Act melvin (TRESIBA FLEXTOUCH Units under 9 U-100) 100 unit/mL the skin (3 mL) daily. InPnIndications: Uncontrolled type 2 diabetes with neuropathy clonazePAM 0.5 mg Take 1 tablet 45 tablet 1 Active disintegrating by mouth 2 0 tabletIndications: (two) times Early onset daily as Alzheimer's disease needed for with behavioral Anxiety. disturbance apixaban (ELIQUIS) Eliquis 5 mg tablet 0 Active 5 mg tablet T1T PO BID sotalol 80 mg 0 Active tablet 0 alendronate 70 mg 0 Ac tive tablet 0 TRULICITY 0.75 inject 0.75 mg 12 Syringe 3 Active mg/0.5 mL under the skin 0 PnIjIndications: weekly. DX: Uncontrolled type 2 E11.40 diabetes with neuropathy dulaglutide inject 0.75 mg 12 Syringe 3 11/02/19 Di scontinued (TRULICITY) 0.75 under the skin 0 20 (Reorder) mg/0.5 mL weekly. PnIjIndications: Uncontrolled type 2 diabetes with neuropathy dulaglutide inject 0.75 mg 12 Syringe 3 11/02/19 Di scontinued (TRULICITY) 0.75 under the skin 0 20 (Reorder) mg/0.5 mL weekly. DX: PnIjIndications: E11.40 Uncontrolled type 2 diabetes with neuropathy dulaglutide inject 0.75 mg 12 Syringe 3 11/16/19 Di scontinued (TRULICITY) 0.75 under the skin 0 20 (Reorder) mg/0.5 mL weekly. DX: PnIjIndications: E11.40 Uncontrolled type 2 diabetes with neuropathy documented as of this encounter (statuses as of 12/01/2019) Active Problems Problem Noted Date Dyslipidemia 08/07/2016 Uncontrolled type 2 diabetes with neuropathy 6 Essential hypertension 07/11/2015 Type 2 diabetes, controlled, with neuropathy 5 Atherosclerotic PVD with intermittent claudication Neuropathy 07/05/2014 HLD (hyperlipidemia) 03/29/2014 Metabolic syndrome X 03/29/2014 Obesity 03/29/2014 Albuminuria 03/29/2014 documented as of this encounter (statuses as of 12/01/2019) Resolved Problems Problem Noted Date Resolved Date HTN (hypertension) 03/29/2014 07/11/2015 Type 2 diabetes mellitus with complication 03/29/2014 07/11/2015 documented as of this encounter (statuses as of 12/01/2019) Social History Tobacco Use Types Packs/Day Years [...] Diabetes & Manpreet Palma MD Metabolism [address] [place], [place] [address] Health Maintenance Due Date Last Done Comments [...] Uncontrolled type 2 diabetes with neurop athy Type II or unspecified type diabetes daniel litus with neurological manifestations, uncontrolled documented in this encounter Insurance Payer Benefit Plan / Subscriber ID Effective Phone Address T [facility] Group Dates MEDICARE MEDICARE PART xxxxxxxxxxx 2019-Pre [phone] [address] IRMA shi A & B sent [phone] [id number] [place] [id number] [facility] [id number] 2019-Pre [address] [facility] sent [id number] Supplement MEDICARE [place] SUPPLEMENT [place] [id number] documented as of this encounter
--- OUTSIDE RECORDS SUMMARY | 2019-12-08 08:50 | XMS REPORT | Summary of Care ---
:1955 Author Organization [facility] Address [address] [place] [address] Care Team Providers Name Role Phone ShabbirTabitha Primary Care Provider Reason for Visit Reason Comments Forms Patient Assistnace Trulicity Encounter Details Date Type Department Care Team Description 12/02/2019 Telephone [facility] lEizabeth Wolfe MD Forms (Patient Diabetes-[facility] [address] [facility] ) [address] [place] [phone] Allergies No Known Allergiesdocumented as of this encounter (statuses as of 12/02/2019) Medications Medication Sig Dispensed Refills Start End [...] diabetes with neuropathy Insulin [place], Use as 400 Each 3 Act melvin [...] 70 mg 0 Ac tive tablet 0 dulaglutide inject 0.75 mg 12 Syringe 3 Ac tive (TRULICITY) 0.75 under the skin 0 mg/0.5 mL weekly. DX: PnIjIndications: E11.40 Uncontrolled type 2 diabetes with neuropathy TRULICITY 0.75 inject 0.75 mg 12 Syringe 3 12/02/19 Discontinued mg/0.5 mL under the skin 0 20 (Reor orion) PnIjIndications: weekly. DX: Uncontrolled type 2 E11.40 diabetes with neuropathy documented as of this encounter (statuses as of 12/02/2019) Active Problems Problem Noted Date Dyslipidemia 08/07/2016 Uncontrolled type 2 diabetes with neuropathy 6 Essential hypertension 07/11/2015 Type 2 diabetes, controlled, with neuropathy 5 Atherosclerotic PVD with intermittent claudication Neuropathy 07/05/2014 HLD (hyperlipidemia) 03/29/2014 Metabolic syndrome X 03/29/2014 Obesity 03/29/2014 Albuminuria 03/29/2014 documented as of this encounter (statuses as of 12/02/2019) Resolved Problems Problem Noted Date Resolved Date HTN (hypertension) 03/29/2014 07/11/2015 Type 2 diabetes mellitus with complication 03/29/2014 07/11/2015 documented as of this encounter (statuses as of 12/02/2019) Social History Tobacco Use Types Packs/Day Years [...] Endocrinology Diabetes & Manpreet Palma MD Metabolism [facility] [place] [address] [phone] Health Maintenance Due Date Last Done Comments [...] PART xxxxxxxxxxx 2019-Pre [phone] P. [address] IRMA edicare A & B sent [phone] [id number] [place] [phone] [facility] [id number] 2019-Pre [address] [facility] sent [id number] Supplement MEDICARE [place] SUPPLEMENT [place] [employer] [id number] documented as of this encounter
--- OUTSIDE RECORDS SUMMARY | 2019-12-08 08:50 | XMS REPORT | Summary of Care ---
:1955 Author Organization [facility] - Health Address [address] [place] [address] Care Team Providers Name Role Phone ShabbirTabitha Primary Care Provider Encounter Details Date Type Department Care Team Description 11/02/2019 Orders Only [facility] Doctor Unassigned, No [address] [facility] [place] [address] [address] [place] [address] Allergies No Known Allergiesdocumented as of this encounter (statuses as of 11/22/2019) Medications Medication Sig Dispensed Refills Start Date [...] Uncontrolled type 2 diabetes with neuropathy Insulin Withams, Use as directed. 400 Each 3 09/22/2018 Active Disposable, (PAULETTE PEN 4 times daily NEEDLE) 32 gauge x E11.40 " NdleIndications: Uncontrolled type 2 diabetes with [...] as of this encounter (statuses as of 11/22/2019) Active Problems Problem Noted Date Dyslipidemia 08/07/2016 Uncontrolled type 2 diabetes with neuropathy 6 Essential hypertension 07/11/2015 Type 2 diabetes, controlled, with neuropathy 5 Atherosclerotic PVD with intermittent claudication Neuropathy 07/05/2014 HLD (hyperlipidemia) 03/29/2014 Metabolic syndrome X 03/29/2014 Obesity 03/29/2014 Albuminuria 03/29/2014 documented as of this encounter (statuses as of 11/22/2019) Resolved Problems Problem Noted Date Resolved Date HTN (hypertension) 03/29/2014 07/11/2015 Type 2 diabetes mellitus with complication 03/29/2014 07/11/2015 documented as of this encounter (statuses as of 11/22/2019) Social History Tobacco Use Types Packs/Day Years [...] Endocrinology Diabetes & Manpreet Palma MD Metabolism [facility] [place], [place] [id number] Health Maintenance Due Date Last Done Comments [...] Name Priority Date/Time Associated Diagnosis Comme nts MEDICATION CORRESPONDENCE Routine 11/02/2019 12:01 AM CDT documented in this encounter Results Not on filedocumented in this encounter Insurance Payer Benefit Plan / Subscriber ID Effective Phone Address T ype Group Dates MEDICARE MEDICARE PART xxxxxxxxxxx 2019-Pre [phone] [address] [employer] sent [phone] [id number] [place] [id number] [facility] [id number] 2019-Pre [address] [facility] sent [id number] Supplement MEDICARE [place] SUPPLEMENT [place] [id number] documented as of this encounter
[2019-12-08 09:15] LABS: MPV 9.4 fL (7.6-11.3)
[2019-12-08 09:19] LABS: Protime INR 0.96
[2019-12-08 09:30] VITALS: BMI 33.5
[2019-12-08 09:48] LABS: Platelet Estimate ADEQ
--- NOTE | 2019-12-08 11:58 | RAD REPORT ---
EXAM DESCRIPTION: RAD - Myelography C Spine - 12/08/2019 11:04 am CLINICAL HISTORY: M54.12, S22.000A COMPARISON: C Spine W Obliques dated 09/21/2019 TECHNIQUE: The patient presented for fluoroscopic assisted myelography of the cervical and thoracic spine. The patient had no known drug allergy. The patient was off Eliquis therapy for 8 days. No othe r relevant medication. The procedure, risks and alternatives to the procedure were discussed with the patient in detail. Aft er answering all questions, both oral and written consent were obtained. The patient was placed in an oblique prone position on the fluoroscopic table. Entry site was selected. The skin was prepped and draped in the usual sterile fashion. Skin and deeper tissues were anesthetized with 1% lidocaine. A 2 2 gauge needle was used to access the spinal canal at the L3 level. Intrathecal placement was confirmed. Approximately 9 mL of Isovue M 300 contrast material was instill ed into the thecal sac. The needle was withdrawn and sterile bandage placed to the puncture site. Due to patient size, transfer of the contrast from the lumbar region into the thoracic region was dif ficult to visualize. Therefore, no fluoroscopic myelogram images of the thoracic or cervical spine ob tained. The patient was transferred to the CT suite. The patient was placed in an Trendelenburg posit ioning for transfer of the contrast into the thoracic and cervical spine regions. CT imaging was perf ormed and separately reported. The patient tolerated procedure well without immediate complications. Post procedure care and precaut ion instructions were given to the patient. Following CT imaging, the patient was transferred to the same day surgical area for post myelogram monitoring. AP and lateral commercial litigation attorney films were obtained. Two fluoroscopic spot images were retained. Fluoro time was 1.9 minutes. IMPRESSION: 1. Cervical and thoracic myelogram injection procedure was performed as detailed. 2. Detailed findings are included in the CT cervical and thoracic spine report. 3. The patient tolerated the myelogram procedure without immediate complication.
--- NOTE | 2019-12-08 11:59 | RAD REPORT ---
EXAM DESCRIPTION: RAD - Myelography Thoracic - 12/08/2019 11:07 am CLINICAL HISTORY: M54.12, S22.000A COMPARISON: Thoracic Spine Ap/Lat dated 09/21/2019 TECHNIQUE: Cervical and thoracic myelography was performed. The myelogram procedure was detailed on the cervical myelogram report. No fluoroscopic cervical or thoracic images obtained. Patient was nguyễn sferred to the CT suite for imaging. Fluoro time for the procedure was 1.9 minutes. There were two fluoroscopic spot images retained. AP a nd lateral views of the lumbar spine were obtained as school commissioner images. IMPRESSION: 1. Fluoroscopic assisted myelogram procedure was performed for imaging of the cervical a nd thoracic spine. 2. Procedure details are incorporated into the cervical myelogram report. Cervical and thoracic findi ngs are incorporated into the CT reports.
--- NOTE | 2019-12-08 12:18 | RAD REPORT ---
EXAM DESCRIPTION: CT - Myelogram Thoracic - 12/08/2019 11:24 am CLINICAL HISTORY: M54.12, S22.000A COMPARISON: Myelogram C Spine dated 12/08/2019; Thoracic Spine Ap/Lat dated 09/21/2019; Myelography C Spine dated 12/08/2019 TECHNIQUE: Axial 2 millimeter thick images of the thoracic spine were obtained. Sagittal and coronal reformatted images were generated and reviewed. The CT scan was performed using dose optimization techniques as appropriate to a performed exam incl uding one or more of the following: Automated exposure control, adjustment of the mA and/or kV accord ing to patient size (this includes techniques or standardized protocols for targeted exams where dose is matched to indication/reason for exam) and use of iterative reconstruction technique. FINDINGS: Prominent aortic calcifications are present without aneurysm. Coronary artery calcificatio ns are seen. No paraspinal soft tissue mass identifiable. No abnormal mediastinal or hilar mass or ly mphadenopathy. Motion degradation affects the upper 3 thoracic levels. T1 and T2 or visualized on the cervical myelo gram images. Mild left convex curvature of the upper thoracic spine noted. The T5 body shows an approximately 30% loss in height. Posterior wall height is diminished but does n ot encroach into the central canal. T6 shows approximately 20% wedge compression deformity with poste rior wall height preserved. Minimal 10% loss in height in the superior endplate T7 with posterior wal l height preserved. Very slight wedging of the T3 body noted. Remaining thoracic vertebrae are normal in height. No acute fracture line seen in the compressed vert ebrae. There are no lytic, sclerotic or expansile bony changes. No paraspinal mass identifiable. No disc herniations are identifiable. Slight disc space narrowing is present at multiple levels. Disc bulge and posterior endplate spurring changes are present at T7-8 and T8-9. No flattening of the cor d or central spinal stenosis resulting. Elsewhere at the disc levels show no significant findings. Thoracic cord shows no focal narrowing or expansile change. Normal conus is seen terminating at the u pper L1 level. No clumping or thickening of the proximal cauda equina. Facet joint degenerative change at T9-10 causes minimal encroachment onto the posterior left thecal s ac. IMPRESSION: Multiple wedge compression deformities are present spanning T3-T6. No acute fracture shu nges are present. The compression fractures do not appear significantly different from the September 13 exam. No spinal cord abnormality identified. Disc bulge and endplate spurring changes at T7-8 and T8-9 do not cause any canal stenosis or signific ant encroachment on the spinal cord.
--- NOTE | 2019-12-08 12:27 | RAD REPORT ---
EXAM DESCRIPTION: CT - Myelogram C Spine - 12/08/2019 11:23 am CLINICAL HISTORY: M54.12, S22.000A COMPARISON: Myelography C Spine dated 12/08/2019; C Spine W Obliques dated 09/21/2019 TECHNIQUE: Axial 2 millimeter thick images of the cervical spine were obtained with sagittal and cor onal reformatted images generated and reviewed. Contrast was placed into the thecal sac in a separate ly reported myelogram procedure. The CT scan was performed using dose optimization techniques as appropriate to a performed exam incl uding one or more of the following: Automated exposure control, adjustment of the mA and/or kV accord ing to patient size (this includes techniques or standardized protocols for targeted exams where dose is matched to indication/reason for exam) and use of iterative reconstruction technique. FINDINGS: Cervical bodies are normal in height with no lytic, sclerotic or expansile destructive shu nge. Mild right convex curvature of the thoracic spine seen. There is a slight retrolisthesis of C4 o n C5. AP alignment is otherwise unremarkable. At the skullbase there is no tonsillar ectopia. Mild degenerative changes are present at the dens C1 level. No encroachment into the central canal. C2-3: Minimal thickening along the posterior longitudinal ligament. No contact of the cord. Thecal sa c AP diameter is 13 mm. No foraminal stenosis seen. C3-4 level: Thickening of the posterior longitudinal ligament partially attenuates the anterior subar achnoid space. AP thecal sac diameter is 12 mm. No flattening of the cord. No significant foraminal e ncroachment. C4-5 level: Disc space is narrowed with significant degenerative change to the endplates. Disc bulge and endplate spurring changes attenuate the anterior subarachnoid space. There is contact but no flat tening of the cord. AP canal diameter is 10 mm. Uncovertebral joint hypertrophy is present with mild bilateral bony foraminal encroachment. C5-6 level: Mild disc bulge changes are evident. Exam has some motion degradation. No flattening of t he cord. Thecal sac is 11-12 mm in the midline. No significant foraminal encroachment. C6-7 level: Disc bulge and endplate spurring changes attenuate the anterior subarachnoid space. Theca l sac is 11-12 mm in the midline. No flattening of the cord. Mild left bony foraminal encroachment pr esent. C7- T1 level: No significant finding. IMPRESSION: Cervical spondylosis changes are present at C4-5 and to a lesser degree C5-6 and C6-7. Spondylosis does not cause central spinal stenosis or any significant encroachment on the cord. C4-5 mild foraminal encroachment from bony hypertrophy. Mild left foraminal encroachment at C6-7.
[2019-12-08 13:16] VITALS: TEMP 97.1
[2019-12-08 13:51] VITALS: BP 121/66; O2SAT 97
== END 2019-12-08 13:45 | disposition home or self-care (01) ==
LOC: DS 07:58
PROVIDERS: ATTEND Orthopaedic Surgery
DX: M54.12 Radiculopathy, cervical region (principal); S22.000A Wedge compression fracture of unspecified thoracic vertebra, initial encounter for closed fracture
CPT/HCPCS: 36415; 85049; 85610; 85730; 72126 ×2; 62302; 62303; Q9967; 62305

== ENCOUNTER 2020-05-08 14:49 | Emergency (ER) | payer OTHER, MEDICARE ==
--- OUTSIDE RECORDS SUMMARY | 2020-05-08 15:16 | XMS REPORT | Continuity of Care Document ---
:1955 Author Organization [facility] t Address [address] [place] [address] Dr. Montilla. [address] [place] [address] Care Team Providers Name Role Phone MIRIMA Primary Care Physician Unavailable Louie DIXON Attending Clinician MIRIAM Attending Clinician Unavailable MIRIAM Admitting Clinician Unavailable Problems Condition Condition Condition Status Onset Resolution Last Treating Co mments Source Name Details Category Date Date Treatment Clinician Date Presbyopia Presbyopia Problem Active 2020-0 [place] [facility] Eye Eye Problem Active 2019-0 [place] disorder Disorder 7-21 da screening Screening 00:00: [facility] endoscopy technican 00 al [facility] Insulin Insulin Problem Active 2019-0 [place] treated 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 2 Type 2 00:00: [facility] diabetes Diabetes 00 al mellitus Mellitus [facility] Polyp of Polyp of Problem Active 2019-0 [place] colon Colon 5-18 da 00:00: [facility] Large Large Problem Active 2019-0 [place] prostate Prostate 5-18 da 00:00: [facility] Hiatal Hiatal Problem Active [place] hernia Hernia 5-18 da 00:00: [facility] Colitis Colitis Problem Active [place] 5-18 da 00:[facility]: [facility] Diarrhea Diarrhea Problem Active [place] 5-18 da 00:[facility]: [facility] History of History of Problem Active [place] atrial Atrial 1-27 da fibrillati Fibrillati 00:00: [facility] on on al [facility] Compressio Compressio Problem Active [place] n fracture n Fracture 1-27 da of of 00:00: [facility] thoracic Thoracic 00 al vertebra [facility] Gastritis Gastritis Problem Active [place] 7-18 da 00:00: [facility] Nausea Nausea Problem Active [place] 7-18 da 00:00: [facility] Stricture Stricture Problem Active [place] of of 7-16 da esophagus Esophagus 00:00: [facility] endoscopy technican 00 al [facility] Alzheimer' Alzheimer' Problem Active [place] s disease s Disease 6-01 da 00:00: [facility] Cardiac Cardiac Problem Active 2015-08 [place] 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 00:00: [facility] Hypertensi Hypertensi Problem Active [place] ve ve 7-01 da disorder Disorder 00:00: [facility] 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 Social History Smoking Status Start Date Stop Date Source Never Smoker Joi Moseleyco pal [facility] Medications Ordered Filled Start Stop Current Ordering Indication Dosage Frequency Signature Comments Components Source Medication Medication Date Date Medication? Clinician (SIG) Name Name alendronate alendronate No alendronat [place] 70 mg 70 mg e 70 mg da tablet Take tablet Take tablet [facility] 1 tablet 1 tablet Take 1 al every week every week tablet H ealth by oral by oral every week Out reac route. route. by oral h route. Program atorvastati atorvastati No atorvastat [place] n 40 mg n 40 mg in 40 mg da tablet Take tablet Take tablet [facility] 1 tablet 1 tablet Take 1 al every day every day tablet Hea lth by oral by oral every day Outr eac route for route for by oral h 30 days. 30 days. route for Pr ogram 30 days. clonazepam clonazepam No clonazepam [place] 0.5 mg 0.5 mg 0.5 mg da disintegrat disintegrat disintegra [facility] ing tablet ing tablet ting al One 2 times One 2 times tablet One Health a day. a day. 2 times a Outrea c day. h Program clopidogrel clopidogrel No clopidogre [place] 75 mg tabs 75 mg tabs l 75 mg da tabs [facility] clotrimazol clotrimazol No clotrimazo [place] e 1 % e 1 % le 1 % da topical topical topical [facility] cream APPLY cream APPLY cream al TO AFFECTED TO AFFECTED APPLY TO Health RECTAL AREA RECTAL AREA AFFECTED Outreac OF THE SKIN OF THE SKIN RECTAL h TWICE A DAY TWICE A DAY AREA OF Program THE SKIN TWICE A DAY Contour Contour No Contour [place] Next Test Next Test Next Test da Strips USE Strips USE Strips USE [facility] DIRECTED DIRECTED a l THREE TIMES THREE TIMES DIRECTED Health DAILY DAILY THREE Outreac TIMES h DAILY Program Dexilant 60 Dexilant 60 No Dexilant [place] mg capsule, mg capsule, 60 mg da delayed delayed capsule, [facility] release release delayed al TAKE 1 TAKE 1 release Health CAPSULE(S) CAPSULE(S) TAKE 1 O utreac EVERY DAY EVERY DAY CAPSULE(S) h BY ORAL BY ORAL EVERY DAY Prog juan ROUTE. ROUTE. BY ORAL ROUTE. Eliquis 5 Eliquis 5 No Eliquis 5 [place] mg tablet mg tablet mg tablet da TAKE ONE TAKE ONE TAKE ONE Epi scop (1) (1) (1) al TABLET(S) TABLET(S) TABLET(S) Health BY MOUTH BY MOUTH BY MOUTH Out reac TWICE A TWICE A TWICE A h DAY. DAY. DAY. Program escitalopra escitalopra No escitalopr [place] m 20 mg m 20 mg am 20 mg da tablet Take tablet Take tablet [facility] 1 tablet 1 tablet Take 1 al every day every day tablet Hea lth by oral by oral every day Outr eac route. route. by oral h route. Program furosemide furosemide No furosemide [place] 20 mg 20 mg 20 mg da tablet take tablet take tablet [facility] one tablet one tablet take one al by mouth, by mouth, tablet by Health daily daily mouth, Outreac daily h Program galantamine galantamine No galantamin [place] 12 mg 12 mg e 12 mg da tablet one tablet one tablet one [facility] tab 2 times tab 2 times tab 2 al a day. a day. times a Health day. Outreac h Program galantamine galantamine No galantamin [place] hydrobromid hydrobromid e d a e 8 mg e 8 mg hydrobromi Epi scop tabs tabs de 8 mg al tabs Health Outreac h Program hydrochloro hydrochloro No hydrochlor [place] thiazide thiazide othiazide da 12.5 mg 12.5 mg 12.5 mg [facility] p caps caps caps al Health Outreac h Program ketoconazol ketoconazol No ketoconazo [place] e 2 % e 2 % le 2 % da topical topical topical [facility] p cream APPLY cream APPLY cream al TO THE TO THE APPLY TO Health AFFECTED AFFECTED THE Outreac AREA(S) BY AREA(S) BY AFFECTED h TOPICAL TOPICAL AREA(S) BY Pro gram ROUTE ONCE ROUTE ONCE TOPICAL DAILY to DAILY to ROUTE ONCE soles of soles of DAILY to feet b/l feet b/l soles of feet b/l lisinopril lisinopril No lisinopril [place] 20 mg 20 mg 20 mg da tablet Take tablet Take tablet [facility] 1 tablet 1 tablet Take 1 al every day every day tablet Hea lth by oral by oral every day Outr eac route for route for by oral h 30 days. 30 days. route for Pr ogram 30 days. metformin metformin No metformin [place] ER 500 mg ER 500 mg ER 500 mg da tablet,exte tablet,exte tablet,ext [facility] nded nded ended al release 24 release 24 release 24 Health hr Take 2 hr Take 2 hr Take 2 Outreac tablets tablets tablets h twice a day twice a day twice a Program by oral by oral day by route for route for oral route 30 days. 30 days. for 30 days. metoclopram metoclopram No metoclopra [place] colt 10 mg colt 10 mg mide 10 mg da tablet tablet tablet [facility] metoprolol metoprolol No metoprolol [place] tartrate tartrate tartrate da 50 mg tabs 50 mg tabs 50 mg tabs [facility] metronidazo metronidazo No metronidaz [place] le 500 mg le 500 mg ole 500 mg da tablet TAKE tablet TAKE tablet [facility] 1 TABLET BY 1 TABLET BY TAKE 1 al MOUTH THREE MOUTH THREE TABLET BY Health TIMES DAILY TIMES DAILY MOUTH Outreac FOR 14 DAYS FOR 14 DAYS THREE h TIMES Program DAILY FOR 14 DAYS nitroglycer nitroglycer No nitroglyce [place] in 0.4 mg in 0.4 mg rin 0.4 mg da sublingual sublingual sublingual [facility] tablet tablet tablet al Place [address] 1 Health tablet by tablet by tablet by Outreac sublingual sublingual sublingual h route. route. route. Program nystatin-tr nystatin-tr No nystatin-t [place] iamcinolone iamcinolone riamcinolo da 100,000 100,000 ne 100,000 Epi scop unit/g-0.1 unit/g-0.1 unit/g-0.1 al % topical % topical % topical Health cream APPLY cream APPLY cream Outreac TO RECTAL TO RECTAL APPLY TO h AREA TWICE AREA TWICE RECTAL P rogram DAILY FOR DAILY FOR AREA TWICE 10 DAYS 10 DAYS DAILY FOR 10 DAYS ondansetron ondansetron No ondansetro [place] 8 mg 8 mg n 8 mg da disintegrat disintegrat disintegra [facility] ing tablet ing tablet ting al DISSOLVE 1 DISSOLVE 1 tablet H ealth TABLET(S) 3 TABLET(S) 3 DISSOLVE 1 Outreac TIMES A DAY TIMES A DAY TABLET(S) h NEEDED. NEEDED. 3 TIMES A Program DAY NEEDED. potassium potassium No potassium [place] chloride ER chloride ER chloride da 10 mEq 10 mEq ER 10 mEq [facility] capsule,ext capsule,ext capsule,ex al ended ended tended Health release release release Outrea c h Program potassium potassium No potassium [place] chloride ER chloride ER chloride da 10 mEq 10 mEq ER 10 mEq [facility] tablet,exte tablet,exte tablet,ext al nded nded ended Health release(par release(par release(pa Outreac t/cryst) t/cryst) rt/cryst) h TAKE 1 TAKE 1 TAKE 1 Program TABLET BY TABLET BY TABLET BY MOUTH ONCE MOUTH ONCE MOUTH ONCE DAILY DAILY DAILY promethazin promethazin No promethazi [place] e 12.5 mg e 12.5 mg ne 12.5 mg da tablet tablet tablet [facility] promethazin promethazin No promethazi [place] e hcl 12.5 e hcl 12.5 ne hcl da mg tabs mg tabs 12.5 mg [facility] tabs al Health Outreac h Program sotalol 80 sotalol 80 No sotalol 80 [place] mg tablet mg tablet mg tablet da one tab 2 one tab 2 one tab 2 [facility] times a times a times a al day. day. day. Health Outreac h Program Suprep Suprep No Suprep [place] Bowel Prep Bowel Prep Bowel Prep da Kit 17.5 Kit 17.5 Kit 17.5 Epi scop gram-3.13 gram-3.13 gram-3.13 al gram-1.6 gram-1.6 gram-1.6 Hea lth gram oral gram oral gram oral Outreac solution solution solution h Program suprep suprep No suprep [place] bowel laurent bowel laurent bowel laurent da prep kit prep kit prep kit Epi scop al Health Outreac [facility] Program sure sure No sure [place] comfort mis comfort mis comfort da 32gx5/32 32gx5/32 mis [facility] 32gx5/32 al [facility] Outreac [facility] Program tamsulosin tamsulosin No tamsulosin [place] 0.4 mg 0.4 mg 0.4 mg da capsule 1 capsule 1 capsule 1 [facility] capsule QD capsule QD capsule QD al [facility] Outreac [facility] Program Toujeo Max Toujeo Max No 90unit( Q1D Toujeo Max [place] U-300 U-300 s) U-300 da SoloStar SoloStar SoloStar Epi scop 300 unit/mL 300 unit/mL 300 a l (3 mL) (3 mL) unit/mL (3 Healt h subcutaneou subcutaneou mL) O utreac s insulin s insulin subcutaneo h pen Inject pen Inject us insulin Program 90 units 90 units pen Inject every day every day 90 units by sub-q by sub-q every day route. route. by sub-q route. tresiba tresiba No tresiba [place] flextouch flextouch flextouch da 100 unit/ml 100 unit/ml 100 E [facility] sopn sopn unit/ml al sopn Health Outreac h Program Trulicity Trulicity No .5mL Q1W Trulicity [place] 0.75 mg/0.5 0.75 mg/0.5 0.75 d a mL mL mg/0.5 mL [facility] subcutaneou subcutaneou subcutaneo al s pen s pen us pen Health injector injector injector Out reac Inject 0.5 Inject 0.5 Inject 0.5 h mL every mL every mL every Pro gram week by week by week by subcutaneou subcutaneou subcutaneo s route. s route. us route. Vitamin D3 Vitamin D3 No 1 Q1D Vitamin D3 [place] 25 mcg 25 mcg 25 mcg da (1,000 (1,000 (1,000 [facility] unit) unit) unit) al tablet Take tablet Take tablet Health 1 tablet 1 tablet Take 1 Outre ac every day every day tablet h by oral by oral every day Prog juan route. route. by oral route. Vitamin D3 Vitamin D3 No 1capsul Q1D Vitamin D3 [place] 50 mcg 50 mcg e(s) 50 mcg da (2,000 (2,000 (2,000 [facility] unit) unit) unit) al capsule capsule capsule Health Take 1 Take 1 Take 1 Outreac capsule capsule capsule h every day every day every day Program by oral by oral by oral route. route. route. Immunizations Ordered Immunization Filled Immunization Date Status Commen ts Source Name Name pneumococcal pneumococcal 2020-01-13 Completed [place] polysaccharide PPV23 polysaccharide PPV23 11:16:16 [facility] influenza, trivalent, influenza, 2019-07-06 Completed [place] adjuvanted trivalent, 10:58:45 [facility] adjuvanted [facility] pneumococcal pneumococcal 2018-10-29 Completed [place] conjugate PCV 13 conjugate PCV 13 16:54:48 [facility] influenza, influenza, 2018-05-25 Completed [place] injectable, injectable, 00:00:00 [facility] quadrivalent quadrivalent [facility] Out reach Program influenza, influenza, 2017-06-24 Completed [place] injectable, injectable, 00:00:00 [facility] quadrivalent quadrivalent [facility] Out reach [facility] Tdap Tdap 2014-09-15 Completed [place] 00:00:00 [facility] pneumococcal pneumococcal 2010-06-04 Completed [place] polysaccharide PPV23 polysaccharide PPV23 00:00:00 [facility] Vital Signs Vital Name Observation Time Observation Value Comments Source BP Diastolic 2020-03-14 00:00:00 78 mm[Hg] [place] [facility] Height 2020-03-14 00:00:00 68 [in_i] [place] [facility] BMI (Body Mass 2020-03-14 00:00:00 35.9 kg/m2 [place] [facility] Index) [facility] BP Systolic 2020-03-14 00:00:00 141 mm[Hg] [place] [facility] Body Weight 2020-03-14 00:00:00 236 [lb_av] [place] [facility] BP Diastolic 2020-01-13 00:00:00 80 mm[Hg] [place] [facility] Height 2020-01-13 00:00:00 68 [in_i] [place] [facility] BMI (Body Mass 2020-01-13 00:00:00 35.9 kg/m2 [place] [facility] [facility] Index) [facility] BP Systolic 2020-01-13 00:00:00 120 mm[Hg] [place] [facility] Body Weight 2020-01-13 00:00:00 3782.4 [oz_av] [place] [facility] BP Diastolic 2019-12-27 00:00:00 78 mm[Hg] [place] [facility] Height 2019-12-27 00:00:00 68 [in_i] [place] [facility] BMI (Body Mass 2019-12-27 00:00:00 35.6 kg/m2 [place] [facility] [facility] Index) [facility] BP Systolic 2019-12-27 00:00:00 123 mm[Hg] [place] [facility] Body Weight 2019-12-27 00:00:00 234 [lb_av] [place] [facility] BP Diastolic 2019-10-06 00:00:00 60 mm[Hg] [place] [facility] Height 2019-10-06 00:00:00 68 [in_i] [place] [facility] BMI (Body Mass 2019-10-06 00:00:00 37.5 kg/m2 [place] [facility] Index) [facility] BP Systolic 2019-10-06 00:00:00 110 mm[Hg] [place] [facility] Body Weight 2019-10-06 00:00:00 246.4 [lb_av] [place] [facility] BP Diastolic 2019-06-03 00:00:00 84 mm[Hg] [place] [facility] Height 2019-06-03 00:00:00 68 [in_i] [place] [facility] BMI (Body Mass 2019-06-03 00:00:00 36.6 kg/m2 [place] [facility] Index) [facility] BP Systolic 2019-06-03 00:00:00 137 mm[Hg] [place] [facility] Body Weight 2019-06-03 00:00:00 241 [lb_av] [place] [facility] Procedures Procedure Date / Time Performing Source Performed Clinician Colonoscopy 2020-01-10 [place] 00:00:00 [facility] Electrocardiographic Procedure 2019-09-20 [place] 00:00:00 [facility] Cardiac Pacemaker Procedure 2012-08-25 [place] 00:00:00 [facility] Colonoscopy 2012-07-21 [place] 00:00:00 [facility] Ekg for Initial Prevent Exam 2012-03-25 [place] 00:00:00 [facility] Cardiovascular Stress Testing 2011-12-24 [place] 00:00:00 [facility] Cardiac Catheterization 2011-08-25 [place] 00:00:00 [facility] Cardiac Catheterization 2010-08-25 [place] 00:00:00 [facility] Cardiac Catheterization 2008-08-25 [place] 00:00:00 [facility] Cardiac Catheterization 2007-08-25 [place] 00:00:00 [facility] Plan of Care Planned Activity Planned Date Details Comments Source Future Appointment 2020-05-15 09:30:00 Joi Nunes [facility] [address]; , [place] Program [id number] Encounters Start End Encounter Admission Attending Care Care Encounter Source Date/Time Date/Time Type Type Clinicians Facility Department ID 2020-05-08 2020-05-08 Telephone [place], [facility] [id number] 00:00:00 00:00:00 [facility] [id number] [place] [id number] Professio [id number] [facility] [address] [facility] 2020-04-11 2020-04-11 Telephone [place], [facility] [id number] 00:00[facility]00 [id number] [place] [id number] Professio [id number] nal [address] [facility] 2020-03-14 2020-03-14 Clare G[place] - [id number] [place] 00:00:00 00:00:00 Joi Norris MD: 111 [facility] Leilani F, [facility] a [place], [place] Eye [facility] [id number] [facility] ac , Ph. h ([phone]) Program 2020-01-13 2020-01-13 Jennifer G[place] - [id number] [place] 00:00:00 00:00:00 Joi Shea RN OPERATING ROOM: 1700 [facility] [phone] h , Ph. Program 2019-12-27 2019-12-27 Jennifer GARY [place] - [id number] [place] 00:00:00 00:00:00 Sh[place], [place] da RN OPERATING ROOM: 1700 [facility] [place] [address], [facility] [phone] h , Ph. Program 2019-10-06 2019-10-06 Jennifer G[place] - [id number] [place] 00:00:00 00:00:00 Joi Shea da RN OPERATING ROOM: 17[address] [facility] [place] [facility] [address], [address] [address] Progr am , Ph. 2019-06-03 2019-06-03 Jennifer Lu ABD[place] - [id number] [place] 00:00:00 00:00:00 Joi Shea da RN OPERATING ROOM: 1700 [facility] [address], [address] [address] Progr am , Ph. 2017-11-13 2017-11-13 [id number] [address] 18:02:00 18:02:00 [facility] Results Test Description Test Time Test Comments Results Result Comments Source Free T4 and TSH panel - Serum or Plasma 2019-12-28 00:00:00 Test Item Value Reference Range Interpretation Comme nts Thyrotropin [Units/volume] in Serum or Plasma by 3.600 uIU/mL 0.450 -4.500 Detection limit <= 0.005 mIU/L (test code = 12398-1) Thyroxine (T4) free [Mass/volume] in Serum or Plasma 1.11 NG/dL 0 .82-1.77 (test code = 3024-7) [facility] Differential panel - Blood 2019-12-28 00:00:00 Test Item Value Reference Range Interpretation Comments Leukocytes [#/volume] in Blood 7.7 x10e3/uL 3.4-10.8 by Automated count (test code = 6690-2) Erythrocytes [#/volume] in 4.80 x10e6/uL 4.14-5.80 Blood by Automated count (test code = 789-8) Hemoglobin [Mass/volume] in 14.1 g/dL 13.0-17.7 Blood (test code = 718-7) Hematocrit [Volume Fraction] of 42.6 % 37.5-51.0 Blood by Automated count (test code = 4544-3) Erythrocyte mean corpuscular 89 fL 79-97 volume [Entitic volume] by Automated count (test code = 787-2) Erythrocyte mean corpuscular 29.4 pg 26.6-33.0 hemoglobin [Entitic mass] by Automated count (test code = 785-6) Erythrocyte mean corpuscular 33.1 g/dL 31.5-35.7 hemoglobin concentration [Mass/volume] by Automated count (test code = 786-4) Erythrocyte distribution width 13.0 % 11.6-15.4 [Ratio] by Automated count (test code = 788-0) Platelets [#/volume] in Blood 295 x10e3/uL 150-450 by Automated count (test code = 777-3) Neutrophils/100 leukocytes in 59 % not estab. Blood by Automated count (test code = 770-8) Lymphocytes/100 leukocytes in 28 % not estab. Blood by Automated count (test code = 736-9) Monocytes/100 leukocytes in 8 % not estab. Blood by Automated count (test code = 5905-5) Eosinophils/100 leukocytes in 4 % not estab. Blood by Automated count (test code = 713-8) Basophils/100 leukocytes in 1 % not estab. Blood by Automated count (test code = 706-2) immature cells (test code = vinegar maker immature cells) Neutrophils [#/volume] in Blood 4.6 x10e3/uL 1.4-7.0 by Automated count (test code = 751-8) Lymphocytes [#/volume] in Blood 2.1 x10e3/uL 0.7-3.1 by Automated count (test code = 731-0) Monocytes [#/volume] in Blood 0.6 x10e3/uL 0.1-0.9 by Automated count (test code = 742-7) Eosinophils [#/volume] in Blood 0.3 x10e3/uL 0.0-0.4 by Automated count (test code = 711-2) Basophils [#/volume] in Blood 0.0 x10e3/uL 0.0-0.2 by Automated count (test code = 704-7) Immature granulocytes/100 0 % not estab. leukocytes in Blood by Automated count (test code = 74784-8) Immature granulocytes 0.0 x10e3/uL 0.0-0.1 [#/volume] in Blood by Automated count (test code = 24534-5) Nucleated erythrocytes/100 vinegar maker leukocytes [Ratio] in Blood by Automated count (test code = 54841-0) Morphology [Interpretation] in vinegar maker Blood Narrative (test code = 60462-7) [facility] 2000 panel - Serum or Dntwen2210-00-11 00:00:00 Test Item Value Reference Range Interpretation Comments Glucose [Mass/volume] in Serum 273 mg/dL 65-99 H or Plasma (test code = 2345-7) Urea nitrogen [Mass/volume] in 15 mg/dL 8-27 Serum or Plasma (test code = 3094-0) Creatinine [Mass/volume] in 1.03 mg/dL 0.76-1.27 Serum or Plasma (test code = 2160-0) Glomerular filtration 76 mL/min/1.73 >59 rate/1.73 sq M.predicted among non-blacks [Volume Rate/Area] in Serum, Plasma or Blood by Creatinine-based formula (CKD-EPI) (test code = 84797-0) Glomerular filtration 88 mL/min/1.73 >59 rate/1.73 sq M.predicted among blacks [Volume Rate/Area] in Serum, Plasma or Blood by Creatinine-based formula (CKD-EPI) (test code = 30677-1) Urea nitrogen/Creatinine [Mass 15 10-24 Ratio] in Serum or Plasma (test code = 3097-3) Sodium [Moles/volume] in Serum 138 mmol/L 134-144 or Plasma (test code = 2951-2) Potassium [Moles/volume] in 4.8 mmol/L 3.5-5.2 Serum or Plasma (test code = 2823-3) Chloride [Moles/volume] in 97 mmol/L 96-106 Serum or Plasma (test code = 2075-0) Carbon dioxide, total 21 mmol/L 20-29 [Moles/volume] in Serum or Plasma (test code = 2027-9) Calcium [Mass/volume] in Serum 10.0 mg/dL 8.6-10.2 or Plasma (test code = 32408-4) Protein [Mass/volume] in Serum 7.0 g/dL 6.0-8.5 or Plasma (test code = 2885-2) Albumin [Mass/volume] in Serum 4.4 g/dL 3.8-4.8 or Plasma (test code = 1751-7) Globulin [Mass/volume] in 2.6 g/dL 1.5-4.5 Serum by calculation (test code = 87509-3) Albumin/Globulin [Mass Ratio] 1.7 1.2-2.2 in Serum or Plasma (test code = 1759-0) Bilirubin.total [Mass/volume] 0.9 mg/dL 0.0-1.2 in Serum or Plasma (test code = 1975-2) Alkaline phosphatase 76 IU/L 39-117 [Enzymatic activity/volume] in Serum or Plasma (test code = 6768-6) Aspartate aminotransferase 34 IU/L 0-40 [Enzymatic activity/volume] in Serum or Plasma (test code = 1920-8) Alanine aminotransferase 41 IU/L 0-44 [Enzymatic activity/volume] in Serum or Plasma (test code = 1742-6) [facility] panel - Serum or Plasma 2019-12-28 00:00:00 Test Item Value Reference Range Interpretation Comments Cholesterol [Mass/volume] in Serum 107 mg/dL 100-199 or Plasma (test code = 2093-3) Triglyceride [Mass/volume] in Serum 233 mg/dL 0-149 H or Plasma (test code = 2571-8) Cholesterol in HDL [Mass/volume] in 34 mg/dL >39 L Serum or Plasma (test code = 2085-9) Cholesterol in VLDL [Mass/volume] 47 mg/dL 5-40 H in Serum or Plasma by calculation (test code = 77276-7) Cholesterol in LDL [Mass/volume] in 26 mg/dL 0-99 Serum or Plasma by calculation (test code = 61391-5) Laboratory comment [Text] in Report vinegar maker Narrative (test code = 97493-9) [facility]lineHemoglobin A1c/Hemoglobin.total in [id number] 00:00:00 Test Item Value Reference Range Interpretation Comments Hemoglobin A1c/Hemoglobin.total in 11.3 % 4.8-5.6 H Blood (test code = 4548-4) Glucose mean value [Mass/volume] in 278 mg/dL Blood Estimated from glycated hemoglobin (test code = 41138-5) [facility]lineProstate specific Ag [Mass/volume] in Serum or [id number] 00:00:00 Test Item Value Reference Range Interpretation Comments Prostate specific Ag [Mass/volume] 0.3 NG/mL 0.0-4.0 in Serum or Plasma (test code = 2857-1) [facility]25-Hydroxyvitamin D2+25- Hydroxyvitamin D3 [Mass/volume] in Serum or [id number] 00:00:00 Test Item Value Reference Range Interpretation Comments 25-Hydroxyvitamin 25.6 NG/mL 30.0-100.0 L D2+25-Hydroxyvitamin D3 [Mass/volume] in Serum or Plasma (test code = 92174-5) [facility]lineHepatitis C virus Ab Signal/Cutoff in Serum or Plasma by [id number] 00:00:00 Test Item Value Reference Range Interpretation Comments Hepatitis C virus Ab Signal/Cutoff in <0.1 0.0-0.9 Serum or Plasma by Immunoassay (test code = 19695-8) [facility]linecardi[facility] assessment panel, [id number] 00:00:00 Test Item Value Reference Range Interpretation Comments interpretation (test code = note interpretation) pdf image (test code = pdf image) . [facility]linediabetes patient [id number] 00:00:00 Test Item Value Reference Range Interpretation Comments pdf image (test code = pdf not applicable image) [facility]lineFree T4 and TSH panel - Serum or [id number] 00:00:00 Test Item Value Reference Range Interpretation Comments Thyrotropin [Units/volume] in 3.600 uIU/mL 0.450-4.500 Serum or Plasma by Detection limit <= 0.005 mIU/L (test code = 55287-4) Thyroxine (T4) free 1.11 NG/dL 0.82-1.77 [Mass/volume] in Serum or Plasma (test code = 3024-7) [facility] W Auto Differential panel - Blood 2019-12-28 00:00:00 Test Item Value Reference Range Interpretation Comments Leukocytes [#/volume] in Blood 7.7 x10e3/uL 3.4-10.8 by Automated count (test code = 6690-2) Erythrocytes [#/volume] in 4.80 x10e6/uL 4.14-5.80 Blood by Automated count (test code = 789-8) Hemoglobin [Mass/volume] in 14.1 g/dL 13.0-17.7 Blood (test code = 718-7) Hematocrit [Volume Fraction] of 42.6 % 37.5-51.0 Blood by Automated count (test code = 4544-3) Erythrocyte mean corpuscular 89 fL 79-97 volume [Entitic volume] by Automated count (test code = 787-2) Erythrocyte mean corpuscular 29.4 pg 26.6-33.0 hemoglobin [Entitic mass] by Automated count (test code = 785-6) Erythrocyte mean corpuscular 33.1 g/dL 31.5-35.7 hemoglobin concentration [Mass/volume] by Automated count (test code = 786-4) Erythrocyte distribution width 13.0 % 11.6-15.4 [Ratio] by Automated count (test code = 788-0) Platelets [#/volume] in Blood 295 x10e3/uL 150-450 by Automated count (test code = 777-3) Neutrophils/100 leukocytes in 59 % not estab. Blood by Automated count (test code = 770-8) Lymphocytes/100 leukocytes in 28 % not estab. Blood by Automated count (test code = 736-9) Monocytes/100 leukocytes in 8 % not estab. Blood by Automated count (test code = 5905-5) Eosinophils/100 leukocytes in 4 % not estab. Blood by Automated count (test code = 713-8) Basophils/100 leukocytes in 1 % not estab. Blood by Automated count (test code = 706-2) immature cells (test code = vinegar maker immature cells) Neutrophils [#/volume] in Blood 4.6 x10e3/uL 1.4-7.0 by Automated count (test code = 751-8) Lymphocytes [#/volume] in Blood 2.1 x10e3/uL 0.7-3.1 by Automated count (test code = 731-0) Monocytes [#/volume] in Blood 0.6 x10e3/uL 0.1-0.9 by Automated count (test code = 742-7) Eosinophils [#/volume] in Blood 0.3 x10e3/uL 0.0-0.4 by Automated count (test code = 711-2) Basophils [#/volume] in Blood 0.0 x10e3/uL 0.0-0.2 by Automated count (test code = 704-7) Immature granulocytes/100 0 % not estab. leukocytes in Blood by Automated count (test code = 75741-8) Immature granulocytes 0.0 x10e3/uL 0.0-0.1 [#/volume] in Blood by Automated count (test code = 09468-1) Nucleated erythrocytes/100 vinegar maker leukocytes [Ratio] in Blood by Automated count (test code = 59032-7) Morphology [Interpretation] in vinegar maker Blood Narrative (test code = 07693-4) [facility] 2000 [facility] - Serum or [id number] 00:00:00 Test Item Value Reference Range Interpretation Comments Glucose [Mass/volume] in Serum 273 mg/dL 65-99 H or Plasma (test code = 2345-7) Urea nitrogen [Mass/volume] in 15 mg/dL 8-27 Serum or Plasma (test code = 3094-0) Creatinine [Mass/volume] in 1.03 mg/dL 0.76-1.27 Serum or Plasma (test code = 2160-0) Glomerular filtration 76 mL/min/1.73 >59 rate/1.73 sq M.predicted among non-blacks [Volume Rate/Area] in Serum, Plasma or Blood by Creatinine-based formula (CKD-EPI) (test code = 22416-5) Glomerular filtration 88 mL/min/1.73 >59 rate/1.73 sq M.predicted among blacks [Volume Rate/Area] in Serum, Plasma or Blood by Creatinine-based formula (CKD-EPI) (test code = 97895-5) Urea nitrogen/Creatinine [Mass 15 10-24 Ratio] in Serum or Plasma (test code = 3097-3) Sodium [Moles/volume] in Serum 138 mmol/L 134-144 or Plasma (test code = 2951-2) Potassium [Moles/volume] in 4.8 mmol/L 3.5-5.2 Serum or Plasma (test code = 2823-3) Chloride [Moles/volume] in 97 mmol/L 96-106 Serum or Plasma (test code = 5-0) Carbon dioxide, total 21 mmol/L 20-29 [Moles/volume] in Serum or Plasma (test code = 2027-) Calcium [Mass/volume] in Serum 10.0 mg/dL 8.6-10.2 or Plasma (test code = 31450-9) Protein [Mass/volume] in Serum 7.0 g/dL 6.0-8.5 or Plasma (test code = 2885-2) Albumin [Mass/volume] in Serum 4.4 g/dL 3.8-4.8 or Plasma (test code = 1751-7) Globulin [Mass/volume] in 2.6 g/dL 1.5-4.5 Serum by calculation (test code = 69956-0) Albumin/Globulin [Mass Ratio] 1.7 1.2-2.2 in Serum or Plasma (test code = 1759-0) Bilirubin.total [Mass/volume] 0.9 mg/dL 0.0-1.2 in Serum or Plasma (test code = 1974-2) Alkaline phosphatase 76 IU/L 39-117 [Enzymatic activity/volume] in Serum or Plasma (test code = 6768-6) Aspartate aminotransferase 34 IU/L 0-40 [Enzymatic activity/volume] in Serum or Plasma (test code = 1920-8) Alanine aminotransferase 41 IU/L 0-44 [Enzymatic activity/volume] in Serum or Plasma (test code = 1742-6) [facility]lineLip[facility] 1996 panel - Serum or Plasma 2019-12-28 00:00:00 Test Item Value Reference Range Interpretation Comments Cholesterol [Mass/volume] in Serum 107 mg/dL 100-199 or Plasma (test code = 2093-3) Triglyceride [Mass/volume] in Serum 233 mg/dL 0-149 H or Plasma (test code = 2571-8) Cholesterol in HDL [Mass/volume] in 34 mg/dL >39 L Serum or Plasma (test code = 2085-9) Cholesterol in VLDL [Mass/volume] 47 mg/dL 5-40 H in Serum or Plasma by calculation (test code = 15690-1) Cholesterol in LDL [Mass/volume] in 26 mg/dL 0-99 Serum or Plasma by calculation (test code = 29570-6) Laboratory comment [Text] in Report vinegar maker Narrative (test code = 83209-7) [facility]lineHemoglobin A1c/Hemoglobin.total in [id number] 00:00:00 Test Item Value Reference Range Interpretation Comments Hemoglobin A1c/Hemoglobin.total in 11.3 % 4.8-5.6 H Blood (test code = 4548-4) Glucose mean value [Mass/volume] in 278 mg/dL Blood Estimated from glycated hemoglobin (test code = 83903-6) [facility]lineProstate specific Ag [Mass/volume] in Serum or [id number] 00:00:00 Test Item Value Reference Range Interpretation Comments Prostate specific Ag [Mass/volume] 0.3 NG/mL 0.0-4.0 in Serum or Plasma (test code = 2857-1) [facility]25-Hydroxyvitamin D2+25- Hydroxyvitamin D3 [Mass/volume] in Serum or [id number] 00:00:00 Test Item Value Reference Range Interpretation Comments 25-Hydroxyvitamin 25.6 NG/mL 30.0-100.0 L D2+25-Hydroxyvitamin D3 [Mass/volume] in Serum or Plasma (test code = 02907-2) [facility]lineHepatitis C virus Ab Signal/Cutoff in Serum or Plasma by [id number] 00:00:00 Test Item Value Reference Range Interpretation Comments Hepatitis C virus Ab Signal/Cutoff in <0.1 0.0-0.9 Serum or Plasma by Immunoassay (test code = 25173-8) [facility]linecardi[facility] assessment panel, [id number] 00:00:00 Test Item Value Reference Range Interpretation Comments interpretation (test code = note interpretation) pdf image (test code = pdf image) . [facility]linediabetes patient [id number] 00:00:00 Test Item Value Reference Range Interpretation Comments pdf image (test code = pdf not applicable image) [facility]lineLipid 1996 panel - Serum or Plasma 2019-06-05 00:00:00 Test Item Value Reference Range Interpretation Comments Cholesterol [Mass/volume] in 214 mg/dL <200 H Serum or Plasma (test code = 2093-3) Cholesterol in HDL 30 mg/dL >40 L [Mass/volume] in Serum or Plasma (test code = 2085-9) Triglyceride [Mass/volume] 654 mg/dL <150 H in Serum or Plasma (test code = 2571-8) Cholesterol in LDL [Mass/volume] in Serum or Plasma by calculation (test code = 37292-8) Cholesterol.total/Cholestero 7.1 (calc) <5.0 H l.in HDL [Mass ratio] in Serum or Plasma (test code = 9830-1) Cholesterol non HDL 184 mg/dL (calc) <130 H [Mass/volume] in Serum or Plasma (test code = 03660-2) [facility]lineComprehensive metabolic 1999 panel - Serum or [id number] 00:00:00 Test Item Value Reference Range Interpretation Comments Glucose [Mass/volume] in 326 mg/dL 65-139 H Serum or Plasma (test code = 2345-7) Urea nitrogen [Mass/volume] 16 mg/dL 7-25 in Serum or Plasma (test code = 3094-0) Creatinine [Mass/volume] in 0.81 mg/dL 0.70-1.25 Serum or Plasma (test code = 2160-0) eGFR non-afr. mont[place] 93 mL/min/1.73m2 > or = 60 (test code = eGFR non-afr. montenegrin) Glomerular filtration 108 mL/min/1.73m2 > or = 60 rate/1.73 sq M predicted among blacks by Creatinine-based formula (MDRD) (test code = 57041-2) Urea nitrogen/Creatinine not applicable 6-22 [Mass Ratio] in Serum or Plasma (test code = 3097-3) Sodium [Moles/volume] in 138 mmol/L 135-146 Serum or Plasma (test code = 2951-2) Potassium [Moles/volume] in 4.6 mmol/L 3.5-5.3 Serum or Plasma (test code = 2823-3) Chloride [Moles/volume] in 102 mmol/L 98-110 Serum or Plasma (test code = 2074-0) Carbon dioxide, total 27 mmol/L 20-32 [Moles/volume] in Serum or Plasma (test code = 2027-9) Calcium [Mass/volume] in 9.5 mg/dL 8.6-10.3 Serum or Plasma (test code = 44891-4) Protein [Mass/volume] in 6.5 g/dL 6.1-8.1 Serum or Plasma (test code = 2885-2) Albumin [Mass/volume] in 3.9 g/dL 3.6-5.1 Serum or Plasma (test code = 1751-7) Globulin [Mass/volume] in 2.6 g/dL (calc) 1.9-3.7 Serum by calculation (test code = 64358-1) Albumin/Globulin [Mass 1.5 (calc) 1.0-2.5 Ratio] in Serum or Plasma (test code = 1759-0) Bilirubin.total 0.5 mg/dL 0.2-1.2 [Mass/volume] in Serum or Plasma (test code = 1974-) Alkaline phosphatase 91 U/L 40-115 [Enzymatic activity/volume] in Serum or Plasma (test code = 6768-6) Aspartate aminotransferase 20 U/L 10-35 [Enzymatic activity/volume] in Serum or Plasma (test code = 1920-8) Alanine aminotransferase 23 U/L 9-46 [Enzymatic activity/volume] in Serum or Plasma (test code = 1742-6) [facility]lineThyrotropin [Units/volume] in Serum or [id number] 00:00:00 Test Item Value Reference Range Interpretation Comments Thyrotropin [Units/volume] in 1.16 mIU/L 0.40-4.50 Serum or Plasma (test code = 3016-3) [facility]lineHemoglobin A1c/Hemoglobin.total in [id number] 00:00:00 Test Item Value Reference Range Interpretation Comments Hemoglobin 10.2 % of total HGB <5.7 H A1c/Hemoglobin.total in Blood (test code = 4548-4) Glucose mean value 246 (calc) [Mass/volume] in Blood Estimated from glycated hemoglobin (test code = 26081-3) Glucose mean value 13.6 (calc) [Moles/volume] in Blood Estimated from glycated hemoglobin (test code = 84330-9) [facility] ShorelineLipid [id number] 19:14:00 Test Item Value Reference Range Interpretation Comments Cholesterol (test 180 mg/dL 0-200 N code = CHOL) Triglycerides (test 190 mg/dL 9-200 N code = TRIG) HDL (test code = 39 mg/dL 40-60 L HDL) Chol/HDL (test code 4.6 Ratio 0.0-5.0 N = CHOLPHDL) LDL, Calculated 103 mg/dL 0-130 N (NOTE)RISK O F HEART (test code = LDLC) DISEASEPu blished by [place] Heart AssociationAnal yte Optim al Boderline Increased RiskC HOL <200 200-239 >240TRI G <150 150-199 >200HDL Male: >60 <40HDL Female: >60 <50 LDL < 100 130-15 9 >160 LDL NEAR OPTIMAL IS 100- 129 VLDL (test code = 38 mg/dL 5-40 N VLDL) LDL/HDL (test code = 3 LDLPHDL) B-Type Natriuretic [id number] 11:54:00 Test Item Value Reference Range Interpretation Comments B-Type Natriuretic Peptide (test 52.6 pg/mL 0.0-100.0 N code = 073436) Glycosylated [id number] 00:07:00 Test Item Value Reference Range Interpretation Comments HBA1c (test code = HBA1C) 11.3 % 4.8-5.9 H CBC with [id number] 22:52:00 Test Item Value Reference Range Interpretation Comments WBC (test code = WBC) 6.6 K/cumm 4.4-10.5 N RBC (test code = RBC) 4.79 M/cumm 4.10-5.70 N Hemoglobin (test code = HGB) 14.3 gm/dL 13.4-17.4 N Hematocrit (test code = HCT) 44.4 % 38.7-52.0 N MCV (test code = MCV) 92.8 fL 80-100 N MCH (test code = MCH) 29.7 pg 27.0-32.5 N MCHC (test code = MCHC) 32.1 g/dL 32.0-37.5 N RDW (test code = RDW) 15.1 % 11.5-14.5 H Platelet Count (test code = 250 K/cumm 140-440 N PLTCT) MPV (test code = MPV) 10.3 fL Diff Method (test code = DIFFM) Auto Neutrophil (test code = NEUT) 58.7 % 36-70 N Lymphocyte (test code = LYMPH) 31.7 % 12-44 N Monocyte (test code = MONO) 5.7 % 0-11 N Eosinophil (test code = EOS) 3.4 % 0-7 N Basophil (test code = BASO) 0.5 % 0-2 N Neutro Abs (test code = ANEUT) 3.9 K/cumm 1.6-7.4 N Lymph Abs (test code = ALYMPH) 2.1 K/cumm 0.5-4.6 N Fannin Abs (test code = AMONO) 0.4 K/cumm 0.0-1.2 N Eos Abs (test code = AEOS) 0.23 K/cumm 0.00-0.74 N Baso Abs (test code = ABASO) 0.0 K/cumm 0.00-0.21 N Vitamin [id number] 21:45:00 Test Item Value Reference Range Interpretation Comments Vitamin B 12 (test code = VITB12) 797 pg/mL 211-946 N Troponin [id number] 21:39:00 Test Item Value Reference Range Interpretation Comments Troponin T (test code = PARESH) <0.010 ng/mL 0.000-0.090 N Testosterone, [id number] 21:39:00 Test Item Value Reference Range Interpretation Comments Testosterone, Total (test code = 3.81 ng/mL 2.80-8.00 N TESTOS) Thyroid Stimulating Hormone (TSH)2017-02-18 21:39:00 Test Item Value Reference Range Interpretation Comments TSH (test code = TSH) 2.04 mIU/mL 0.270-4.200 N Comprehensive Metabolic [id number] 21:39:00 Test Item Value Reference Range Interpretation Comments Sodium (test code = 138 mmol/L 135-145 N NA) Potassium (test 3.9 mmol/L 3.5-5.1 N code = K) Chloride (test code 97 mmol/L 98-105 L = CL) Carbon Dioxide 25 mmol/L 22-29 N (test code = CO2) Glucose (test code 258 mg/dL 70-115 H = GLU) Blood Urea Nitrogen 17 mg/dL 8-23 N (test code = BUN) Creatinine (test 0.8 mg/dL 0.7-1.2 N code = CREAT) Calcium (test code 9.8 mg/dL 8.3-10.5 N = CA) Prot Total (test 7.2 g/dL 6.4-8.3 N code = TP) Albumin (test code 4.5 g/dL 3.5-5.2 N = ALB) A/G Ratio (test 1.7 Ratio code = AGRATIO) Globulin (test code 2.7 2.9-3.1 L = GLOB) Bili Total (test 0.8 mg/dL 0.1-0.9 N code = TBIL) Alk Phos (test code 78 U/L 40-129 N = APHOS) AST (test code = 13 U/L 1-40 N AST) ALT (test code = 16 U/L 1-41 N ALT) BUN/Creatinine 21.3 Ratio (test code = BCRATIO) Anion Gap (test 16 mmol/L 7-16 N code = AGAP) Estimated GFR (test >60 eGFR (es timated code = GFR) mL/min/1.73m2 Glomerular Odell tration Rate) is an est imated value,calculate d from the patient's s jayda creatinine usin g the MDRD equation.I t is NOT the patient 's actual GFR. The eGFR provides a more clinicallyusefu l measure of kidn ey disease than se rum creatinine alone.This calculation lauri es sex and race into account, if the informationis provided. If th e race is not provided , and the patient isAfrican-Ameri can, multiply by 1.2 12. If sex is not prov ided, and thepatient is female, multipl y by 0.742. Results for patients <18 ye ars ofage have not been validated by th e MDRD study and sharon d be interpretedwith caution.eGFR Re sult Interpretation: eGFR > or = 60 is in t he Normal RangeeGF R < 60 may mean kidney diseaseeGFR < 1 5 may mean kidney failureRange s recommended by the National Kidney Foundation,http ://nkd ep.nih.gov CK [id number] 21:39:00 Test Item Value Reference Range Interpretation Comments CK (test code = CK) 119 U/L 39-308 N CK [id number] 21:39:00 Test Item Value Reference Range Interpretation Comments CK (test code = CK) 119 U/L 39-308 N CKMB (test code = CKMB) 1.9 ng/mL 0.0-4.9 N CKMB% (test code = CKMBP) 1.6 % 0.0-3.4 N Lipid [id number] 21:39:00 Test Item Value Reference Range Interpretation Comments Cholesterol (test 169 mg/dL 0-200 N code = CHOL) Triglycerides (test 211 mg/dL 9-200 H code = TRIG) HDL (test code = 42 mg/dL 40-60 N HDL) Chol/HDL (test code 4.0 Ratio 0.0-5.0 N = CHOLPHDL) LDL, Calculated 85 0-130 N (NOTE)RISK O F HEART (test code = LDLC) DISEASEPu blished by [place] Heart AssociationAnal yte Optim al Boderline Increased RiskC HOL <200 200-239 >240TRI G <150 150-199 >200HDL Male: >60 <40HDL Female: >60 <50 LDL < 100 130-15 9 >160 LDL NEAR OPTIMAL IS 100- 129 VLDL (test code = 42 mg/dL 5-40 H VLDL) LDL/HDL (test code = 2 LDLPHDL)
--- OUTSIDE RECORDS SUMMARY | 2020-05-08 15:16 | XMS REPORT | Summary of Care ---
:1955 Author Organization [facility] Address [address] [place] [address] Care Team Providers Name Role Phone AliviaTabitha house Primary Care Provider Reason for Visit Reason Comments Follow-up Diabetes Mellitus II Encounter Details Date Type Department Care Team Description 02/15/2020 Office Visit [facility] Elizabeth Palma MD Uncontrolled type 2 diabetes with neurop athy (Primary Dx); Endocrinology- [facility] Mixed hy perlipidemia; [facility] Essential hypertension [address] [place] [address], [address] [address] [place], [place] [phone] [address] [phone] Allergies No Known Allergiesdocumented as of this encounter (statuses as of 02/15/2020) Medications Medication Sig Dispensed Refills Start End Date Status Date potassium chloride 0 A ctive (K-DUR) 10 mEq CR 4 tablet NITROSTAT 0.4 mg 0 Act melvin sublingual tablet 4 DEXILANT 30 mg 60 mg. 3 Activ e capsule 6 escitalopram 2 Active oxalate (LEXAPRO) 6 20 mg tablet atorvastatin Take 1 tablet 90 tablet 3 [...] Uncontrolled type 2 diabetes with neuropathy Insulin [place], Use as 400 Each 3 Act melvin Disposable, (PAULETTE directed. 4 9 PEN NEEDLE) 32 times daily gauge x 5/32" E11.40 NdleIndications: Uncontrolled type 2 diabetes with neuropathy clonazePAM [...] 70 mg 0 Ac tive tablet 0 galantamine 12 mg Take 1 tablet 180 tablet 4 Active tabletIndications: by mouth 2 0 Early onset (two) times Alzheimer's daily. dementia without behavioral disturbance metformin ER 500 mg Take 1 tablet 90 tablet 3 Active 24 hr by mouth daily 0 tabletIndications: with Uncontrolled type 2 breakfast. diabetes with neuropathy CONTOUR NEXT TEST Use as 300 Strip 3 Ac tive STRIPS directed, TID, 0 stripIndications: DX: E11.40 Uncontrolled type 2 diabetes with neuropathy FREESTYLE CRISTI 14 1 Each daily. 1 Each 0 Active DAY READER 0 MiscIndications: Uncontrolled type 2 diabetes with neuropathy FREESTYLE CRISTI 14 1 Each every 2 Kit 5 Active DAY SENSOR 14 (fourteen) 0 KitIndications: days. Uncontrolled type 2 diabetes with neuropathy insulin lispro inject 20 54 mL 3 Activ e (HUMALOG KWIKPEN Units under 0 INSULIN) 100 the skin 3 unit/mL pen (three) times injectorIndications daily before : Uncontrolled type meals. 2 diabetes with neuropathy TOUJEO MAX U-300 inject 100 30 mL 3 Ac tive SOLOSTAR 300 Units under 0 unit/mL (3 mL) the skin every InPnIndications: morning. Uncontrolled type 2 diabetes with neuropathy blood sugar Use as 300 Strip 3 02/15/20 Disconti nued diagnostic (CONTOUR directed, TID, 6 20 (Reorder) NEXT STRIPS) DX: E11.40 stripIndications: Uncontrolled type 2 diabetes with neuropathy insulin lispro inject 10-15 2 Box 3 02/15/20 Di scontinued (HUMALOG KWIKPEN Units under 9 20 ( Reorder) INSULIN) 100 the skin 3 unit/mL pen (three) times injectorIndications daily before : Uncontrolled type meals. Take 15 2 diabetes with units with neuropathy breakfast and 10 units with dinner metformin ER 500 mg Take 2 tablets 360 tablet 3 01/24 Discontinued 24 hr by mouth 2 9 20 (Reorder) tabletIndications: (two) times Uncontrolled type 2 daily. diabetes with neuropathy dulaglutide inject 0.75 mg 12 Syringe 3 02/15/20 Di scontinued (TRULICITY) 0.75 under the skin 0 20 mg/0.5 mL weekly. DX: PnIjIndications: E11.40 Uncontrolled type 2 diabetes with neuropathy insulin glargine inject 80 27 mL 3 02/15/20 Dis continued U-300 conc (TOUJEO Units under 0 20 (Reorder) MAX U-300 SOLOSTAR) the skin every 300 unit/mL (3 mL) morning. InPnIndications: Uncontrolled type 2 diabetes with neuropathy documented as of this encounter (statuses as of 02/15/2020) Active Problems Problem Noted Date Dyslipidemia 08/07/2016 Uncontrolled type 2 diabetes with neuropathy 6 Essential hypertension 07/11/2015 Type 2 diabetes, controlled, with neuropathy 5 Atherosclerotic PVD with intermittent claudication Neuropathy 07/05/2014 HLD (hyperlipidemia) 03/29/2014 Metabolic syndrome X 03/29/2014 Obesity 03/29/2014 Albuminuria 03/29/2014 documented as of this encounter (statuses as of 02/15/2020) Resolved Problems Problem Noted Date Resolved Date HTN (hypertension) 03/29/2014 07/11/2015 Type 2 diabetes mellitus with complication 03/29/2014 07/11/2015 documented as of this encounter (statuses as of 02/15/2020) Social History Tobacco Use Types Packs/Day Years Used Date Former Smoker Alcohol Use Drinks/Week oz/Week Comments No Sex Assigned at Date Recorded Not on file Job Start Date Occupation Industry Not on file Not on file Not on file Travel History Travel Start Travel End No recent travel history available. COVID-19 Exposure Response Date Recorded In the last month, have you been in contact with No / Unsure 02/14/2020 12:28 PM CDT someone who was confirmed or suspected to have Coronavirus / COVID-19? documented as of this encounter Last Filed Vital Signs Vital Sign Reading Time Taken Comments Blood Pressure 126/81 02/15/2020 9:03 AM CDT Pulse 73 02/15/2020 9:03 AM CDT Temperature - - Respiratory Rate 16 02/15/2020 9:03 AM CDT Oxygen Saturation - - Inhaled Oxygen Concentration - - Weight 106.5 kg (234 lb 12.8 oz) 02/15/2020 9:03 AM CDT Height 177.8 cm (5' 10") 02/15/2020 9:03 AM CDT Body Mass Index 33.69 02/15/2020 9:03 AM CDT documented in this encounter Patient Instructions Patient InstructionsElizabeth Palma MD - 02/15/2020 9:00 AM CDTstop Trulicity Reduce Metformin ER 500 mg once a day IncreaseTresiba 100u QAM Increase Humalog 20u with each meal documented in this encounter Progress Notes Elizabeth Palma MD - 02/15/2020 9:00 AM CDT CC: Follow up for T2DM HPI Patient is a 64 year old /White male who is here today for Diabetes Mellitus Type 2. Patient's diabetes is complicated by hyperlipidemia, CVA , ischemic in 09/2015, hypertension , nephropathy: with microalbuminuria, CAD (cardiac cath showed 50 % blockage in 2013, followed by Dr. Parkinson cardiology in [place]), PVD (Left with claudications) followed by vascular surgery at [facility], neuropathy: Peripheral and lower extremity and obesity. His NESS was ordered that showed non compressible vessel on right and normal on left ( could be due to non-compressible vessel), He was then referred to vascular surgery and recommended by them to conservative manage left PVD with statin, aspirin, plavix, Patient had ischemic stroke earlier 2015, he was hospitalized in [facility] work up was negative in terms of carotid duplex. He also had cardiac pacemaker in 05/2016, Dr. Parkinson, cardiology 12/2018: Patient was seen by neurology and diagnosed with early dementia. Patient had admission to hospital for flare of Afib in 08/2019. Pacer was interrogated and patient has been feeling better since discharge RAFAEL was in 09/2019 with A1C [id number] to 8.8. Patient was advised to continue metformin ER 1000BID,Tresiba 80 units daily.Trulicity to 0.75mg week and Humalog 15 u with breakfast and 10 units with dinner Patient had worsening nausea, poor appetite and seen by GI in 12/2019 , EGD showed gastritis, Esophagitis Patient is better compliant with medication regimen. states giving him dose of Humalog TIDAC Patient usually checks blood glucoses 1-2 times a day. Patient has not brought in the blood sugars to be reviewed today. Average blood sugar at breakfast 200s and at supper 300s The patient is not having problems with hypoglycemia. Patient is semicompliant with diet-small meal but cheese rich.he has been unable to exercise due tocardiac function HLD takes Lipitor 40 mg . Car Rental Manager added Vascepa 2 cap however patient had to stop due to diarrhea HTN: managed by cardiology. DIABETIC HEALTH MAINTENANCE Last [...] file Gets together: Not on file Attends taoism service: Not on file Active member of [...] file REVIEW OF SYSTEMS Constitutional: + weight loss, + fatigue and hair loss Eyes:+blurry vision, denies diplopia and denies pain. Neck: denies pain, denies swollen glands Cardiovascular: denies chest pain , denies irregular pulse and denies palpitations. Respiratory: denies dyspnea on exertion and denies shortness of breath. Gastrointestinal: + nausea + abdominal pain, denies constipation and denies diarrhea. [...] CHOLESTEROL-Q (mg/dL) Date Value 09/16/2018 38 (L) [id number] (mg/dL (calc)) Date Value 09/16/2018 85 TRIGLYCERIDES-Q (mg/dL) Date Value 09/16/2018 246 (H) No results found for: ALBUCREAT, UALBCREAT POCT HBA1C (%) Date Value 06/08/2019 10 (A) 01/12/2019 8.5 (A) HEMOGLOBIN A1c-Q (% of total Hgb) Date Value 07/31/2016 8.9 (H) BP 126/81 (BP Location: Left arm, Patient Position: Sitting, BP CUFF SIZE: Adult Large) | Pulse 73| Resp 16 | Ht 5' 10" (1.778 m) | Wt 234 lb 12.8 oz (106.5 kg) | BMI 33.69 kg/m General: alert, oriented times three, no [...] findings. Extremities/Musculoskeletal: no cyanosis, no edema . Outside lab 08/2019 SY=639/Ru=011/LDL=18 HDL=31 CMP was WNL TSH=1.69/free T4=0.95 A1C=8.8 08/2019 KB=419/Av=022/LDL=26 HDL=34 CMP/CBC was WNL TSH=3.6/free T4=1.1 A1C=11.3 ASSESSMENT/PLAN 1. Uncontrolled type 2 diabetes with neuropathy -A1C (target=7-8%): 10 (06/12) -->8.8(09/13)--->11.3(02/11)worsened -glucose range:hyperglycemia thru the day - without hypoglycemia -complication: neuropathy retinopathy nephropathy macrovascular: CAD CVA -medication limitation: Victoza- GI symptoms, will stop Trulicity due to GI problem Invokana ( stopped due to neuropathy) -diet:semi compliant -exercise: limited by joint pain Plan -reinterated to check glucose at least BID alternating fasting and 2 hours post meals -urged compliance with diet - POCT HEMOGLOBIN A1C TEST - metformin ER 500 mg 24 hr tablet; Take 1 tablet by mouth daily with breakfast. Dispense: 90 tablet; Refill: 3 - CONTOUR NEXT TEST STRIPS strip; Use as directed, TID, DX: E11.40 Dispense: 300 Strip; Refill: 3 - FREESTYLE CRISTI 14 DAY READER Misc; 1 Each daily. Dispense: 1 Each; Refill: 0 - FREESTYLE CRISTI 14 DAY SENSOR Kit; 1 Each every 14 (fourteen) days. Dispense: 2 Kit; Refill: 5 - insulin lispro (HUMALOG KWIKPEN INSULIN) 100 unit/mL pen injector; inject 20 Units under the skin 3 (three) times daily before meals. Dispense: 54 mL; Refill: 3 - TOUJEO MAX U-300 SOLOSTAR 300 unit/mL (3 mL) InPn; inject 100 Units under the skin every morning.Dispense: 30 mL; Refill: 3 Patient Instructions stop Trulicity Reduce Metformin ER 500 mg once a day IncreaseTresiba 100u QAM Increase Humalog 20u with each meal 2. Mixed hyperlipidemia Lipid was at target Plan manage by cardiology 3. Essential hypertension BP in clinic was at target Plan manage by cardiology Ana Haro LVN - 02/15/2020 9:00 AM CDTPatient had completed on 01/12/2020 A1c 11.3 Jesse Gonzalezectronically signed by Ana Riojas LVN at 02/15/2020 8:05 PM CDTdocumented in this encounter Plan of Treatment Date Type Specialty Care Team Description 05/17/2020 Office Visit Endocrinology Diabetes & Manpreet Palma MD Metabolism [address] [place] [address] [phone] Health Maintenance Due Date Last Done Comments HEPATITIS C (HCV) SCREEN 1955 DTaP,Tdap,and Td Vaccines 1965 (1 - Tdap) COLONOSCOPY 2004 Zoster Recombinant Vaccine 2004 (SHINGRIX) (1 of 2) LUNG CANCER SCREEN: 2009 Recommended for age 55-80 with 30 + pack year history Medicare Wellness Visit 2019 PNEUMOCOCCAL VACCINES 65+ 2019 (1 of 2 - PCV13) URINE MICROALBUMIN 09/16/2019 09/16/2018, 07/31/2016, 01/09/2016, Additional history exists HgA1C 12/08/2019 06/08/2019, 01/12/2019, 09/16/2018, Additional history exists EYE EXAM 03/29/2020 12/18/2017 Postponed from 12/18/2018 (Abiola ent Does Not Have Ti me) INFLUENZA VACCINE (Season 04/25/2020 05/25/2018, 06/24/2017 Ended) Depression Screening 08/09/2020 08/09/2019 FOOT EXAM 10/13/2020 10/13/2019, 10/13/2019, 01/12/2019, Additional history exists CREATININE (SERUM) 12/26/2020 12/27/2019, 01/16/2019, 09/16/2018, Additional history exists LDL-C 12/26/2020 12/27/2019, 09/16/2018, 07/31/2016, Additional history exists documented as of this [...] M edicare A & B sent [phone] [place] [address] [facility] [id number] 2019-Pre [address] [facility] sent [phone] Supplement MEDICARE [place] SUPPLEMENT [place] [phone] documented as of this encounter
--- OUTSIDE RECORDS SUMMARY | 2020-05-08 15:16 | XMS REPORT | Summary of Care ---
:1955 Author Organization [facility] Address [address] [place] [address] Care Team Providers Name Role Phone AliviaTabitha house Primary Care Provider Reason for Visit Reason Comments Follow-up Diabetes Mellitus II Encounter Details Date Type Department Care Team Description 02/15/2020 Office Visit [facility] Elizabeth Palma MD Uncontrolled type 2 diabetes with neurop athy (Primary Dx); Endocrinology- [facility] Mixed hy perlipidemia; [facility] Essential hypertension [address], [address] [address] [place], [place] [phone] [address] [phone] Allergies No Known Allergiesdocumented as of this [...] Uncontrolled type 2 diabetes with neuropathy Insulin [place], Use as 400 Each 3 Act melvin [...] 2013, followed by Dr. Parkinson cardiology in [place]), PVD (Left with claudications) followed by vascular surgery at [facility], neuropathy: Peripheral and lower extremity and obesity. His NESS was ordered that showed non compressible vessel on right and normal on left ( could be due to non-compressible vessel), He was then referred to vascular surgery and recommended by them to conservative manage left PVD with statin, aspirin, plavix, Patient had ischemic stroke earlier 2015, he was hospitalized in [facility] work up was negative in terms of carotid duplex. He also had cardiac pacemaker in 05/2016, Dr. Parkinson, cardiology 12/2018: Patient was seen by neurology and diagnosed with early dementia. Patient had admission to hospital for flare of Afib in 08/2019. Pacer was interrogated and patient has been feeling better since discharge RAFAEL was in 09/2019 with A1C [id number] to 8.8. Patient was advised to continue [...] function HLD takes Lipitor 40 mg . Clinical Research Manager added Vascepa 2 cap however patient [...] file Gets together: Not on file Attends sikhism service: Not on file Active member of [...] CHOLESTEROL-Q (mg/dL) Date Value 09/16/2018 38 (L) [id number] (mg/dL (calc)) Date Value 09/16/2018 85 TRIGLYCERIDES-Q [...] cyanosis, no edema . Outside lab 08/2019 RG=858/Ph=964/LDL=18 HDL=31 CMP was WNL TSH=1.69/free T4=0.95 A1C=8.8 08/2019 NW=106/Lm=176/LDL=26 HDL=34 CMP/CBC was WNL TSH=3.6/free T4=1.1 A1C=11.3 [...] Diabetes & Manpreet Palma MD Metabolism [address] [place] [address] [phone] Health Maintenance Due Date Last Done Comments [...] M edicare A & B sent [phone] [place] [address] [facility] [id number] 2019-Pre [address] [facility] sent [phone] Supplement MEDICARE [place] SUPPLEMENT [place] [employer] [phone] documented as of this encounter
--- OUTSIDE RECORDS SUMMARY | 2020-05-08 15:17 | XMS REPORT | Summary of Care ---
:[address] [facility] - [facility] Address [address] [place] [address] Care Team Providers Name Role Phone ShabbirTabitha Primary Care Provider Encounter Details Date Type Department Care Team Description 03/07[facility]2020 [facility] MD Endocrinology- [address], [address] [place] [address] [phone] Allergies No Known Allergiesdocumented as of this encounter (statuses as of 03/10/2020) Medications Medication Sig Dispensed Refills Start Date End Date Status potassium chloride 0 03/16/2014 Active (K-DUR) 10 mEq CR tablet NITROSTAT 0.4 mg 0 01/12/2014 Ac tive sublingual tablet DEXILANT 30 mg capsule 60 mg. 3 09/29/2015 Active escitalopram oxalate 2 01/10/2016 Active (LEXAPRO) 20 mg tablet atorvastatin (LIPITOR) Take 1 tablet by 90 tablet 3 08/07/2016 Active 40 mg mouth at tabletIndications: bedtime. Dyslipidemia furosemide (LASIX) 20 Take 1 tablet by 30 tablet 1 08/14/2016 Active mg tabletIndications: mouth daily. Fluid retention lisinopril 20 mg tablet Take 1 tablet by 30 tablet 3 8 Active mouth daily. icosapent ethyl Take by mouth. 0 Active (VASCEPA) 1 gram capsuleIndications: Uncontrolled type 2 diabetes with neuropathy Insulin [place], Use as directed. 400 Each 3 09/22/2018 Active Disposable, (PAULETTE PEN 4 times daily NEEDLE) 32 gauge x E11.40 " NdleIndications: Uncontrolled type 2 diabetes with neuropathy clonazePAM 0.5 mg Take 1 tablet by 45 tablet 1 09/29/2019 Active disintegrating mouth 2 (two) tabletIndications: times daily as Early onset Alzheimer's needed for disease with behavioral Anxiety. disturbance apixaban (ELIQUIS) 5 mg Eliquis 5 mg tablet 0 Active tablet T1T PO BID sotalol 80 mg tablet 0 09/21/2019 Active alendronate 70 mg 0 10/06/2019 A ctive tablet galantamine 12 mg Take 1 tablet by 180 tablet 4 12/21/2019 Active tabletIndications: mouth 2 (two) Early onset Alzheimer's times daily. dementia without behavioral disturbance metformin ER 500 mg 24 Take 1 tablet by 90 tablet 3 02/15/2020 Active hr tabletIndications: mouth daily with Uncontrolled type 2 breakfast. diabetes with neuropathy CONTOUR NEXT TEST Use as directed, 300 Strip 3 02/15/2020 Active STRIPS TID, DX: E11.40 stripIndications: Uncontrolled type 2 diabetes with neuropathy FREESTYLE CRISTI 14 DAY 1 Each daily. 1 Each 0 02/15/2020 Active READER MiscIndications: Uncontrolled type 2 diabetes with neuropathy FREESTYLE CRISTI 14 DAY 1 Each every 14 2 Kit 5 02/15/2020 Active SENSOR KitIndications: (fourteen) days. Uncontrolled type 2 diabetes with neuropathy insulin lispro (HUMALOG inject 20 Units 54 mL 3 02/15/2020 Active KWIKPEN INSULIN) 100 under the skin 3 unit/mL pen (three) times injectorIndications: daily before Uncontrolled type 2 meals. diabetes with neuropathy TOUJEO MAX U-300 inject 100 Units 30 mL 3 02/15/2020 Active SOLOSTAR 300 unit/mL (3 under the skin mL) InPnIndications: every morning. Uncontrolled type 2 diabetes with neuropathy documented as of this encounter (statuses as of 03/10/2020) Active Problems Problem Noted Date Dyslipidemia 08/07/2016 Uncontrolled type 2 diabetes with neuropathy 6 Essential hypertension 07/11/2015 Type 2 diabetes, controlled, with neuropathy 5 Atherosclerotic PVD with intermittent claudication Neuropathy 07/05/2014 HLD (hyperlipidemia) 03/29/2014 Metabolic syndrome X 03/29/2014 Obesity 03/29/2014 Albuminuria 03/29/2014 documented as of this encounter (statuses as of 03/10/2020) Resolved Problems Problem Noted Date Resolved Date HTN (hypertension) 03/29/2014 07/11/2015 Type 2 diabetes mellitus with complication 03/29/2014 07/11/2015 documented as of this encounter (statuses as of 03/10/2020) Social History Tobacco Use Types Packs/Day Years [...] Visit Endocrinology Diabetes & Manpreet Palma MD [id number] [place], [place] [id number] Health Maintenance Due Date Last Done Comments [...] Does Not Have Ti me) INFLUENZA VACCINE (#1) 2020 05/25/2018, 06/24/2017 Depression Screening 08/09/2020 08/09/2019 FOOT EXAM 10/13/2020 [...] BOX edicare A & B sent [phone] [place] [id number] [facility] [id number] 2019-Pre [address] [facility] sent [phone] Supplement MEDICARE [place] SUPPLEMENT [place] [employer] [phone] documented as of this encounter
--- OUTSIDE RECORDS SUMMARY | 2020-05-08 15:17 | XMS REPORT | Summary of Care ---
:1955 Author Organization [facility] - Health Address [address] [place] [address] Care Team Providers Name Role Phone ShabbirTabitha Primary Care Provider Encounter Details Date Type Department Care Team Description 02/22/2020 Orders Only [facility] Doctor Unassigned, No [address] [facility] Name [phone] [place] [address] Allergies No Known Allergiesdocumented as of this encounter (statuses as of 02/22/2020) Medications Medication Sig Dispensed Refills Start Date [...] Uncontrolled type 2 diabetes with neuropathy Insulin [place], Use as directed. 400 Each 3 09/22/2018 [...] as of this encounter (statuses as of 02/22/2020) Active Problems Problem Noted Date Dyslipidemia 08/07/2016 Uncontrolled type 2 diabetes with neuropathy 6 Essential hypertension 07/11/2015 Type 2 diabetes, controlled, with neuropathy 5 Atherosclerotic PVD with intermittent claudication Neuropathy 07/05/2014 HLD (hyperlipidemia) 03/29/2014 Metabolic syndrome X 03/29/2014 Obesity 03/29/2014 Albuminuria 03/29/2014 documented as of this encounter (statuses as of 02/22/2020) Resolved Problems Problem Noted Date Resolved Date HTN (hypertension) 03/29/2014 07/11/2015 Type 2 diabetes mellitus with complication 03/29/2014 07/11/2015 documented as of this encounter (statuses as of 02/22/2020) Social History Tobacco Use Types Packs/Day Years [...] Visit Endocrinology Diabetes & Manpreet Palma MD [facility] [address] [place] [address] [phone] Health Maintenance Due Date Last Done Comments [...] Name Priority Date/Time Associated Diagnosis Comme nts EXTERNAL PROVIDER Routine 02/22/2020 12:01 AM CDT RECORDS documented in this encounter Results Not on filedocumented in this encounter Insurance Payer Benefit Plan / Subscriber ID Effective Phone Address T e Group Dates MEDICARE MEDICARE PART xxxxxxxxxxx 2019-Pre [phone] [address] ed[employer]are A & B sent [phone] [place] [phone] [facility] [id number] 2019-Pre [address] [facility] sent [phone] Supplement MEDICARE [place] SUPPLEMENT [place] [employer] [id number] documented as of this encounter
--- OUTSIDE RECORDS SUMMARY | 2020-05-08 15:17 | XMS REPORT | Summary of Care ---
:1955 Author Organization [facility] - [facility] Address [address] [place] [address] Care Team Providers Name Role Phone ShabbirTabitha Primary Care Provider Encounter Details Date Type Department Care Team Description [facility]/07[facility]2020 [facility] Endocrinology- [address], [address] [place] [address] [phone] Allergies No Known Allergiesdocumented as of this encounter (statuses as of 03/13/2020) Medications Medication Sig Dispensed Refills Start Date [...] Uncontrolled type 2 diabetes with neuropathy Insulin [place], Use as directed. 400 Each 3 09/22/2018 [...] as of this encounter (statuses as of 03/13/2020) Active Problems Problem Noted Date Dyslipidemia 08/07/2016 Uncontrolled type 2 diabetes with neuropathy 6 Essential hypertension 07/11/2015 Type 2 diabetes, controlled, with neuropathy 5 Atherosclerotic PVD with intermittent claudication Neuropathy 07/05/2014 HLD (hyperlipidemia) 03/29/2014 Metabolic syndrome X 03/29/2014 Obesity 03/29/2014 Albuminuria 03/29/2014 documented as of this encounter (statuses as of 03/13/2020) Resolved Problems Problem Noted Date Resolved Date HTN (hypertension) 03/29/2014 07/11/2015 Type 2 diabetes mellitus with complication 03/29/2014 07/11/2015 documented as of this encounter (statuses as of 03/13/2020) Social History Tobacco Use Types Packs/Day Years [...] Visit Endocrinology Diabetes & Manpreet Palma MD [address] [id number] Health Maintenance Due Date Last Done Comments [...] BOX edicare A & B sent [phone] [place] [address] [facility] [id number] 2019-Pre [address] O[address] BOX [facility] sent [phone] Supplement MEDICARE [place] SUPPLEMENT [place] [id number] documented as of this encounter
--- OUTSIDE RECORDS SUMMARY | 2020-05-08 15:18 | XMS REPORT | Encounter Summary ---
:1955 Author Care Team Providers Name Role Phone PriyaGayla Shea ([facility]) Primary Care Provider [phone] Zackary Hardin Porcelain Finisher [phone] Dwayne Rhoades MD Long Lines Operator [phone] [facility] Urologist [phone] Elizabeth Palma Nuclear Logging Engineer [phone] Omar Beltrán MD Electric Spot Welder [phone] Jeremiah Grissom MD Neurologist [phone] Reason for Visit diabetic eye exam Instructions 1. Insulin treated type 2 diabet es mellitus 2. Eye disorder screening 3. Presbyopia glasses Discussion Note: None recorded.Patient educational handouts: No information available. 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 Referral None recorded. Procedures None recorded. Surgeries None recorded. Imaging None recorded. Medications Name Start Date alendronate 70 mg tablet Take 1 tablet every week by oral route. atorvastatin 40 mg tablet Take 1 tablet every day by oral route for 30 days. clonazepam 0.5 mg disintegrating tablet One 2 times a day. clopidogrel 75 mg tabs clotrimazole 1 % topical cream APPLY TO AFFECTED RECTAL AREA OF THE SKIN TWICE A DAY Contour Next Test Strips USE DIRECTED THREE TIMES DAILY Dexilant 60 mg capsule, delayed release TAKE 1 CAPSULE(S) EVERY DAY BY ORAL ROUTE. Eliquis 5 mg tablet TAKE ONE (1) TABLET(S) BY MOUTH TWICE A DAY. escitalopram 20 mg tablet Take 1 tablet every day by oral route. furosemide 20 mg tablet take one tablet by mouth, daily galantamine 12 mg tablet one tab 2 times a day. galantamine hydrobromide 8 mg tabs hydrochlorothiazide 12.5 mg caps ketoconazole 2 % topical cream APPLY TO THE AFFECTED AREA(S) BY TOPICAL ROUTE ONCE D AILY to soles of feet b/l lisinopril 20 mg tablet Take 1 tablet every day by oral route for 30 days. metformin ER 500 mg tablet,extended release 24 hr Take 2 tablets twice a day by oral route for 30 days. metoclopramide 10 mg tablet metoprolol tartrate 50 mg tabs metronidazole 500 mg tablet TAKE 1 TABLET BY MOUTH THREE TIMES DAILY FOR 14 DAYS nitroglycerin 0.[address] 1 tablet by sublingual route. nystatin-triamcinolone 100,000 unit/g-0.1 % topical cr eam APPLY TO RECTAL AREA TWICE DAILY FOR 10 DAYS ondansetron 8 mg disintegrating tablet DISSOLVE 1 TABLET(S) 3 TIMES A DAY NEEDED. potassium chloride ER 10 mEq capsule,extended release potassium chloride ER 10 mEq tablet,extended release(p art/cryst) TAKE 1 TABLET BY MOUTH ONCE DAILY promethazine 12.5 mg tablet promethazine hcl 12.5 mg tabs sotalol 80 mg tablet one tab 2 times a day. Suprep Bowel Prep Kit 17.5 gram-3.13 gram-1.6 gram ora l solution suprep bowel laurent prep kit sure comfort mis 32gx5/32 tamsulosin 0.4 mg capsule 1 capsule QD Toujeo Max U-300 SoloStar 300 unit/mL (3 mL) subcutane ous insulin pen Inject 90 units every day by sub-q route. tresiba flextouch 100 unit/ml sopn Trulicity 0.75 mg/0.5 mL subcutaneous pen injector Inject 0.5 mL every week by subcutaneous route. Vitamin D3 25 mcg (1,000 unit) tablet Take 1 tablet every day by oral route. Vitamin D3 50 mcg (2,000 unit) capsule Take 1 capsule every day by oral route. Medications Administered None recorded. Vitals Height Weight BMI Blood Pressure 5 ft 8 in 236 lbs 35.9 kg/m2 141/78 mm[Hg] Results Lab Results None recorded. 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 Alzheimer's Disease Active 01/23/2019 Stricture of Esophagus Active 03/09/2019 Gastritis Active 03/11/2019 Nausea Active 03/11/2019 Compression Fracture of Thoracic Vertebra Active 2019 History of Atrial Fibrillation Active 09/20/2019 Polyp of Colon Active 01/10/2020 Hiatal Hernia Active 01/10/2020 Colitis Active 01/10/2020 Large Prostate Active 01/10/2020 Diarrhea Active 01/10/2020 Insulin Treated Type 2 Diabetes Mellitus Active 020 Presbyopia Active 03/14/2020 Eye Disorder Screening Active 03/14/2020 Obesity Active Heart Disease Active Procedures Date Name Performed by 01/10/2020 Colonoscopy Information not avai lable 09/20/2019 Electrocardiographic Procedure Informati on not available [...] 13 10/29/20180.5 mL pneumococcal polysaccharide PPV23 06/04/2010 01/13/20200.5 mL Tdap 09/15/2014 Social History Tobacco Smoking Status Never Smoker Past Encounters 03/14/2020 Insulin Treated Type 2 Diabetes Mellitus ; Eye Disorder Screening; Presbyopia Clare Santacruz MD: [address] [place] [address], Ph. History of Present Illness Comprehensive Eye Exam Reported By: Patient Note: <p>PT HERE FOR DMR EXAM</p><p>BS HIGH 200- 300'S</p><p>NO FLASHES OR FLOATER</p><p>NO GLASSES--OCC USED READERS</p> Review of Systems Comprehensive General Adult ROS Reported By: Patient Cardiovascular: Cardiovascular: no arm pain on exertion, no shortness of breath when walking, no shortness o f breath when lying down; HX OF ATRIAL FIB.HAS PACE MAKER Gastrointestinal: Gastrointestinal: ; HX OF PO LYPS/ESOPHOGEAL STRICTURE Genitourinary: Genitourinary: difficulty ur inating, increased urinary frequency; HX OF LARGE PROSTATED Notes: <p>NO ACUTE C/O</p> Physical Exam Notes: <p>WDWM ALERT {{W|B|HS*}}{{M SANDRA*|FEMALE|CHILD}} IN NAD/ORIENTATED/GOOD MOOD

EOM:FULL/ORHTO<b r>PUPIL : ROUND AND RX OU
EXT;WNL
VF: NORMAL BY CONFRONTATION

VA: 20/30-3 sc EACH EYE
SLE:
K: {{CLEAR*|ARCUS|EDEMA}}<br&gt ;AC: {{3+DEEP#|2|3|4+DEEP}} {{CLEAR*|FLARE|CELLS}}
IR IS: {{ BLUE|BROWN*|CHI|GREEN}}
LENS: CLEAR
VIT:CLEAR</p><p>CON J QUIET</p><p>TEAR NL

TA= 12 @ 9:15 AM

DIL FUNDUS:
C/D : {{0.3|0.2|0.4*}} FLAT SHARP AND PINK
MACULA: {{WNL*|RPE CHANGES|EDEMA}} { { OU*|OD|OS}}
VESSEL: NORMAL
PERIPHERY:NORMAL=N O BACKGROUND CHG SEEN OU</p><p>
</p><p>IMP;</p> <p>NO DMR SEEN</p><p>PRESBYOPIA</p><p>
</p><p>PLAN;</p><p>READERS FOR NOW</p><p>DISCUSS RISK OF DM R AND NEED TO GET BS DOWN</p><p>WILVER 1 YR</p>"
--- OUTSIDE RECORDS SUMMARY | 2020-05-08 15:18 | XMS REPORT | Summary of Care ---
:1955 Author Organization [facility] Address [address] [place] [address] Care Team Providers Name Role Phone ShabbirTabitha Primary Care Provider Reason for Visit Reason Comments Rx Concern/Question Encounter Details Date Type Department Care Team Description 04/11/2020 Telephone [facility] Elizabeth Palma MD Rx Concern/Question Endocrinology- [address] [place] [address] [phone] Allergies No Known Allergiesdocumented as of this encounter (statuses as of 2020) Medications Medication Sig Dispensed Refills Start Date [...] Uncontrolled type 2 diabetes with neuropathy Insulin [place], Use as directed. 400 Each 3 09/22/2018 [...] as of this encounter (statuses as of 2020) Active Problems Problem Noted Date Dyslipidemia 08/07/2016 Uncontrolled type 2 diabetes with neuropathy 6 Essential hypertension 07/11/2015 Type 2 diabetes, controlled, with neuropathy 5 Atherosclerotic PVD with intermittent claudication Neuropathy 07/05/2014 HLD (hyperlipidemia) 03/29/2014 Metabolic syndrome X 03/29/2014 Obesity 03/29/2014 Albuminuria 03/29/2014 documented as of this encounter (statuses as of 2020) Resolved Problems Problem Noted Date Resolved Date HTN (hypertension) 03/29/2014 07/11/2015 Type 2 diabetes mellitus with complication 03/29/2014 07/11/2015 documented as of this encounter (statuses as of 2020) Social History Tobacco Use Types Packs/Day Years Used Date Former Smoker Alcohol Use Drinks/Week oz/Week Comments No Sex Assigned at Date Recorded Not on file documented as of this encounter Last Filed Vital Signs Not on filedocumented in this encounter Miscellaneous Notes Telephone Encounter - Kortney Valverde MA - 2020 4:33 PM CDTWOP was informed that medication as been received and is ready for pick pack worker. She stated that they will be by tomorrow to pick pack worker medication. elephone Encounter - Ana Riojas LVN - 04/12/2020 2:38 PM CDTCalled informed wop have not received and medication wop will call [facility] and request info. Tracking regarding where medication is wop will rtc Jesse Gonzalezectronically signed by Ana Riojas LVN at 04/12/2020 2:39 PM CDTTelephone Encounter - Francisco Guillen - 04/11/2020 11:07 AM CDTSOP calling in regards to medication order (Kandi Max). SOP states she is wanting to pick it up in the clinic by . Please advise. documented in this encounter Plan of Treatment Date Type Specialty Care Team Description 05/17/2020 Office Visit Endocrinology Diabetes & Manpreet Palma MD Metabolism [address] [place], [place] [phone] Health Maintenance Due Date Last Done Comments HEPATITIS C (HCV) SCREEN 1955 DTaP,Tdap,and Td Vaccines (1 - 1973 Tdap) COLON CANCER SCREENING ANNUAL 2004 FIT/FOBT COLON CANCER SCREENING FIT DNA 2004 EVERY 3 YEARS COLON CANCER SCREENING 2004 SIGMOIDOSCOPY EVERY 5 YEARS COLONOSCOPY 2004 Colorectal Cancer Screening 2004 Zoster Recombinant Vaccine 2004 (SHINGRIX) (1 of 2) LUNG CANCER SCREEN: Recommended 2009 for age 55-80 with 30 + pack year history EYE EXAM 12/18/2018 12/18/2017 Medicare Wellness Visit 2019 PNEUMOCOCCAL VACCINES 65+ (1 of 1 2019 - PPSV23) URINE MICROALBUMIN 09/16/2019 09/16/2018, 07/31/2016, 01/09/2016, Additional history exists HgA1C 12/08/2019 06/08/2019, 01/12/2019, 09/16/2018, Additional history exists INFLUENZA VACCINE (#1) 2020 05/25/2018, 06/24/2017 Depression [...] / Subscriber ID Effective Phone Address T [facility] Group Dates MEDICARE MEDICARE PART [id number] 2019-Pre [phone] [address] [employer] & B sent [id number] [place] [phone] [facility] [id number] 2019-Pre [address] [facility] sent [id number] Supplement MEDICARE [place] SUPPLEMENT [place] [id number] documented as of this encounter
--- OUTSIDE RECORDS SUMMARY | 2020-05-08 15:18 | XMS REPORT | Summary of Care ---
:1955 Author Organization [facility] - Health Address [address] [place] [address] Care Team Providers Name Role Phone ShabbirTabitha Primary Care Provider Encounter Details Date Type Department Care Team Description 02/15/2020 Orders Only [facility] Doctor Unassigned, No [address] [facility] Name [place] [phone] [place] [address] Allergies No Known Allergiesdocumented as of this encounter (statuses as of 03/22/2020) Medications Medication Sig Dispensed Refills Start Date [...] Uncontrolled type 2 diabetes with neuropathy Insulin [place], Use as directed. 400 Each 3 09/22/2018 [...] as of this encounter (statuses as of 03/22/2020) Active Problems Problem Noted Date Dyslipidemia 08/07/2016 Uncontrolled type 2 diabetes with neuropathy 6 Essential hypertension 07/11/2015 Type 2 diabetes, controlled, with neuropathy 5 Atherosclerotic PVD with intermittent claudication Neuropathy 07/05/2014 HLD (hyperlipidemia) 03/29/2014 Metabolic syndrome X 03/29/2014 Obesity 03/29/2014 Albuminuria 03/29/2014 documented as of this encounter (statuses as of 03/22/2020) Resolved Problems Problem Noted Date Resolved Date HTN (hypertension) 03/29/2014 07/11/2015 Type 2 diabetes mellitus with complication 03/29/2014 07/11/2015 documented as of this encounter (statuses as of 03/22/2020) Social History Tobacco Use Types Packs/Day Years [...] Description 05/17/2020 Office Visit Endocrinology Diabetes & Louie, Manpreet field MD [facility] [address] [place] [address] [phone] Health Maintenance Due Date Last Done Comments [...] Associated Diagnosis Comme nts MEDICATION CORRESPONDENCE Routine 02/15/2020 12:01 AM CDT documented in this encounter Results Not on filedocumented in this encounter Insurance Payer Benefit Plan / Subscriber ID Effective Phone Address T [facility] Group Dates MEDICARE MEDICARE PART xxxxxxxxxxx 2019-Pre [phone] [address] edicare A & B sent [id number] [place] [phone] [facility] [id number] 2019-Pre [address] [facility] sent [phone] Supplement MEDICARE [place] SUPPLEMENT [place] [id number] documented as of this encounter
--- OUTSIDE RECORDS SUMMARY | 2020-05-08 15:18 | XMS REPORT | Summary of Care ---
:1955 Author Organization [facility] Address [address] [place] [address] Care Team Providers Name Role Phone ShabbirTabitha Primary Care Provider Encounter Details Date Type Department Care Team Description [facility]/07[facility]2020 [facility] MD Endocrinology- [address], [address] [place] [address] [phone] Allergies No Known Allergiesdocumented as of this [...] Uncontrolled type 2 diabetes with neuropathy Insulin [place], Use as directed. 400 Each 3 09/22/2018 [...] Visit Endocrinology Diabetes & Manpreet Palma MD [address] [phone] Health Maintenance Due Date Last Done Comments [...] BOX edicare A & B sent [id number] [place] [address] [facility] [id number] 2019-Pre [address] [facility] sent [phone] Supplement MEDICARE [place] SUPPLEMENT [place] [id number] documented as of this encounter
--- OUTSIDE RECORDS SUMMARY | 2020-05-08 15:18 | XMS REPORT | Summary of Care ---
:1955 Author Organization [facility] Address [address] [place] [address] Care Team Providers Name Role Phone ShabbirTabitha Primary Care Provider Encounter Details Date Type Department Care Team Description 03/07/2020 [facility] Endocrinology- [address], [address] [place] [address] [phone] Allergies No Known Allergiesdocumented as of this [...] Uncontrolled type 2 diabetes with neuropathy Insulin [place], Use as directed. 400 Each 3 09/22/2018 [...] Visit Endocrinology Diabetes & Manpreet Palma MD [address] 1630[address] Health Maintenance Due Date Last Done Comments [...] BOX edicare A & B sent [phone] [place] [address] [facility] [id number] 2019-Pre [address] [facility] sent [phone] Supplement MEDICARE [place] SUPPLEMENT [place] [id number] documented as of this encounter
--- OUTSIDE RECORDS SUMMARY | 2020-05-08 15:18 | XMS REPORT | Summary of Care ---
:1955 Author Organization [facility] Address [address] [place] [address] Care Team Providers Name Role Phone ShabbirTabitha Primary Care Provider Reason for Visit Reason Comments Rx Concern/Question Encounter Details Date Type Department Care Team Description 04/11/2020 Telephone [facility] Elizabeth Palma MD Rx Concern/Question Endocrinology- [address] [place] [address] [phone] Allergies No Known Allergiesdocumented as of this encounter (statuses as of 04/12/2020) Medications Medication Sig Dispensed Refills Start Date [...] Uncontrolled type 2 diabetes with neuropathy Insulin [place], Use as directed. 400 Each 3 09/22/2018 [...] as of this encounter (statuses as of 04/12/2020) Active Problems Problem Noted Date Dyslipidemia 08/07/2016 Uncontrolled type 2 diabetes with neuropathy 6 Essential hypertension 07/11/2015 Type 2 diabetes, controlled, with neuropathy 5 Atherosclerotic PVD with intermittent claudication Neuropathy 07/05/2014 HLD (hyperlipidemia) 03/29/2014 Metabolic syndrome X 03/29/2014 Obesity 03/29/2014 Albuminuria 03/29/2014 documented as of this encounter (statuses as of 04/12/2020) Resolved Problems Problem Noted Date Resolved Date HTN (hypertension) 03/29/2014 07/11/2015 Type 2 diabetes mellitus with complication 03/29/2014 07/11/2015 documented as of this encounter (statuses as of 04/12/2020) Social History Tobacco Use Types Packs/Day Years Used Date Former Smoker Alcohol Use Drinks/Week oz/Week Comments No Sex Assigned at Date Recorded Not on file documented as of this encounter Last Filed Vital Signs Not on filedocumented in this encounter Miscellaneous Notes Telephone Encounter - Ana Riojas LVN - 04/12/2020 2:38 PM CDTCalled informed wop have not received and medication wop will call [facility] and request info. Tracking regarding where medication is wop will rtc Jesse Gonzalezectronically signed by Ana Riojas LVN at 04/12/2020 2:39 PM CDTTelephone Encounter - Francisco Guillen - 04/11/2020 11:07 AM CDTSOP calling in regards to medication order (Briantimmckayla Eligio). SOP states she is wanting to pick it up in the clinic by . Please advise. documented in this encounter Plan of Treatment Date Type Specialty Care Team Description 05/17/2020 Office Visit Endocrinology Diabetes & Manpreet Palma MD Metabolism [facility] [place], [place] [phone] Health Maintenance Due Date Last Done Comments [...] T e Group Dates MEDICARE MEDICARE PART [id number] 2019-Pre [phone] [address] IRMA shi A & B sent [id number] [place] [address] [facility] [id number] 2019-Pre [address] [facility] sent [phone] Supplement MEDICARE [place] SUPPLEMENT [place]IT[place] [id number] documented as of this encounter
--- OUTSIDE RECORDS SUMMARY | 2020-05-08 15:19 | XMS REPORT | Summary of Care ---
:1955 Author Organization [facility] Address [address] [place] [address] Care Team Providers Name Role Phone ShabbirTabitha Primary Care Provider Reason for Visit Reason Comments Assessment Triage Encounter Details Date Type Department Care Team Description 05/08/2020 Telephone [facility] Elizabeth Palma MD Assessment (Triage ) Endocrinology- [address], [address] [place] [address] [phone] Allergies No Known Allergiesdocumented as of this encounter (statuses as of 05/08/2020) Medications Medication Sig Dispensed Refills Start Date [...] Uncontrolled type 2 diabetes with neuropathy Insulin [place], Use as directed. 400 Each 3 09/22/2018 [...] as of this encounter (statuses as of 05/08/2020) Active Problems Problem Noted Date Dyslipidemia 08/07/2016 Uncontrolled type 2 diabetes with neuropathy 6 Essential hypertension 07/11/2015 Type 2 diabetes, controlled, with neuropathy 5 Atherosclerotic PVD with intermittent claudication Neuropathy 07/05/2014 HLD (hyperlipidemia) 03/29/2014 Metabolic syndrome X 03/29/2014 Obesity 03/29/2014 Albuminuria 03/29/2014 documented as of this encounter (statuses as of 05/08/2020) Resolved Problems Problem Noted Date Resolved Date HTN (hypertension) 03/29/2014 07/11/2015 Type 2 diabetes mellitus with complication 03/29/2014 07/11/2015 documented as of this encounter (statuses as of 05/08/2020) Social History Tobacco Use Types Packs/Day Years Used Date Former Smoker Alcohol Use Drinks/Week oz/Week Comments No Sex Assigned at Date Recorded Not on file documented as of this encounter Last Filed Vital Signs Not on filedocumented in this encounter Miscellaneous Notes Telephone Encounter - Jazmyne Lynn RN - 05/08/2020 2:41 PM CDTPatient spouse called. Spouse states all day yesterday blood sugar was over 600. Today fasting blood sugar was 299, 599, 539 and currently 450. Patient is very drowsy, having stomach pain, frequent urination, dry mouth and extreme thirst. Spouse informed to take patient immediately to nearest ER. Spouse states she will take patient to ER in [place], [place]. elephone Encounter - Maite Vidales - 05/08/2020 2:28 PM CDTPatient's spouse is calling stating patient did not want to go to the ER due to covid and is returning missed call from nurse. Please advise elephone Encounter - Jazmyne Lynn RN - 05/08/2020 1:57 PM CDTPatient called. No answer. Left voicemail. Telephone Encounter - Tonya Francisco - 05/08/2020 10:05 AM CDTWOP is calling stating that the patients blood sugars is currently at 585 and he is feeling fait. WOP is being transferred to a nurse. documented in this encounter Plan of Treatment Date Type Specialty Care Team Description 05/17/2020 Office Visit Endocrinology Diabetes & Manpreet Palma MD Metabolism [address] [place] [address] [phone] Health Maintenance Due Date Last Done Comments [...] T ype Group Dates MEDICARE MEDICARE PART [id number] 2019-Pre [phone] [address] IRMA edicare A & B sent [id number] [place] [phone] [facility] [id number] 2019-Pre [address] [facility] sent [phone] Supplement MEDICARE [place] SUPPLEMENT [place] [id number] documented as of this encounter
[2020-05-08] MEDS ORDERED: NA CHLORIDE 0.9% 1,000 ML ONE (15:55)
--- NOTE | 2020-05-08 16:11 | RAD REPORT ---
EXAM DESCRIPTION: RAD - Chest Single View - 05/08/2020 4:06 pm CLINICAL HISTORY: CHEST PAIN Chest pain. COMPARISON: Chest Single View dated 09/20/2019; Chest Single View dated 05/31/2018; CHEST SINGLE VIEW dated 05/27/2014; CHEST SINGLE VIEW dated 05/26/2014 FINDINGS: Portable technique limits examination quality. The lungs are grossly clear. The heart is normal in size. No displaced fractures.Dual lead pacer mitesh ce is present. IMPRESSION: No acute intrathoracic process suspected.
[2020-05-08 16:15] LABS: Absolute Lymphocytes (CBC) 1.9 K/uL (0.7-4.9); Basophils % 0.7 % (0-1.3); Hematocrit 37.9 % (39.6-49.0); Lymphocytes % 30.8 % (15.3-44.8); MPV 9.2 fL (7.6-11.3); RBC Red Blood Cell Count 4.38 M/uL (4.33-5.43)
[2020-05-08 16:16] LABS: Protime INR 1.1
[2020-05-08 16:41] LABS: ALT/SGPT 28 U/L (12-78); AST/SGOT 13 U/L (15-37); Albumin 3.4 g/dL (3.4-5.0); Alkaline Phosphatase 77 U/L (45-117); BUN Blood Urea Nitrogen 21 mg/dL (7-18); Bicarbonate 27 mmol/L (21-32); Bilirubin Direct 0.2 mg/dL (0-0.2); Bilirubin Total 0.8 mg/dL (0.2-1.0); Lipase 172 U/L (73-393); Magnesium 2.1 mg/dL (1.8-2.4); NT PRO-BNP 65 pg/mL (<125); Potassium 4.2 mmol/L (3.5-5.1); Sodium Level 133 mmol/L (136-145); Troponin (Emerg Dept Use Only) < 0.02 ng/mL (0.0-0.045)
[2020-05-08 16:45] LABS: Glucose Level 491 mg/dL (74-106)
[2020-05-08] MEDS ORDERED: INSULIN -REGULAR HUMAN 50 UNIT/0.5 ML ML ONE ×2 (17:09→18:08)
--- NOTE | 2020-05-08 18:40 | EDPHYS ---
Physician Documentation [facility] Name: Marquise Knight Age: 65 yrs Sex: Male : 1955 Arrival Date: 05/08/2020 Time: 14:50 Bed 14 Private MD: ED Physician Maik Gutierrez HPI: 05/08 16:43 This 65 yrs old Male presents to ER via Ambulatory with complaints of High jr8 Blood Sugar. 16:43 Onset: The symptoms/episode began/occurred gradually, 3 day(s) ago. Associated signs jr8 and symptoms: Pertinent positives: polydipsia, dizziness, blurred vision, chest tightness . 16:51 Current symptoms: In the emergency department the patient's symptoms are unchanged from jr8 the initial presentation. The patient has not experienced similar symptoms in the past. The patient has not recently seen a physician. Denies dietary changes or non compliance with medicine. Historical: - Allergies: 15:25 No Known Allergies; ca1 - Home Meds: 15:31 atorvastatin 40 mg Oral tab 1 tab once daily [Active]; clonazepam 0.5 mg Oral TbDL 1 ca1 tab 2 times per day [Active]; Dexilant 60 mg Oral CpDB 1 cap once daily [Active]; escitalopram oxalate 20 mg Oral tab 1 tab once daily [Active]; furosemide 20 mg Oral tab 1 tab once daily [Active]; galantamine 12 mg Oral tab 1 tab 2 times per day [Active]; hydrochlorothiazide 25 mg Oral tab 1 tab once daily [Active]; lisinopril 20 mg Oral tab 1 tab once daily [Active]; metformin 1,000 mg oral TG24 1 tab 2 times per day [Active]; ondansetron HCl 8 mg Oral tab 1 tab [Active]; potassium chloride 10 mEq Oral cpER 1 cap once daily [Active]; 15:33 sotalol 80 mg Oral tab 1 tab 2 times per day [Active]; Toujeo SoloStar 300 unit/mL (1.5 ca1 mL) subcutaneous inpn [Active]; Humalog Mix 75-25 100 unit/mL (75-25) Sub-Q susp [Active]; Eliquis 5 mg oral tab 1 tab 2 times per day [Active]; tamsulosin 0.4 mg oral cp24 1 cap once daily [Active]; - PMHx: 15:25 CVA; Diabetes - NIDDM; High Cholesterol; Hypertension; Diabetes - IDDM; Alzheimers; ca1 - PSHx: 15:25 pacemaker; Cholecystectomy; Knee surgery; ca1 - Immunization history:: Adult Immunizations up to date. - Social history:: Smoking status: Patient/guardian denies using tobacco, the patient reports quitting approximately 20 years ago. ROS: 16:51 ENT: Negative for injury, pain, and discharge, Neck: Negative for injury, pain, and jr8 swelling, Respiratory: Negative for shortness of breath, cough, wheezing, and pleuritic chest pain, Back: Negative for injury and pain, MS/Extremity: Negative for injury and deformity, Skin: Negative for injury, rash, and discoloration, Neuro: Negative for headache, weakness, numbness, tingling, and seizure. 16:51 Eyes: Positive for blurry vision. 16:51 Cardiovascular: Positive for chest pain, Negative for edema, orthopnea, palpitations, paroxysmal nocturnal dyspnea. 16:51 Abdomen/GI: Positive for nausea, Negative for abdominal pain, vomiting, diarrhea, constipation, abdominal cramps, abdominal distension. Exam: 16:51 Eyes: Pupils equal round and reactive to light, extra-ocular motions intact. Lids and jr8 lashes normal. Conjunctiva and sclera are non-icteric and not injected. Cornea within normal limits. Periorbital areas with no swelling, redness, or edema. ENT: Nares patent. No nasal discharge, no septal abnormalities noted. Tympanic membranes are normal and external auditory canals are clear. Oropharynx with no redness, swelling, or masses, exudates, or evidence of obstruction, uvula midline. Mucous membranes moist. Neck: Trachea midline, no thyromegaly or masses palpated, and no cervical lymphadenopathy. Supple, full range of motion without nuchal rigidity, or vertebral point tenderness. No Meningismus. Cardiovascular: Regular rate and rhythm with a normal S1 and S2. No gallops, murmurs, or rubs. Normal PMI, no JVD. No pulse deficits. Respiratory: Lungs have equal breath sounds bilaterally, clear to auscultation and percussion. No rales, rhonchi or wheezes noted. No increased work of breathing, no retractions or nasal flaring. Abdomen/GI: Soft, non-tender, with normal bowel sounds. No distension or tympany. No guarding or rebound. No evidence of tenderness throughout. Back: No spinal tenderness. No costovertebral tenderness. Full range of motion. Skin: Warm, dry with normal turgor. Normal color with no rashes, no lesions, and no evidence of cellulitis. MS/ Extremity: Pulses equal, no cyanosis. Neurovascular intact. Full, normal range of motion. Neuro: Awake and alert, GCS 15, oriented to person, place, time, and situation. Cranial nerves II-XII grossly intact. Motor strength 5/5 in all extremities. Sensory grossly intact. Cerebellar exam normal. Normal gait. 16:51 ECG was reviewed by the Attending Physician. jr8 Vital Signs: 15:18 BP 114 / 69; Pulse 68; Resp 15 S; Temp 98.6(TE); Pulse Ox 96% on R/A; Weight 103.87 kg ca1 (R); Height 5 ft. 9 in. (175.26 cm) (R); Pain 6/10; 16:27 BP 108 / 68; Pulse 63; Resp 15; Pulse Ox 95% on R/A; tw2 17:34 BP 100 / 53; Pulse 60; Resp 17; Pulse Ox 100% on R/A; tw2 18:16 BP 115 / 61; Pulse 62; Resp 17; Pulse Ox 98% on R/A; tw2 18:38 BP 109 / 73; Pulse 61; Resp 17; Pulse Ox 97% on R/A; tw2 19:03 BP 102 / 66; Pulse 60; Resp 17; Pulse Ox 99% on R/A; tw2 15:18 Body Mass Index 33.82 (103.87 kg, 175.26 cm) ca1 MDM: 15:29 Patient medically screened. jr8 16:58 Data reviewed: vital signs, nurses notes, lab test result(s), EKG, radiologic studies, jr8 plain films. Data interpreted: Pulse oximetry: on room air is 95 %. Interpretation: normal. Counseling: I had a detailed discussion with the patient and/or guardian regarding: the historical points, exam findings, and any diagnostic results supporting the discharge/admit diagnosis, lab results, radiology results. ED course: Discussed with patient that there is some mild renal insufficiency noted on labs. Recommended med review and close f/u with his PCP for glucose control along with med rec and to follow renal function . 05/08 15:35 Order name: Basic Metabolic Panel; Complete Time: 16:56 05/08 15:35 Order name: CBC with Diff; Complete Time: 16:43 05/08 15:35 Order name: LFT's; Complete Time: 16:56 05/08 15:35 Order name: Magnesium; Complete Time: 16:56 05/08 15:35 Order name: NT PRO-BNP; Complete Time: 16:56 05/08 15:35 Order name: PT-INR; Complete Time: 16:43 05/08 15:35 Order name: Troponin (emerg Dept Use Only); Complete Time: 16:56 05/08 15:35 Order name: XRAY Chest (1 view); Complete Time: 16:43 05/08 15:35 Order name: Lipase; Complete Time: 16:56 05/08 15:37 Order name: Glucose, Ancillary Testing; Complete Time: 16:43 EDMS 05/08 17:43 Order name: Glucose, Ancillary Testing; Complete Time: 17:48 EDMS 05/08 18:47 Order name: Glucose, Ancillary Testing; Complete Time: 18:53 EDMS 05/08 15:35 Order name: EKG; Complete Time: 15:35 05/08 15:35 Order name: Cardiac monitoring; Complete Time: 15:59 05/08 15:35 Order name: EKG - Nurse/Tech; Complete Time: 15:59 05/08 15:35 Order name: IV Saline Lock; Complete Time: 15:59 05/08 15:35 Order name: Labs collected and sent; Complete Time: 15:59 05/08 15:35 Order name: O2 Per Protocol; Complete Time: 15:43 8 05/08 15:35 Order name: O2 Sat Monitoring; Complete Time: 15:43 05/08 15:35 Order name: Glucose Level; Complete Time: 15:43 jr8 EC:51 Rate is 59 beats/min. Rhythm is regular, Paced. Left axis deviation noted. PA interval jr8 is normal at 14 msec. QRS interval is prolonged at 158 msec. QT interval is prolonged. T waves are Normal. No ST changes noted. Clinical impression: Sinus bradycardia and paced rhythm . Interpreted by me. Administered Medications: 15:55 Drug: NS 0.9% 1000 ml Route: IV; Rate: 1000 ml; Site: left antecubital; tw2 17:35 Follow up: Response: No adverse reaction; IV Status: Completed infusion; IV Intake: tw2 1000ml 17:00 Drug: Insulin Regular Human 10 units {Co-Signature: aa5 (Sydni Sotelo RN).} Route: tw2 IVP; Site: left antecubital; 17:35 Follow up: Response: No adverse reaction; Blood sugar is lowered tw2 17:58 Drug: Insulin Regular Human 10 units {Co-Signature: iw (Jennifer Zapien RN).} Route: tw2 IVP; Site: left antecubital; 18:35 Follow up: Response: No adverse reaction; Blood sugar is lowered tw2 Point of Care Testing: Blood Glucose: 15:28 Blood Glucose: 483 mg/dL; ca1 17:32 Blood Glucose: 363 mg/dL; tw2 18:35 Blood Glucose: 307 mg/dL; tw2 17:32 provider notified. tw2 Ranges: Critical Glucose Levels:Adult <50 mg/dl or >400 mg/dl <40 mg/dl or >180 mg/dl Disposition: 05/09 08:17 Co-signature as Attending Physician, Maik Gutierrez MD I agree with the assessment and [facility] plan of care. Disposition: 05/08/20 18:39 Discharged to Home. Impression: Hyperglycemia, unspecified. - Condition is Stable. - Discharge Instructions: Hyperglycemia, Blood Glucose Monitoring, Adult. - Medication Reconciliation Form, Thank You Letter, Antibiotic Education, Prescription Opioid Use form. - Follow up: Private Physician; When: 2 - 3 days; Reason: Recheck today's complaints, Continuance of care, Re-evaluation by your physician. - Problem is new. - Symptoms have improved. Signatures: Dispatcher [employer] EDMaik Harris MD MD cha Roszak, Josh, PA PA jr8 Lulu Yang RN RN tw2 Ariela Hansen RN RN ca1 Sydni Sotelo RN aa5 Jennifer Zapien RN iw Corrections: (The following items were deleted from the chart) 05/08 19:05 18:39 05/08/2020 18:39 Discharged to Home. Impression: Hyperglycemia, unspecified. tw2 Condition is Stable. Forms are Medication Reconciliation Form, Thank You Letter, Antibiotic Education, Prescription Opioid Use. Follow up: Private Physician; When: 2 - 3 days; Reason: Recheck today's complaints, Continuance of care, Re-evaluation by your physician. Problem is new. Symptoms have improved. jr8
--- NOTE | 2020-05-08 18:40 | ER ---
Nurse's Notes [facility] Name: Marquise Knight Age: 65 yrs Sex: Male : 1955 Arrival Date: 05/08/2020 Time: 14:50 Bed 14 Private MD: Diagnosis: Hyperglycemia, unspecified Presentation: 05/08 15:18 Chief complaint: Patient states: Reports dizziness, lightheaded, nausea, headache, ca1 chest pain since 3 days. Reports abdominal pain x 2 days Spouse and/or significant other states: : BGL has been over 600 for over a week. BGL today still HI. BP low at 90s/50s today. He has pacemaker and hx of CVA. Coronavirus screen: Client denies travel out of the [place] in the last 14 days. At this time, the client does not indicate any symptoms associated with coronavirus-19. Ebola Screen: Patient negative for fever greater than or equal to 101.5 degrees Fahrenheit, and additional compatible Ebola Virus Disease symptoms Patient denies exposure to infectious person. Patient denies travel to an Ebola-affected area in the 21 days before illness onset. No symptoms or risks identified at this time. Initial Sepsis Screen: Does the patient meet any 2 criteria? No. Patient's initial sepsis screen is negative. Does the patient have a suspected source of infection? No. Patient's initial sepsis screen is negative. Risk Assessment: Do you want to hurt yourself or someone else? Patient reports no desire to harm self or others. Onset of symptoms was May 08, 2020. 15:18 Method Of Arrival: Ambulatory ca1 15:18 Acuity: AMY 3 ca1 Historical: - Allergies: 15:25 No Known Allergies; ca1 - Home Meds: 15:31 atorvastatin 40 mg Oral tab 1 tab once daily [Active]; clonazepam 0.5 mg Oral TbDL 1 ca1 tab 2 times per day [Active]; Dexilant 60 mg Oral CpDB 1 cap once daily [Active]; escitalopram oxalate 20 mg Oral tab 1 tab once daily [Active]; furosemide 20 mg Oral tab 1 tab once daily [Active]; galantamine 12 mg Oral tab 1 tab 2 times per day [Active]; hydrochlorothiazide 25 mg Oral tab 1 tab once daily [Active]; lisinopril 20 mg Oral tab 1 tab once daily [Active]; metformin 1,000 mg oral TG24 1 tab 2 times per day [Active]; ondansetron HCl 8 mg Oral tab 1 tab [Active]; potassium chloride 10 mEq Oral cpER 1 cap once daily [Active]; 15:33 sotalol 80 mg Oral tab 1 tab 2 times per day [Active]; Toujeo SoloStar 300 unit/mL (1.5 ca1 mL) subcutaneous inpn [Active]; Humalog Mix 75-25 100 unit/mL (75-25) Sub-Q susp [Active]; Eliquis 5 mg oral tab 1 tab 2 times per day [Active]; tamsulosin 0.4 mg oral cp24 1 cap once daily [Active]; - PMHx: 15:25 CVA; Diabetes - NIDDM; High Cholesterol; Hypertension; Diabetes - IDDM; Alzheimers; ca1 - PSHx: 15:25 pacemaker; Cholecystectomy; Knee surgery; ca1 - Immunization history:: Adult Immunizations up to date. - Social history:: Smoking status: Patient/guardian denies using tobacco, the patient reports quitting approximately 20 years ago. Screenin:28 Abuse screen: Denies threats or abuse. Nutritional screening: No deficits noted. tw2 Tuberculosis screening: No symptoms or risk factors identified. Fall Risk None identified. Assessment: 15:20 General: Appears in no apparent distress. well groomed, Behavior is calm, cooperative, tw2 appropriate for age. Pain: Complains of pain in abdomen. Neuro: Level of Consciousness is awake, alert, obeys commands, Oriented to person, place, time, situation. Cardiovascular: Heart tones S1 S2 Patient's skin is warm and dry. Rhythm is A-V sequential pacer. Respiratory: Airway is patent Respiratory effort is even, unlabored, Respiratory pattern is regular, symmetrical, Breath sounds are clear bilaterally. GI: Abdomen is round non-distended, obese, Bowel sounds present X 4 quads. Reports lower abdominal pain, upper abdominal pain. : No signs and/or symptoms were reported regarding the genitourinary system. EENT: No signs and/or symptoms were reported regarding the EENT system. Derm: No signs and/or symptoms reported regarding the dermatologic system. Musculoskeletal: Range of motion: intact in all extremities. 16:27 Reassessment: Patient appears in no apparent distress at this time. No changes from tw2 previously documented assessment. Patient and/or family updated on plan of care and expected duration. Pain level reassessed. Patient is alert, oriented x 3, equal unlabored respirations, skin warm/dry/pink. 16:54 Reassessment: spouse Della carmona#[phone]. tw2 18:16 Reassessment: Patient appears in no apparent distress at this time. No changes from tw2 previously documented assessment. Patient and/or family updated on plan of care and expected duration. Pain level reassessed. Patient is alert, oriented x 3, equal unlabored respirations, skin warm/dry/pink. 19:03 Reassessment: Patient appears in no apparent distress at this time. No changes from tw2 previously documented assessment. Patient and/or family updated on plan of care and expected duration. Pain level reassessed. Patient is alert, oriented x 3, equal unlabored respirations, skin warm/dry/pink. Vital Signs: 15:18 BP 114 / 69; Pulse 68; Resp 15 S; Temp 98.6(TE); Pulse Ox 96% on R/A; Weight 103.87 kg ca1 (R); Height 5 ft. 9 in. (175.26 cm) (R); Pain 6/10; 16:27 BP 108 / 68; Pulse 63; Resp 15; Pulse Ox 95% on R/A; tw2 17:34 BP 100 / 53; Pulse 60; Resp 17; Pulse Ox 100% on R/A; tw2 18:16 BP 115 / 61; Pulse 62; Resp 17; Pulse Ox 98% on R/A; tw2 18:38 BP 109 / 73; Pulse 61; Resp 17; Pulse Ox 97% on R/A; tw2 19:03 BP 102 / 66; Pulse 60; Resp 17; Pulse Ox 99% on R/A; tw2 15:18 Body Mass Index 33.82 (103.87 kg, 175.26 cm) ca1 ED Course: 14:50 Patient arrived in ED. ag5 15:18 Placed in gown. Bed in low position. Call light in reach. Side rails up X 1. Cardiac tw2 monitor on. Pulse ox on. NIBP on. Warm blanket given. 15:23 Triage completed. ca1 15:25 Arm band placed on right wrist. ca1 15:28 Yang, Lulu, RN is Primary Nurse. tw2 15:28 Papo Luis PA is PHCP. jr8 15:28 Maik Gutierrez MD is Attending Physician. jr8 15:55 Inserted saline lock: 20 gauge in left antecubital area, using aseptic technique. Blood tw2 collected. 16:07 XRAY Chest (1 view) In Process Unspecified. EDMS 18:46 Awaiting transportation, Awaiting: prior to discharge. tw2 19:04 No provider procedures requiring assistance completed. IV discontinued, intact, tw2 bleeding controlled, No redness/swelling at site. Pressure dressing applied. Administered Medications: 15:55 Drug: NS 0.9% 1000 ml Route: IV; Rate: 1000 ml; Site: left antecubital; tw2 17:35 Follow up: Response: No adverse reaction; IV Status: Completed infusion; IV Intake: tw2 1000ml 17:00 Drug: Insulin Regular Human 10 units {Co-Signature: aa5 (Sydni Sotelo RN).} Route: tw2 IVP; Site: left antecubital; 17:35 Follow up: Response: No adverse reaction; Blood sugar is lowered tw2 17:58 Drug: Insulin Regular Human 10 units {Co-Signature: iw (Jennifer Zapien RN).} Route: tw2 IVP; Site: left antecubital; 18:35 Follow up: Response: No adverse reaction; Blood sugar is lowered tw2 Point of Care Testing: Blood Glucose: 15:28 Blood Glucose: 483 mg/dL; ca1 17:32 Blood Glucose: 363 mg/dL; tw2 18:35 Blood Glucose: 307 mg/dL; tw2 17:32 provider notified. tw2 Ranges: Intake: 17:35 IV: 1000ml; Total: 1000ml. tw2 Outcome: 18:39 Discharge ordered by . jr8 19:04 Discharged to home ambulatory. tw2 19:04 Condition: stable 19:04 Discharge instructions given to patient, Instructed on discharge instructions, follow up and referral plans. Demonstrated understanding of instructions, follow-up care. 19:05 Patient left the ED. tw2 Signatures: Dispatcher [employer] EDMS Papo Luis PA PA jr8 Lulu Yang RN RN tw2 Ariela Hansen RN RN ca1 Souleymane Ann ag5 Sydni Sotelo RN aa5 Jennifer Curry RN iw
[2020-05-08 20:13] VITALS: TEMP 98.6
[2020-05-08 20:19] VITALS: BP 102/66; O2SAT 99
--- NOTE | 2020-05-10 05:55 | EKG ---
Test Date: 2020-05-08 Test Time: 15:50:36 Audio/Visual Manager: ANTELMO MEASUREMENT RESULTS: Intervals: Rate: 59 MD: 164 QRSD: 158 QT: 524 QTc: 518 [address]: P: -10 MD: 164 QRS: -74 T: 80 INTERPRETIVE STATEMENTS: Sinus bradycardia Left axis deviation Nonspecific intraventricular block Possible Lateral infarct, age undetermined Inferior infarct, age undetermined Abnormal ECG Compared to ECG 09/20/2019 16:13:37 Left-axis deviation now present Myocardial infarct finding now present Ventricular-paced complex(es) or rhythm no longer present Electronically Signed On 05-10-20 05:50:39 CDT by Ronnell Hollis
== END 2020-05-08 19:05 | disposition home or self-care (01) ==
LOC: ER 14:49
DX: E11.65 Type 2 diabetes mellitus with hyperglycemia (principal); I10 Essential (primary) hypertension; G30.9 Alzheimer's disease, unspecified; F02.80 Dementia in other diseases classified elsewhere, unspecified severity, without behavioral disturbance, psychotic disturbance, mood disturbance, and anxiety; E78.00 Pure hypercholesterolemia, unspecified; Z79.4 Long term (current) use of insulin; Z95.0 Presence of cardiac pacemaker; Z79.01 Long term (current) use of anticoagulants; Z86.73 Personal history of transient ischemic attack (TIA), and cerebral infarction without residual deficits
CPT/HCPCS: 96361; 93005; 85025; 80048; 36415; 83735; 85610; 82947 ×3; 80076; 84484; 83690; 83880; 71045; 96374; 99284; J7030

== ENCOUNTER 2021-02-22 14:25 | Emergency (ER) | payer OTHER, MEDICARE ==
--- OUTSIDE RECORDS SUMMARY | 2021-02-22 14:32 | XMS REPORT | Continuity of Care Document ---
:1955 Author Organization [facility] t Address [address] [place] [address] Dr. Montilla. 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 Skin 00 al [facility] Program History of History of Problem Active [facility] SARS-CoV-2 SARS-CoV-2 1-20 da [facility]: [facility] Skin Skin Problem Active 2019-08 [place] lesion Lesion 0-20 da 00:00: [facility] Lateral Lateral Problem Active 2019-08 [place] epicondyli Epicondyli 0-20 da tis tis 00:00: [facility] Presbyopia Presbyopia Problem Active 2020-0 [place] 7-21 da 00:00: [facility] Insulin Insulin Problem Active [place] treated 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 2 Type 2 00:00: [facility] diabetes Diabetes 00 al mellitus Mellitus [facility] Program Polyp of Polyp of Problem Active [place] colon Colon 5-18 da 00:00: [facility] Large Large Problem Active [place] prostate Prostate 5-18 da 00:00: [facility] [...] fibrillati Fibrillati 00:00: [facility] on on 00 al [facility] Compressio Compressio Problem Active [place] n fracture n Fracture 1-27 da of of 00:00: [facility] thoracic Thoracic 00 al vertebra Vertebra [facility] Gastritis Gastritis Problem Active [place] 7-18 da 00:00: [facility] Stricture Stricture Problem Active [place] of of 7-16 da esophagus Esophagus 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 00 al [facility] Alzheimer' Alzheimer' Problem Active [place] s disease s Disease 6-01 da 00:00: [facility] Dyslipidem Dyslipidem Problem Active 2015-08 [place] ia ia 2-14 da 00:00: [facility] Cardiac Cardiac Problem Active 2015-08 [place] 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 00:00: [facility] 00 [facility] Peripheral Peripheral Problem Active 2014-0 [place] vascular Vascular 2-18 da disease Disease 00:00: [facility] Neuropathy Neuropathy Problem Active 2013-08 [place] 1-11 da 00:00: [facility] Obesity Obesity Problem Active [place] 805 da 00:00: [facility] 00 ga [facility] Hyperlipid Hyperlipid Problem Active [facility] [place] emia emia 8 da 00:00: [facility] Metabolic Metabolic Problem Active [place] syndrome X Syndrome X 03-29 da 00:00: [facility] Albuminuri Albuminuri Problem Active [place] a a 03-29 da 00:00: [facility] Hypertensi Hypertensi Problem Active [place] ve ve 02-22 da disorder Disorder 00:00: [facility] 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 Social History Smoking Status Start Date Stop Date Source Never Smoker [facility] Medications Ordered Filled Start [...] days. route for Pr ogram 30 days. BD Veo BD Veo No BD Veo [place] Insulin Insulin Insulin da Syringe Syringe Syringe [facility] Ultra-Fine Ultra-Fine Ultra-Fine al 1/2 mL 31 1/2 mL 31 1/2 mL 31 Health gauge x gauge x gauge x Outrea c " USE " USE " USE h 1 SYRINGE 1 SYRINGE 1 SYRINGE Program THREE TIMES THREE TIMES THREE DAILY DAILY TIMES BEFORE BEFORE DAILY MEAL(S) MEAL(S) BEFORE MEAL(S) cephalexin cephalexin No cephalexin [place] 500 mg 500 mg 500 mg da capsule capsule capsule [facility] al [facility] clotrimazol clotrimazol [...] 12 mg e 12 mg da tablet tablet tablet [facility] hydrochloro hydrochloro No hydrochlor [place] thiazide thiazide othiazide da 12.5 mg 12.5 mg 12.5 mg [facility] caps One caps One caps One al time daily time daily time daily Health Outreac [facility] Program insulin insulin No insulin [place] lispro lispro lispro da (U-100) 100 (U-100) 100 (U-100) [facility] unit/mL unit/mL 100 al subcutaneou subcutaneou unit/mL Health s pen 15-25 s pen 15-25 subcutaneo Outreac units 2 units 2 us pen h largest largest 15-25 Program meals of meals of units 2 day day largest meals of day Jardiance Jardiance No Jardiance [place] 25 mg 25 mg 25 mg da tablet tablet tablet [facility] ketoconazol ketoconazol No ketoconazo [place] e 2 % e 2 % le 2 % da topical topical topical [facility] cream APPLY cream APPLY cream al TO AFFECTED TO AFFECTED APPLY TO Health AREA(S) AREA(S) AFFECTED Outre ac TOPICALLY TOPICALLY AREA(S) h TO SOLES OF TO SOLES OF TOPICALLY Program BOTH FEET BOTH FEET TO SOLES ONCE DAILY ONCE DAILY OF BOTH FEET ONCE DAILY lisinopril lisinopril No lisinopril [place] 20 mg [...] 30 days. 30 days. for 30 days. nitroglycer nitroglycer No nitroglyce [place] in 0.4 [...] DISSOLVE 1 DISSOLVE 1 tablet H ealth TABLET ON TABLET ON DISSOLVE 1 Outreac THE TONGUE THE TONGUE TABLET ON h 3 TIMES 3 TIMES THE Program DAILY DAILY TONGUE 3 NEEDED NEEDED TIMES DAILY NEEDED potassium potassium No potassium [place] chloride ER chloride ER chloride da 10 mEq 10 mEq ER 10 mEq [facility] tablet,exte tablet,exte tablet,ext al nded nded ended Health release(par release(par release(pa Outreac t/cryst) t/cryst) rt/cryst) h Program sotalol 80 sotalol 80 No sotalol 80 [place] mg tablet mg tablet mg tablet da one tab 2 one tab 2 one tab 2 [facility] times a times a times a al day. day. day. Health Outreac h Program tamsulosin tamsulosin No tamsulosin [place] 0.4 mg 0.4 mg 0.4 mg da capsule capsule capsule [facility] Take 1 Take 1 Take 1 al capsule(s) capsule(s) capsule(s) Health every day every day every day Outreac by oral by oral by oral h route. route. route. Program Toujeo Max Toujeo Max No Toujeo Max [place] U-300 U-300 U-300 da SoloStar SoloStar SoloStar Epi scop 300 unit/mL 300 unit/mL 300 a l (3 mL) (3 mL) unit/mL (3 Healt h subcutaneou subcutaneou mL) O utreac s insulin s insulin subcutaneo h pen pen us insulin Program pen Tresiba Tresiba No 100unit Q1D Tresiba [place] FlexTouch FlexTouch (s) FlexTouch da U-200 U-200 U-200 [facility] insulin 200 insulin 200 insulin al unit/mL (3 unit/mL (3 200 Hea lth mL) mL) unit/mL (3 Outreac subcutaneou subcutaneou mL) h s pen s pen subcutaneo Program Inject 100 Inject 100 us pen units every units every Inject 100 day by day by units subcutaneou subcutaneou every day s route. s route. by subcutaneo us route. Vitamin D3 Vitamin D3 No 1capsul [...] Date Status Commen ts Source Name Name Influenza vaccine, Influenza vaccine, 2020-05-15 Completed [place] quadrivalent, quadrivalent, 12:09:26 [facility] adjuvanted adjuvanted [facility] pneumococcal pneumococcal 2020-01-13 Completed [place] polysaccharide PPV23 polysaccharide PPV23 11:16:16 [facility] influenza, trivalent, influenza, 2019-07-06 Completed [place] adjuvanted trivalent, 10:58:45 [facility] adjuvanted [facility] pneumococcal pneumococcal 2018-10-29 Completed [place] conjugate PCV 13 conjugate PCV 13 16:54:48 [facility] influenza, influenza, 2018-05-25 Completed [place] injectable, injectable, 00:00:00 [facility] quadrivalent quadrivalent [facility] Out reach Program influenza, influenza, 2017-06-24 Completed [place] injectable, injectable, 00:00:00 [facility] quadrivalent quadrivalent [facility] Out reach Program Tdap Tdap 2014-09-15 Completed [place] 00:00:00 [facility] pneumococcal pneumococcal 2010-06-04 Completed [place] polysaccharide PPV23 polysaccharide PPV23 00:00:00 [facility] Vital Signs Vital Name Observation Time Observation Value Comments Source BP Diastolic 2020-09-28 00:00:00 79 mm[Hg] Moni harrington [facility] Height 2020-09-28 00:00:00 68 [in_i] [place] [facility] BMI (Body Mass 2020-09-28 00:00:00 36.9 kg/m2 [place] resource specialist [facility] BP Systolic 2020-09-28 00:00:00 138 mm[Hg] [place] [facility] Body Weight 2020-09-28 00:00:00 3878 [oz_av] [place] [facility] BP Diastolic 2020-07-13 00:00:00 70 mm[Hg] [place] [facility] Height 2020-07-13 00:00:00 68 [in_i] [place] [facility] BMI (Body Mass 2020-07-13 00:00:00 37.6 kg/m2 [place] [facility] specialist [facility] BP Systolic 2020-07-13 00:00:00 126 mm[Hg] [place] [facility] Body Weight 2020-07-13 00:00:00 3952 [oz_av] [place] [facility] BP Diastolic 2020-06-13 00:00:00 80 mm[Hg] [place] [facility] Height 2020-06-13 00:00:00 68 [in_i] [place] [facility] BMI (Body Mass 2020-06-13 00:00:00 36.4 kg/m2 [place] [facility] specialist [facility] BP Systolic 2020-06-13 00:00:00 138 mm[Hg] [place] [facility] Body Weight 2020-06-13 00:00:00 3827.2 [oz_av] [place] [facility] BP Diastolic 2020-05-15 00:00:00 78 mm[Hg] [place] [facility] Height 2020-05-15 00:00:00 68 [in_i] [place] [facility] BMI (Body Mass 2020-05-15 00:00:00 36.3 kg/m2 [place] [facility] specialist [facility] BP Systolic 2020-05-15 00:00:00 124 mm[Hg] [place] [facility] Body Weight 2020-05-15 00:00:00 3824 [oz_av] [place] [facility] BP Diastolic 2020-03-14 00:00:00 78 mm[Hg] [place] [facility] Height 2020-03-14 00:00:00 68 [in_i] [place] [facility] BMI (Body Mass 2020-03-14 00:00:00 35.9 kg/m2 [place] resource specialist [facility] BP Systolic 2020-03-14 00:00:00 141 mm[Hg] [place] [facility] Body Weight 2020-03-14 00:00:00 236 [lb_av] [place] [facility] BP Diastolic 2020-01-13 00:00:00 80 mm[Hg] [place] [facility] Height 2020-01-13 00:00:00 68 [in_i] [place] [facility] BMI (Body Mass 2020-01-13 00:00:00 35.9 kg/m2 [place] [facility] specialist [facility] BP Systolic 2020-01-13 00:00:00 120 mm[Hg] [place] [facility] Body Weight 2020-01-13 00:00:00 3782.4 [oz_av] [place] [facility] BP Diastolic 2019-12-27 00:00:00 78 mm[Hg] [place] [facility] Height 2019-12-27 00:00:00 68 [in_i] [place] [facility] BMI (Body Mass 2019-12-27 00:00:00 35.6 kg/m2 [place] [facility] specialist [facility] BP Systolic 2019-12-27 00:00:00 123 mm[Hg] [place] [facility] Body Weight 2019-12-27 00:00:00 234 [lb_av] [place] [facility] BP Diastolic 2019-10-06 00:00:00 60 mm[Hg] [place] [facility] Height 2019-10-06 00:00:00 68 [in_i] [place] [facility] BMI (Body Mass 2019-10-06 00:00:00 37.5 kg/m2 [place] [facility] BP Systolic 2019-10-06 00:00:00 110 mm[Hg] [place] [facility] Body Weight 2019-10-06 00:00:00 246.4 [lb_av] [place] [facility] BP Diastolic 2019-06-03 00:00:00 84 mm[Hg] [place] [facility] Height 2019-06-03 00:00:00 68 [in_i] [place] [facility] BMI (Body Mass 2019-06-03 00:00:00 36.6 kg/m2 [place] [facility] BP Systolic 2019-06-03 00:00:00 137 mm[Hg] [place] [facility] Body Weight 2019-06-03 00:00:00 241 [lb_av] [place] [facility] Procedures Procedure Date / Time Performing Source Performed Clinician Procedure on Skin 2020-08-25 [place] 00:00:00 [facility] Colonoscopy 2020-01-10 [place] 00:00:00 [facility] Electrocardiographic Procedure 2019-09-20 [place] 00:00:00 [facility] Cardiac Pacemaker Procedure 2012-08-25 [place] an[place]oliy 00:00:00 [facility] Colonoscopy 2012-07-21 [place] 00:00:00 [facility] Ekg for Initial Prevent Exam 2012-03-25 [place] 00:00:00 [facility] Cardiovascular Stress Testing 2011-12-24 [place] evette 00:00:00 [facility] Cardiac Catheterization 2011-08-25 [place] 00:00:00 [facility] Cardiac Catheterization 2010-08-25 [place] 00:00:00 [facility] Cardiac Catheterization 2008-08-25 [place] 00:00:00 [facility] Cardiac Catheterization 2007-08-25 [place] 00:00:00 [facility] Plan of Care Planned Activity Planned Date Details Comments Source Diagnostic Test 2020-09-28 CMP, serum or [place] [facility] Pending 00:00:00 plasma [code = Health Outrea ch CMP, serum or Program plasma] Diagnostic Test 2020-09-28 HbA1c (hemoglobin [place] [facility] Pending 00:00:00 A1c), blood [code Health Out reach = HbA1c Program (hemoglobin A1c), blood] Diagnostic Test 2020-09-28 CBC w/ auto diff [place] [facility] Pending 00:00:00 [code = CBC w/ Health Outrea ch auto diff] Program Diagnostic Test 2020-09-28 lipid panel, serum [place] resource specialist [facility] Pending 00:00:00 [code = lipid Health Outreac h panel, serum] Program Diagnostic Test 2020-09-28 microalbumin/creat [place] [facility] specialist [facility] Pending 00:00:00 inine, mass ratio, Health [facility] urine [code = Program microalbumin/creat inine, mass ratio, urine] Diagnostic Test 2020-09-28 TSH + free T4, [place] [facility] Pending 00:00:00 serum [code = TSH Health Out reach + free T4, serum] Program Diagnostic Test 2020-09-28 glucose, [place] Ep [facility]copal Pending 00:00:00 fingerstick, blood Health [facility] [code = glucose, Program fingerstick, blood] Encounters Start End Encounter Admission Attending Care Care Encounter Source Date/Time Date/Time Type Type Clinicians Facility Department ID 2021-01-21 2021-01-21 Refill [place], [facility] [id number] 00:00:00 00:00:00 Elizabeth Iraheta [id number] [place] [id number] Professio [id number] [address] 2021-01-05 2021-01-05 Refill [place], [facility] [id number] 00:00:00 00:00:00 Elizabeth Gallatin [id number] [place] [id number] Professio [phone] [address] 2020-11-27 2020-11-27 Telephone [place], [facility] [id number] 00:00:00 00:00:00 Elizabeth Iraheta [id number] [place] [id number] karinaio [id number] [facility] 2020-11-20 2020-11-20 Orders Doctor ANDRÉS [id number] 00:00:00 00:00:00 Only Unassigned, SHEELA [id number] [place] [facility] [id number] 2020-09-28 2020-09-28 Jennifer GARY [place] - [id number] [place] 00:00:00 00:00:00 Joi Shea da FARM REPORTER: [address] [facility] [address] [address], [place], [place] 3 Outreac [address] h , Ph. Program 2020-07-13 2020-07-13 Jennifer GARY [place] - [id number] [place] 00:00:00 00:00:00 Joi Shea FARM REPORTER: [address] [facility] [address], [place], [place] Out[place] [address] h , Ph. Program 2020-06-13 2020-06-13 Jennifer GARY [place] - [id number] [place] 00:00:00 00:00:00 Joi Shea da FARM REPORTER: [address] [facility] [address] [address], [place], [place] [address] h , Ph. Program 2020-05-15 2020-05-15 Jennifer GARY [place] - [id number] [place] 00:00:00 00:00:00 Joi Shea da FARM REPORTER: [address] [facility] [address] [address], [place], [place] [address] h , Ph. Program 2020-03-14 2020-03-14 Clare GARY [place] - [id number] [place] 00:00:00 00:00:00 Joi Norris MD: 111 [facility] [address], [facility] [place], [place] Eye [facility] [phone] [facility] ac , Ph. h ([phone]) Program 2020-01-13 2020-01-13 Jennifer GARY [place] - [id number] [place] 00:00:00 00:00:00 Shimek, [place] da FARM REPORTER: [address] [facility] [address], [facility] [address] h , Ph. Program 2019-12-27 2019-12-27 Jennifer GARY [place] - 4 [place] 00:00:00 00:00:00 [place] da FARM REPORTER: [address] [facility] [address], [place], [place] Outre [address] h , Ph. Program 2019-10-06 2019-10-06 Jennifer GARY [place] - [id number] [place] 00:00:00 00:00:00 Shimek, [place] da FARM REPORTER: [address] [facility] [address], [address] [address] Progr am , Ph. 2019-06-03 2019-06-03 Jennifer GARY [place] - [id number] [place] 00:00:00 00:00:00 Shimek, [place] da FARM REPORTER: [address] [facility] [address], [address] [address] Progr am , Ph. 2017-11-13 2017-11-13 [facility] [id number] [address] 18:02:00 18:02:00 [facility] Results Test Description Test Time Test Comments Results Result Comments Source CBC W Auto Differential panel - Blood 2020-05-16 00:00:00 Test Item Value Reference Range Interpretation Comme nts Leukocytes [#/volume] in Blood by Automated count (test 7.1 x10e3/u L 3.4-10.8 code = 6690-2) Erythrocytes [#/volume] in Blood by Automated count 4.40 x10e6/uL 4 .14-5.80 (test code = 789-8) Hemoglobin [Mass/volume] in Blood (test code = 718-7) 13.3 g/dL 13.0-17.7 Hematocrit [Volume Fraction] of Blood by Automated count 39.6 % 37.5-51.0 (test code = 4544-3) MCV [Entitic volume] by Automated count (test code = 90 fL 7 9-97 787-2) MCH [Entitic mass] by Automated count (test code = 30.2 pg 26. 6-33.0 785-6) MCHC [Mass/volume] by Automated count (test code = 33.6 g/dL 31. 5-35.7 786-4) Erythrocyte distribution width [Ratio] by Automated 13.0 % 11 .6-15.4 count (test code = 788-0) Platelets [#/volume] in Blood by Automated count (test 243 x10e3/uL 150-450 code = 777-3) Neutrophils/100 leukocytes in Blood by Automated count 57 % not estab. (test code = 770-8) Lymphocytes/100 leukocytes in Blood by Automated count 31 % not estab. (test code = 736-9) Monocytes/100 leukocytes in Blood by Automated count 8 % n ot estab. (test code = 5905-5) Eosinophils/100 leukocytes in Blood by Automated count 4 % not estab. (test code = 713-8) Basophils/100 leukocytes in Blood by Automated count 0 % n ot estab. (test code = 706-2) immature cells (test code = immature cells) crnp Neutrophils [#/volume] in Blood by Automated count (test 4.1 x10e3/ uL 1.4-7.0 code = 751-8) Lymphocytes [#/volume] in Blood by Automated count (test 2.2 x10e3/ uL 0.7-3.1 code = 731-0) Monocytes [#/volume] in Blood by Automated count (test 0.5 x10e3/uL 0.1-0.9 code = 742-7) Eosinophils [#/volume] in Blood by Automated count (test 0.3 x10e3/ uL 0.0-0.4 code = 711-2) Basophils [#/volume] in Blood by Automated count (test 0.0 x10e3/uL 0.0-0.2 code = 704-7) Immature granulocytes/100 leukocytes in Blood by 0 % not e stab. Automated count (test code = 50052-5) Immature granulocytes [#/volume] in Blood by Automated 0.0 x10e3/uL 0.0-0.1 count (test code = 26781-0) Nucleated erythrocytes/100 leukocytes [Ratio] in Blood crnp by Automated count (test code = 77892-4) Morphology [Interpretation] in Blood Narrative (test crnp code = 61204-0) [facility] - Serum or [id number] 00:00:00 Test Item Value Reference Range Interpretation Comments Glucose [Mass/volume] in 345 mg/dL 65-99 H Serum or Plasma (test code = 2345-7) Urea nitrogen [Mass/volume] 15 mg/dL 8-27 in Serum or Plasma (test code = 3094-0) Creatinine [Mass/volume] in 0.89 mg/dL 0.76-1.27 Serum or Plasma (test code = 2160-0) Glomerular filtration 89 mL/min/1.73 >59 rate/1.73 sq M.predicted among non-blacks [Volume Rate/Area] in Serum, Plasma or Blood by Creatinine-based formula (CKD-EPI) (test code = 14961-5) Glomerular filtration 103 mL/min/1.73 >59 rate/1.73 sq M.predicted among blacks [Volume Rate/Area] in Serum, Plasma or Blood by Creatinine-based formula (CKD-EPI) (test code = 89478-2) Urea nitrogen/Creatinine 17 10-24 [Mass Ratio] in Serum or Plasma (test code = 3097-3) Sodium [Moles/volume] in 139 mmol/L 134-144 Serum or Plasma (test code = 2951-2) Potassium [Moles/volume] in 4.5 mmol/L 3.5-5.2 Serum or Plasma (test code = 2823-3) Chloride [Moles/volume] in 98 mmol/L 96-106 Serum or Plasma (test code = 2075-0) Carbon dioxide, total 25 mmol/L 20-29 [Moles/volume] in Serum or Plasma (test code = 2027-9) Calcium [Mass/volume] in 9.2 mg/dL 8.6-10.2 Serum or Plasma (test code = 38869-4) Protein [Mass/volume] in 6.7 g/dL 6.0-8.5 Serum or Plasma (test code = 2885-2) Albumin [Mass/volume] in 4.2 g/dL 3.8-4.8 Serum or Plasma (test code = 1751-7) Globulin [Mass/volume] in 2.5 g/dL 1.5-4.5 Serum by calculation (test code = 19280-8) Albumin/Globulin [Mass Ratio] 1.7 1.2-2.2 in Serum or Plasma (test code = 1759-0) Bilirubin.total [Mass/volume] 0.9 mg/dL 0.0-1.2 in Serum or Plasma (test code = 1975-2) Alkaline phosphatase 68 IU/L 39-117 [Enzymatic activity/volume] in Serum or Plasma (test code = 6768-6) Aspartate aminotransferase 16 IU/L 0-40 [Enzymatic activity/volume] in Serum or Plasma (test code = 1920-8) Alanine aminotransferase 20 IU/L 0-44 [Enzymatic activity/volume] in Serum or Plasma (test code = 1742-6) [facility]Hemoglobin.total in [id number] 00:00:00 Test Item Value Reference Range Interpretation Comments Hemoglobin A1c/Hemoglobin.total in 12.4 % 4.8-5.6 H Blood (test code = 4548-4) Glucose mean value [Mass/volume] in 309 mg/dL Blood Estimated from glycated hemoglobin (test code = 90508-9) [facility] Ab+HIV1 p24 Ag [Presence] in Serum or Plasma by [id number] 00:00:00 Test Item Value Reference Range Interpretation Comments HIV 1+2 Ab+HIV1 p24 Ag non reactive non reactive [Presence] in Serum or Plasma by Immunoassay (test code = 28737-5) [facility] Alic[facility] patient [id number] 00:00:00 Test Item Value Reference Range Interpretation Comments pdf (test code = pdf) . [facility] Auto Differential panel - Blood 2020-05-16 00:00:00 Test Item Value Reference Range Interpretation Comments Leukocytes [#/volume] in Blood 7.1 x10e3/uL 3.4-10.8 by Automated count (test code = 6690-2) Erythrocytes [#/volume] in 4.40 x10e6/uL 4.14-5.80 Blood by Automated count (test code = 789-8) Hemoglobin [Mass/volume] in 13.3 g/dL 13.0-17.7 Blood (test code = 718-7) Hematocrit [Volume Fraction] of 39.6 % 37.5-51.0 Blood by Automated count (test code = 4544-3) MCV [Entitic volume] by 90 fL 79-97 Automated count (test code = 787-2) MCH [Entitic mass] by Automated 30.2 pg 26.6-33.0 count (test code = 785-6) MCHC [Mass/volume] by Automated 33.6 g/dL 31.5-35.7 count (test code = 786-4) Erythrocyte distribution width 13.0 % 11.6-15.4 [Ratio] by Automated count (test code = 788-0) Platelets [#/volume] in Blood 243 x10e3/uL 150-450 by Automated count (test code = 777-3) Neutrophils/100 leukocytes in 57 % not estab. Blood by Automated count (test code = 770-8) Lymphocytes/100 leukocytes in 31 % not estab. Blood by Automated count (test code = 736-9) Monocytes/100 leukocytes in 8 % not estab. Blood by Automated count (test code = 5905-5) Eosinophils/100 leukocytes in 4 % not estab. Blood by Automated count (test code = 713-8) Basophils/100 leukocytes in 0 % not estab. Blood by Automated count (test code = 706-2) immature cells (test code = crnp immature cells) Neutrophils [#/volume] in Blood 4.1 x10e3/uL 1.4-7.0 by Automated count (test code = 751-8) Lymphocytes [#/volume] in Blood 2.2 x10e3/uL 0.7-3.1 by Automated count (test code = 731-0) Monocytes [#/volume] in Blood 0.5 x10e3/uL 0.1-0.9 by Automated count (test code = 742-7) Eosinophils [#/volume] in Blood 0.3 x10e3/uL 0.0-0.4 by Automated count (test code = 711-2) Basophils [#/volume] in Blood 0.0 x10e3/uL 0.0-0.2 by Automated count (test code = 704-7) Immature granulocytes/100 0 % not estab. leukocytes in Blood by Automated count (test code = 57091-6) Immature granulocytes 0.0 x10e3/uL 0.0-0.1 [#/volume] in Blood by Automated count (test code = 82313-2) Nucleated erythrocytes/100 crnp leukocytes [Ratio] in Blood by Automated count (test code = 99174-2) Morphology [Interpretation] in crnp Blood Narrative (test code = 86949-4) [facility] ProgramComprehensive [facility] 2000 panel - Serum or [id number] 00:00:00 Test Item Value Reference Range Interpretation Comments Glucose [Mass/volume] in 345 mg/dL 65-99 H Serum or Plasma (test code = 2345-7) Urea nitrogen [Mass/volume] 15 mg/dL 8-27 in Serum or Plasma (test code = 3094-0) Creatinine [Mass/volume] in 0.89 mg/dL 0.76-1.27 Serum or Plasma (test code = 2160-0) Glomerular filtration 89 mL/min/1.73 >59 rate/1.73 sq M.predicted among non-blacks [Volume Rate/Area] in Serum, Plasma or Blood by Creatinine-based formula (CKD-EPI) (test code = 01445-9) Glomerular filtration 103 mL/min/1.73 >59 rate/1.73 sq M.predicted among blacks [Volume Rate/Area] in Serum, Plasma or Blood by Creatinine-based formula (CKD-EPI) (test code = 44230-7) Urea nitrogen/Creatinine 17 10-24 [Mass Ratio] in Serum or Plasma (test code = 3097-3) Sodium [Moles/volume] in 139 mmol/L 134-144 Serum or Plasma (test code = 2951-2) Potassium [Moles/volume] in 4.5 mmol/L 3.5-5.2 Serum or Plasma (test code = 2823-3) Chloride [Moles/volume] in 98 mmol/L 96-106 Serum or Plasma (test code = 2075-0) Carbon dioxide, total 25 mmol/L 20-29 [Moles/volume] in Serum or Plasma (test code = 2027-9) Calcium [Mass/volume] in 9.2 mg/dL 8.6-10.2 Serum or Plasma (test code = 33524-1) Protein [Mass/volume] in 6.7 g/dL 6.0-8.5 Serum or Plasma (test code = 2885-2) Albumin [Mass/volume] in 4.2 g/dL 3.8-4.8 Serum or Plasma (test code = 1751-7) Globulin [Mass/volume] in 2.5 g/dL 1.5-4.5 Serum by calculation (test code = 39538-5) Albumin/Globulin [Mass Ratio] 1.7 1.2-2.2 in Serum or Plasma (test code = 1759-0) Bilirubin.total [Mass/volume] 0.9 mg/dL 0.0-1.2 in Serum or Plasma (test code = 1975-2) Alkaline phosphatase 68 IU/L 39-117 [Enzymatic activity/volume] in Serum or Plasma (test code = 6768-6) Aspartate aminotransferase 16 IU/L 0-40 [Enzymatic activity/volume] in Serum or Plasma (test code = 1920-8) Alanine aminotransferase 20 IU/L 0-44 [Enzymatic activity/volume] in Serum or Plasma (test code = 1742-6) [facility].total in [id number] 00:00:00 Test Item Value Reference Range Interpretation Comments Hemoglobin A1c/Hemoglobin.total in 12.4 % 4.8-5.6 H Blood (test code = 4548-4) Glucose mean value [Mass/volume] in 309 mg/dL Blood Estimated from glycated hemoglobin (test code = 39512-2) [facility]HIV [facility]+2 Ab+HIV1 p24 Ag [Presence] in Serum or Plasma by Lspyflrfknv7684-10-16 00:00:00 Test Item Value Reference Range Interpretation Comments HIV 1+2 Ab+HIV1 p24 Ag non reactive non reactive [Presence] in Serum or Plasma by Immunoassay (test code = 86463-4) [facility] patient [id number] 00:00:00 Test Item Value Reference Range Interpretation Comments pdf (test code = pdf) . [facility] Alice[facility], [id number] 00:00:00 Test Item Value Reference Range Interpretation Comments interpretation (test code = note interpretation) pdf image (test code = pdf image) . [facility] patient [id number] 00:00:00 Test Item Value Reference Range Interpretation Comments pdf image (test code = pdf not applicable image) [facility] T4 [facility] TSH [facility] - Serum or [id number] 00:00:00 Test Item Value Reference Range Interpretation Comments Thyrotropin [Units/volume] in 3.600 uIU/mL 0.450-4.500 Serum or Plasma by Detection limit <= 0.005 mIU/L (test code = 21475-8) Thyroxine (T4) free 1.11 NG/dL 0.82-1.77 [Mass/volume] in Serum or Plasma (test code = 3024-7) [facility] AliceCBC [facility] Auto Differential [facility] - Blood 2019-12-28 [...] = 706-2) immature cells (test code = crnp immature cells) Neutrophils [#/volume] in Blood 4.6 [...] Blood by Automated count (test code = 51360-8) Immature granulocytes 0.0 x10e3/uL 0.0-0.1 [#/volume] in Blood by Automated count (test code = 76041-6) Nucleated erythrocytes/100 crnp leukocytes [Ratio] in Blood by Automated count (test code = 78481-3) Morphology [Interpretation] in crnp Blood Narrative (test code = 08154-9) [facility] AliceCom[facility] 2000 [facility] - Serum or [id number] 00:00:00 Test Item Value Reference Range Interpretation [...] by Creatinine-based formula (CKD-EPI) (test code = 58577-4) Glomerular filtration 88 mL/min/1.73 >59 rate/1.73 sq M.predicted among blacks [Volume Rate/Area] in Serum, Plasma or Blood by Creatinine-based formula (CKD-EPI) (test code = 20892-7) Urea nitrogen/Creatinine [Mass 15 10-24 Ratio] in [...] mg/dL 8.6-10.2 or Plasma (test code = 49848-3) Protein [Mass/volume] in Serum 7.0 g/dL 6.0-8.5 or Plasma (test code = 2885-2) Albumin [Mass/volume] in Serum 4.4 g/dL 3.8-4.8 or Plasma (test code = 1751-7) Globulin [Mass/volume] in 2.6 g/dL 1.5-4.5 Serum by calculation (test code = 53472-6) Albumin/Globulin [Mass Ratio] 1.7 1.2-2.2 in Serum [...] (test code = 1742-6) [facility] Alice[facility] 1996 [facility] - Serum or Plasma 2019-12-28 [...] or Plasma by calculation (test code = 39405-5) Cholesterol in LDL [Mass/volume] in 26 mg/dL 0-99 Serum or Plasma by calculation (test code = 93977-0) Laboratory comment [Text] in Report crnp Narrative (test code = 57724-1) [facility] AliceHem[facility] A1c/Hemoglobin.total in [id number] 00:00:00 Test Item Value Reference Range Interpretation Comments Hemoglobin A1c/Hemoglobin.total in 11.3 % 4.8-5.6 H Blood (test code = 4548-4) Glucose mean value [Mass/volume] in 278 mg/dL Blood Estimated from glycated hemoglobin (test code = 21625-2) [facility] AliceProstate specific Ag [Mass/volume] in Serum or [id number] 00:00:00 Test Item Value Reference Range Interpretation Comments Prostate specific Ag [Mass/volume] 0.3 NG/mL 0.0-4.0 in Serum or Plasma (test code = 2857-1) [facility]25-Hydroxyvitamin D2+25- Hydroxyvitamin D3 [Mass/volume] in Serum or [id number] 00:00:00 Test Item Value Reference Range Interpretation Comments 25-Hydroxyvitamin 25.6 NG/mL 30.0-100.0 L D2+25-Hydroxyvitamin D3 [Mass/volume] in Serum or Plasma (test code = 35763-7) [facility] AliceHepatitis C virus Ab Signal/Cutoff in Serum or Plasma by [id number] 00:00:00 Test Item Value Reference Range Interpretation Comments Hepatitis C virus Ab Signal/Cutoff in <0.1 0.0-0.9 Serum or Plasma by Immunoassay (test code = 02366-5) [facility] Alicecardi[facility] assessment panel, [id number] 00:00:00 Test Item Value Reference Range Interpretation Comments interpretation (test code = note interpretation) pdf image (test code = pdf image) . [facility] Alicediabetes patient [id number] 00:00:00 Test Item Value Reference Range Interpretation Comments pdf image (test code = pdf not applicable image) [facility] AliceFree T4 and TSH panel - Serum or [id number] 00:00:00 Test Item Value Reference Range Interpretation Comments Thyrotropin [Units/volume] in 3.600 uIU/mL 0.450-4.500 Serum or Plasma by Detection limit <= 0.005 mIU/L (test code = 11657-1) Thyroxine (T4) free 1.11 NG/dL 0.82-1.77 [Mass/volume] in Serum or Plasma (test code = 3024-7) [facility] AliceCBC [facility] Auto Differential [facility] - Blood 2019-12-28 [...] = 706-2) immature cells (test code = crnp immature cells) Neutrophils [#/volume] in Blood 4.6 [...] Blood by Automated count (test code = 52326-7) Immature granulocytes 0.0 x10e3/uL 0.0-0.1 [#/volume] in Blood by Automated count (test code = 02035-2) Nucleated erythrocytes/100 crnp leukocytes [Ratio] in Blood by Automated count (test code = 91603-2) Morphology [Interpretation] in crnp Blood Narrative (test code = 23613-9) [facility] ProgramComprehensive metabolic 2000 panel - Serum or [id number] 00:00:00 Test Item Value Reference Range Interpretation [...] by Creatinine-based formula (CKD-EPI) (test code = 81454-4) Glomerular filtration 88 mL/min/1.73 >59 rate/1.73 sq M.predicted among blacks [Volume Rate/Area] in Serum, Plasma or Blood by Creatinine-based formula (CKD-EPI) (test code = 94328-6) Urea nitrogen/Creatinine [Mass 15 10-24 Ratio] in [...] mg/dL 8.6-10.2 or Plasma (test code = 68514-1) Protein [Mass/volume] in Serum 7.0 g/dL 6.0-8.5 or Plasma (test code = 2885-2) Albumin [Mass/volume] in Serum 4.4 g/dL 3.8-4.8 or Plasma (test code = 1751-7) Globulin [Mass/volume] in 2.6 g/dL 1.5-4.5 Serum by calculation (test code = 35382-2) Albumin/Globulin [Mass Ratio] 1.7 1.2-2.2 in Serum or Plasma (test code = 1759-0) Bilirubin.total [Mass/volume] 0.9 mg/dL 0.0-1.2 in Serum or Plasma (test code = 1974-) Alkaline phosphatase 76 IU/L 39-117 [Enzymatic activity/volume] in Serum or Plasma (test code = 6768-6) Aspartate aminotransferase 34 IU/L 0-40 [Enzymatic activity/volume] in Serum or Plasma (test code = 1920-8) Alanine aminotransferase 41 IU/L 0-44 [Enzymatic activity/volume] in Serum or Plasma (test code = 1742-6) [facility] - Serum or Plasma 2019-12-28 00:00:00 Test Item Value Reference Range Interpretation Comments Cholesterol [Mass/volume] in Serum 107 mg/dL 100-199 or Plasma (test code = 2092-3) Triglyceride [Mass/volume] in Serum 233 mg/dL 0-149 H or Plasma (test code = 2571-8) Cholesterol in HDL [Mass/volume] in 34 mg/dL >39 L Serum or Plasma (test code = 2084-9) Cholesterol in VLDL [Mass/volume] 47 mg/dL 5-40 H in Serum or Plasma by calculation (test code = 72073-4) Cholesterol in LDL [Mass/volume] in 26 mg/dL 0-99 Serum or Plasma by calculation (test code = 58656-5) Laboratory comment [Text] in Report crnp Narrative (test code = 09733-1) [facility] AliceHemoglobin A1c/Hemoglobin.total in [id number] 00:00:00 Test Item Value Reference Range Interpretation Comments Hemoglobin A1c/Hemoglobin.total in 11.3 % 4.8-5.6 H Blood (test code = 4548-4) Glucose mean value [Mass/volume] in 278 mg/dL Blood Estimated from glycated hemoglobin (test code = 34622-5) [facility] AliceProstate specific Ag [Mass/volume] in Serum or [id number] 00:00:00 Test Item Value Reference Range Interpretation Comments Prostate specific Ag [Mass/volume] 0.3 NG/mL 0.0-4.0 in Serum or Plasma (test code = 2857-1) [facility]25-Hydroxyvitamin D2+25- Hydroxyvitamin D3 [Mass/volume] in Serum or [id number] 00:00:00 Test Item Value Reference Range Interpretation Comments 25-Hydroxyvitamin 25.6 NG/mL 30.0-100.0 L D2+25-Hydroxyvitamin D3 [Mass/volume] in Serum or Plasma (test code = 79950-6) [facility] AliceHepatitis C virus Ab Signal/Cutoff in Serum or Plasma by [id number] 00:00:00 Test Item Value Reference Range Interpretation Comments Hepatitis C virus Ab Signal/Cutoff in <0.1 0.0-0.9 Serum or Plasma by Immunoassay (test code = 38100-9) [facility] - Serum or Plasma 2019-06-05 [...] or Plasma by calculation (test code = 24682-0) Cholesterol.total/Cholestero 7.1 (calc) <5.0 H l.in HDL [Mass ratio] in Serum or Plasma (test code = 9830-1) Cholesterol non HDL 184 mg/dL (calc) <130 H [Mass/volume] in Serum or Plasma (test code = 51171-0) [facility] AliceCom[facility] 2000 panel - Serum or [id number] 00:00:00 Test Item Value Reference Range Interpretation Comments Glucose [Mass/volume] in 326 mg/dL 65-139 H Serum or Plasma (test code = 2345-7) Urea nitrogen [Mass/volume] 16 mg/dL 7-25 in Serum or Plasma (test code = 3094-0) Creatinine [Mass/volume] in 0.81 mg/dL 0.70-1.25 Serum or Plasma (test code = 2160-0) eGFR non-afr. zambian 93 mL/min/1.73m2 > or = 60 (test code = eGFR non-afr. zambian) Glomerular filtration 108 mL/min/1.73m2 > or = 60 rate/1.73 sq M predicted among blacks by Creatinine-based formula (MDRD) (test code = 82881-7) Urea nitrogen/Creatinine not applicable 6-22 [Mass Ratio] in Serum or Plasma (test code = 3097-3) Sodium [Moles/volume] in 138 mmol/L 135-146 Serum or Plasma (test code = 2951-2) Potassium [Moles/volume] in 4.6 mmol/L 3.5-5.3 Serum or Plasma (test code = 2823-3) Chloride [Moles/volume] in 102 mmol/L 98-110 Serum or Plasma (test code = 2075-0) Carbon dioxide, total 27 mmol/L 20-32 [Moles/volume] in Serum or Plasma (test code = 2027-9) Calcium [Mass/volume] in 9.5 mg/dL 8.6-10.3 Serum or Plasma (test code = 10066-7) Protein [Mass/volume] in 6.5 g/dL 6.1-8.1 Serum or Plasma (test code = 2885-2) Albumin [Mass/volume] in 3.9 g/dL 3.6-5.1 Serum or Plasma (test code = 1751-7) Globulin [Mass/volume] in 2.6 g/dL (calc) 1.9-3.7 Serum by calculation (test code = 28474-9) Albumin/Globulin [Mass 1.5 (calc) 1.0-2.5 Ratio] in Serum or Plasma (test code = 1759-0) Bilirubin.total 0.5 mg/dL 0.2-1.2 [Mass/volume] in Serum or Plasma (test code = 1975-2) Alkaline phosphatase 91 U/L 40-115 [Enzymatic activity/volume] in Serum or Plasma (test code = 6768-6) Aspartate aminotransferase 20 U/L 10-35 [Enzymatic activity/volume] in Serum or Plasma (test code = 1920-8) Alanine aminotransferase 23 U/L 9-46 [Enzymatic activity/volume] in Serum or Plasma (test code = 1742-6) [facility] AliceThyrotropin [Units/volume] in Serum or [id number] 00:00:00 Test Item Value Reference Range Interpretation Comments Thyrotropin [Units/volume] in 1.16 mIU/L 0.40-4.50 Serum or Plasma (test code = 3016-3) [facility] AliceHem[facility] A1c/Hemoglobin.total in [id number] 00:00:00 Test Item Value Reference Range Interpretation Comments Hemoglobin 10.2 % of total HGB <5.7 H A1c/Hemoglobin.total in Blood (test code = 4548-4) Glucose mean value 246 (calc) [Mass/volume] in Blood Estimated from glycated hemoglobin (test code = 50183-4) Glucose mean value 13.6 (calc) [Moles/volume] in Blood Estimated from glycated hemoglobin (test code = 29258-4) [facility] AliceLipid [id number] 19:14:00 Test Item Value Reference Range Interpretation Comments Cholesterol (test 180 mg/dL 0-200 N code = CHOL) Triglycerides (test 190 mg/dL 9-200 N code = TRIG) HDL (test code = 39 mg/dL 40-60 L HDL) Chol/HDL (test code 4.6 Ratio 0.0-5.0 N = CHOLPHDL) LDL, Calculated 103 mg/dL 0-130 N (NOTE)RISK O F HEART (test code = LDLC) DISEASEPu blished by [place] Heart AssociationAnal yte Optim al Boderline Increased RiskC HOL <200 200-239 >240TRI G <150 150-199 >200HDL Male: >60 <40HDL Female: >60 <50 LDL < 100 130-15 9 >160 LDL NEAR OPTIMAL IS 100- 129 VLDL (test code = 38 mg/dL 5-40 N VLDL) LDL/HDL (test code = 3 LDLPHDL) B-Type Natriuretic [id number] 11:54:00 Test Item Value Reference Range Interpretation Comments B-Type Natriuretic Peptide (test 52.6 pg/mL 0.0-100.0 N code = 752150) Glycosylated [id number] 00:07:00 Test Item Value Reference Range Interpretation Comments HBA1c (test code = HBA1C) 11.3 % 4.8-5.9 H CBC with [id number] 22:52:00 Test Item Value Reference Range Interpretation [...] code = ALYMPH) 2.1 K/cumm 0.5-4.6 N [place] Abs (test code = AMONO) 0.4 K/cumm 0.0-1.2 N Eos Abs (test code = AEOS) 0.23 K/cumm 0.00-0.74 N Baso Abs (test code = ABASO) 0.0 K/cumm 0.00-0.21 N Vitamin [id number] 21:45:00 Test Item Value Reference Range Interpretation Comments Vitamin B 12 (test code = VITB12) 797 pg/mL 211-946 N CK [id number] 21:39:00 Test Item Value Reference Range Interpretation Comments CK (test code = CK) 119 U/L 39-308 N CKMB (test code = CKMB) 1.9 ng/mL 0.0-4.9 N CKMB% (test code = CKMBP) 1.6 % 0.0-3.4 N Lipid [id number] 21:39:00 Test Item Value Reference Range Interpretation Comments Cholesterol (test 169 mg/dL 0-200 N code = CHOL) Triglycerides (test 211 mg/dL 9-200 H code = TRIG) HDL (test code = 42 mg/dL 40-60 N HDL) Chol/HDL (test code 4.0 Ratio 0.0-5.0 N = CHOLPHDL) LDL, Calculated 85 0-130 N (NOTE)RISK O F HEART (test code = LDLC) DISEASEPu blished by [place] Heart AssociationAnal yte Optim al Boderline Increased RiskC HOL <200 200-239 >240TRI G <150 150-199 >200HDL Male: >60 <40HDL Female: >60 <50 LDL < 100 130-15 9 >160 LDL NEAR OPTIMAL IS 100- 129 VLDL (test code = 42 mg/dL 5-40 H VLDL) LDL/HDL (test code = 2 LDLPHDL) Troponin [id number] 21:39:00 Test Item Value Reference Range Interpretation Comments Troponin T (test code = PARESH) <0.010 ng/mL 0.000-0.090 N Testosterone, [id number] 21:39:00 Test Item Value Reference Range Interpretation Comments Testosterone, Total (test code = 3.81 ng/mL 2.80-8.00 N TESTOS) Thyroid Stimulating Hormone (TSH)2017-02-18 21:39:00 Test Item Value Reference Range Interpretation Comments TSH (test code = TSH) 2.04 mIU/mL 0.270-4.200 N Comprehensive Metabolic [id number] 21:39:00 Test Item Value Reference Range Interpretation [...] validated by th e MDRD study and reginaldul d be interpretedwith caution.eGFR Re sult Interpretation: eGFR > or = 60 is in t he Normal RangeeGF R < 60 may mean kidney diseaseeGFR < 1 5 may mean kidney failureRange s recommended by the National Kidney Foundation,http ://nkd ep.nih.gov CK [id number] 21:39:00 Test Item Value Reference Range Interpretation Comments CK (test code = CK) 119 U/L 39-308 N
[2021-02-22 15:45] LABS: Absolute Lymphocytes (CBC) 1.8 K/uL (0.7-4.9); Basophils % 0.7 % (0-1.3); Hematocrit 43.2 % (39.6-49.0); Lymphocytes % 20.1 % (15.3-44.8); MPV 8.6 fL (7.6-11.3)
[2021-02-22 15:53] LABS: Protime INR 1.21
--- NOTE | 2021-02-22 16:09 | RAD REPORT ---
EXAM DESCRIPTION: CT - Head Brain Wo Cont - 02/22/2021 3:50 pm CLINICAL HISTORY: cva COMPARISON: Head angio dated 02/22/2021 TECHNIQUE: Axial 5 mm thick images of the head were obtained without IV contrast. All CT scans are performed using dose optimization technique as appropriate and may include automated exposure control or mA/KV adjustment according to patient size. FINDINGS: No intracranial hemorrhage, mass, edema or shift of mid-line structures. No acute cortical infarction identified. No cortical sulcal effacement. Patient has mild to moderate atrophy with vent ricles in proportion. No abnormal extra-axial fluid collections. Mild to moderate chronic ischemic ch anges are seen in the cerebral white matter. There are basal ganglia and brainstem chronic ischemic i nsults as well. Dense arterial tree calcifications are present. Mastoid air cells are clear. Mucosal thickening and air-fluid level present in the left maxillary sin us. No acute bony findings. IMPRESSION: No hemorrhage or acute intracranial finding identifiable. Atrophy and chronic ischemic changes are present up to moderate in severity. Ventricles are in propor tion to volume loss. Chronic ischemic insults involve cerebral white matter, basal ganglia and brains tem. Chronic ischemic change can mask nonhemorrhagic CVA. Follow-up MR imaging could be performed if the p atient has any TIA/CVA findings.
[2021-02-22 16:11] LABS: ALT/SGPT 21 U/L (12-78); AST/SGOT 12 U/L (15-37); Alkaline Phosphatase 73 U/L (45-117); BUN Blood Urea Nitrogen 20 mg/dL (7-18); Bicarbonate 29 mmol/L (21-32); Bilirubin Direct 0.2 mg/dL (0-0.2); Bilirubin Total 0.9 mg/dL (0.2-1.0); Glucose Level 187 mg/dL (74-106); Magnesium 2.2 mg/dL (1.8-2.4); NT PRO-BNP 82 pg/mL (<125); Potassium 4.5 mmol/L (3.5-5.1); Protein, Total 7.8 g/dL (6.4-8.2); Sodium Level 140 mmol/L (136-145); Troponin (Emerg Dept Use Only) < 0.02 ng/mL (0.0-0.045)
--- NOTE | 2021-02-22 16:13 | RAD REPORT ---
EXAM DESCRIPTION: CT - Head angio - 02/22/2021 3:50 pm CLINICAL HISTORY: cva TECHNIQUE: During dynamic enhancement using nonionic IV contrast, axial 1 millimeter thick images of the head were obtained. Sagittal and axial reconstruction images were generated using MIP technique and reviewed. All CT scans are performed using dose optimization technique as appropriate and may include automated exposure control or mA/KV adjustment according to patient size. COMPARISON: CT head same date FINDINGS: No aneurysm or vascular malformation identified. Major venous sinuses are patent. No named branch occlusion, stenosis or vasculitis findings. Arterial atherosclerotic calcifications a re present along the florian of each internal carotid artery in the cavernous and supraclinoid portions as well as in the distal vertebral arteries. These changes do not cause significant degrees of lumin al narrowing. IMPRESSION: Distal vertebral and distal internal carotid artery atherosclerotic calcifications not causing significant luminal narrowing. No named branch occlusion or other emergent finding identified. No significant findings of the anterior, middle or posterior cerebral artery distributions.
--- NOTE | 2021-02-22 16:16 | RAD REPORT ---
EXAM DESCRIPTION: CT - Neck Angio - 02/22/2021 3:50 pm CLINICAL HISTORY: cva TECHNIQUE: During dynamic enhancement using nonionic IV contrast, axial 2 mm thick images of the nec k were obtained. Sagittal and axial reconstruction images were generated using MIP technique and revi ewed. All CT scans are performed using dose optimization technique as appropriate and may include automated exposure control or mA/KV adjustment according to patient size. COMPARISON: CT head same date, CTA head same date FINDINGS: No aneurysm or vascular malformation identified. No carotid or vertebral dissection. Aortic arch is bovine configuration normal variant. Prominent calcifications are present at the origi n of the right subclavian artery without significant luminal narrowing. Prominent calcifications at t he right vertebral artery origin present without significant luminal narrowing. Vertebral artery orig ins unremarkable as well. No stenosis, vasculitis or other significant carotid artery finding. Athero sclerotic calcifications of each carotid bulb do not cause significant luminal narrowing. No focal ab normality of either vertebral artery. Basilar artery is normal. IMPRESSION: Negative CT angio neck examination for acute or significant finding.
--- NOTE | 2021-02-22 16:59 | EDPHYS ---
Physician Documentation [facility] Name: Marquise Knight Age: 65 yrs Sex: Male : 1955 Arrival Date: 02/22/2021 Time: 14:29 Bed 20 Private MD: ED Physician Maik Gutierrez HPI: 02/22 16:39 This 65 yrs old Male presents to ER via EMS with complaints of Fall jr8 Injury/Weakness. 16:39 Onset: The symptoms/episode began/occurred acutely, 2 day(s) ago. Duration: This was a jr8 single incident. Context: the episode(s) was witnessed, by family, occurred at home, occurred while the patient was working. The symptoms are alleviated by nothing. The symptoms are aggravated by walking. Associated signs and symptoms: Pertinent positives: numbness. Severity of symptoms: At their worst the symptoms were moderate in the emergency department the symptoms are unchanged. Patient's baseline: Neuro: alert and fully oriented, Motor: no deficits, Ambulation: walks without assistance, Speech: normal. The patient has not experienced similar symptoms in the past. The patient has not recently seen a physician. 16:53 Patient was working outside when he started to feel weak on right side of body. Had jr8 some n/v/d as well which resolved but weakness continued. Stated that he was seen by another ER in the [facility] at that time and had CT of his head along with echo of his heart and blood work. No significant findings. Could not do MRI due to pacemaker. Over the next 24 hours had evolution of weakness now to the point where he can no longer lift his arm or leg on right side. Came here today for further evaluation . Historical: - Allergies: 14:35 No Known Allergies; rb3 - Home Meds: 14:35 atorvastatin 40 mg Oral tab 1 tab once daily [Active]; clonazepam 0.5 mg Oral TbDL 1 rb3 tab 2 times per day [Active]; Dexilant 60 mg Oral CpDB 1 cap once daily [Active]; Eliquis 5 mg Oral tab 1 tab 2 times per day [Active]; escitalopram oxalate 20 mg Oral tab 1 tab once daily [Active]; furosemide 20 mg Oral tab 1 tab once daily [Active]; galantamine 12 mg Oral tab 1 tab 2 times per day [Active]; Humalog Mix 75-25 100 unit/mL (75-25) Sub-Q susp [Active]; hydrochlorothiazide 25 mg Oral tab 1 tab once daily [Active]; lisinopril 20 mg Oral tab 1 tab once daily [Active]; metformin 1,000 mg Oral tab 1 tab 2 times per day [Active]; ondansetron HCl 8 mg Oral tab 1 tab [Active]; potassium chloride 10 mEq Oral cpER 1 cap once daily [Active]; sotalol 80 mg Oral tab 1 tab 2 times per day [Active]; tamsulosin 0.4 mg Oral cp24 1 cap once daily [Active]; Toujeo SoloStar 300 unit/mL (1.5 mL) subcutaneous inpn [Active]; - PMHx: 14:35 Alzheimers; CVA; Diabetes - IDDM; Diabetes - NIDDM; High Cholesterol; Hypertension; rb3 - Immunization history:: Adult Immunizations up to date. - Social history:: Smoking status: Patient/guardian denies using. ROS: 16:53 Eyes: Negative for injury, pain, redness, and discharge, ENT: Negative for injury, jr8 pain, and discharge, Neck: Negative for injury, pain, and swelling, Cardiovascular: Negative for chest pain, palpitations, and edema, Respiratory: Negative for shortness of breath, cough, wheezing, and pleuritic chest pain, Abdomen/GI: Negative for abdominal pain, nausea, vomiting, diarrhea, and constipation, Back: Negative for injury and pain, MS/Extremity: Negative for injury and deformity, Skin: Negative for injury, rash, and discoloration. 16:53 Neuro: Positive for numbness, weakness. Exam: 16:53 Radiologist reports: No acute ischemic or hemorrhagic findings jr8 16:53 Constitutional: This is a well developed, well nourished patient who is awake, alert, and in no acute distress. Eyes: Pupils equal round and reactive to light, extra-ocular motions intact. Lids and lashes normal. Conjunctiva and sclera are non-icteric and not injected. Cornea within normal limits. Periorbital areas with no swelling, redness, or edema. ENT: Nares patent. No nasal discharge, no septal abnormalities noted. Tympanic membranes are normal and external auditory canals are clear. Oropharynx with no redness, swelling, or masses, exudates, or evidence of obstruction, uvula midline. Mucous membranes moist. Neck: Trachea midline, no thyromegaly or masses palpated, and no cervical lymphadenopathy. Supple, full range of motion without nuchal rigidity, or vertebral point tenderness. No Meningismus. Cardiovascular: Regular rate and rhythm with a normal S1 and S2. No gallops, murmurs, or rubs. Normal PMI, no JVD. No pulse deficits. Respiratory: Lungs have equal breath sounds bilaterally, clear to auscultation and percussion. No rales, rhonchi or wheezes noted. No increased work of breathing, no retractions or nasal flaring. Abdomen/GI: Soft, non-tender, with normal bowel sounds. No distension or tympany. No guarding or rebound. No evidence of tenderness throughout. Back: No spinal tenderness. No costovertebral tenderness. Full range of motion. Skin: Warm, dry with normal turgor. Normal color with no rashes, no lesions, and no evidence of cellulitis. 16:53 Neuro: Orientation: to person, place, time \T\ situation. Mentation: is normal, Memory: is normal, immediate memory is intact, recent memory is intact, remote memory is intact, Cranial nerves: CN I not tested, CN II- XII are normal as tested, visual killian are intact. extraocular movements are intact, facial droop noted on right, Nystagmus is absent. Speech is clear and appropriate. Tongue strength is normal, Motor: moves all fours, Strength is 2/5 in the right arm and right leg, Sensation: numbness, that is mild, of the face, right arm and right leg, seizure activity, is not displayed by the patient, Abnormal movements: there are no abnormal movements. Vital Signs: 14:35 BP 119 / 68; Pulse 71; Resp 17; Temp 97.9; Pulse Ox 98% ; Weight 106.14 kg; Height 5 rb3 ft. 9 in. (175.26 cm); Pain 0/10; 15:30 BP 104 / 69; Pulse 73; Resp 15; Pulse Ox 97% ; rb3 16:30 BP 156 / 81; Pulse 65; Resp 17; Pulse Ox 95% ; rb3 17:30 BP 129 / 68; Pulse 63; Resp 14; Pulse Ox 98% ; rb3 18:30 BP 142 / 71; Pulse 66; Resp 15; Pulse Ox 98% ; rb3 19:22 BP 145 / 81; Pulse 62; Resp 18; Pulse Ox 100% on R/A; ak2 20:31 BP 139 / 75; Pulse 65; Resp 18; Pulse Ox 98% on R/A; ak2 14:35 Body Mass Index 34.56 (106.14 kg, 175.26 cm) rb3 NIH Stroke Scale Scores: 16:53 NIHSS Score: 8 8 MDM: 14:43 Patient medically screened. 16:53 Data reviewed: vital signs, nurses notes, lab test result(s), EKG, radiologic studies, jr8 CT scan. Data interpreted: Pulse oximetry: on room air is 97 %. Interpretation: normal. Counseling: I had a detailed discussion with the patient and/or guardian regarding: the historical points, exam findings, and any diagnostic results supporting the discharge/admit diagnosis, lab results, radiology results, the need to transfer to another facility, for higher level of care. ED course: Spoke with Dr. Nixon about case. Would like to see if we can transfer to get MRI at [facility]. Spoke with [facility] who accepted . 18:26 ED course: [facility] called back and accepted but at this time had to decline do to [facility] nursing availability for neuro telemetry . 18:58 ED course: [facility] consulted and accepted patient . 02/22 15:00 Order name: Basic Metabolic Panel; Complete Time: 16:20 02/22 15:00 Order name: CBC with Diff; Complete Time: 16:20 02/22 15:00 Order name: LFT's; Complete Time: 16:20 02/22 15:00 Order name: Magnesium; Complete Time: 16:20 02/22 15:00 Order name: NT PRO-BNP; Complete Time: 16:20 02/22 15:00 Order name: PT-INR; Complete Time: 16:20 02/22 15:00 Order name: Troponin (emerg Dept Use Only); Complete Time: 16:20 02/22 15:00 Order name: CT Head Brain wo Cont; Complete Time: 16:20 02/22 15:00 Order name: CT Head Angio; Complete Time: 16:20 02/22 15:00 Order name: CT Neck Angio; Complete Time: 16:20 [facility] 02/22 15:42 Order name: CREATININE WHOLE BLOOD; Complete Time: 16:20 [facility] 02/22 19:47 Order name: SARS-COV-2 RT PCR; Complete Time: 19:53 [facility] 02/22 15:00 Order name: EKG; Complete Time: 15:02 [facility] 02/22 15:00 Order name: Cardiac monitoring; Complete Time: 19:24 [facility] 02/22 15:00 Order name: EKG - Nurse/Tech [facility] 02/22 15:00 Order name: IV Saline Lock; Complete Time: 15:37 8 02/22 15:00 Order name: Labs collected and sent; Complete Time: 15:37 [facility] 02/22 15:00 Order name: O2 Per Protocol; Complete Time: 15:37 [facility] 02/22 15:00 Order name: O2 Sat Monitoring; Complete Time: 15:37 jr Administered Medications: 16:20 Drug: foLIC Acid 1 mg Route: IVPB; Site: right antecubital; rb3 17:42 Drug: NS 0.9% 500 ml Route: IV; Rate: bolus; Site: right antecubital; rb3 18:11 Follow up: IV Status: Completed infusion rb3 18:20 Drug: Aspirin 81 mg Route: PO; rb3 18:55 Follow up: Response: No adverse reaction rb3 19:35 Drug: NS 0.9% 1000 ml Route: IV; Rate: 75 ml/hr; Site: right antecubital; ak2 19:35 Drug: NS 0.9% 500 ml Route: IV; Rate: bolus; Site: right antecubital; ak2 Disposition: 02/23 07:34 Co-signature as Attending Physician, Maik Gutierrez MD I agree with the assessment and shu plan of care. Disposition Summary: 02/22/21 16:58 Transfer Ordered Transfer Location: [facility] jr8 Reason: Higher level of care jr8 Condition: Fair jr8 Problem: new jr8 Symptoms: are unchanged jr8 Accepting Physician: [facility](02/22/21 20:33) ak2 Diagnosis - Cerebral infarction, unspecified jr8 Forms: - Medication Reconciliation Form jr8 - SBAR form jr8 NIH Stroke Scale - NIH Stroke Score Date: 02/22/2021 Time: 16:53 Total Score = 8 1a. Level of Consciousness (LOC) - 0(Alert) 1b. Level of Consciousness (LOC) (Month \T\ Age) - 0(Both) 1c. 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 Best Gaze (Lateral Gaze Paresis) - 0(Normal) 3. Visual Field Loss - 0(No visual loss) 4. Facial Palsy - 1(Minor Paralysis) 5a. Left Arm: Motor (10-second hold) - 0(No drift) 5b. Right Arm: Motor (10-second hold) - 3(No effort against gravity) 6a. Left Leg: Motor (5-second hold - always test supine) - 0(No drift) 6b. Right Leg: Motor (5-second hold - always test supine) - 3(No effort against gravity) 7. Limb Ataxia (finger/nose \T\ heel/khan - test with eyes open) - 0(Absent) 8. Sensory Loss (pinprick arms/legs/face) - 1(Mild to moderate loss) 9. Best Language: Aphasia (description/naming/reading) - 0(No aphasia) 10. Dysarthria (speech clarity - read or repeat words) - 0(Normal) 11. Extinction and Inattention (visual/tactile/auditory/spatial/personal) - 0(No abnormality) Initials: jrJessica Signatures: Dispatcher [employer] EDMS Maik Gutierrez MD MD cha Roszak, Josh, PA PA jr8 Sussy Polk, RN RN rb3 Gregorio Lundberg ak2 Corrections: (The following items were deleted from the chart) 02/22 18:50 17:39 CORONAVIRUS+.LAB.BRZ ordered. EDSC EDMS 20:33 16:58 [facility] jr8 ak2
--- NOTE | 2021-02-22 16:59 | ER ---
Nurse's Notes [facility] Name: Marquise Knight Age: 65 yrs Sex: Male : 1955 Arrival Date: 02/22/2021 Time: 14:29 Bed 20 Private MD: Diagnosis: Cerebral infarction, unspecified Presentation: 02/22 14:35 Chief complaint: EMS states: 66 yr. old male, had stroke like symptoms two days ago, rb3 went to [place] but they could not do an MRI due to the pt having a constant pacemaker. Right sided deficits noted. Fell from a standing position at home at 1400, denies hitting head or LOC. BP 154/82, P 75, P2 100%. 18 G R AC. Coronavirus screen: nausea. Ebola Screen: Patient denies exposure to infectious person. Initial Sepsis Screen: Does the patient meet any 2 criteria? No. Patient's initial sepsis screen is negative. Does the patient have a suspected source of infection? No. Patient's initial sepsis screen is negative. Risk Assessment: Do you want to hurt yourself or someone else? Patient reports no desire to harm self or others. Onset of symptoms was February 20, 2021. 14:35 Method Of Arrival: EMS: [facility] rb3 14:35 Acuity: AMY 3 rb3 Triage Assessment: 14:35 General: Appears in no apparent distress. Behavior is calm, cooperative, Denies fever. rb3 Pain: Denies pain. Neuro: Level of Consciousness is awake, alert, obeys commands, Oriented to person, place, time, situation, Counter Professional are weak on right Weakness in right arm(s) leg(s) Gait is Speech is normal, Facial symmetry appears normal, Reports numbness in right arm and right leg weakness in right arm and right leg. Cardiovascular: Capillary refill < 3 seconds Patient's skin is warm and dry. Respiratory: Airway is patent Respiratory effort is even, unlabored, Respiratory pattern is regular, symmetrical. GI: Reports nausea. : No signs and/or symptoms were reported regarding the genitourinary system. Musculoskeletal: right sided deficit. Historical: - Allergies: 14:35 No Known Allergies; rb3 - Home Meds: 14:35 atorvastatin 40 mg Oral tab 1 tab once daily [Active]; clonazepam 0.5 mg Oral TbDL 1 rb3 tab 2 times per day [Active]; Dexilant 60 mg Oral CpDB 1 cap once daily [Active]; Eliquis 5 mg Oral tab 1 tab 2 times per day [Active]; escitalopram oxalate 20 mg Oral tab 1 tab once daily [Active]; furosemide 20 mg Oral tab 1 tab once daily [Active]; galantamine 12 mg Oral tab 1 tab 2 times per day [Active]; Humalog Mix 75-25 100 unit/mL (75-25) Sub-Q susp [Active]; hydrochlorothiazide 25 mg Oral tab 1 tab once daily [Active]; lisinopril 20 mg Oral tab 1 tab once daily [Active]; metformin 1,000 mg Oral tab 1 tab 2 times per day [Active]; ondansetron HCl 8 mg Oral tab 1 tab [Active]; potassium chloride 10 mEq Oral cpER 1 cap once daily [Active]; sotalol 80 mg Oral tab 1 tab 2 times per day [Active]; tamsulosin 0.4 mg Oral cp24 1 cap once daily [Active]; Toujeo SoloStar 300 unit/mL (1.5 mL) subcutaneous inpn [Active]; - PMHx: 14:35 Alzheimers; CVA; Diabetes - IDDM; Diabetes - NIDDM; High Cholesterol; Hypertension; rb3 - Immunization history:: Adult Immunizations up to date. - Social history:: Smoking status: Patient/guardian denies using. Screenin:35 Abuse screen: Denies threats or abuse. Nutritional screening: No deficits noted. rb3 Tuberculosis screening: No symptoms or risk factors identified. Fall Risk Fall in past 12 months (25 points). Secondary diagnosis (15 points) impaired mobility, CVA, IV access (20 points). Ambulatory Aid- None/Bed Rest/Nurse Assist (0 pts). Gait- Impaired (20 pts.). Mental Status- Oriented to own ability (0 pts). Total Ronquillo Fall Scale indicates High Risk Score (45 or more points). Fall prevention measures have been instituted. Side Rails Up X 2 Placed Close to Nursing Station 1:1 Attendant Assigned Frequent Obs/Assessments Occuring As available patient and family educated on Fall Prevention Program and Strategies. Assessment: 14:35 General: See triage assessment. rb3 15:30 Reassessment: Patient appears in no apparent distress at this time. No changes from rb3 previously documented assessment. 16:30 Reassessment: Patient appears in no apparent distress at this time. Patient and/or rb3 family updated on plan of care and expected duration. Pain level reassessed. Patient is alert, oriented x 3, equal unlabored respirations, skin warm/dry/pink. 17:30 Reassessment: Patient appears in no apparent distress at this time. No changes from rb3 previously documented assessment. Family at the bedside. 18:28 Reassessment: Patient appears in no apparent distress at this time. Patient and/or rb3 family updated on plan of care and expected duration. Pain level reassessed. Patient is alert, oriented x 3, equal unlabored respirations, skin warm/dry/pink. Patient denies pain at this time. 18:43 Reassessment: initiated transfer with [facility]. iw 19:28 General: report called to rn. ak2 Vital Signs: 14:35 BP 119 / 68; Pulse 71; Resp 17; Temp 97.9; Pulse Ox 98% ; Weight 106.14 kg; Height 5 rb3 ft. 9 in. (175.26 cm); Pain 0/10; 15:30 BP 104 / 69; Pulse 73; Resp 15; Pulse Ox 97% ; rb3 16:30 BP 156 / 81; Pulse 65; Resp 17; Pulse Ox 95% ; rb3 17:30 BP 129 / 68; Pulse 63; Resp 14; Pulse Ox 98% ; rb3 18:30 BP 142 / 71; Pulse 66; Resp 15; Pulse Ox 98% ; rb3 19:22 BP 145 / 81; Pulse 62; Resp 18; Pulse Ox 100% on R/A; ak2 20:31 BP 139 / 75; Pulse 65; Resp 18; Pulse Ox 98% on R/A; ak2 14:35 Body Mass Index 34.56 (106.14 kg, 175.26 cm) rb3 NIH Stroke Scale Scores: 16:53 NIHSS Score: 8 jr8 ED Course: 14:29 Patient arrived in ED. iw 14:35 Sussy Polk, RN is Primary Nurse. rb3 14:35 Patient has correct armband on for positive identification. Bed in low position. Call rb3 light in reach. Side rails up X2. Pulse ox on. NIBP on. Warm blanket given. 14:35 Arm band placed on right wrist. rb3 14:35 Maintain EMS IV. Dressing intact. Good blood return noted. Site clean \T\ dry. Gauge \T\ rb 3 site: 18 G R AC. 14:40 Triage completed. rb3 14:43 Papo Luis PA is PHCP. jr8 14:43 Maik Gutierrez MD is Attending Physician. jr8 15:35 Inserted saline lock: 22 gauge in left Blood collected. rb3 15:49 CT Head Brain wo Cont In Process Unspecified. EDMS 15:50 CT Head Angio In Process Unspecified. EDMS 15:50 CT Neck Angio In Process Unspecified. EDMS Administered Medications: 16:20 Drug: foLIC Acid 1 mg Route: IVPB; Site: right antecubital; rb3 17:42 Drug: NS 0.9% 500 ml Route: IV; Rate: bolus; Site: right antecubital; rb3 18:11 Follow up: IV Status: Completed infusion rb3 18:20 Drug: Aspirin 81 mg Route: PO; rb3 18:55 Follow up: Response: No adverse reaction rb3 19:35 Drug: NS 0.9% 1000 ml Route: IV; Rate: 75 ml/hr; Site: right antecubital; ak2 19:35 Drug: NS 0.9% 500 ml Route: IV; Rate: bolus; Site: right antecubital; ak2 Outcome: 16:58 ER care complete, transfer ordered by . jr8 20:32 Transferred by ground EMS to [facility]. ak2 20:32 Condition: good 20:33 Patient left the ED. ak2 NIH Stroke Scale - NIH Stroke Score Date: 02/22/2021 Time: 16:53 Total Score = 8 1a. Level of Consciousness (LOC) - 0(Alert) 1b. Level of Consciousness (LOC) (Month \T\ Age) - 0(Both) 1c. 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 Best Gaze (Lateral Gaze Paresis) - 0(Normal) 3. Visual Field Loss - 0(No visual loss) 4. Facial Palsy - 1(Minor Paralysis) 5a. Left Arm: Motor (10-second hold) - 0(No drift) 5b. Right Arm: Motor (10-second hold) - 3(No effort against gravity) 6a. Left Leg: Motor (5-second hold - always test supine) - 0(No drift) 6b. Right Leg: Motor (5-second hold - always test supine) - 3(No effort against gravity) 7. Limb Ataxia (finger/nose \T\ heel/khan - test with eyes open) - 0(Absent) 8. Sensory Loss (pinprick arms/legs/face) - 1(Mild to moderate loss) 9. Best Language: Aphasia (description/naming/reading) - 0(No aphasia) 10. Dysarthria (speech clarity - read or repeat words) - 0(Normal) 11. Extinction and Inattention (visual/tactile/auditory/spatial/personal) - 0(No abnormality) Initials: jr8 Signatures: Dispatcher [employer] Jennifer Mendosa, RN RN Papo Patterson PA PA jr8 Sussy Polk, RN RN rb3 Gregorio Lundberg2
[2021-02-22] MEDS ORDERED: FOLIC ACID 1 MG in NA CHLORIDE 0.9% 50 ML IV ONE (17:00)
[2021-02-22] MEDS ORDERED: NA CHLORIDE 0.9% 500 ML ONE ×2 (17:53→19:55)
[2021-02-22] MEDS ORDERED: ASPIRIN 81 MG CHEWABLE TABLET ONE (18:54)
[2021-02-22] MEDS ORDERED: NA CHLORIDE 0.9% 1,000 ML ONE (19:55)
[2021-02-22 20:48] VITALS: TEMP 97.9
[2021-02-22 20:57] VITALS: BP 139/75; O2SAT 98
--- NOTE | 2021-02-23 06:19 | EKG ---
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: ELVIRA MEASUREMENT RESULTS: Intervals: Rate: 66 ND: 212 QRSD: 154 QT: 510 QTc: 534 [place]: P: 14 ND: 212 QRS: -81 T: 80 INTERPRETIVE STATEMENTS: Sinus rhythm with sinus arrhythmia with 1st degree AV block Left axis deviation Right bundle branch block Possible Lateral infarct, age undetermined Inferior infarct, age undetermined Abnormal ECG Compared to ECG 05/08/2020 15:50:36 First degree AV block now present Right bundle-branch block now present Sinus bradycardia no longer present Myocardial infarct finding still present Electronically Signed On 02-23-21 06:17:47 CDT by Ronnell Hollis
== END 2021-02-22 20:33 | disposition short-term general hospital (02) ==
LOC: ER 14:25
DX: I63.9 Cerebral infarction, unspecified (principal); R29.708 NIHSS score 8; I10 Essential (primary) hypertension; E11.9 Type 2 diabetes mellitus without complications; E78.00 Pure hypercholesterolemia, unspecified; G30.9 Alzheimer's disease, unspecified; F02.80 Dementia in other diseases classified elsewhere, unspecified severity, without behavioral disturbance, psychotic disturbance, mood disturbance, and anxiety; Z79.01 Long term (current) use of anticoagulants; Z79.4 Long term (current) use of insulin; Z95.0 Presence of cardiac pacemaker; Z20.822 Contact with and (suspected) exposure to COVID-19
CPT/HCPCS: 93005; 85025; 80048; 36415; 83735; 85610; 82565; 80076; 84484; 83880; 70450; 70496; 70498; 96374; 99285; U0003; Q9967; J7040 ×2; J7030

== ENCOUNTER 2021-10-03 07:23 | Day surgery (SDC) | payer OTHER, MEDICARE ==
[2021-10-03] MEDS ORDERED: NA CHLORIDE 0.9% 1,000 ML ONE (07:43)
[2021-10-03 08:44] VITALS: O2SAT 97
[2021-10-03] MEDS ORDERED: propofoL 200 MG/20 ML VIAL IV ONE (09:35)
[2021-10-03] MEDS ORDERED: LIDOCAINE 1% MPF 5 ML VIAL ONE (09:35)
--- NOTE | 2021-10-03 10:04 | ENDO RPT ---
[address], [address] EGD PROCEDURE REPORT EXAM DATE: 10/03/2021 PATIENT NAME: Marquise Knight MR#: [id number] BIRTHDATE: 1955 ATTENDING: Dwayne Rhoades Dr STATUS: outpatient DIRECTOR GIFT: Mone Rosa and Ni Pandya RN INDICATIONS: The patient is a 66 yr old Male here for an EGD due to mid epigastric abdominal pain, nausea and vomiting, GERD, heartburn, and weight loss PROCEDURE PERFORMED: EGD with biopsy MEDICATIONS: Per Anesthesia. TOPICAL ANESTHETIC: none CONSENT: The patient understands the risks and benefits of the procedure and understands that these risks include, but are not limited to: sedation, allergic reaction, infection, perforation and/or bleeding. Alternative means of evaluation and treatment include, among others: physical exam, x-rays, and/or surgical intervention. The patient elects to proceed with this endoscopic procedure. DESCRIPTION OF PROCEDURE: During intra-op preparation period all mechanical medical equipment was checked for proper function. Hand hygiene and appropriate measures for infection prevention was taken. Procedure, possible complications, and alternatives including but not limited to the possibility of bleeding, perforation, tear, infection, sepsis, need for surgery, need for blood transfusion, and anesthesia related complications were explained to the patient. After the risks, benefits and alternatives of the procedure were thoroughly explained, Informed consent was verified, confirmed and timeout was successfully executed by the treatment team. The patient was placed in the left lateral position. The patient was anesthetized with topical anesthesia. Through the anesthetized oropharyngeal area, the scope was passed without any difficulty. The [id number] ([id number]) endoscope was introduced through the mouth and advanced to the second portion of the duodenum. Retroflexed views revealed a small hiatal hernia. The gastroscope was then slowly withdrawn and removed. LA class A esophagitis was found in the lower esophagus. A small hiatal hernia was found. Mild gastritis was found in the body and the antrum of the stomach. Multiple biopsies were obtained and sent to pathology. Nodular mucosa was found in the body of the stomach. Multiple biopsies were obtained and sent to pathology. Mild duodenitis was found in the bulb and descending duodenum. ADVERSE EVENTS: There were no complications. IMPRESSIONS: 1. LA class A esophagitis in the lower esophagus 2. Small hiatal hernia 3. Mild gastritis in the body and the antrum of the stomach 4. Nodular mucosa in the body of the stomach 5. Mild duodenitis in the bulb and descending duodenum RECOMMENDATIONS: 1. await biopsy results 2. acid suppression therapy REPEAT EXAM: Dwayne Rhoades Dr eSigned: Dwayne Rhoades Dr 10/03/2021 10:04 AM cc: CPT CODES: ICD9 CODES: PATIENT NAME: Marquise Knight MR#: [id number]
[2021-10-03 10:54] VITALS: BP 106/62; TEMP 97.7
== END 2021-10-03 10:46 | disposition home or self-care (01) ==
LOC: OR 07:23
PROVIDERS: ATTEND Internal Medicine Gastroenterology
PROC: 0DB68ZX Excision of Stomach, Via Natural or Artificial Opening Endoscopic, Diagnostic (ICD-10-PCS; principal; 2021-10-03 09:00)
DX: K20.90 Esophagitis, unspecified without bleeding (principal); K29.50 Unspecified chronic gastritis without bleeding; K21.9 Gastro-esophageal reflux disease without esophagitis; R12 Heartburn; R63.4 Abnormal weight loss; R11.2 Nausea with vomiting, unspecified; K44.9 Diaphragmatic hernia without obstruction or gangrene; K29.80 Duodenitis without bleeding
CPT/HCPCS: 88312; 88305; 43239; J2704; J7030